=== PATIENT | male | born 1940 | race Caucasian/White ===

== ENCOUNTER 2016-10-18 14:04 | Outpatient (RCR) | payer MEDICARE, MEDICAID ==
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
[~2016-10-18 14:04] MED LIST: ACET325T38 PO; AGM875T PO; ALBU8.5H2 IH; ALLO100T PO; ALLO300T2 PO; ALLOPURINOL; ALPR0.25 PO; AMLO10TA PO; AMLO10TA2 PO; CEPH500C PO; CNC1KV IJ; COLC0.6C3 PO; CYAN10006 PO; DIGO125T PO; DIGO250T PO; DIGO250T15 PO; DILT180C PO; DILT180T PO; FERR-57 PO; FERR220S14 PO; FOLI1TAB24 PO; FOLIC ACID PO; FURO20TA4 PO; Ferrous Sulfate; Folic Acid; GABA-488 PO; GABA-490 PO; GARL1500 PO; GBPN300C PO; HUM100VI SQ; HYDR-3714 PO; HYDR-3816 PO; HYDR-757 PO; HYDR1TAB8 OP; INDO25CA PO; INDOMETHACIN; INSULIN; ISOS30TA3 PO; LISI-552 PO; LISI10TA2 PO; LISI1TAB10 PO; LISI20TA PO; LISINOPRIL; LRZ1T PO; MAGN1TAB34 PO; METO-272 PO; MPR22T TP; MULT-963 PO; NAPR-243 PO; OMEG1CAP74 PO; OMEP20CA12 PO; OMG1KC PO; PANT20TA2 PO; POTA-51 PO; POTA10CA43 PO; POTA10TA36 PO; PRD20T PO; Potassium; RIVA20TA PO; SPIR25TA PO; SPRN25T PO; SULF1TAB35 PO; SULF1TAB38 PO; [UNRECOGNIZED DRUG - CODE] SQ; [UNRECOGNIZED DRUG - CODE] SQ; gabapentin; melatonin
== END 2016-10-22 | disposition home or self-care (01) ==
LOC: WOUNDCARE 14:04
PROVIDERS: ATTEND Nurse Practitioner
DX: L97.523 Non-pressure chronic ulcer of other part of left foot with necrosis of muscle (principal); E10.621 Type 1 diabetes mellitus with foot ulcer
CPT/HCPCS: 11042; 11044; 11045; 87070; 87075; 87077; 87186; 87205; 97605

== ENCOUNTER 2016-11-23 11:08 | Emergency (ER) | payer MEDICARE, MEDICAID ==
[~2016-11-23] VITALS: Ht 182.9 cm; Wt 81.6 kg
[2016-11-23 11:08] VITALS: BP 109/49
--- OUTSIDE RECORDS SUMMARY | 2016-11-23 11:13 | XMS REPORT | Continuity of Care Document ---
Author Author [facility] Organization [facility] Address Unknown Phone Unavailable Care Team Providers Care Furniture Crater Name Role Phone NO, LOCAL PHYSICIAN PCP Unavailable Insurance Providers Payer Name Policy Number Subscriber Name Relationship s Medicare [id number] Vilma Olivarez 20 Self / Same As Patient [facility] [id number] Vilma Olivarez Self / Same As Patient Advance Directives Directive Response Recorded Date/Time Advance Directives No 08/15/16 1:34pm Health Care Power of Insurance And Financial Services Agent No 08/15/16 1:34pm Organ Donor No 08/15/16 [...] Tablet, 1 Mg Oral Daily 03/28/15 Discontinued [place]-3/Dha/Epa/Fish Oil 1,000 Mg Capsule, 1000 Mg Oral [...] Follow Up Appt.: Establish with provider at Longterm Certification (SNF) I certify that SNF services are required to be given on an inpatient basis because of the above named patient's need for jail care on a continuing basis for the conditions(s) for which he/she was receiving inpatient hospital services prior to his/her transfer to the SNF. Care Home Facility Order: Nursing Services, Municipal Court Judge-Evaluate & Treat, Physical Therapy-Evaluate & Treat, Speech [...] Referrals ISHANJVCesar Russ APRN (Unspecified) - Address: [address] [place] [address] Reason(s) for Referral: to see in outpatient [...] Updated Haloperidol Allergy Unknown Active 01/04/14 albuterol ([id number]) Allergy Unknown SHORTNESS OF BREATH Active 03/28/15 Atenolol Allergy Unknown HAS RECEIVED METOPROLOL IN THE PAST Active Immunizations Name Given Type FLU TRIvalent 5 years - Adult 08/17/16 Administered Vital Signs Acute Vital Signs Vital Response Date/Time Temperature (Fahrenheit) 98.9 degrees F (97.6 - 99.5) 08/22/2016 8:00am Temperature (Calculated Celsius) 37.41870 degrees C (36.4 - 37.5) 08/22/2016 8:00am [...] 8.00 inches 08/15/2016 1:39pm Height (Calculated Centimeters) 172.775955 cm 08/15/2016 1:39pm Weight (Pounds) 165 pounds 08/15/2016 1:39pm Weight (Ounces) 0.0 oz 08/15/2016 1:39pm Weight (Calculated Grams) 10810.74 gm 08/15/2016 1:39pm Weight (Calculated Kilograms) 74.876097 kilograms 08/15/2016 1:39pm Calculated BMI 25.1 08/15/2016 [...] 06/12/2016 1:11pm 06/16/2016 12:54pm STAPH, COAG NEG (TWO WAY RADIO INSTALLER) 06/12/2016 1:11pm 06/16/2016 12:54pm STREPTOCOCCUS VIRIDANS 06/12/2016 1:11pm 06/16/2016 12:54pm Pending Microbiology Results Procedure Source Collection Date/Time Procedures Procedure Status Date Provider(s) Tracing only of electrocardiogram Completed 08/15/16 NATALIE ROJAS MD Color Doppler echocardiography Active 08/15/16 NATALIE ROJAS MD Encounters Encounter Location Arrival/Admit Date Discharge/Depart Date Attending Provider Discharged Inpatient [facility] 08/15/16 12:29pm 2:30pm SOL FREEMAN DO Registered Clinic [facility] 08/13/16 10:23am JEREMI LAWSON MD Registered Recurring [facility] 08/09/16 1:18pm MEENA OLMSTEAD APRN Discharged Recurring [facility] 06/12/16 12:08pm 9:01am MEENA OLMSTEAD APRN Recent Diagnosis Traumatic hematoma of right lower leg with infection
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
[2016-11-23 11:23] LABS: BASOPHILS # (AUTO) 0.2 10^3/uL (0.0-0.1); BASOPHILS % (AUTO) 2 % (0-10); EOSINOPHILS # (AUTO) 0.1 10^3/uL (0.0-0.3); EOSINOPHILS % (AUTO) 1 % (0-10); LYMPHOCYTES # (AUTO) 2.1 X 10^3 (1.0-4.0); LYMPHOCYTES % (AUTO) 23 % (12-44); MEAN CORPUSCULAR HEMOGLOBIN 21 PG (25-34); MEAN CORPUSCULAR HGB CONC 28 G/DL (32-36); MEAN CORPUSCULAR VOLUME 75 FL (80-99); MEAN PLATELET VOLUME 12.4 FL (7.4-10.4); MONOCYTES # (AUTO) 2.3 X 10^3 (0.0-1.0); MONOCYTES % (AUTO) 25 % (0-12); NEUTROPHILS # (AUTO) 4.5 X 10^3 (1.8-7.8); NEUTROPHILS % (AUTO) 49 % (42-75); PLATELET COUNT 311 10^3/uL (130-400); RED BLOOD COUNT 3.19 10^6/uL (4.35-5.85); RED CELL DISTRIBUTION WIDTH 16.3 % (10.0-14.5); WHITE BLOOD COUNT 9.1 10^3/uL (4.3-11.0)
[2016-11-23 11:30] LABS: INR 3.8 (0.8-1.4); PROTHROMBIN TIME PATIENT 37.6 SEC (12.2-14.7)
[2016-11-23] MEDS ORDERED: PANTOPRAZOLE 40 MG/10 ML (PROTONIX) VIAL IV ONE (11:45)
[2016-11-23 12:13] LABS: ANISOCYTOSIS MARKED; BAND NEUTROPHILS 0 %; BASOPHILS % (MANUAL) 1 %; EOSINOPHILS % (MANUAL) 4 %; HYPOCHROMASIA MARKED; LYMPHOCYTES % (MANUAL) 22 %; NEUTROPHILS % (MANUAL) 59 %; POIKILOCYTOSIS SLIGHT; POLYCHROMASIA SLIGHT
[2016-11-23 12:14] LABS: MICROCYTOSIS MODERATE; SCHISTOCYTES SLIGHT
== END 2016-11-23 11:50 | disposition left against medical advice (07) ==
LOC: EDUNIT# 11:08 → ER 11:09
DX: K74.60 Unspecified cirrhosis of liver (principal); F10.20 Alcohol dependence, uncomplicated; D64.9 Anemia, unspecified; J44.9 Chronic obstructive pulmonary disease, unspecified; I25.10 Atherosclerotic heart disease of native coronary artery without angina pectoris; E11.9 Type 2 diabetes mellitus without complications; I48.2 Chronic atrial fibrillation; Z79.01 Long term (current) use of anticoagulants; Z79.4 Long term (current) use of insulin; Z79.899 Other long term (current) drug therapy; Z86.73 Personal history of transient ischemic attack (TIA), and cerebral infarction without residual deficits
CPT/HCPCS: 36415; 80320; 85007; 85027; 85610

== ENCOUNTER 2016-11-30 14:47 | Inpatient (IN) | payer MEDICARE, MEDICAID ==
[2016-11-30] VITALS (14 sets, daily range): BP systolic 122–178; BP diastolic 59–98
[~2016-11-30] VITALS: Ht 175.3 cm; Wt 70.4 kg
[2016-11-30] MEDS ORDERED: NS IV 500 ML 500 ML IV SCH (14:50)
[2016-11-30] MEDS ORDERED: LACTATED RINGERS 1,000 ML IV NR (15:45)
--- OUTSIDE RECORDS SUMMARY | 2016-11-30 15:49 | XMS REPORT | Continuity of Care Document ---
Author Author [facility] Organization [facility] Address Unknown Phone Unavailable Care Team Providers Care Fire Chief Deputy Name Role Phone NO, LOCAL PHYSICIAN PCP Unavailable Insurance Providers Payer Name Policy Number Subscriber Name Relationship s Medicare [id number] Vilma Olivarez 20 Self / Same As Patient [facility] [id number] Vilma Olivarez Self / Same As Patient Advance Directives Directive Response Recorded Date/Time Advance Directives No 08/15/16 1:34pm Health Care Power of Air Conditioner Installer Helper No 08/15/16 1:34pm Organ Donor No 08/15/16 [...] Tablet, 1 Mg Oral Daily 03/28/15 Discontinued [place]-3/Dha/Epa/Fish Oil 1,000 Mg Capsule, 1000 Mg Oral [...] Follow Up Appt.: Establish with provider at [facility] Certification (SNF) I certify that SNF services are required to be given on an inpatient basis because of the above named patient's need for care home care on a continuing basis for the conditions(s) for which he/she was receiving inpatient hospital services prior to his/her transfer to the SNF. Jail Facility Order: Nursing Services, Industrial Relations Specialist-Evaluate & Treat, Physical Therapy-Evaluate & Treat, Speech [...] Referrals ISHANJVCesar Russ APRN (Unspecified) - Address: [address] [place] [id number] Reason(s) for Referral: to see in outpatient [...] Updated Haloperidol Allergy Unknown Active 01/04/14 albuterol ([id number]) Allergy Unknown SHORTNESS OF BREATH Active 03/28/15 Atenolol Allergy Unknown HAS RECEIVED METOPROLOL IN THE PAST Active Immunizations Name Given Type FLU TRIvalent 5 years - Adult 08/17/16 Administered Vital Signs Acute Vital Signs Vital Response Date/Time Temperature (Fahrenheit) 98.9 degrees F (97.6 - 99.5) 08/22/2016 8:00am Temperature (Calculated Celsius) 37.62437 degrees C (36.4 - 37.5) 08/22/2016 8:00am [...] 8.00 inches 08/15/2016 1:39pm Height (Calculated Centimeters) 172.996869 cm 08/15/2016 1:39pm Weight (Pounds) 165 pounds 08/15/2016 1:39pm Weight (Ounces) 0.0 oz 08/15/2016 1:39pm Weight (Calculated Grams) 07724.74 gm 08/15/2016 1:39pm Weight (Calculated Kilograms) 74.405943 kilograms 08/15/2016 1:39pm Calculated BMI 25.1 08/15/2016 [...] 06/12/2016 1:11pm 06/16/2016 12:54pm STAPH, COAG NEG (SHOE PLANNER) 06/12/2016 1:11pm 06/16/2016 12:54pm STREPTOCOCCUS VIRIDANS 06/12/2016 1:11pm 06/16/2016 12:54pm Pending Microbiology Results Procedure Source Collection Date/Time Procedures Procedure Status Date Provider(s) Tracing only of electrocardiogram Completed 08/15/16 NATALIE ROJAS MD Color Doppler echocardiography Active 08/15/16 NATALIE ROJAS MD Encounters Encounter Location Arrival/Admit Date Discharge/Depart Date Attending Provider Discharged Inpatient [facility] 08/15/16 12:29pm 2:30pm SOL FREEMAN DO Registered Clinic [facility] 08/13/16 10:23am JEREMI LAWSON MD Registered Rec[facility]ring [facility] 08/09/16 1:18pm MEENA OLMSTEAD APRN Discharged [facility] 06/12/16 12:08pm 9:01am MEENA OLMSTEAD APRN Recent Diagnosis Traumatic hematoma of right lower leg with infection
[2016-11-30] MEDS: LACTATED RINGERS 1,000 ML IV SCH ×2 (16:00→20:26)
[2016-11-30] MEDS ORDERED: RANI150T15 PO (16:10)
[2016-11-30] MEDS ORDERED: HYDR-3816 PO (16:10)
[2016-11-30] MEDS ORDERED: LISI-552 PO (16:10)
[2016-11-30] MEDS ORDERED: AMLO10TA2 PO (16:10)
[2016-11-30] MEDS ORDERED: RIVA20TA PO (16:10)
[2016-11-30] MEDS ORDERED: ISOS30TA3 PO (16:10)
[2016-11-30] MEDS ORDERED: INSU100V5 SQ (16:10)
[2016-11-30] MEDS ORDERED: METO50TA2 PO (16:10)
[2016-11-30] MEDS ORDERED: INSA70301U SQ (16:12)
[2016-11-30 16:15] LABS: BASOPHILS # (AUTO) 0.1 10^3/uL (0.0-0.1); BASOPHILS % (AUTO) 1 % (0-10); EOSINOPHILS % (AUTO) 1 % (0-10); LYMPHOCYTES # (AUTO) 1.1 X 10^3 (1.0-4.0); LYMPHOCYTES % (AUTO) 16 % (12-44); MEAN CORPUSCULAR HEMOGLOBIN 20 PG (25-34); MEAN CORPUSCULAR HGB CONC 27 G/DL (32-36); MEAN CORPUSCULAR VOLUME 73 FL (80-99); MEAN PLATELET VOLUME 12.6 FL (7.4-10.4); MONOCYTES # (AUTO) 0.9 X 10^3 (0.0-1.0); MONOCYTES % (AUTO) 13 % (0-12); NEUTROPHILS # (AUTO) 4.8 X 10^3 (1.8-7.8); NEUTROPHILS % (AUTO) 69 % (42-75); PLATELET COUNT 205 10^3/uL (130-400); RED BLOOD COUNT 3.08 10^6/uL (4.35-5.85); WHITE BLOOD COUNT 6.9 10^3/uL (4.3-11.0)
[2016-11-30 16:31] LABS: INR 2.5 (0.8-1.4); PROTHROMBIN TIME PATIENT 26.5 SEC (12.2-14.7)
[2016-11-30 16:41] LABS: ALANINE AMINOTRANSFERASE 12 U/L (0-55); ALBUMIN 3.3 G/DL (3.2-4.5); ANION GAP 8 MMOL/L (5-14); ASPARTATE AMINO TRANSFERASE 21 U/L (5-34); BILIRUBIN,TOTAL 0.5 MG/DL (0.1-1.0); BLOOD UREA NITROGEN 12 MG/DL (7-18); BUN/CREATININE RATIO 14; CALCIUM 8.6 MG/DL (8.5-10.1); CARBON DIOXIDE 28 MMOL/L (21-32); CHLORIDE 98 MMOL/L (98-107); CREATININE SERUM 0.87 MG/DL (0.60-1.30); GFR ESTIMATED > 60; GLUCOSE 166 MG/DL (70-105); SODIUM 134 MMOL/L (135-145); TOTAL PROTEIN 7.3 G/DL (6.4-8.2)
[2016-11-30] MEDS ORDERED: CATHETER FLUSH 10 ML SYR IV PRN (18:15)
[2016-11-30] MEDS ORDERED: ACETAMINOPHEN 325 MG TABLET/CAPLET (TYLENOL) PO PRN (18:15)
[2016-11-30] MEDS: HYDROcodone/APAP 7.5 MG/325 MG (LORTAB, LORCET PLUS) TABLET PO PRN (20:26)
[2016-11-30] MEDS: FAMOTIDINE 20 MG (PEPCID) TABLET PO SCH (20:26)
[2016-11-30] MEDS ORDERED: ONDANSETRON 4 MG/2 ML (SDV) Z0FRAN IVP PRN ×2 (21:15→21:52)
[2016-11-30] MEDS ORDERED: CALCIUM CARBONATE 500 MG (TUMS) TAB.CHEW PO PRN (21:15)
[2016-11-30 21:55] LABS: BILIRUBIN,URINE NEGATIVE (NEGATIVE); KETONES,URINE NEGATIVE (NEGATIVE); LEUKOCYTE ESTERASE ,URINE NEGATIVE (NEGATIVE); NITRITE,URINE NEGATIVE (NEGATIVE); PH,URINE 8 (5-9); PROTEIN,URINE NEGATIVE (NEGATIVE); UROBILINOGEN,URINE NORMAL (NORMAL)
[2016-11-30 22:04] LABS: WBC,URINE RARE /HPF
[2016-12-01] VITALS (14 sets, daily range): BP systolic 124–168; BP diastolic 51–95
[2016-12-01] MEDS: LACTATED RINGERS 1,000 ML IV SCH ×3 (01:39→20:26)
[2016-12-01] MEDS ORDERED: NS IV 500 ML 500 ML IV ONE (01:45)
[2016-12-01 02:34] LABS: BASOPHILS % (AUTO) 1 % (0-10); EOSINOPHILS # (AUTO) 0.1 10^3/uL (0.0-0.3); EOSINOPHILS % (AUTO) 1 % (0-10); LYMPHOCYTES # (AUTO) 1.2 X 10^3 (1.0-4.0); LYMPHOCYTES % (AUTO) 21 % (12-44); MEAN CORPUSCULAR HEMOGLOBIN 22 PG (25-34); MEAN CORPUSCULAR HGB CONC 29 G/DL (32-36); MEAN CORPUSCULAR VOLUME 75 FL (80-99); MEAN PLATELET VOLUME 12.3 FL (7.4-10.4); MONOCYTES % (AUTO) 17 % (0-12); NEUTROPHILS # (AUTO) 3.4 X 10^3 (1.8-7.8); NEUTROPHILS % (AUTO) 60 % (42-75); PLATELET COUNT 163 10^3/uL (130-400); RED BLOOD COUNT 3.56 10^6/uL (4.35-5.85); RED CELL DISTRIBUTION WIDTH 16.5 % (10.0-14.5); WHITE BLOOD COUNT 5.6 10^3/uL (4.3-11.0)
[2016-12-01] MEDS: HYDROcodone/APAP 7.5 MG/325 MG (LORTAB, LORCET PLUS) TABLET PO PRN ×3 (02:45→20:25)
[2016-12-01 02:46] LABS: ALANINE AMINOTRANSFERASE 14 U/L (0-55); ANION GAP 7 MMOL/L (5-14); ASPARTATE AMINO TRANSFERASE 21 U/L (5-34); BILIRUBIN,TOTAL 0.7 MG/DL (0.1-1.0); BLOOD UREA NITROGEN 16 MG/DL (7-18); BUN/CREATININE RATIO 20; CALCIUM 8.2 MG/DL (8.5-10.1); CARBON DIOXIDE 25 MMOL/L (21-32); CHLORIDE 100 MMOL/L (98-107); CREATININE SERUM 0.82 MG/DL (0.60-1.30); GFR ESTIMATED > 60; GLUCOSE 269 MG/DL (70-105); MAGNESIUM 1.9 MG/DL (1.8-2.4); PHOSPHORUS 3.6 MG/DL (2.3-4.7); SODIUM 132 MMOL/L (135-145); TOTAL PROTEIN 6.7 G/DL (6.4-8.2)
--- NOTE | 2016-12-01 05:38 | History & Physicial (CHS) ---
HPI History of Present Illness: 76-year-old male admitted to the intensive care unit during the afternoon of November 21 after noting severe anemia. He does relate to me that he apparently had passed out within 24 hours of presentation to [facility] during the afternoon of December 07. He does go to the in [place] normally. He reports that's where he gets his medications. He has not had a colonoscopy and he does not desire to have one. He reports he's had the card performed and it's always been negative. He does report recently he was started on Eliquis but he does not know why. Source: patient Exam Limitations: clinical condition Attending Physician Belinda Loya MD PCP Gracie,[facility] Date of Admission Nov 30, 2016 at 15:30 Home Medications Home Medications Reviewed patient Home Medication Reconciliation Form Allergies Coded Allergies: albuterol (Verified Allergy, Unknown, SHORTNESS OF BREATH, 03/28/15) atenolol (Verified Allergy, Unknown, HAS RECEIVED METOPROLOL IN THE PAST, 08/20/16) haloperidol (Verified Allergy, Unknown, 01/04/14) INW-Qleluf-Azbqmi Hx Patient Social History Alcohol Use: Regular Use Recreational Drug Use: No Former smoker/When Quit: Nov 01, 1981 Recent Foreign Travel: No Contact w/other who traveled: No Recent Hopitalizations: No Recent Infectious Disease Expo: No Physical Abuse Screen: No Sexual Abuse: No Immunizations Up To Date Tetanus Booster (TDap): Unknown Date of Pneumonia Vaccine: February 18, 2015 Date of Influenza Vaccine: Sep 06, 2016 Family Medical History Significant Family History: No Pertinent Family Hx, Diabetes Family History: Diabetes mellitus GRANDMOTHER Thyroid disease 19 MOTHER No Family History of: AIDS Abdominal aortic aneurysm Ochiltree's disease Alcoholism Alzheimer's disease Aphasia Arthritis Asthma Cancer of mouth Cardiovascular disease Cataracts Colon cancer Completed stroke Congenital disease Congenital heart disease Coronary thrombosis Cystic fibrosis Deafness or hearing loss Dementia Drug abuse Dysphasia Fibrocystic disease of breast Gastroenteritis Glaucoma Headache disorder Hypercholesterolemia Hypertension Infertility Kidney disease Myocardial infarction Neoplasm Osteoporosis Parkinson's disease Prostate cancer Psychosocial problem Respiratory disorder Seizure disorder Severe allergy Tuberculosis Visual disorder Review of Systems (CHC) Constitutional: see HPI Reviewed Test Results Reviewed Test Results Lab Laboratory Tests Test 11/30/16 16:01 11/30/16 16:09 11/30/16 18:13 2/10/17 20:24 Range/Units Serum Alcohol 12 H <10 MG/DL Activated Partial Thromboplast Time 42 H 24-35 SEC Alanine Aminotransferase (ALT/SGPT) 12 0-55 U/L Albumin 3.3 3.2-4.5 G/DL Alkaline Phosphatase 113 40-136 U/L Anion Gap 8 5-14 MMOL/L Aspartate Amino Transf (AST/SGOT) 21 5-34 U/L BUN/Creatinine Ratio 14 Basophils # (Auto) 0.1 0.0-0.1 10^3/uL Basophils (%) (Auto) 1 0-10 % Blood Urea Nitrogen 12 7-18 MG/DL Calcium Level 8.6 8.5-10.1 MG/DL Carbon Dioxide Level 28 21-32 MMOL/L Chloride Level 98 98-107 MMOL/L Creatinine 0.87 0.60-1.30 MG/DL Eosinophils # (Auto) 0.0 0.0-0.3 10^3/uL Eosinophils (%) (Auto) 1 0-10 % Estimat Glomerular Filtration Rate > 60 Glucose Level 166 H 70-105 MG/DL Hematocrit 23 L 40-54 % Hemoglobin 6.2 *L 13.3-17.7 G/DL INR Comment 2.5 H 0.8-1.4 Lymphocytes # (Auto) 1.1 1.0-4.0 X 10^3 Lymphocytes (%) (Auto) 16 12-44 % Mean Corpuscular Hemoglobin 20 L 25-34 PG Mean Corpuscular Hemoglobin Concent 27 L 32-36 G/DL Mean Corpuscular Volume 73 L 80-99 FL Mean Platelet Volume 12.6 H 7.4-10.4 FL Monocytes # (Auto) 0.9 0.0-1.0 X 10^3 Monocytes (%) (Auto) 13 H 0-12 % Neutrophils # (Auto) 4.8 1.8-7.8 X 10^3 Neutrophils (%) (Auto) 69 42-75 % Platelet Count 205 130-400 10^3/uL Potassium Level 4.0 3.6-5.0 MMOL/L Prothrombin Time 26.5 H 12.2-14.7 SEC Red Blood Count 3.08 L 4.35-5.85 10^6/uL Red Cell Distribution Width 16.0 H 10.0-14.5 % Sodium Level 134 L 135-145 MMOL/L Total Bilirubin 0.5 0.1-1.0 MG/DL Total Protein 7.3 6.4-8.2 G/DL White Blood Count 6.9 4.3-11.0 10^3/uL Glucometer 157 H 261 H 70-110 MG/DL Physical Exam-(CHC) Physical Exam Vital Signs VS - Last 72 Hours, by Label 11/30/16 11/30/16 11/30/16 11/30/16 15:45 16:00 16:00 16:45 Temp 99.1 Pulse 78 82 Resp 16 14 B/P 132/59 122/63 147/83 Pulse Ox 97 O2 Delivery Room Air 11/30/16 11/30/16 11/30/16 11/30/16 17:45 18:00 18:17 18:32 Temp 99.1 99.5 Pulse 92 90 98 91 Resp 24 18 18 B/P 166/77 178/93 178/93 154/69 Pulse Ox 97 11/30/16 11/30/16 11/30/16 11/30/16 18:38 19:00 19:00 19:53 Pulse 91 92 B/P 151/73 Pulse Ox 97 97 97 O2 Delivery Room Air 11/30/16 11/30/16 11/30/16 11/30/16 20:00 20:00 20:20 21:00 Temp 99.9 99.9 Pulse 99 99 98 Resp 20 20 B/P 151/73 165/74 Pulse Ox 97 97 99 95 O2 Delivery Room Air Room Air 11/30/16 11/30/16 11/30/16 11/30/16 22:00 22:38 22:53 23:00 Temp 99.0 99.7 Pulse 93 91 87 88 Resp 20 20 B/P 131/67 159/98 131/67 169/80 Pulse Ox 100 98 99 96 O2 Delivery Room Air Room Air 12/01/16 12/01/16 12/01/16 12/01/16 00:00 00:00 00:38 01:00 Temp 98.0 98.2 Pulse 83 87 89 Resp 20 20 B/P 127/75 155/73 Pulse Ox 99 97 96 O2 Delivery Room Air 12/01/16 12/01/16 12/01/16 12/01/16 01:00 02:00 03:00 04:00 Pulse 85 80 79 Resp 17 13 14 B/P 151/71 152/84 168/95 Pulse Ox 98 96 95 98 O2 Delivery Room Air Room Air Room Air 12/01/16 12/01/16 12/01/16 04:00 05:00 06:00 Pulse 76 87 64 Resp 13 15 16 B/P 161/82 160/92 144/90 Pulse Ox 95 94 94 O2 Delivery Room Air Room Air Room Air Capillary Refill : General Appearance: no apparent distress Eyes: Bilateral Eye Normal Inspection Neck: non-tender full range of motion Respiratory: lungs clear Cardiovascular: normal peripheral pulses regular rate, rhythm no gallop Gastrointestinal: soft Rectal: deferred Skin: normal color Assessment/Plan Assessment/Plan Admission Dx 1. Severe anemiasuspicious for chronic disease 2. Hypertension history of 3 Diabetes mellitus history of Plan 1. Severe anemiasuspicious for chronic disease -patient will receive 2 units of pack -continue to monitor his CBC -He is currently in the ICU 2. Hypertension history of -His blood pressure medications will be held for now due to the anemia 3 Diabetes mellitus history of -patient will maintain insulin at 20u twice daily with meals Diagnosis/Problems: Clinical Quality Measures DVT/VTE Risk/Contraindication: Risk Factor Score Per Nursin RFS Level Per Nursing on Admit: 2=Moderate BELINDA LOYA MD Dec 01, 2016 05:38
[2016-12-01] MEDS: inSUlin Protamine/ASPart 70/30 1 UNIT/0.01 ML DOSE SQ SCH ×2 (07:03→16:32)
[2016-12-01] MEDS: FAMOTIDINE 20 MG (PEPCID) TABLET PO SCH ×2 (08:38→20:24)
[2016-12-01] MEDS: KCL 20 MEQ TAB (K-DUR) PO SCH (08:38)
[2016-12-01] MEDS: meTOprolol TARTRATE 50 MG (LOPRESSOR) TAB PO SCH (08:38)
[2016-12-01] MEDS: amLODIPine 10 MG (NORVASC) TAB PO SCH (08:38)
[2016-12-01] MEDS: ALLOPURINOL 300 MG (ZYLOPRIM) TAB PO SCH (08:38)
[2016-12-01] MEDS: GABAPENTIN 400 MG (NEURONTIN) CAP PO SCH ×5 (08:38→20:25)
[2016-12-01] MEDS: lisINopril 20 MG (ZESTRIL) TAB PO SCH (08:38)
[2016-12-01] MEDS: FOLIC ACID 1 MG TAB PO SCH (08:38)
[2016-12-01] MEDS: CALCIUM CARBONATE 500 MG (TUMS) TAB.CHEW PO PRN ×2 (08:46→14:43)
--- NOTE | 2016-12-01 10:14 | Diagnostic Imaging Report ---
Portable erect AP chest at 05:30 a.m. INDICATION: Chest pain, respiratory distress. FINDINGS: The heart size is at the upper limits of normal but stable when compared to 09/14/2016. The lungs remain clear. There is no sign of failure, pneumonia, or pleural effusion. The mediastinum is not widened. The osseous structures are intact. The right-sided PICC line seen on the prior exam has been removed. External cardiac monitoring electrodes are now evident. IMPRESSION: There is no evidence for an acute cardiopulmonary abnormality. Dictated by: Dictated on workstation # [id number]
[2016-12-02] VITALS: BP 171/76
[2016-12-02 04:00] VITALS: BP 187/84
[2016-12-02 04:39] LABS: BASOPHILS % (AUTO) 1 % (0-10); EOSINOPHILS # (AUTO) 0.2 10^3/uL (0.0-0.3); EOSINOPHILS % (AUTO) 4 % (0-10); LYMPHOCYTES # (AUTO) 1.1 X 10^3 (1.0-4.0); LYMPHOCYTES % (AUTO) 21 % (12-44); MEAN CORPUSCULAR HEMOGLOBIN 21 PG (25-34); MEAN CORPUSCULAR HGB CONC 29 G/DL (32-36); MEAN CORPUSCULAR VOLUME 74 FL (80-99); MONOCYTES # (AUTO) 0.7 X 10^3 (0.0-1.0); MONOCYTES % (AUTO) 12 % (0-12); NEUTROPHILS # (AUTO) 3.2 X 10^3 (1.8-7.8); NEUTROPHILS % (AUTO) 62 % (42-75); PLATELET COUNT 177 10^3/uL (130-400); RED CELL DISTRIBUTION WIDTH 16.6 % (10.0-14.5); WHITE BLOOD COUNT 5.2 10^3/uL (4.3-11.0)
[2016-12-02 04:55] LABS: ANION GAP 10 MMOL/L (5-14); BLOOD UREA NITROGEN 17 MG/DL (7-18); BUN/CREATININE RATIO 24; CALCIUM 8.4 MG/DL (8.5-10.1); CARBON DIOXIDE 23 MMOL/L (21-32); CHLORIDE 105 MMOL/L (98-107); CREATININE SERUM 0.71 MG/DL (0.60-1.30); GFR ESTIMATED > 60; GLUCOSE 88 MG/DL (70-105); MAGNESIUM 1.7 MG/DL (1.8-2.4); PHOSPHORUS 3.9 MG/DL (2.3-4.7); POTASSIUM 3.6 MMOL/L (3.6-5.0); SODIUM 138 MMOL/L (135-145)
[2016-12-02] MEDS: KCL 20 MEQ TAB (K-DUR) PO SCH (05:53)
[2016-12-02] MEDS: inSUlin Protamine/ASPart 70/30 1 UNIT/0.01 ML DOSE SQ SCH (06:36)
[2016-12-02] MEDS: LACTATED RINGERS 1,000 ML IV SCH (07:45)
[2016-12-02 08:00] VITALS: BP 147/67
[2016-12-02] MEDS: FOLIC ACID 1 MG TAB PO SCH (08:17)
[2016-12-02] MEDS: lisINopril 20 MG (ZESTRIL) TAB PO SCH (08:17)
[2016-12-02] MEDS: GABAPENTIN 400 MG (NEURONTIN) CAP PO SCH (08:17)
[2016-12-02] MEDS: ALLOPURINOL 300 MG (ZYLOPRIM) TAB PO SCH (08:17)
[2016-12-02] MEDS: FAMOTIDINE 20 MG (PEPCID) TABLET PO SCH (08:17)
[2016-12-02] MEDS: amLODIPine 10 MG (NORVASC) TAB PO SCH (08:17)
[2016-12-02] MEDS: meTOprolol TARTRATE 50 MG (LOPRESSOR) TAB PO SCH (08:17)
--- NOTE | 2016-12-02 08:25 | Discharge Inst-Simple/Standard ---
Discharge Inst-Standard Discharge Medications New, Converted or Re-Newed RX: Other (continue home meds) Patient Instructions/Follow Up Plan of Care/Instructions/FU: Follow up with your doctor within the week for CBC Activity as Tolerated: Yes Discharge Diet: ADA Diet Return to The Hospital For: extreme dizziness BELINDA LOYA MD Dec 02, 2016 08:25
--- NOTE | 2016-12-02 08:26 | Discharge Summary ---
Diagnosis/Chief Complaint Date of Admission Nov 30, 2016 at 15:30 Date of Discharge Admission Diagnosis Admission Diagnosis 1. Severe anemiasuspicious for chronic disease 2. Hypertension history of 3 Diabetes mellitus history of Discharge Diagnosis 1. Severe anemiasuspicious for chronic disease -patient will receive 2 units of pack -continue to monitor his CBC -He was initially in ICU and moved to the [facility] on December 01 -12/02 stable hemoglobin at 7.7 2. Hypertension history of -His blood pressure medications will be held for now due to the anemia 3 Diabetes mellitus history of -patient will maintain insulin at 20u twice daily with meals Chief Complaint/HPI Chief Complaint/HPI 76-year-old male admitted to the intensive care unit during the afternoon of November 21 after noting severe anemia. He does relate to me that he apparently had passed out within 24 hours of presentation to [facility] during the afternoon of December 07. He does go to the [facility] in [place] normally. He reports that's where he gets his medications. He has not had a colonoscopy and he does not desire to have one. He reports he's had the card performed and it's always been negative. He does report recently he was started on Eliquis but he does not know why. Discharge Summary-Simple/Stand Consultations Discharge Physical Examination Allergies: Coded Allergies: albuterol (Verified Allergy, Unknown, SHORTNESS OF BREATH, 03/28/15) atenolol (Verified Allergy, Unknown, HAS RECEIVED METOPROLOL IN THE PAST, 08/20/16) haloperidol (Verified Allergy, Unknown, 01/04/14) Vitals & I&Os Vital Sign - Last 12Hours Date Time Temp Pulse Resp B/P Pulse Ox O2 Delivery O2 Flow Rate FiO2 12/02/16 04:00 96.4 77 16 187/84 95 Room Air Intake and Output 12/02/16 00:00 Intake Total 1580 ml Balance 1580 ml General Appearance: No Acute Distress HEENT: Mucous Memb Moist/[place] Respiratory: Clear to Auscultation Cardiovascular: Regular Rate Abdominal: Soft Extremities: No Edema Skin: No Rashes Hospital Course See final discharge diagnosis. Discharge Instructions to patient/family Please see electonic discharge instructions given to patient. Discharge Medications Reviewed and agree with Discharge Medication list on patient's Discharge Instruction sheet Clinical Quality Measures DVT/VTE Risk/Contraindication: Risk Factor Score Per Nursin RFS Level Per Nursing on Admit: 2=Moderate BELINDA LOYA MD Dec 02, 2016 08:26
== END 2016-12-02 10:05 | disposition home or self-care (01) | DRG 812 ==
LOC: ICU 15:30 → 4TH 12-01 10:12
PROVIDERS: ADMIT Internal Medicine; ATTEND Family Medicine
DX: D64.9 Anemia, unspecified (principal); I10 Essential (primary) hypertension; E11.9 Type 2 diabetes mellitus without complications; Z79.4 Long term (current) use of insulin
CPT/HCPCS: 36415; 71010; 80048; 80053; 80320; 81000; 82274; 82962; 83735; 84100; 85014; 85018; 85025; 85610; 85730; 86850; 86900; 86901; 86920

== ENCOUNTER → 2016-12-13 | Outpatient (CLI) | payer MEDICARE, MEDICAID ==
[~2016-12-13] VITALS: Ht 175.3 cm; Wt 70.4 kg
[~2016-12-13] MED LIST changes: +INSA70301U SQ; +INSU100V5 SQ; +LIDOCAINE 1% INJ 20 ML (XYLOCAINE) VIAL INJ ONE; +METO50TA2 PO; +RANI150T15 PO; +cefTRIAXone 1 GM (ROCEPHIN) VIAL IM ONE
--- OUTSIDE RECORDS SUMMARY | 2016-12-13 14:31 | XMS REPORT | Continuity of Care Document ---
Author Author [facility] Organization [facility] Address Unknown Phone Unavailable Care Team Providers Care Ground Defence Officer Name Role Phone NO, LOCAL PHYSICIAN PCP Unavailable Insurance Providers Payer Name Policy Number Subscriber Name Relationship s Medicare [id number] Vilma Olivarez 20 Self / Same As Patient [facility] [id number] Vilma Olivarez Self / Same As Patient Advance Directives Directive Response Recorded Date/Time Advance Directives No 08/15/16 1:34pm Health Care Power of Glass Block Installer No 08/15/16 1:34pm Organ Donor No 08/15/16 [...] Tablet, 1 Mg Oral Daily 03/28/15 Discontinued Chaseley-3/Dha/Epa/Fish Oil 1,000 Mg Capsule, 1000 Mg Oral [...] Follow Up Appt.: Establish with provider at [facility] (SNF) I certify that SNF services are required to be given on an inpatient basis because of the above named patient's need for fdc care on a continuing basis for the conditions(s) for which he/she was receiving inpatient hospital services prior to his/her transfer to the SNF. [facility] Facility Order: Nursing Services, Supervisory Clerk-Evaluate & Treat, Physical Therapy-Evaluate & Treat, Speech [...] Referrals ISHANJVCesar Russ APRN (Unspecified) - Address: [address] [place] [address] Reason(s) for Referral: to see in outpatient [...] Updated Haloperidol Allergy Unknown Active 01/04/14 albuterol ([id number]) Allergy Unknown SHORTNESS OF BREATH Active 03/28/15 Atenolol Allergy Unknown HAS RECEIVED METOPROLOL IN THE PAST Active Immunizations Name Given Type FLU TRIvalent 5 years - Adult 08/17/16 Administered Vital Signs Acute Vital Signs Vital Response Date/Time Temperature (Fahrenheit) 98.9 degrees F (97.6 - 99.5) 08/22/2016 8:00am Temperature (Calculated Celsius) 37.02744 degrees C (36.4 - 37.5) 08/22/2016 8:00am [...] 8.00 inches 08/15/2016 1:39pm Height (Calculated Centimeters) 172.321922 cm 08/15/2016 1:39pm Weight (Pounds) 165 pounds 08/15/2016 1:39pm Weight (Ounces) 0.0 oz 08/15/2016 1:39pm Weight (Calculated Grams) 34595.74 gm 08/15/2016 1:39pm Weight (Calculated Kilograms) 74.936857 kilograms 08/15/2016 1:39pm Calculated BMI 25.1 08/15/2016 [...] 06/12/2016 1:11pm 06/16/2016 12:54pm STAPH, COAG NEG (ROLL ON WORKER) 06/12/2016 1:11pm 06/16/2016 12:54pm STREPTOCOCCUS VIRIDANS 06/12/2016 1:11pm 06/16/2016 12:54pm Pending Microbiology Results Procedure Source Collection Date/Time Procedures Procedure Status Date Provider(s) Tracing only of electrocardiogram Completed 08/15/16 NATALIE ROJAS MD Color Doppler echocardiography Active 08/15/16 NATALIE ROJAS MD Encounters Encounter Location Arrival/Admit Date Discharge/Depart Date Attending Provider Discharged Inpatient [facility] 08/15/16 12:29pm 2:30pm SOL FREEMAN DO Registered Clinic [facility] 08/13/16 10:23am JEREMI LAWSON MD Registered Recurring [facility] 08/09/16 1:18pm MEENA OLMSTEAD APRN Discharged Recurring [facility] 06/12/16 12:08pm 9:01am MEENA OLMSTEAD APRN Recent Diagnosis Traumatic hematoma of right lower leg with infection
[2016-12-13 15:02] LABS: ANION GAP 6 MMOL/L (5-14); BLOOD UREA NITROGEN 10 MG/DL (7-18); BUN/CREATININE RATIO 11; CALCIUM 9.2 MG/DL (8.5-10.1); CARBON DIOXIDE 25 MMOL/L (21-32); CHLORIDE 103 MMOL/L (98-107); CREATININE SERUM 0.89 MG/DL (0.60-1.30); GFR ESTIMATED > 60; GLUCOSE 341 MG/DL (70-105); POTASSIUM 4.6 MMOL/L (3.6-5.0); SODIUM 134 MMOL/L (135-145)
[2016-12-13 15:09] VITALS: BP 157/74
== END ==
LOC: LAB 14:23
PROVIDERS: ATTEND Nurse Practitioner
DX: E11.621 Type 2 diabetes mellitus with foot ulcer (principal); L97.512 Non-pressure chronic ulcer of other part of right foot with fat layer exposed; E11.42 Type 2 diabetes mellitus with diabetic polyneuropathy
CPT/HCPCS: 36415; 80048; 96365; 96372

== ENCOUNTER 2017-01-10 13:13 | Outpatient (RCR) | payer MEDICARE, MEDICAID ==
--- OUTSIDE RECORDS SUMMARY | 2016-11-01 13:14 | XMS REPORT | Continuity of Care Document ---
Author Author [facility] Organization [facility] Address Unknown Phone Unavailable Care Team Providers Care Export Freight Manager Name Role Phone NO, LOCAL PHYSICIAN PCP Unavailable Insurance Providers Payer Name Policy Number Subscriber Name Relationship s Medicare [id number] Vilma Olivarez 20 Self / Same As Patient [facility] [id number] Vilma Olivarez Self / Same As Patient Advance Directives Directive Response Recorded Date/Time Advance Directives No 08/15/16 1:34pm Health Care Power of Back Tender Paper Machine No 08/15/16 1:34pm Organ Donor No 08/15/16 1:34pm Resuscitation Status Full Code 08/15/16 1:34pm Chief Complaint and Reason for Visit Chief Complaint NECROTIC ULCER L FOOT W/OSTEOMYELITIS NONCOMPLIANC Reason for Visit Traumatic hematoma of right lower leg with infection Problems Active Problems Medical Problem Onset Date [...] Acute Myalgia Unknown Acute Non-compliance Unknown Acute Noncompliance Unknown Acute Pneumonia Unknown Acute RECENT SPLEEN [...] Date Insuln Asp Prt/Insulin Aspart 10 Ml 10-25 Units Sub-Q Twice A Day With Meals 11/17/14 Folic Acid 1 Mg 1 Mg Oral Daily 11/02/15 Allopurinol 300 Mg 300 Mg Oral Daily 08/15/16 Cyanocobalamin 1,000 Mcg/Ml 1,000 Mcg Injection Monthly 08/15/16 Gabapentin 400 Mg 400 Mg Oral Four Times Daily 08/15/16 Potassium Chloride 20 Meq 20 Meq Oral Daily 08/15/16 Furosemide 20 Mg 20 Mg Oral Daily 08/15/16 Magnesium Carbonate/Al Hydrox 1 Each 500 Mg Oral As Needed as needed for Heartburn 08/15/16 Acetaminophen 325 Mg 325 Mg Oral Every 4HRS as needed for Pain 08/15 Hydrocodone/Acetaminophen 1 Each 1 Tab Oral Four Times Daily as needed for Pain 90 08/22/16 Isosorbide Mononitrate (Imdur) 30 Mg 30 Mg Oral Daily 30 Days 08/22/16 Metoprolol Succinate 50 Mg 50 Mg Oral Daily 30 Days 08/22/16 Amlodipine Besylate 10 Mg 10 Mg Oral Daily 30 Days 08/22/16 Lisinopril 20 Mg 20 Mg Oral Daily 30 Days 08/22/16 Rivaroxaban 20 Mg 20 Mg Oral Daily@1700 90 Days 08/22/16 Past Home Medications Medication Directions Ordered Status [...] A Day as needed for Pain Discontinued Gabapentin 300 Mg Capsule, 300 Mg Oral Four Times Daily as needed for Pain Discontinued Hydrocodone Bit/Acetaminophen [...] Tablet, Unknown Dose Oral Daily 03/27/15 Discontinued Lisinopril 10 Mg Tablet, 5 Mg Oral Daily 03/28/15 Discontinued Digoxin (Lanoxin) 125 Mcg Tablet, 125 Mcg Oral Daily 03/28/15 Discontinued Cyanocobalamin 1,000 Mcg Tablet, 1000 Mcg Oral Daily 03/28/15 Discontinued Potassium Chloride 10 Meq Tab.prt.sr, 10 Meq Oral Daily 03/28/15 Discontinued Folic Acid 1 Mg Tablet, 1 Mg Oral Daily 03/28/15 Discontinued [place]-3/Dha/Epa/Fish Oil 1,000 Mg Capsule, 1000 Mg Oral Daily 03/28/15 Discontinued Spironolactone 25 Mg Tablet, 25 Mg Oral Twice A Day as needed for Swelling Discontinued Ferrous Sulfate 220 Mg/5 Ml Solution, 220 Mg Oral Three Times A Day 06/29/15 Discontinued Prednisone 20 Mg Tab, 20 Mg Oral Twice A Day 08/03/15 Discontinued Colchicine 0.6 Mg Capsule, 0.6 Mg Oral Every 4HRS as needed for Pain Discontinued [Allopurinol] , 11/02/15 Discontinued [Indomethacin] , 11/02/15 Discontinued Allopurinol 100 Mg Tablet, 200 Mg Oral Daily 11/02/15 Discontinued Indomethacin 25 Mg Capsule, 25 Mg Oral Three Times A Day as needed for Pain Or Inflammation 11/02/15 Discontinued Digoxin 125 Mcg Tablet, 125 Mcg Oral Daily 11/02/15 Discontinued Hydrocodone/Acetaminophen 1 Each Tablet, 1 Each Oral Four Times Daily Discontinued Alprazolam 0.25 Mg Tablet, 0.25 Mg Oral Twice A Day 11/16/15 Discontinued Hydrocodone/Acetaminophen 1 Each Tablet, 1 Tab Oral Twice A Day as needed for Pain 08/15/16 Discontinued Social History Social History Problem Response Recorded Date/Time Alcohol Use Regular Use 12/13/2015 8:26pm Recreational Drug Use Y MARIJUANA, USED "SPEED" IN THE [employer] 11/22/2015 12: 55am Recent Foreign Travel No 05/19/2014 8:20am Recent Infectious Disease Exposure No 01/01/2014 10:50am Hospitalization with Isolation Denies 08/22/2016 3:02pm Sexually Transmitted Disease No 08/15/2016 1:35pm HIV/AIDS No 08/15/2016 1:35pm Smoking Status Former Smoker 08/15/2016 1:39pm Do you dip or chew tobacco? 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 Custodial Facility Order: Nursing Services, Tyre Builder-Evaluate & Treat, Physical Therapy-Evaluate & Treat, Speech Language-Evaluate & Treat, Wound Care-Eval/Treat Discharge Diet: Low Sodium Diet, ADA Diet Daily Activity as Tolerated: Yes Sol Freeman Aug 22, 2016 09:51 Care Plan Goal:: Strengthen to return home Patient Problems: Left toe amputation with wound vacETOH-ism s/p withdrawal and now resolvedChronic pain on HydrocodoneCADDM Plan of Care Discharge Date 08/22/16 2:30pm Disposition 03 XFER SNF Instructions/Education Provided Amputation of the Foot or Toe (DC) Forms Provided PDI Surgical Prescriptions See Medication Section Referrals ISHANJVCesar Russ APRN (Unspecified) - Address: [address] [place] [address] Reason(s) for Referral: to see in outpatient wound care clinic Care Plan and Goals See Discharge Instructions Section Functional Status Query Response Date Recorded Patient Orientation Person Place Time Situation August 20, 2016 12:23pm Patient Orientation Person Place Time Situation August 22, 2016 3:02pm Comprehension Ability Understands Concepts August 21, 2016 7:50pm Allergies, Adverse Reactions, Alerts Allergen Type Severity Reaction Status Last Updated Haloperidol Allergy Unknown Active 01/04/14 albuterol ([id number]) Allergy Unknown SHORTNESS OF BREATH Active 03/28/15 Atenolol Allergy Unknown HAS RECEIVED METOPROLOL IN THE PAST Active Immunizations Name Given Type FLU TRIvalent 5 years - Adult 08/17/16 Administered Vital Signs Acute Vital Signs Vital Response Date/Time Temperature (Fahrenheit) 98.9 degrees F (97.6 - 99.5) 08/22/2016 8:00am Temperature (Calculated Celsius) 37.08548 degrees C (36.4 - 37.5) 08/22/2016 8:00am Temperature Source Tympanic 08/22/2016 8:00am Pulse Rate (adult) 75 bpm (60 - 90) 08/22/2016 8:00am Respiratory Rate 20 bpm (12 - 24) 08/22/2016 8:00am O2 Sat by Pulse Oximetry 98 % (88 - 100) 08/22/2016 8:00am Blood Pressure 165/73 mm Hg 08/22/2016 8:00am Blood Pressure Mean 103 mm Hg 08/22/2016 8:00am Pain Numeric Pain Scale 0-No Pain 08/22/2016 2:30pm Height (Feet) 5 feet 08/15/2016 1:39pm Height (Inches) 8.00 inches 08/15/2016 1:39pm Height (Calculated Centimeters) 172.594776 cm 08/15/2016 1:39pm Weight (Pounds) 165 pounds 08/15/2016 1:39pm Weight (Ounces) 0.0 oz 08/15/2016 1:39pm Weight (Calculated Grams) 83533.74 gm 08/15/2016 1:39pm Weight (Calculated Kilograms) 74.908978 kilograms 08/15/2016 1:39pm Calculated BMI 25.1 08/15/2016 1:39pm Capillary Refill Capillary Refill Greater Than 3 Seconds 08/21/2016 7:50pm Results Pending Laboratory Results Test Name Collection Date/Time Microbiology Results Procedure Source Result Collection Date/Time Result Date/Time Anaerobic Culture Tissue, Foot, Left No anaerobes isolated 06/12/2016 1: 11pm 06/14/2016 12:39pm Wound Culture Tissue, Foot, Left CORYNEBACTERIUM SPECIES 06/12/2016 1:11pm 06/16/2016 12:54pm PROTEUS VULGARIS 06/12/2016 1:11pm 06/16/2016 12:54pm STAPH, COAG NEG (DIRECTOR INVESTMENT BANKING) 06/12/2016 1:11pm 06/16/2016 12:54pm STREPTOCOCCUS VIRIDANS 06/12/2016 1:11pm 06/16/2016 12:54pm Pending Microbiology Results Procedure Source Collection Date/Time Procedures Procedure Status Date Provider(s) Tracing only of electrocardiogram Completed 08/15/16 NATALIE ROJAS MD Color Doppler echocardiography Active 08/15/16 NATALIE ROJAS MD Encounters Encounter Location Arrival/Admit Date Discharge/Depart Date Attending Provider Discharged Inpatient [facility] 08/15/16 12:29pm 2:30pm SOL FREEMAN DO Registered Clinic [facility] 08/13/16 10:23am JEREMI LAWSON MD Registered Recurring [facility] 08/09/16 1:18pm MEENA OLMSTEAD APRN Discharged Recurring [facility] 06/12/16 12:08pm 9:01am MEENA OLMSTEAD APRN Recent Diagnosis Traumatic hematoma of right lower leg with infection
[~2017-01-10 13:13] MED LIST changes: +LIDOCAINE 1% INJ 20 ML (XYLOCAINE) VIAL ONE; +LIDOCAINE TOPICAL 4% 50 ML BTL TP ONE; +cefTRIAXone 1 GM (ROCEPHIN) VIAL ONE
== END 2017-01-10 16:00 | disposition home or self-care (01) ==
LOC: WOUNDCARE 13:13
PROVIDERS: ATTEND Nurse Practitioner
DX: L97.523 Non-pressure chronic ulcer of other part of left foot with necrosis of muscle (principal); E11.621 Type 2 diabetes mellitus with foot ulcer
CPT/HCPCS: 11042; 36415; 80048; 87070; 87075; 87077; 87186; 87205; 96372; 97597; 99212

== ENCOUNTER → 2017-04-25 | Outpatient (CLI) | payer MEDICAID, MEDICARE ==
[~2017-04-25] MED LIST changes: -LIDOCAINE 1% INJ 20 ML (XYLOCAINE) VIAL INJ ONE; -LIDOCAINE 1% INJ 20 ML (XYLOCAINE) VIAL ONE; -LIDOCAINE TOPICAL 4% 50 ML BTL TP ONE; -cefTRIAXone 1 GM (ROCEPHIN) VIAL IM ONE; -cefTRIAXone 1 GM (ROCEPHIN) VIAL ONE
--- NOTE | 2017-04-25 14:49 | Diagnostic Imaging Report ---
EXAMINATION: Three views of the right foot. INDICATION: Chronic right great toe ulcer. FINDINGS: There is bone erosion destructing the distal tuft of the distal phalanx of the great toe, presumably secondary to osteomyelitis. When compared to August 17, 2016, this is a new finding. There is no acute fracture or dislocation. No radiopaque foreign body. IMPRESSION: Bone destruction along the distal aspect of the distal phalanx of the great toe suggestive of osteomyelitis. Report was faxed to office of Celestino Soliz by divya at 2:50 p.m. Dictated by: Dictated on workstation # [id number]
== END ==
LOC: LAB 13:42
PROVIDERS: ATTEND Nurse Practitioner
DX: E11.621 Type 2 diabetes mellitus with foot ulcer (principal); L97.512 Non-pressure chronic ulcer of other part of right foot with fat layer exposed; I87.2 Venous insufficiency (chronic) (peripheral)
CPT/HCPCS: 36415; 73630; 83036

== ENCOUNTER 2017-05-01 12:58 | Outpatient (RCR) | payer MEDICAID, MEDICARE ==
[~2017-05-01 12:58] MED LIST changes: -METO-272 PO; +METO-370 PO
== END 2017-05-01 16:00 | disposition home or self-care (01) ==
LOC: WOUNDCARE 12:58
PROVIDERS: ATTEND Nurse Practitioner
DX: E11.621 Type 2 diabetes mellitus with foot ulcer (principal); L97.512 Non-pressure chronic ulcer of other part of right foot with fat layer exposed; I87.2 Venous insufficiency (chronic) (peripheral)
CPT/HCPCS: 11042; 87070; 87075; 87186; 87205; 99212; 99214

== ENCOUNTER → 2017-06-13 | Outpatient (CLI) | payer MEDICARE ==
[~2017-06-13] MED LIST changes: +METO-272 PO; -METO-370 PO
== END ==
LOC: WOUNDCARE 13:21
PROVIDERS: ATTEND Nurse Practitioner
DX: E11.621 Type 2 diabetes mellitus with foot ulcer (principal); L97.514 Non-pressure chronic ulcer of other part of right foot with necrosis of bone; M86.071 Acute hematogenous osteomyelitis, right ankle and foot
CPT/HCPCS: 11042; 87070; 87075; 87077; 87205

== ENCOUNTER → 2017-06-20 | Outpatient (CLI) | payer MEDICARE | LOC: WOUNDCARE 12:46 | PROVIDERS: ATTEND Nurse Practitioner | DX: E11.621 Type 2 diabetes mellitus with foot ulcer (principal); L97.514 Non-pressure chronic ulcer of other part of right foot with necrosis of bone; M86.071 Acute hematogenous osteomyelitis, right ankle and foot | CPT/HCPCS: 11042 ==

== ENCOUNTER → 2017-06-27 | Outpatient (CLI) | payer MEDICARE | LOC: WOUNDCARE 12:24 | PROVIDERS: ATTEND Nurse Practitioner | DX: E11.621 Type 2 diabetes mellitus with foot ulcer (principal); L97.514 Non-pressure chronic ulcer of other part of right foot with necrosis of bone; M86.071 Acute hematogenous osteomyelitis, right ankle and foot | CPT/HCPCS: 11042 ==

== ENCOUNTER → 2017-07-04 | Outpatient (CLI) | payer MEDICARE | LOC: WOUNDCARE 12:22 | PROVIDERS: ATTEND Nurse Practitioner | DX: E11.621 Type 2 diabetes mellitus with foot ulcer (principal); L97.514 Non-pressure chronic ulcer of other part of right foot with necrosis of bone; M86.071 Acute hematogenous osteomyelitis, right ankle and foot | CPT/HCPCS: 11042 ==

== ENCOUNTER → 2017-07-11 | Outpatient (CLI) | payer MEDICARE ==
[~2017-07-11] MED LIST changes: +BACL10TA PO; +HYDR-3812 PO; -METO-272 PO; +METO-370 PO
== END ==
LOC: WOUNDCARE 12:42
PROVIDERS: ATTEND Nurse Practitioner
DX: E11.621 Type 2 diabetes mellitus with foot ulcer (principal); L97.514 Non-pressure chronic ulcer of other part of right foot with necrosis of bone; M86.071 Acute hematogenous osteomyelitis, right ankle and foot
CPT/HCPCS: 11042

== ENCOUNTER → 2017-07-18 | Outpatient (CLI) | payer MEDICARE ==
[~2017-07-18] MED LIST changes: +METO-272 PO; -METO-370 PO
== END ==
LOC: WOUNDCARE 12:34
PROVIDERS: ATTEND Nurse Practitioner
DX: M86.071 Acute hematogenous osteomyelitis, right ankle and foot (principal); L97.514 Non-pressure chronic ulcer of other part of right foot with necrosis of bone
CPT/HCPCS: 11044

== ENCOUNTER 2017-07-19 12:57 | Emergency (ER) | payer MEDICARE ==
[~2017-07-19] VITALS: Ht 175.3 cm; Wt 73.5 kg
[~2017-07-19 12:57] MED LIST changes: -BACL10TA PO; -HYDR-3812 PO
--- OUTSIDE RECORDS SUMMARY | 2017-07-19 13:05 | XMS REPORT ---
Author Author FRIDA PARKS Organization [facility] Address [address] [place] [address] Care Team Providers Care Education Administrator Name Role Phone FRIDA PARKS Unavailable PROBLEMS Type Condition ICD9-CM Code [id number] Code Onset Dates Condition Status SNOMED Code Problem Chronic obstructive pulmonary disease, unspecified COPD type J44.9 Active 46050288 Problem Other chronic pain G89.29 Active 00225649 Problem Atrial fibrillation, unspecified type I48.91 Active 32155099 Problem GERD without esophagitis K21.9 Active 897072777 Problem Other urinary incontinence N39.498 Active 821612621 Problem Cervical pain (neck) M54.2 Active 89396992 Problem Polyneuropathy associated with underlying disease G63 Active 934108208 Problem Requires assistance with activities of daily living (ADL) Z74.1 Active 232178134 Problem Type 2 diabetes mellitus with diabetic neuropathy, unspecified medical terminologist insulin 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 Active 23035071 Problem Type 2 diabetes mellitus with hyperglycemia E11.65 Active 524355121 Problem Anemia, unspecified D64.9 Active 589785149 Problem History of alcoholism F10.21 Active 845009997 Problem Syncope and collapse R55 Active 543533686 Problem Alcoholic cirrhosis of liver without ascites K70.30 Active 021091395 Problem Lumbar degenerative disc disease M51.36 Active 07141146 Problem Secondary esophageal varices without bleeding I85.10 Active 20704266 Problem Essential hypertension I10 Active 85865627 Problem Other chronic pain G89.29 Active 52690290 ALLERGIES No Information SOCIAL HISTORY Never Assessed PLAN OF CARE VITAL SIGNS MEDICATIONS Unknown Medications RESULTS No Results PROCEDURES No Known procedures IMMUNIZATIONS No Known Immunizations MEDICAL (GENERAL) HISTORY Type Description Date Medical History HBP Medical History COPD Medical History Liver cirrhosis Medical History Type 2 diabetes Medical History back trouble Medical History gout Medical History arthritis Surgical History broken left leg Surgical History hernia x 2 Surgical History L. toe amputation 08/2016 Hospitalization History surgeries Hospitalization History transfusion 2016
--- OUTSIDE RECORDS SUMMARY | 2017-07-19 13:09 | XMS REPORT ---
Author Author KASEYMAUDEFRIDA Organization [facility] [place] Address [address] [place] [address] Care Team Providers Care Production Expert Name Role Phone PARKSFRIDA Del Toro Unavailable PROBLEMS Type Condition ICD9-CM Code [id number] Code Onset Dates Condition Status SNOMED Code Problem Chronic obstructive pulmonary disease, unspecified COPD type J44.9 Active 33146385 Problem Other chronic pain G89.29 Active 56921619 Problem Atrial fibrillation, unspecified type I48.91 Active 65080002 Problem GERD without esophagitis K21.9 Active 491780973 Problem Other urinary incontinence N39.498 Active 657776022 Problem Cervical pain (neck) M54.2 Active 47383600 Problem Polyneuropathy associated with underlying disease G63 Active 076358016 Problem Requires assistance with activities of daily living (ADL) Z74.1 Active 516753452 Problem Type 2 diabetes mellitus with diabetic neuropathy, unspecified 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 Active 54421807 Problem Type 2 diabetes mellitus with hyperglycemia E11.65 Active 970805276 Problem Anemia, unspecified D64.9 Active 872842138 Problem History of alcoholism F10.21 Active 880600379 Problem Syncope and collapse R55 Active 530921818 Problem Alcoholic cirrhosis of liver without ascites K70.30 Active 500005971 Problem Lumbar degenerative disc disease M51.36 Active 25724886 Problem Secondary esophageal varices without bleeding I85.10 Active 90829623 Problem Essential hypertension I10 Active 34594577 Problem Other chronic pain G89.29 Active 26578012 ALLERGIES Substance Reaction Event Type Date Status Haldol Unknown Drug Allergy Nov, Active SOCIAL HISTORY Never Assessed PLAN OF CARE Activity Details Follow Up 4 Weeks Reason: VITAL SIGNS Height 69 in 2016-11-30 Weight 167.8 lbs 2016-11-30 Temperature 99.7 degrees Fahrenheit 2016-11-30 Heart Rate 97 bpm 2016-11-30 Respiratory Rate 20 2016-11-30 Oximetry w/ oxygen:97 % 2016-11-30 BMI 24.78 kg/m2 2016-11-30 Blood pressure systolic 90 mmHg 2016-11-30 Blood pressure diastolic 48 mmHg 2016-11-30 MEDICATIONS Medication Instructions Dosage Frequency Start Date End Date Duration Status Folic Acid 1 mg 1 tablet by Oral route 1 time per day Dec, Active Hydrocodone-Acetaminophen 5-325 mg take 1 tablet by Oral route every 4 hours as needed for pain Dec, Active Fish Oil 500 mg Dec, Active Lisinopril 5 MG Orally Once a day 1 tablet 24h Active Potassium Chloride 10 mEq take 1 tablet (10 meq) by oral route once daily Dec, Active Gabapentin 300 mg 300 mg am, 900 mg bedtime Dec, Active Novolin 70/30 (70-30) 100 UNIT/ML Subcutaneous Once a day 30 units 24h Active Protonix 20 mg take 2 tablets (40 mg) by oral route 2 times per day Dec, Active Digoxin 125 mcg take 1 tablet (125 mcg) by oral route once daily Dec Active RESULTS Name Result Date Reference Range GLUCOSE FINGERSTICK (IN HOUSE) 2016-11-30 GLU FINGERSTICK 131 PC Lot # [id number] Exp date HEMOGLOBIN (IN HOUSE) 2016-11-30 HEMOGLOBIN 5.7 11.5 - 16 gm/dL Lot # [id number] Exp date PROCEDURES Procedure Date Ordered Result Body Site MEASURE BLOOD OXYGEN LEVEL Nov 30, 2016 GLUCOSE BLOOD TEST Nov 30, 2016 [facility] VISIT ESTABLISHED PATIENT Nov 30, 2016 HEMOGLOBIN Nov 30, 2016 IMMUNIZATIONS No Known Immunizations MEDICAL (GENERAL) HISTORY [...]
--- OUTSIDE RECORDS SUMMARY | 2017-07-19 13:11 | XMS REPORT ---
Author Author PARKSFRIDA Del Toro Organization [facility] Address [address] [place] [address] Care Team Providers Care Medical Practice Administrator Name Role Phone FRIDA PARKS Unavailable PROBLEMS Type Condition ICD9-CM Code [id number] Code Onset Dates Condition Status SNOMED Code Problem Other chronic pain G89.29 Active 56754872 Problem Atrial fibrillation, unspecified type I48.91 Active 55173994 Problem Chronic obstructive pulmonary disease, unspecified COPD type J44.9 Active 04316069 Problem Other urinary incontinence N39.498 Active 434346639 Problem Requires assistance with activities of daily living (ADL) Z74.1 Active 558370291 Problem Polyneuropathy associated with underlying disease G63 Active 254487979 Problem Other chronic pain G89.29 Active 28285169 Problem Type 2 diabetes mellitus with diabetic neuropathy, unspecified 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 Active 73450593 Problem Cervical pain (neck) M54.2 Active 35630226 Problem Secondary esophageal varices without bleeding I85.10 Active 35980380 Problem History of alcoholism F10.21 Active 583720831 Problem Anemia, unspecified D64.9 Active 695142594 Problem Alcoholic cirrhosis of liver without ascites K70.30 Active 215144951 Problem Type 2 diabetes mellitus with hyperglycemia E11.65 Active 078782422 Problem Syncope and collapse R55 Active 015345532 Problem Essential hypertension I10 Active 70098514 Problem Lumbar degenerative disc disease M51.36 Active 06540704 ALLERGIES Unknown Allergies SOCIAL HISTORY No smoking Hx information available PLAN OF CARE VITAL SIGNS MEDICATIONS Unknown Medications RESULTS No Results PROCEDURES No Known procedures IMMUNIZATIONS No Known Immunizations
--- OUTSIDE RECORDS SUMMARY | 2017-07-19 13:13 | XMS REPORT ---
Author Author KASEYMAUDEFRIDA Organization [facility] Address [address] [place] [address] Care Team Providers Care Photo Checker And Assembler Name Role Phone PARKSFRIDA Del Toro Unavailable PROBLEMS Type Condition ICD9-CM Code [id number] Code Onset Dates Condition Status SNOMED Code Problem Chronic obstructive pulmonary disease, unspecified COPD type J44.9 Active 94854245 Problem Other chronic pain G89.29 Active 29861290 Problem Atrial fibrillation, unspecified type I48.91 Active 58204471 Problem GERD without esophagitis K21.9 Active 985913527 Problem Other urinary incontinence N39.498 Active 814795866 Problem Cervical pain (neck) M54.2 Active 70449942 Problem Polyneuropathy associated with underlying disease G63 Active 697275291 Problem Requires assistance with activities of daily living (ADL) Z74.1 Active 962671855 Problem Type 2 diabetes mellitus with diabetic neuropathy, 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 Active 65549498 Problem Type 2 diabetes mellitus with hyperglycemia E11.65 Active 045428978 Problem Anemia, unspecified D64.9 Active 805788295 Problem History of alcoholism F10.21 Active 226780628 Problem Syncope and collapse R55 Active 305488346 Problem Alcoholic cirrhosis of liver without ascites K70.30 Active 389616582 Problem Lumbar degenerative disc disease M51.36 Active 80053247 Problem Secondary esophageal varices without bleeding I85.10 Active 11129734 Problem Essential hypertension I10 Active 91077361 Problem Other chronic pain G89.29 Active 78275201 ALLERGIES No Information SOCIAL HISTORY Never Assessed PLAN OF CARE VITAL SIGNS MEDICATIONS Unknown Medications RESULTS Name Result Date Reference Range AMERITOX 2016-12-07 PROCEDURES No Known procedures IMMUNIZATIONS No Known Immunizations MEDICAL (GENERAL) HISTORY Type Description Date Medical History HBP Medical History COPD Medical History Liver cirrhosis Medical History Type 2 diabetes Medical History back trouble Medical History gout Medical History arthritis Surgical History broken left leg Surgical History hernia x 2 Surgical History L. toe amputation 08/2016 Hospitalization History surgeries Hospitalization History transfusion 2017
--- OUTSIDE RECORDS SUMMARY | 2017-07-19 13:13 | XMS REPORT ---
Author Author KASEYMAUDEFRIDA Organization [facility] Address [address] [place] [address] Care Team Providers Care Gauge Maker Name Role Phone PARKSFRIDA Del Toro Unavailable PROBLEMS Type Condition ICD9-CM Code QWS79-TH Code Onset Dates Condition Status SNOMED Code Problem Chronic obstructive pulmonary disease, unspecified COPD type J44.9 Active 71074883 Problem Other chronic pain G89.29 Active 58027677 Problem Atrial fibrillation, unspecified type I48.91 Active 52130259 Problem GERD without esophagitis K21.9 Active 591515308 Problem Other urinary incontinence N39.498 Active 388962521 Problem Cervical pain (neck) M54.2 Active 70749910 Problem Polyneuropathy associated with underlying disease G63 Active 924489417 Problem Requires assistance with activities of daily living (ADL) Z74.1 Active 015765882 Problem Type 2 diabetes mellitus with diabetic neuropathy, unspecified 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 Active 79515710 Problem Type 2 diabetes mellitus with hyperglycemia E11.65 Active 353493216 Problem Anemia, unspecified D64.9 Active 743795935 Problem History of alcoholism F10.21 Active 786190454 Problem Syncope and collapse R55 Active 560682673 Problem Alcoholic cirrhosis of liver without ascites K70.30 Active 197463227 Problem Lumbar degenerative disc disease M51.36 Active 05278603 Problem Secondary esophageal varices without bleeding I85.10 Active 59897891 Problem Essential hypertension I10 Active 52462191 Problem Other chronic pain G89.29 Active 91430812 ALLERGIES No Information SOCIAL HISTORY Never Assessed PLAN OF CARE VITAL SIGNS MEDICATIONS Medication Instructions Dosage Frequency Start Date End Date Duration Status Hydrocodone-Acetaminophen 5-325 mg Orally 2 times a day as needed take 1 tablet by Oral route every 4 hours as needed for pain Dec, Dec, 28 days Active RESULTS No Results PROCEDURES No Known procedures [...]
[2017-07-19] MEDS ORDERED: morphine INJ 10 MG/ML 1ML (SYR OR VIAL) IM STA (13:34)
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
--- NOTE | 2017-07-19 14:30 | Diagnostic Imaging Report ---
INDICATION: Fall. COMPARISON: 12/01/2016. FINDINGS: Portable chest show the lungs to be well-aerated. There are no infiltrates. No pneumothorax or pleural effusion. Heart is not enlarged. No pulmonary edema. Aorta is atherosclerotic without aneurysm. There is question of a nondisplaced rib fracture along the left lateral seventh rib. IMPRESSION: 1. Question of nondisplaced rib fracture laterally left seventh rib. Clinical correlation for pain. Would consider rib films. Dictated by: Dictated on workstation # [id number]
--- NOTE | 2017-07-19 14:40 | Diagnostic Imaging Report ---
PROCEDURE: CT head, face, and cervical spine without contrast. TECHNIQUE: Multiple contiguous axial images were obtained through the head, neck, and facial bones without the use of intravenous contrast. Sagittal and coronal reformations through the cervical spine and facial bones were also performed. INDICATION: Hit nose on door. Comparison with 06/29/2015 FINDINGS: CT head without: There is large area of encephalomalacia involving the right parietal occipital cortex and the medial left cerebellar hemisphere. Ventricles are not dilated. There is diffuse cortical atrophy. There is no mass effect. There is no intracranial hemorrhage. Mastoid air cells and paranasal sinuses are clear. Bone windows show no evidence of calvarial fractures. 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 No acute changes noted. CT cervical spine: Sagittal and coronal reformatted images show some straightening of the normal lordotic curve. Alignment is otherwise good. Atlantoaxial joint is in good position. There is advanced degenerative arthritic change noted from C4 through C7 with loss of disc space height with hypertrophic bony bridging of the endplates predominately anterior with mild posterior hypertrophic changes. Facets are in good alignment. No fractures are demonstrated. There is no evidence of spinal stenosis. IMPRESSION: Advanced degenerative changes with large osteophytes C4-C7. No acute abnormalities. Facial bones: Facial bones show paranasal sinuses to be well-aerated. No evidence of nasal bone fracture. The nasal septum shows minimal deviation. Nasal turbinates appear normal. The infraorbital rims appear intact. The zygomatic arches are intact. No mandibular fractures demonstrated. IMPRESSION: No acute findings of the facial bones. Dictated by: Dictated on workstation # [id number]
--- NOTE | 2017-07-19 15:34 | Diagnostic Imaging Report ---
INDICATION: Lower left rib pain. Rib films show a transverse nondisplaced fracture along the posterior lateral aspect of the left seventh rib. There is a probable nondisplaced fracture of the left sixth rib as well. Remaining ribs otherwise appear normal. No evidence of pneumothorax or pleural effusion. IMPRESSION: Nondisplaced fracture of the left seventh and sixth ribs posterior laterally. Dictated by: Dictated on workstation # [id number]
[2017-07-19] MEDS ORDERED: BACL10TA PO (16:12)
[2017-07-19] MEDS ORDERED: HYDR-3812 PO (16:12)
[2017-07-19 16:26] VITALS: BP 174/81
== END 2017-07-19 16:26 | disposition home or self-care (01) ==
LOC: EDUNIT# 12:57 → ER 13:00
DX: S06.0X0A Concussion without loss of consciousness, initial encounter (principal); S22.42XA Multiple fractures of ribs, left side, initial encounter for closed fracture; S16.1XXA Strain of muscle, fascia and tendon at neck level, initial encounter; I48.91 Unspecified atrial fibrillation; I25.10 Atherosclerotic heart disease of native coronary artery without angina pectoris; I11.0 Hypertensive heart disease with heart failure; I50.32 Chronic diastolic (congestive) heart failure; I27.2 Other secondary pulmonary hypertension; K21.9 Gastro-esophageal reflux disease without esophagitis; M19.90 Unspecified osteoarthritis, unspecified site; E11.40 Type 2 diabetes mellitus with diabetic neuropathy, unspecified; F41.9 Anxiety disorder, unspecified; F32.9 Major depressive disorder, single episode, unspecified; D64.9 Anemia, unspecified; M10.9 Gout, unspecified; Z79.4 Long term (current) use of insulin; Z86.73 Personal history of transient ischemic attack (TIA), and cerebral infarction without residual deficits; Z87.891 Personal history of nicotine dependence; Z87.19 Personal history of other diseases of the digestive system; Z87.01 Personal history of pneumonia (recurrent); Z87.09 Personal history of other diseases of the respiratory system; W19.XXXA Unspecified fall, initial encounter; Y92.009 Unspecified place in unspecified non-institutional (private) residence as the place of occurrence of the external cause
CPT/HCPCS: 70450; 70486; 71010; 71100; 72125; 96372; 99284

== ENCOUNTER → 2017-07-25 | Outpatient (CLI) | payer MEDICARE ==
[~2017-07-25] MED LIST changes: +BACL10TA PO; +HYDR-3812 PO
== END ==
LOC: WOUNDCARE 12:39
PROVIDERS: ATTEND Surgery
DX: E11.621 Type 2 diabetes mellitus with foot ulcer (principal); M86.471 Chronic osteomyelitis with draining sinus, right ankle and foot; E11.65 Type 2 diabetes mellitus with hyperglycemia; L97.514 Non-pressure chronic ulcer of other part of right foot with necrosis of bone
CPT/HCPCS: 11044

== ENCOUNTER → 2017-08-01 | Outpatient (CLI) | payer MEDICARE | LOC: WOUNDCARE 12:37 | PROVIDERS: ATTEND Nurse Practitioner | DX: E11.621 Type 2 diabetes mellitus with foot ulcer (principal); E11.65 Type 2 diabetes mellitus with hyperglycemia; M86.471 Chronic osteomyelitis with draining sinus, right ankle and foot; L97.514 Non-pressure chronic ulcer of other part of right foot with necrosis of bone | CPT/HCPCS: 11042 ==

== ENCOUNTER → 2017-08-08 | Outpatient (CLI) | payer MEDICARE | LOC: WOUNDCARE 12:56 | PROVIDERS: ATTEND Nurse Practitioner | DX: L97.514 Non-pressure chronic ulcer of other part of right foot with necrosis of bone (principal); M86.471 Chronic osteomyelitis with draining sinus, right ankle and foot; E11.621 Type 2 diabetes mellitus with foot ulcer; E11.65 Type 2 diabetes mellitus with hyperglycemia | CPT/HCPCS: 11042 ==

== ENCOUNTER → 2017-08-15 | Outpatient (CLI) | payer MEDICARE | LOC: WOUNDCARE 13:16 | PROVIDERS: ATTEND Nurse Practitioner | DX: E11.621 Type 2 diabetes mellitus with foot ulcer (principal); L97.514 Non-pressure chronic ulcer of other part of right foot with necrosis of bone; M86.471 Chronic osteomyelitis with draining sinus, right ankle and foot; E11.65 Type 2 diabetes mellitus with hyperglycemia | CPT/HCPCS: 11042 ==

== ENCOUNTER → 2017-08-22 | Outpatient (CLI) | payer MEDICARE | LOC: WOUNDCARE 12:43 | PROVIDERS: ATTEND Nurse Practitioner | DX: E11.621 Type 2 diabetes mellitus with foot ulcer (principal); L97.514 Non-pressure chronic ulcer of other part of right foot with necrosis of bone; M86.471 Chronic osteomyelitis with draining sinus, right ankle and foot; E11.65 Type 2 diabetes mellitus with hyperglycemia | CPT/HCPCS: 11042 ==

== ENCOUNTER → 2017-08-29 | Outpatient (CLI) | payer MEDICARE ==
[~2017-08-29] MED LIST changes: -METO-272 PO; +METO-370 PO
== END ==
LOC: WOUNDCARE 13:17
PROVIDERS: ATTEND Nurse Practitioner
DX: E11.621 Type 2 diabetes mellitus with foot ulcer (principal); L97.514 Non-pressure chronic ulcer of other part of right foot with necrosis of bone; M86.471 Chronic osteomyelitis with draining sinus, right ankle and foot
CPT/HCPCS: 11042

== ENCOUNTER → 2017-09-05 | Outpatient (CLI) | payer MEDICARE ==
[2017-09-05 14:15] LABS: ANION GAP 9 MMOL/L (5-14); BLOOD UREA NITROGEN 8 MG/DL (7-18); BUN/CREATININE RATIO 9; CALCIUM 8.7 MG/DL (8.5-10.1); CARBON DIOXIDE 27 MMOL/L (21-32); CHLORIDE 102 MMOL/L (98-107); CREATININE SERUM 0.85 MG/DL (0.60-1.30); GFR ESTIMATED > 60; GLUCOSE 358 MG/DL (70-105); SODIUM 138 MMOL/L (135-145)
== END ==
LOC: LAB 13:40
PROVIDERS: ATTEND Nurse Practitioner
DX: M86.471 Chronic osteomyelitis with draining sinus, right ankle and foot (principal); L97.514 Non-pressure chronic ulcer of other part of right foot with necrosis of bone; E11.621 Type 2 diabetes mellitus with foot ulcer; E11.65 Type 2 diabetes mellitus with hyperglycemia
CPT/HCPCS: 36415; 80048

== ENCOUNTER → 2017-09-05 | Outpatient (CLI) | payer MEDICARE | LOC: WOUNDCARE 12:30 | PROVIDERS: ATTEND Nurse Practitioner | DX: L97.514 Non-pressure chronic ulcer of other part of right foot with necrosis of bone (principal); E11.621 Type 2 diabetes mellitus with foot ulcer; E11.65 Type 2 diabetes mellitus with hyperglycemia; M86.471 Chronic osteomyelitis with draining sinus, right ankle and foot | CPT/HCPCS: 11042 ==

== ENCOUNTER → 2017-09-19 | Outpatient (CLI) | payer MEDICARE | LOC: WOUNDCARE 13:07 | PROVIDERS: ATTEND Nurse Practitioner | DX: L97.514 Non-pressure chronic ulcer of other part of right foot with necrosis of bone (principal); M86.471 Chronic osteomyelitis with draining sinus, right ankle and foot; E11.621 Type 2 diabetes mellitus with foot ulcer; E11.65 Type 2 diabetes mellitus with hyperglycemia | CPT/HCPCS: 97597 ==

== ENCOUNTER → 2017-09-25 | Outpatient (CLI) | payer MEDICARE ==
[~2017-09-25] MED LIST changes: +METO50TA15 PO; -METO50TA2 PO
== END ==
LOC: RT 10:45
PROVIDERS: ATTEND Nurse Practitioner Family
DX: R09.02 Hypoxemia (principal); R06.00 Dyspnea, unspecified
CPT/HCPCS: 94060; 94726; 94729

== ENCOUNTER → 2017-09-26 | Outpatient (CLI) | payer MEDICARE ==
--- NOTE | 2017-09-26 15:28 | Diagnostic Imaging Report ---
Indication: Great toe osteomyelitis. AP, oblique and lateral views of the great toe are obtained with comparison made to study of 08/29/2017. Similar to the previous study, there is extensive destruction of the distal phalanx of the great toe with fragmentation and partial destruction of the distal portion of the proximal phalanx. There is surrounding swelling of soft tissues. There is no evidence of involvement of the metatarsophalangeal joint. Impression: Stable inflammation of the great toe with destruction of distal phalanx as well as the distal aspect of the proximal phalanx, remains most compatible with osteomyelitis. No significant change is identified. Dictated by: Dictated on workstation # [id number]
== END ==
LOC: LAB 12:48
PROVIDERS: ATTEND Nurse Practitioner
DX: E11.65 Type 2 diabetes mellitus with hyperglycemia (principal); E11.621 Type 2 diabetes mellitus with foot ulcer; M86.471 Chronic osteomyelitis with draining sinus, right ankle and foot; L97.514 Non-pressure chronic ulcer of other part of right foot with necrosis of bone
CPT/HCPCS: 36415; 73660; 83036

== ENCOUNTER → 2017-09-26 | Outpatient (CLI) | payer MEDICARE | LOC: WOUNDCARE 12:37 | PROVIDERS: ATTEND Nurse Practitioner | DX: M86.471 Chronic osteomyelitis with draining sinus, right ankle and foot (principal); E11.621 Type 2 diabetes mellitus with foot ulcer; L97.514 Non-pressure chronic ulcer of other part of right foot with necrosis of bone; E11.65 Type 2 diabetes mellitus with hyperglycemia | CPT/HCPCS: 99212 ==

== ENCOUNTER → 2017-10-03 | Outpatient (CLI) | payer MEDICARE | LOC: WOUNDCARE 12:52 | PROVIDERS: ATTEND Nurse Practitioner | DX: E11.621 Type 2 diabetes mellitus with foot ulcer (principal); L97.514 Non-pressure chronic ulcer of other part of right foot with necrosis of bone; M86.471 Chronic osteomyelitis with draining sinus, right ankle and foot; E11.65 Type 2 diabetes mellitus with hyperglycemia | CPT/HCPCS: 99212 ==

== ENCOUNTER 2017-11-11 09:59 | Outpatient (RCR) | payer MEDICARE ==
[~2017-11-11 09:59] MED LIST changes: +ACHD5005 PO; +HYDR-34 PO; -HYDR-3812 PO; -HYDR-3816 PO; -RANI150T15 PO; +RANI150T46 PO
== END 2018-02-09 | disposition home or self-care (01) ==
LOC: PULM 09:59
PROVIDERS: ATTEND Nurse Practitioner Family
DX: R09.02 Hypoxemia (principal); R06.02 Shortness of breath
CPT/HCPCS: 99211

== ENCOUNTER 2018-02-28 11:12 | Outpatient (RCR) | payer MEDICARE | END 2018-02-28 12:18 | disposition home or self-care (01) | PROVIDERS: ATTEND Nurse Practitioner Family | DX: M51.16 Intervertebral disc disorders with radiculopathy, lumbar region (principal); R53.1 Weakness ==

== ENCOUNTER 2018-07-29 05:09 | Inpatient (IN) | payer MEDICARE ==
[2018-07-29] VITALS (22 sets, daily range): BP systolic 101–180; BP diastolic 34–65
[~2018-07-29] VITALS: Ht 175.3 cm; Wt 88.6 kg
[~2018-07-29 05:09] MED LIST changes: +ALBU18HF2 INH; -AMLO10TA2 PO; +AMLO10TA6 PO; +AMLO5TAB7 PO; +CALC200T40 PO; +FLUT1DIS28 INH; +HUM100VI15 SC; +HYDR-3812 PO; +HYDR-4226 PO; -HYDR-757 PO; -INDO25CA PO; +INDO25CA15 PO; +LISI-556 PO; +PANT40TA3 PO; +SPIR25TA5 PO; +SUCR1TAB PO; +TAMS0.4C98 PO
--- OUTSIDE RECORDS SUMMARY | 2018-07-29 05:15 | XMS REPORT ---
Author Author ALTHEA ANDERSON [facility] Address [address] [place] [address] Care Team Providers Care Branch Mechanic Name Role Phone ALTHEA ANDERSON Unavailable PROBLEMS ALLERGIES No Information ENCOUNTERS IMMUNIZATIONS No Known Immunizations SOCIAL HISTORY No smoking Hx information available REASON FOR VISIT PLAN OF CARE VITAL SIGNS MEDICATIONS RESULTS No Results PROCEDURES INSTRUCTIONS MEDICATIONS ADMINISTERED No Known Medications MEDICAL (GENERAL) HISTORY
--- OUTSIDE RECORDS SUMMARY | 2018-07-29 05:16 | XMS REPORT ---
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 Active 343376015 Problem 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 Active 425697022 Problem Alcoholic cirrhosis of liver without ascites K70.30 Active 308501238 Problem Type 2 diabetes mellitus with hyperglycemia E11.65 Active 116225558197006 Problem Essential hypertension I10 Active 12583022 Problem Lumbar degenerative disc disease M51.36 Active 69183949 Problem Other hammer toe(s) (acquired), left foot M20.42 Active 27590323 Problem Amputated toe of left foot Z89.422 Active 753971451 Problem 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 Active 297265548 Problem Other hammer toe(s) (acquired), right foot M20.41 Active 159775679 Problem Atrial fibrillation, unspecified type I48.91 Active 52493300 Problem Other chronic pain G89.29 Active 97949259 Problem Other chronic pain G89.29 Active 11356250 Problem Chronic obstructive pulmonary disease, unspecified COPD type J44.9 Active 17159811 Problem Requires assistance with activities of daily living (ADL) Z74.1 Active 788222735 Problem Other urinary incontinence N39.498 Active 634705263 Problem Anemia, unspecified D64.9 Active 729415497 Problem Polyneuropathy associated with underlying disease G63 Active 399769053 Problem GERD without esophagitis K21.9 Active 456023592 Problem Hypercalcemia E83.52 Active 03742885 Problem Cervical pain (neck) M54.2 Active 07189577 Problem Alcoholism /alcohol abuse F10.20 Active 0612194 ALLERGIES No Information ENCOUNTERS Encounter Location Date Diagnosis [facility] [id number] [place] [address] 83564- 0754 Jun, [facility] [address] [place] [place] [id number] Jun, 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 and Type 2 diabetes mellitus with hyperglycemia E11.65 [facility] [address] 56[address]- 0431 18 Jun, 2018 [facility] [id number] [place] [address] 10085- 8375 15 Jun, 2018 Type 2 diabetes mellitus with hyperglycemia E11.65 [facility] [address] 87193- 2616 31 May, 2018 Lumbar degenerative disc disease M51.36 [facility] [address] 54285- 1371 28 May, 2018 Type 2 diabetes mellitus with hyperglycemia E11.65 [facility] [id number] [place] [address] 67804- 6429 24 May, 2018 Lumbar degenerative disc disease M51.36 [facility] [id number] [place] [address] 54849- 5080 23 May, 2018 [facility] [id number] [place] [address] [phone] 17 May, 2018 Dental examination Z01.20 and Dental caries K02.9 [facility] [id number] [place] [address] 47125- 0097 13 May, 2018 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 ; 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 ; Polyneuropathy associated with underlying disease G63 ; Essential hypertension I10 ; Other hammer toe(s) (acquired), left foot M20.42 ; Other hammer toe(s) (acquired), right foot M20.41 and Amputated toe of left foot Z89.422 [facility] [address] 6[address]33- 1032 May, [facility] [address] [address] May, Type 2 diabetes mellitus with hyperglycemia E11.65 [facility] [address] [address] Apr, [facility] [address] [facility] [id number] Apr, Type 2 diabetes mellitus with hyperglycemia E11.65 ; Chronic obstructive pulmonary disease, unspecified COPD type J44.9 and Essential hypertension I10 [facility] [address] [address] Apr, Type 2 diabetes mellitus with hyperglycemia E11.65 [facility] [id number] [address] 06[address] Apr, Type 2 diabetes mellitus with hyperglycemia E11.65 [facility] [id number] [place] [address] 06243- 6104 Apr, Lumbar degenerative disc disease M51.36 [facility] [address] [address] 16[address] Apr, Type 2 diabetes mellitus with hyperglycemia E11.65 [facility] [address] [place] [id number] Apr, Type 2 diabetes mellitus with hyperglycemia E11.65 ; Atrial fibrillation, unspecified type I48.91 ; Anemia due to other cause D64.89 ; Alcoholism / alcohol abuse F10.20 ; Acute pylorus ulcer K25.3 and Alcoholic cirrhosis of liver without ascites K70.30 [facility] [address] [address] Apr, Lumbar degenerative disc disease M51.36 [facility] [id number] [place] [address] 15830- 9650 Mar, [facility] [address] [address] 0[address] Mar, [facility] [id number] [place] [address] 61744- 0946 Mar, [facility] [id number] [place] [address] 62404- 2792 Mar, [facility] [id number] [place] [address] 33652- 4461 Mar, Lumbar degenerative disc disease M51.36 [facility] [address] 30490- 7284 Mar, Dizziness R42 ; Falls frequently R29.6 ; Weight loss, non- intentional R63.4 ; Essential hypertension I10 ; Cardiac murmur R01.1 ; Hypercalcemia E83.52 and Requires assistance with activities of daily living ( ADL) Z74.1 [facility] [id number] [place] [address] 39547- 0861 Mar, [facility] [address] 08248- 8142 Mar, Hypercalcemia E83.52 [facility] [id number] [place] [address] 34714- 0180 February, Lumbar degenerative disc disease M51.36 [facility] [id number] [place] [address] 31667- 2063 February, Type 2 diabetes mellitus with diabetic neuropathy, unspecified assisted insulin 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 ; Type 2 diabetes mellitus with other specified complication E11.69 ; 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 ; Essential hypertension I10 ; Chronic obstructive pulmonary disease, unspecified COPD type J44.9 ; Polyneuropathy associated with underlying disease G63 ; Atrial fibrillation, unspecified type I48.91 ; GERD without esophagitis K21.9 and Lumbar degenerative disc disease M51.36 [facility] [id number] [place] [address] 53252- 9721 Jan, Other chronic pain G89.29 [facility] [id number] [place] [address] 80740- 4567 Jan, [facility] [address] [place] [address] 2687 Jan, [facility] [id number] [place] [address] 61075- 7881 Jan, Type 2 diabetes mellitus with diabetic neuropathy, unspecified shared services representative insulin 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 [facility] [id number] [place] [address] 54251- 9239 Jan, [facility] [id number] [place] [address] 59012- 2399 Jan, [facility] [id number] [place] [address] 30348- 3792 Jan, Other chronic pain G89.29 [facility] [id number] [place] [address] 29188- 3251 Dec, Atrial fibrillation, unspecified type I48.91 ; Essential hypertension I10 and Other chronic pain G89.29 [facility] [id number] [place] [address] 40107- 2509 Dec, Atrial fibrillation, unspecified type I48.91 [facility] [id number] [place] [address] 59135- 5156 Dec, [facility] [id number] [place] [address] 68258- 4359 Nov, Other chronic pain G89.29 [facility] [id number] [place] [address] 71229- 3146 Nov, [facility] [id number] [place] [address] 48900- 0147 Nov, [facility] [id number] [place] [address] 11111- 2129 Nov, Type 2 diabetes mellitus with diabetic neuropathy, unspecified shared services representative insulin 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 ; Type 2 diabetes mellitus with hyperglycemia E11.65 ; Essential hypertension I10 ; Chronic obstructive pulmonary disease, unspecified COPD type J44.9 ; Atrial fibrillation, unspecified type I48.91 ; GERD without esophagitis K21.9 ; Lumbar degenerative disc disease M51.36 ; Alcoholism /alcohol abuse F10.20 and Encounter for immunization Z23 [facility] [address] 12015- 0079 Oct, Type 2 diabetes mellitus with hyperglycemia E11.65 ; Other chronic pain G89.29 and Other shared services representative (current) drug therapy Z79.899 [facility] [address] 12995- 3835 Oct, [facility] [address] 03061- 7652 Oct, Essential hypertension I10 ; Anemia, unspecified D64.9 ; Chronic obstructive pulmonary disease, unspecified COPD type J44.9 ; Type 2 diabetes mellitus with hyperglycemia E11.65 ; Alcoholic cirrhosis of liver without ascites K70.30 ; Polyneuropathy associated with underlying disease G63 and Atrial fibrillation, unspecified type I48.91 [facility] [address] 40732- 6887 Sep, Other chronic pain G89.29 [facility] [address] 98474- 5201 Sep, Type 2 diabetes mellitus with hyperglycemia E11.65 ; Atrial fibrillation, unspecified type I48.91 and Essential hypertension I10 [place] [id number] [place] [address] 79930- 9517 Sep, Essential hypertension I10 [facility] [address] 04448- 1559 Sep, Essential hypertension I10 [facility] [address] 46115- 4036 Sep, [facility] [address] 26107- 6994 Sep, Other chronic pain G89.29 [facility] [address] 71377- 8068 Aug, [facility] [address] [facility] [id number] [address] Aug, Polyneuropathy associated with underlying disease G63 and Chronic obstructive pulmonary disease, unspecified COPD type J44.9 [facility] [id number] [id number] Aug, [facility] [id number] [address]- 5[address] Aug, [facility] [address] [facility] [id number] [address]88 Aug, Chronic obstructive pulmonary disease, unspecified COPD type J44.9 [facility] [address] [address]- 3078 Aug, Medicare annual wellness visit, subsequent Z00.00 [facility] [address] [address]- 2676 Aug, Other chronic pain G89.29 [facility] [id number] [address]- 2892 16 Jul, 2017 [facility] [address] [address]- 2949 Jul, [facility] [id number] [address]- 5721 Jul, Other chronic pain G89.29 and Essential hypertension I10 [facility] [address] [address]- 8956 Jun, [facility] [address] [facility] [id number] [address]- 8529 Jun, Essential hypertension I10 [facility] [address] [address]- 2037 Jun, [facility] [id number] [address]- 5526 Jun, Other chronic pain G89.29 [facility] [address] [address]- 3599 Jun, Other chronic pain G89.29 [facility] [id number] [place] [address] 03178- 7694 Jun, [facility] [id number] [place] [address] 86705- 8074 Jun, Type 2 diabetes mellitus with hyperglycemia E11.65 ; Essential hypertension I10 ; Atrial fibrillation, unspecified type I48.91 ; Polyneuropathy associated with underlying disease G63 ; Anemia, unspecified D64.9 ; Chronic obstructive pulmonary disease, unspecified COPD type J44.9 ; Other urinary incontinence N39.498 ; Lumbar degenerative disc disease M51.36 and GERD without esophagitis K21.9 [facility] [id number] [place] [address] 49792- 4528 May, [facility] [id number] [place] [address] 93667- 2483 May, [facility] [id number] [place] [address] 88788- 6355 May, [facility] [id number] [place] [address] 86372- 6682 May, Other chronic pain G89.29 [facility] [id number] [place] [address] 72146- 5251 Apr, Onychomycosis B35.1 and Type 2 diabetes mellitus with diabetic neuropathy, unspecified assisted insulin 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 [facility] [id number] [place] [address] 39093- 5284 Apr, Essential hypertension I10 [facility] [id number] [place] [address] 97853- 7112 Apr, [facility] [id number] [place] [address] 59842- 4246 Apr, Other chronic pain G89.29 [facility] [id number] [place] [address] 91000- 7836 Mar, Cervical pain (neck) M54.2 ; Other chronic pain G89.29 ; Other urinary incontinence N39.498 and Essential hypertension I10 [facility] [id number] [place] [address] 78167- 1623 Mar, [facility] [id number] [place] [address] 12201- 5140 Mar, Other chronic pain G89.29 [facility] [id number] [place] [address] 74323- 2982 February, [facility] [id number] [place] [address] 00588- 1395 February, [facility] [id number] [place] [address] 33873- 1098 February, Other chronic pain G89.29 [facility] [id number] [place] [address] 44755- 0335 February, Essential hypertension I10 ; Type 2 diabetes mellitus with hyperglycemia E11.65 ; Alcoholic cirrhosis of liver without ascites K70.30 ; Chronic obstructive pulmonary disease, unspecified COPD type J44.9 ; Atrial fibrillation, unspecified type I48.91 ; Polyneuropathy associated with underlying disease G63 ; Anemia, unspecified D64.9 ; Requires assistance with activities of daily living (ADL) Z74.1 and Non-compliant behavior R46.89 [facility] [id number] [place] [address] [id number] February, Dental examination Z01.20 [facility] [id number] [place] [address] 61250- 7478 Jan, [facility] [id number] [place] [address] [id number] Jan, Dental caries K02.9 [facility] [id number] [place] [address] 21715- 9891 Jan, Anemia, unspecified D64.9 ; Chronic obstructive pulmonary disease, unspecified COPD type J44.9 ; Other chronic pain G89.29 ; Syncope and collapse R55 and Polyneuropathy associated with underlying disease G63 [facility] [id number] [id number] 04 Jan, 2017 Dental examination Z01.20 [facility] [id number] [place] [address] 84659- 6279 Dec, Type 2 diabetes mellitus with hyperglycemia E11.65 ; Anemia , unspecified D64.9 ; Essential hypertension I10 ; Chronic obstructive pulmonary disease, unspecified COPD type J44.9 ; Atrial fibrillation, unspecified type I48.91 ; Cervical pain (neck) M54.2 ; Polyneuropathy associated with underlying disease G63 ; Low back pain M54.5 ; Other chronic pain G89.29 and Alcoholic cirrhosis of liver without ascites K70.30 [facility] [id number] [place] [address] 81757- 7372 Dec, [facility] [id number] [place] [address] 75318- 4534 Dec, [facility] [id number] [place] [address] 18544- 7923 Dec, [facility] [id number] [place] [address] 72780- 1778 Dec, Type 2 diabetes mellitus with hyperglycemia E11.65 ; History of alcoholism F10.21 ; Anemia due to other cause D64.89 and Atrial fibrillation, unspecified type I48.91 [facility] [address] [place] [address] 69760- 2829 Dec, [facility] [id number] [place] [address] 84538- 3437 Dec, [facility] [id number] [place] [address] 01795- 1088 10 Dec, 2016 Type 2 diabetes mellitus with hyperglycemia E11.65 ; History of alcoholism F10.21 ; Anemia due to other cause D64.89 and Atrial fibrillation, unspecified type I48.91 [place] [id number] [address]- 1152 21 Nov, 2016 [facility] [id number] [place] [address] 64644- 0598 17 Nov, 2016 Other chronic pain G89.29 [facility] [id number] [place] [address] 45798- 6516 13 Nov, 2016 Other chronic pain G89.29 [facility] [id number] [place] [address] 85225- 1376 10 Nov, 2016 Type 2 diabetes mellitus with hyperglycemia E11.65 ; Anemia due to other cause D64.89 ; Hypotension due to blood loss I95.89 ; Alcoholic cirrhosis of liver without ascites K70.30 ; History of alcoholism F10.21 and Chronic obstructive pulmonary disease, unspecified COPD type J44.9 [facility] [id number] [place] [address] 91201- 5689 Sep, [facility] [id number] [place] [address] [id number] Jan, Dental examination Z01.20 [facility] [id number] [place] [address] 85479- 9933 23 Nov, 2015 Chronic obstructive pulmonary disease, unspecified COPD type J44.9 ; Panic attacks F41.0 and Other chronic pain G89.29 [facility] [address] [address]- 8758 Jan, [facility] [id number] [place] [address] 77215- 6603 Jan, [facility] [id number] [place] [address] 54691- 3934 Dec, [facility] [id number] [place] [address] 03154- 4695 Dec, [facility] [id number] [place] [address] 12908- 5431 05 Dec, 2014 [facility] [id number] [place] [address] 91366- 2143 Dec, IMMUNIZATIONS No Known Immunizations SOCIAL HISTORY Never Assessed REASON FOR VISIT med list update PLAN OF CARE VITAL SIGNS MEDICATIONS Medication Instructions Dosage Frequency Start Date End Date Duration Status Advair Diskus 100-50 MCG/DOSE Inhalation Twice a day 1 puff 12h Jun, 12 months Active Albuterol Sulfate 90 mcg/actuation Inhalation every 4 hrs inhale 2 puffs by inhalation route every 4 hours as needed 4h Dec, 12 months Active Cough Syrup 100 MG/5ML Orally every 4 hrs 10 ml as needed 4h Active Lisinopril 5 mg Orally Once a day 1 tablet 24h Active Spironolactone 25 MG Orally twice a day 1 tablet with food 12h Active Amlodipine Besylate 5 MG Orally Once a day 1 tablet 24h Active Sucralfate 1 GM Orally 4 times a day 1 tablet before meals and at bedtime 6h Active Insulin Detemir 100 UNIT/ML Subcutaneous at hs and 20u in AM 60u Apr, Active Glucagon Emergency 1 MG as directed Active Gabapentin 300 MG Orally 3 times a day TAKE ONE (1) CAPSULE BY MOUTH IN THE MORNING, one capsule at noon, THREE (3) CAPSULES AT BEDTIME 8h Active MetFORMIN HCl ER 500 mg Orally 2 times a day 2 tablet 12h Apr, Active NovoLog Flexpen 100 UNIT/ML Subcutaneous before meals Inject 20 units May, Active Pantoprazole Sodium 40 MG Orally Once a day 1 tablet 24h Active Tums 500 mg Orally every 4 hrs 2 tablets as needed 4h Active Acetaminophen 325 MG Orally every 4 hrs 1-2 tablet as needed 4h Active Tamsulosin HCl 0.4 MG Orally Once a day 1 capsule 24h Active Hydrocodone-Acetaminophen 7.5-325 MG Orally every 6 hrs 1 tablet as needed 6h May, 28 days Active Digoxin 125 mcg Orally Once a day 1 tablet 24h Dec, Active Gluco Burst 40 % as directed Active RESULTS No Results PROCEDURES No Known procedures INSTRUCTIONS MEDICATIONS ADMINISTERED No Known Medications MEDICAL (GENERAL) HISTORY Type Description Date Medical History HTN Medical History COPD Medical History Liver cirrhosis Medical History Type 2 diabetes Medical History back trouble Medical History gout Medical History arthritis Medical History Secondary esophageal varices without bleeding Medical History Syncope and collapse Medical History A-Fib Medical History Neuropathy secondary to DM Medical History Degenerative disc disease-lumbar Medical History GERD Medical History frequent falls Medical History alcohol abuse Surgical History broken left leg Surgical History hernia x 2 Surgical History L. toe amputation 08/2016 Hospitalization History surgeries Hospitalization History transfusion 2016 Hospitalization History cather placed 03/2018
--- OUTSIDE RECORDS SUMMARY | 2018-07-29 05:16 | XMS REPORT ---
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 Active 023229207 Problem Alcoholic cirrhosis of liver without ascites K70.30 Active 637169653 Problem Type 2 diabetes mellitus with hyperglycemia E11.65 Active 285617178019244 Problem Essential hypertension I10 Active 60242816 Problem Lumbar degenerative disc disease M51.36 Active 94054362 Problem Other hammer toe(s) (acquired), left foot M20.42 Active 80126120 Problem Amputated toe of left foot Z89.422 Active 895050303 Problem 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 Active 175529253 Problem Other hammer toe(s) (acquired), right foot M20.41 Active 330824841 Problem Atrial fibrillation, unspecified type I48.91 Active 01675666 Problem Other chronic pain G89.29 Active 44822980 Problem Other chronic pain G89.29 Active 92133650 Problem Chronic obstructive pulmonary disease, unspecified COPD type J44.9 Active 71638120 Problem Requires assistance with activities of daily living (ADL) Z74.1 Active 245519848 Problem Other urinary incontinence N39.498 Active 315584671 Problem Anemia, unspecified D64.9 Active 006799060 Problem Polyneuropathy associated with underlying disease G63 Active 782999245 Problem GERD without esophagitis K21.9 Active 918209460 Problem Hypercalcemia E83.52 Active 52587139 Problem Cervical pain (neck) M54.2 Active 55034753 Problem Alcoholism /alcohol abuse F10.20 Active 1903387 ALLERGIES No Information ENCOUNTERS Encounter Location Date Diagnosis [place] [id number] [place] [address] 47793- 4119 26 Jun, 2018 [facility] [address] [facility] [place] [id number] Jun, 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 and Type 2 diabetes mellitus with hyperglycemia E11.65 [facility] [id number] [place] [address] 52727- 8888 18 Jun, 2018 [facility] [place] [id number] [place] [address] 09141- 2143 15 Jun, 2018 Type 2 diabetes mellitus with hyperglycemia E11.65 [facility] [address] 18488- 6826 31 May, 2018 Lumbar degenerative disc disease M51.36 [facility] [id number] [place] [address] 71346- 0486 May, Type 2 diabetes mellitus with hyperglycemia E11.65 [facility] [id number] [place] [address] 49669- 3983 24 May, 2018 Lumbar degenerative disc disease M51.36 [place] [id number] [place] [address] 35399- 4494 May, [facility] [id number] [place] [address] [id number] May, Dental examination Z01.20 and Dental caries K02.9 [place] [id number] [place] [address] 84728- 3448 13 May, 2018 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 ; nursing home current use of 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 ; Polyneuropathy associated with underlying disease G63 ; Essential hypertension I10 ; Other hammer toe(s) (acquired), left foot M20.42 ; Other hammer toe(s) (acquired), right foot M20.41 and Amputated toe of left foot Z89.422 [facility] [place] [id number] [place] [address] 33433- 2745 May, [facility] [place] [address] [address] 6[address] May, Type 2 diabetes mellitus with hyperglycemia E11.65 [facility] [id number] [place] [address] 12813- 1131 Apr, [facility] [address] [facility] [id number] Apr, Type 2 diabetes mellitus with hyperglycemia E11.65 ; Chronic obstructive pulmonary disease, unspecified COPD type J44.9 and Essential hypertension I10 [facility] [id number] [place] [address] 43251- 5513 Apr, Type 2 diabetes mellitus with hyperglycemia E11.65 [facility] [id number] [place] [address] 94208- 4924 Apr, Type 2 diabetes mellitus with hyperglycemia E11.65 [facility] [id number] [place] [address] 87853- 5928 Apr, Lumbar degenerative disc disease M51.36 [facility] [place] [id number] [place] [address] 60170- 8797 Apr, Type 2 diabetes mellitus with hyperglycemia E11.65 [facility] [address] [place] [id number] Apr, Type 2 diabetes mellitus with hyperglycemia E11.65 ; Atrial fibrillation, unspecified type I48.91 ; Anemia due to other cause D64.89 ; Alcoholism / alcohol abuse F10.20 ; Acute pylorus ulcer K25.3 and Alcoholic cirrhosis of liver without ascites K70.30 [facility] [address] [address] 6070 Apr, Lumbar degenerative disc disease M51.36 [facility] [id number] [place] [address] 04408- 5545 Mar, [facility] [place] [id number] [place] [address] 27120- 7359 Mar, [facility] [place] [id number] [place] [address] 86293- 6079 Mar, [facility] [place] [id number] [place] [address] 07473- 4580 Mar, [facility] [place] [id number] [place] [address] 70397- 3853 Mar, Lumbar degenerative disc disease M51.36 [facility] [id number] [place] [address] 66457- 1076 Mar, Dizziness R42 ; Falls frequently R29.6 ; Weight loss, non- intentional R63.4 ; Essential hypertension I10 ; Cardiac murmur R01.1 ; Hypercalcemia E83.52 and Requires assistance with activities of daily living ( ADL) Z74.1 [facility] [place] [id number] [place] [address] 95454- 2667 Mar, [facility] [place] [id number] [place] [address] 90253- 3083 Mar, Hypercalcemia E83.52 [facility] [place] [id number] [place] [address] 04313- 9758 February, Lumbar degenerative disc disease M51.36 [facility] [id number] [place] [address] 35795- 2249 February, Type 2 diabetes mellitus with diabetic neuropathy, unspecified fpc insulin 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 ; Type 2 diabetes mellitus with other specified complication E11.69 ; watermaster 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 of 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 ; Essential hypertension I10 ; Chronic obstructive pulmonary disease, unspecified COPD type J44.9 ; Polyneuropathy associated with underlying disease G63 ; Atrial fibrillation, unspecified type I48.91 ; GERD without esophagitis K21.9 and Lumbar degenerative disc disease M51.36 [facility] [id number] [place] [address] 77988- 8293 Jan, Other chronic pain G89.29 [facility] [place] [id number] [place] [address] 05790- 8079 Jan, [place] [id number] [place] [address] 58253- 1315 Jan, [facility] [address] [address] 4924 Jan, Type 2 diabetes mellitus with diabetic neuropathy, unspecified intermediate card tender insulin 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 [facility] [address] [address] 8650 16 Jan, 2018 [facility] [id number] [place] [address] 12870- 9332 Jan, [facility] [id number] [place] [address] 99520- 9107 Jan, Other chronic pain G89.29 [facility] [id number] [place] [address] 01389- 9621 Dec, Atrial fibrillation, unspecified type I48.91 ; Essential hypertension I10 and Other chronic pain G89.29 [facility] [place] [id number] [place] [address] 63232- 2711 Dec, Atrial fibrillation, unspecified type I48.91 [facility] [place] [address] [address] 9174 Dec, [facility] [id number] [place] [address] 31056- 1523 Nov, Other chronic pain G89.29 [facility] [place] [address] [address] 7168 Nov, [facility] [address] [address]- 4733 Nov, [facility] [address] [address]- 8893 Nov, Type 2 diabetes mellitus with diabetic neuropathy, unspecified fpc insulin 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 ; Type 2 diabetes mellitus with hyperglycemia E11.65 ; Essential hypertension I10 ; Chronic obstructive pulmonary disease, unspecified COPD type J44.9 ; Atrial fibrillation, unspecified type I48.91 ; GERD without esophagitis K21.9 ; Lumbar degenerative disc disease M51.36 ; Alcoholism /alcohol abuse F10.20 and Encounter for immunization Z23 [facility] [address] 12041- 0838 Oct, Type 2 diabetes mellitus with hyperglycemia E11.65 ; Other chronic pain G89.29 and Other intermediate card tender (current) drug therapy Z79.899 [facility] [address] 07619- 7199 Oct, [facility] [address] 75377- 6733 Oct, Essential hypertension I10 ; Anemia, unspecified D64.9 ; Chronic obstructive pulmonary disease, unspecified COPD type J44.9 ; Type 2 diabetes mellitus with hyperglycemia E11.65 ; Alcoholic cirrhosis of liver without ascites K70.30 ; Polyneuropathy associated with underlying disease G63 and Atrial fibrillation, unspecified type I48.91 [facility] [address] 60019- 6592 Sep, Other chronic pain G89.29 [facility] [place] [id number] [place] [address] 90018- 5932 Sep, Type 2 diabetes mellitus with hyperglycemia E11.65 ; Atrial fibrillation, unspecified type I48.91 and Essential hypertension I10 [facility] [place] [id number] [place] [address] 63662- 5897 Sep, Essential hypertension I10 [facility] [address] 46973- 6622 Sep, Essential hypertension I10 [facility] [place] [id number] [place] [address] 88936- 6725 Sep, [facility] [address] 10096- 8029 Sep, Other chronic pain G89.29 [facility] [place] [id number] [place] [address] 49291- 8978 Aug, [facility] [place] [address] [address] 3093 Aug, Polyneuropathy associated with underlying disease G63 and Chronic obstructive pulmonary disease, unspecified COPD type J44.9 [facility] [id number] [id number] Aug, [facility] [address] [address]- 0765 Aug, [facility] [address] [address]- 5850 Aug, Chronic obstructive pulmonary disease, unspecified COPD type J44.9 [facility] [id number] [place] [address] 50952- 6140 10 Aug, 2017 Medicare annual wellness visit, subsequent Z00.00 [facility] [address] [address]- 8533 Aug, Other chronic pain G89.29 [facility] [address] [address]- 3189 16 Jul, 2017 [facility] [id number] [place] [address] 03096- 9975 Jul, [facility] [address] [address]- 5064 Jul, Other chronic pain G89.29 and Essential hypertension I10 [facility] [address] [address]- 7233 Jun, [facility] [address] [address]- 7277 19 Jun, 2017 Essential hypertension I10 [facility] [address] [address]- 4716 07 Jun, 2017 [facility] [address] [address]- 9508 07 Jun, 2017 Other chronic pain G89.29 [facility] [id number] [place] [address] 88806- 9337 Jun, Other chronic pain G89.29 [facility] [place] [id number] [place] [address] 67744- 3901 Jun, [facility] [place] [id number] [place] [address] 57649- 0911 Jun, Type 2 diabetes mellitus with hyperglycemia E11.65 ; Essential hypertension I10 ; Atrial fibrillation, unspecified type I48.91 ; Polyneuropathy associated with underlying disease G63 ; Anemia, unspecified D64.9 ; Chronic obstructive pulmonary disease, unspecified COPD type J44.9 ; Other urinary incontinence N39.498 ; Lumbar degenerative disc disease M51.36 and GERD without esophagitis K21.9 [facility] [place] [id number] [place] [address] 55533- 5448 May, [facility] [place] [id number] [place] [address] 56977- 8583 May, [facility] [place] [id number] [place] [address] 72107- 8918 May, [facility] [id number] [place] [address] 47987- 2455 May, Other chronic pain G89.29 [facility] [place] [id number] [place] [address] 26798- 7695 Apr, Onychomycosis B35.1 and Type 2 diabetes mellitus with diabetic neuropathy, unspecified intermediate card tender insulin 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 [facility] [address] [address]- 2486 Apr, Essential hypertension I10 [facility] [id number] [place] [address] 43006- 8872 Apr, [facility] [place] [id number] [place] [address] 64625- 0676 Apr, Other chronic pain G89.29 [facility] [place] [id number] [place] [address] 85851- 3702 Mar, Cervical pain (neck) M54.2 ; Other chronic pain G89.29 ; Other urinary incontinence N39.498 and Essential hypertension I10 [facility] [place] [id number] [place] [address] 92316- 2426 Mar, [facility] [id number] [place] [address] 82165- 4637 Mar, Other chronic pain G89.29 [facility] [place] [id number] [place] [address] 88056- 1805 February, [facility] [place] [id number] [place] [address] 36858- 6582 February, [facility] [place] [id number] [place] [address] 35978- 9048 February, Other chronic pain G89.29 [facility] [place] [address] 64202- 5092 February, Essential hypertension I10 ; Type 2 diabetes mellitus with hyperglycemia E11.65 ; Alcoholic cirrhosis of liver without ascites K70.30 ; Chronic obstructive pulmonary disease, unspecified COPD type J44.9 ; Atrial fibrillation, unspecified type I48.91 ; Polyneuropathy associated with underlying disease G63 ; Anemia, unspecified D64.9 ; Requires assistance with activities of daily living (ADL) Z74.1 and Non-compliant behavior R46.89 [facility] [id number] [place] [address] [id number] February, Dental examination Z01.20 [facility] [id number] [place] [address] 98988- 7804 Jan, [facility] [id number] [place] [address] [id number] Jan, Dental caries K02.9 [facility] [place] [id number] [place] [address] 47169- 7013 Jan, Anemia, unspecified D64.9 ; Chronic obstructive pulmonary disease, unspecified COPD type J44.9 ; Other chronic pain G89.29 ; Syncope and collapse R55 and Polyneuropathy associated with underlying disease G63 [facility] [id number] [id number] 04 Jan, 2017 Dental examination Z01.20 [facility] [id number] [place] [address] 46078- 8777 28 Dec, 2016 Type 2 diabetes mellitus with hyperglycemia E11.65 ; Anemia , unspecified D64.9 ; Essential hypertension I10 ; Chronic obstructive pulmonary disease, unspecified COPD type J44.9 ; Atrial fibrillation, unspecified type I48.91 ; Cervical pain (neck) M54.2 ; Polyneuropathy associated with underlying disease G63 ; Low back pain M54.5 ; Other chronic pain G89.29 and Alcoholic cirrhosis of liver without ascites K70.30 [facility] [place] [id number] [place] [address] 30195- 7268 Dec, [facility] [place] [id number] [place] [address] 81472- 0212 Dec, [facility] [place] [id number] [place] [address] 68293- 8580 Dec, [facility] [place] [id number] [place] [address] 98604- 6997 Dec, Type 2 diabetes mellitus with hyperglycemia E11.65 ; History of alcoholism F10.21 ; Anemia due to other cause D64.89 and Atrial fibrillation, unspecified type I48.91 [facility] [place] [id number] [place] [address] 08028- 5429 Dec, [facility] [place] [id number] [place] [address] 13439- 4907 Dec, [facility] [place] [id number] [place] [address] 28355- 3587 10 Dec, 2016 Type 2 diabetes mellitus with hyperglycemia E11.65 ; History of alcoholism F10.21 ; Anemia due to other cause D64.89 and Atrial fibrillation, unspecified type I48.91 [facility] [place] [id number] [place] [address] 66086- 3888 21 Nov, 2016 [facility] [id number] [place] [address] 14092- 7477 17 Nov, 2016 Other chronic pain G89.29 [facility] [id number] [place] [address] 98588- 7736 13 Nov, 2016 Other chronic pain G89.29 [facility] [id number] [place] [address] 16905- 3092 10 Nov, 2016 Type 2 diabetes mellitus with hyperglycemia E11.65 ; Anemia due to other cause D64.89 ; Hypotension due to blood loss I95.89 ; Alcoholic cirrhosis of liver without ascites K70.30 ; History of alcoholism F10.21 and Chronic obstructive pulmonary disease, unspecified COPD type J44.9 [facility] [id number] [place] [address] 10841- 0180 Sep, [facility] [id number] [place] [address] [id number] Jan, Dental examination Z01.20 [facility] [id number] [place] [address] 08501- 6894 23 Nov, 2015 Chronic obstructive pulmonary disease, unspecified COPD type J44.9 ; Panic attacks F41.0 and Other chronic pain G89.29 [facility] [address] [address]- 4845 Jan, [facility] [id number] [place] [address] 28459- 6363 Jan, [facility] [id number] [place] [address] 14195- 0526 Dec, [facility] [id number] [place] [address] 37487- 9903 18 Dec, 2014 [facility] [id number] [place] [address] 43108- 1244 05 Dec, 2014 [facility] [id number] [place] [address] 30743- 8326 Dec, IMMUNIZATIONS No Known Immunizations SOCIAL HISTORY Never Assessed REASON FOR VISIT custodial PLAN OF CARE VITAL SIGNS MEDICATIONS Medication Instructions Dosage Frequency Start Date End Date Duration Status Insulin Detemir 100 UNIT/ML Subcutaneous at hs and 20u in AM 60u Apr, Active RESULTS No Results PROCEDURES No Known [...]
--- OUTSIDE RECORDS SUMMARY | 2018-07-29 05:16 | XMS REPORT ---
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 Active 375774902 Problem Alcoholic cirrhosis of liver without ascites K70.30 Active 119384390 Problem Type 2 diabetes mellitus with hyperglycemia E11.65 Active 700989774454764 Problem Essential hypertension I10 Active 36892348 Problem Lumbar degenerative disc disease M51.36 Active 02994550 Problem Other hammer toe(s) (acquired), left foot M20.42 Active 68530555 Problem Amputated toe of left foot Z89.422 Active 255527495 Problem 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 Active 599803115 Problem Other hammer toe(s) (acquired), right foot M20.41 Active 233909278 Problem Atrial fibrillation, unspecified type I48.91 Active 55062470 Problem Other chronic pain G89.29 Active 96100979 Problem Other chronic pain G89.29 Active 56960357 Problem Chronic obstructive pulmonary disease, unspecified COPD type J44.9 Active 99324624 Problem Requires assistance with activities of daily living (ADL) Z74.1 Active 310901008 Problem Other urinary incontinence N39.498 Active 260127014 Problem Anemia, unspecified D64.9 Active 698635861 Problem Polyneuropathy associated with underlying disease G63 Active 839603395 Problem GERD without esophagitis K21.9 Active 129984368 Problem Hypercalcemia E83.52 Active 01002931 Problem Cervical pain (neck) M54.2 Active 60945591 Problem Alcoholism /alcohol abuse F10.20 Active 4190643 ALLERGIES Substance Reaction Event Type Date Status Haloperidol Unknown Drug Allergy May, Active Haldol Unknown Drug Allergy May, Active Atenolol Unknown Drug Allergy May, Active Albuterol Unknown Drug Allergy May, Active ENCOUNTERS Encounter Location Date Diagnosis [place] [address], [place] [address] 26 Jun, 2018 [facility] [address] [place] [id number] Jun, 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 and Type 2 diabetes mellitus with hyperglycemia E11.65 [place] [address] [place] [id number] [place] [address] 11646- 2792 18 Jun, 2018 [place] [address] [place] [id number] [place] [address] 83125- 9305 15 Jun, 2018 Type 2 diabetes mellitus with hyperglycemia E11.65 [place] [address] [place] [id number] [place] [address] 74990- 7762 31 May, 2018 Lumbar degenerative disc disease M51.36 [place] [address] [place] [id number] [place] [address] 55428- 2863 28 May, 2018 Type 2 diabetes mellitus with hyperglycemia E11.65 [place] [address] [place] [id number] [place] [address] 98193- 5638 24 May, 2018 Lumbar degenerative disc disease M51.36 [place] [address] [place] [address] [address] 23 May, 2018 [facility] [address] [id number] May, Dental examination Z01.20 and Dental caries K02.9 [place] [address] [place] [id number] [place] [address] 60991- 4846 13 May, 2018 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 ; ferry terminal 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 of 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 ; Polyneuropathy associated with underlying disease G63 ; Essential hypertension I10 ; Other hammer toe(s) (acquired), left foot M20.42 ; Other hammer toe(s) (acquired), right foot M20.41 and Amputated toe of left foot Z89.422 [place] [address] [place] [id number] [place] [address] 16894- 9314 May, [place] [address] [place] [id number] [place] [address] 21084- 5778 May, Type 2 diabetes mellitus with hyperglycemia E11.65 [place] [address] [place] [id number] [place] [address] 07063- 8167 Apr, [facility] [address] [place] [id number] Apr, Type 2 diabetes mellitus with hyperglycemia E11.65 ; Chronic obstructive pulmonary disease, unspecified COPD type J44.9 and Essential hypertension I10 [place] [address] [place] [id number] [place] [address] 81298- 9339 Apr, Type 2 diabetes mellitus with hyperglycemia E11.65 [place] [address] [place] [id number] [place] [address] 46944- 0674 Apr, Type 2 diabetes mellitus with hyperglycemia E11.65 [place] [address] [place] [id number] [place] [address] 81208- 4279 Apr, Lumbar degenerative disc disease M51.36 [place] [address] [place] [id number] [place] [address] 09036- 8101 Apr, Type 2 diabetes mellitus with hyperglycemia E11.65 [facility] [address] [place] [id number] Apr, Type 2 diabetes mellitus with hyperglycemia E11.65 ; Atrial fibrillation, unspecified type I48.91 ; Anemia due to other cause D64.89 ; Alcoholism / alcohol abuse F10.20 ; Acute pylorus ulcer K25.3 and Alcoholic cirrhosis of liver without ascites K70.30 [place] [address] [place] [id number] [place] [address] 61285- 2020 Apr, Lumbar degenerative disc disease M51.36 [place] [address] [place] [id number] [place] [address] 39270- 2673 Mar, [place] [address] [place] [id number] [place] [address] 70894- 1819 Mar, [place] [id number] [place] [address] 60276- 5441 Mar, [place] [address] [place] [id number] [place] [address] 51060- 4388 Mar, [place] [address] [place] [id number] [place] [address] 39299- 7062 Mar, Lumbar degenerative disc disease M51.36 [place] [address] [place] [id number] [place] [address] 07136- 3390 Mar, Dizziness R42 ; Falls frequently R29.6 ; Weight loss, non- intentional R63.4 ; Essential hypertension I10 ; Cardiac murmur R01.1 ; Hypercalcemia E83.52 and Requires assistance with activities of daily living ( ADL) Z74.1 [place] [id number] [place] [address] 72445- 3773 Mar, [place] [address] [place] [id number] [place] [address] 79532- 1949 Mar, Hypercalcemia E83.52 [place] [address] [place] [id number] [place] [address] 91721- 1563 February, Lumbar degenerative disc disease M51.36 [place] [address] [place] [address] 97970- 6851 February, Type 2 diabetes mellitus with diabetic neuropathy, unspecified terminal manager insulin 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 ; Type 2 diabetes mellitus with other specified complication E11.69 ; ferry terminal 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 of 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 ; Essential hypertension I10 ; Chronic obstructive pulmonary disease, unspecified COPD type J44.9 ; Polyneuropathy associated with underlying disease G63 ; Atrial fibrillation, unspecified type I48.91 ; GERD without esophagitis K21.9 and Lumbar degenerative disc disease M51.36 [place] [address] [place] [id number] [place] [address] 76020- 0258 Jan, Other chronic pain G89.29 [place] [address] [place] [address] [address] Jan, [facility] [place] [address], [place] [address] 17[address] Jan, [facility] [place] [address], [place] [address] 37[address] Jan, Type 2 diabetes mellitus with diabetic neuropathy, unspecified residential insulin 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 [facility] [place] [address], [place] [address] 6[address] 16 Jan, 2018 [facility] [place] [address], [place] [address] 3[address] Jan, [facility] [place] [address] [place] [address] 99156- 6541 Jan, Other chronic pain G89.29 [facility] [place] [address], [place] [address] Dec, Atrial fibrillation, unspecified type I48.91 ; Essential hypertension I10 and Other chronic pain G89.29 [facility] [place] [address], [place] [address] 3988 Dec, Atrial fibrillation, unspecified type I48.91 [facility] [place] [address], [place] [address] 9461 Dec, [facility] [place] [address], [place] [address] 6832 Nov, Other chronic pain G89.29 [facility] [place] [address], [place] [address] 0491 Nov, [facility] [place] [address], [place] [address] 7676 Nov, [facility] [place] [address], [place] [address] 9[address] Nov, Type 2 diabetes mellitus with diabetic neuropathy, unspecified residential insulin 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 ; Type 2 diabetes mellitus with hyperglycemia E11.65 ; Essential hypertension I10 ; Chronic obstructive pulmonary disease, unspecified COPD type J44.9 ; Atrial fibrillation, unspecified type I48.91 ; GERD without esophagitis K21.9 ; Lumbar degenerative disc disease M51.36 ; Alcoholism /alcohol abuse F10.20 and Encounter for immunization Z23 [place] [address] [place] [id number] [place] [address] 17508- 4608 Oct, Type 2 diabetes mellitus with hyperglycemia E11.65 ; Other chronic pain G89.29 and Other residential (current) drug therapy Z79.899 [place] [address] [place] [id number] [place] [address] 23114- 1674 Oct, [place] [address] [address]7 Oct, Essential hypertension I10 ; Anemia, unspecified D64.9 ; Chronic obstructive pulmonary disease, unspecified COPD type J44.9 ; Type 2 diabetes mellitus with hyperglycemia E11.65 ; Alcoholic cirrhosis of liver without ascites K70.30 ; Polyneuropathy associated with underlying disease G63 and Atrial fibrillation, unspecified type I48.91 [place] [address] [place] [id number] [place] [address] 51824- 9679 Sep, Other chronic pain G89.29 [place] [address] [place] [id number] [place] [address] 01307- 9788 Sep, Type 2 diabetes mellitus with hyperglycemia E11.65 ; Atrial fibrillation, unspecified type I48.91 and Essential hypertension I10 [place] [address] [place] [id number] [place] [address] 67900- 0796 Sep, Essential hypertension I10 [place] [address] [place] [id number] [place] [address] 75786- 1690 Sep, Essential hypertension I10 [place] [address] [place] [id number] [place] [address] 56960- 9266 Sep, [place] [address] [place] [id number] [place] [address] 81487- 7601 Sep, Other chronic pain G89.29 [place] [address], [place] [address] 7305 Aug, [facility] [place] [address] [place] [address] 70288- 2156 Aug, Polyneuropathy associated with underlying disease G63 and Chronic obstructive pulmonary disease, unspecified COPD type J44.9 [facility] [address] [place] [id number] [id number] Aug, [facility] [place] [address], [place] [address] 2177 Aug, [facility] [place] [address] [place] [id number] [place] [address] 62957- 9015 Aug, Chronic obstructive pulmonary disease, unspecified COPD type J44.9 [facility] [place] [address], [place] [address] 1328 10 Aug, 2017 Medicare annual wellness visit, subsequent Z00.00 [facility] [place] [address] [place] [address] 26778- 5801 07 Aug, 2017 Other chronic pain G89.29 [facility] [place] [address] [place] [address] 87608- 9661 16 Jul, 2017 [facility] [place] [address], [place] [address] 1222 12 Jul, 2017 [facility] [place] [address], [place] [address]- 7843 11 Jul, 2017 Other chronic pain G89.29 and Essential hypertension I10 [facility] [place] [address], [place] [address]- 2994 29 Jun, 2017 [facility] [place] [address] [place] [address] 22345- 2274 19 Jun, 2017 Essential hypertension I10 [facility] [place] [address], [place] [address]- 8411 07 Jun, 2017 [facility] [place] [address], [place] [address]- 6307 Jun, Other chronic pain G89.29 [facility] [place] [address], [place] [address]- 8913 Jun, Other chronic pain G89.29 [facility] [place] [address], [place] [address]- 3736 Jun, [facility] [place] [address] [place] [id number] [place] [address] 24990- 9996 Jun, Type 2 diabetes mellitus with hyperglycemia E11.65 ; Essential hypertension I10 ; Atrial fibrillation, unspecified type I48.91 ; Polyneuropathy associated with underlying disease G63 ; Anemia, unspecified D64.9 ; Chronic obstructive pulmonary disease, unspecified COPD type J44.9 ; Other urinary incontinence N39.498 ; Lumbar degenerative disc disease M51.36 and GERD without esophagitis K21.9 [place] [address] [place] [id number] [place] [address] 60951- 7868 May, [place] [address] [place] [id number] [place] [address] 54515- 9045 May, [place] [address] [place] [id number] [place] [address] 63254- 1332 May, [facility] [place] [address] [place] [id number] [place] [address] 38762- 2443 May, Other chronic pain G89.29 [facility] [place] [address] [place] [address] 71326- 0490 Apr, Onychomycosis B35.1 and Type 2 diabetes mellitus with diabetic neuropathy, unspecified residential insulin 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 [facility] [place] [address] [place] [address] 57452- 4082 Apr, Essential hypertension I10 [facility] [place] [address] [place] [id number] [place] [address] 90793- 9420 Apr, [place] [address] [place] [id number] [place] [address] 50278- 5339 Apr, Other chronic pain G89.29 [facility] [place] [address] [place] [id number] [place] [address] 78257- 5694 Mar, Cervical pain (neck) M54.2 ; Other chronic pain G89.29 ; Other urinary incontinence N39.498 and Essential hypertension I10 [facility] [place] [address] [place] [id number] [place] [address] 91498- 2285 Mar, [facility] [place] [address] 48136- 6466 Mar, Other chronic pain G89.29 [facility] [place] [address] [place] [id number] [place] [address] 63507- 0736 February, [facility] [place] [address] [place] [id number] [place] [address] 49431- 5935 February, [place] [address] [place] [id number] [place] [address] 57802- 0780 February, Other chronic pain G89.29 [facility] [place] [address] [place] [address] [place] [address] 49009- 0336 February, Essential hypertension I10 ; Type 2 diabetes mellitus with hyperglycemia E11.65 ; Alcoholic cirrhosis of liver without ascites K70.30 ; Chronic obstructive pulmonary disease, unspecified COPD type J44.9 ; Atrial fibrillation, unspecified type I48.91 ; Polyneuropathy associated with underlying disease G63 ; Anemia, unspecified D64.9 ; Requires assistance with activities of daily living (ADL) Z74.1 and Non-compliant behavior R46.89 [facility] [address] [place] [address] [id number] [place] [address] [phone] February, Dental examination Z01.20 [facility] [place] [address] [place] [id number] [place] [address] 53447- 8115 Jan, [facility] [address] [place] [address] [id number] [place] [address] [id number] Jan, Dental caries K02.9 [facility] [place] [address] [place] [id number] [place] [address] 28318- 4531 Jan, Anemia, unspecified D64.9 ; Chronic obstructive pulmonary disease, unspecified COPD type J44.9 ; Other chronic pain G89.29 ; Syncope and collapse R55 and Polyneuropathy associated with underlying disease G63 [facility] [address] [id number] 04 Jan, 2017 Dental examination Z01.20 [facility] [place] [address] [place] [address] 75330- 0833 Dec, Type 2 diabetes mellitus with hyperglycemia E11.65 ; Anemia , unspecified D64.9 ; Essential hypertension I10 ; Chronic obstructive pulmonary disease, unspecified COPD type J44.9 ; Atrial fibrillation, unspecified type I48.91 ; Cervical pain (neck) M54.2 ; Polyneuropathy associated with underlying disease G63 ; Low back pain M54.5 ; Other chronic pain G89.29 and Alcoholic cirrhosis of liver without ascites K70.30 [place] [address] [place] [id number] [place] [address] 68738- 8772 Dec, [facility] [place] [address] [place] [id number] [place] [address] 20865- 8363 Dec, [place] [address] [place] [id number] [place] [address] 61887- 8335 Dec, [place] [address] [place] [id number] [place] [address] 08943- 6390 Dec, Type 2 diabetes mellitus with hyperglycemia E11.65 ; History of alcoholism F10.21 ; Anemia due to other cause D64.89 and Atrial fibrillation, unspecified type I48.91 [facility] [place] [address] [place] [address] 80327- 3326 Dec, [facility] [place] [address] [place] [id number] [place] [address] 85748- 9184 13 Dec, 2016 [place] [address] [place] [address] 23507- 4879 10 Dec, 2016 Type 2 diabetes mellitus with hyperglycemia E11.65 ; History of alcoholism F10.21 ; Anemia due to other cause D64.89 and Atrial fibrillation, unspecified type I48.91 [facility] [place] [address] [place] [address] 94284- 6198 Nov, [facility] [place] [address] [place] [id number] [place] [address] 23091- 4790 17 Nov, 2016 Other chronic pain G89.29 [place] [address] [place] [id number] [place] [address] 48646- 1598 13 Nov, 2016 Other chronic pain G89.29 [place] [address] [place] [id number] [place] [address] 11081- 1552 10 Nov, 2016 Type 2 diabetes mellitus with hyperglycemia E11.65 ; Anemia due to other cause D64.89 ; Hypotension due to blood loss I95.89 ; Alcoholic cirrhosis of liver without ascites K70.30 ; History of alcoholism F10.21 and Chronic obstructive pulmonary disease, unspecified COPD type J44.9 [place] [address] [place] [id number] [place] [address] 88535- 1785 Sep, [facility] [id number] [place] [address] [phone] Jan, Dental examination Z01.20 [place] [address] [place] [id number] [place] [address] 83863- 8974 23 Nov, 2015 Chronic obstructive pulmonary disease, unspecified COPD type J44.9 ; Panic attacks F41.0 and Other chronic pain G89.29 [place] [address] [place] [address] 73770- 7606 Jan, [facility] [place] [address] [place] [id number] [place] [address] 38055- 0149 Jan, [facility] [place] [address] [id number] [place] [address] 71830- 6767 Dec, [facility] [place] [address] [place] [id number] [place] [address] 84634- 8486 Dec, [facility] [place] [address] [place] [id number] [place] [address] 34573- 6306 Dec, [facility] [place] [address] [facility] [id number] [address]- 4406 Dec, IMMUNIZATIONS No Known Immunizations SOCIAL HISTORY Never Assessed REASON FOR VISIT gisselle/ has pain on lower anteriors PLAN OF CARE Activity Details Follow Up JENA Reason:Multi TE VITAL SIGNS Height 69 in 2018-06-06 Blood pressure systolic 122 mmHg 2018-06-06 Blood pressure diastolic 60 mmHg 2018-06-06 MEDICATIONS Medication Instructions Dosage Frequency Start Date End Date Duration Status Tamsulosin HCl 0.4 MG Orally Once a day 1 capsule 24h Active Albuterol Sulfate 90 mcg/actuation Inhalation every 4 hrs inhale 2 puffs by inhalation route every 4 hours as needed 4h Dec, 12 months Active Amlodipine Besylate 5 MG Orally Once a day 1 tablet 24h Active Acetaminophen 325 MG Orally every 4 hrs 1-2 tablet as needed 4h Active Spironolactone 25 MG Orally twice a day 1 tablet with food 12h Active Tums 500 mg Orally PRN 1 tablet May, Jun, 30 day(s) Active Advair Diskus 100-50 MCG/DOSE Inhalation Twice a day 1 puff 12h Jun, 12 months Active Levemir FlexTouch Active Insulin Detemir 100 UNIT/ML Subcutaneous at hs 50u Apr, Active Lisinopril 5 mg Orally Once a day 1 tablet 24h Active MetFORMIN HCl ER 500 mg Orally 2 times a day 2 tablet 12h Apr, Active Gabapentin 300 MG Orally 3 times a day TAKE ONE (1) CAPSULE BY MOUTH IN THE MORNING, one capsule at noon, THREE (3) CAPSULES AT BEDTIME 8h Active Digoxin 125 mcg Orally Once a day take 1 tablet (125 mcg) by oral route once daily 24h Dec, 90 days Active NovoLog Flexpen 100 UNIT/ML Subcutaneous before meals Inject 10 units May, Active Hydrocodone-Acetaminophen 5-325 mg Orally every 4 hrs 1 tablet as needed 4h Apr, Active Sucralfate 1 GM Orally 4 times a day 1 tablet before meals and at bedtime 6h Active Humalog Active Pantoprazole Sodium 40 MG Orally Once a day 1 tablet 24h Active Cough Syrup Active RESULTS No Results PROCEDURES Procedure Date Ordered Result Body Site LTD ORAL EVALUATION - PROBLEM FOCUS Jun 06, 2018 INTRAORL-PERIAPICAL 1 FILM [id number] Jun 06, 2018 EXTRAC ERUPTED TOOTH/EXPOSED ROOT Jun 06, 2018 EXTRAC ERUPTED TOOTH/EXPOSED ROOT Jun 06, 2018 INTRAORL-PERIAPICAL EA ADD FILM Jun 06, 2018 EXTRAC ERUPTED TOOTH/EXPOSED ROOT Jun 06, 2018 EXTRAC ERUPTED TOOTH/EXPOSED ROOT Jun 06, 2018 INSTRUCTIONS MEDICATIONS ADMINISTERED No Known Medications MEDICAL [...]
--- OUTSIDE RECORDS SUMMARY | 2018-07-29 05:17 | XMS REPORT ---
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 Active 197967603 Problem Alcoholic cirrhosis of liver without ascites K70.30 Active 337387753 Problem Type 2 diabetes mellitus with hyperglycemia E11.65 Active 803514925276181 Problem Essential hypertension I10 Active 75119842 Problem Lumbar degenerative disc disease M51.36 Active 97809277 Problem Other hammer toe(s) (acquired), left foot M20.42 Active 87719914 Problem Amputated toe of left foot Z89.422 Active 445995092 Problem 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 Active 320956159 Problem Other hammer toe(s) (acquired), right foot M20.41 Active 234349975 Problem Atrial fibrillation, unspecified type I48.91 Active 94636111 Problem Other chronic pain G89.29 Active 31927397 Problem Other chronic pain G89.29 Active 20281416 Problem Chronic obstructive pulmonary disease, unspecified COPD type J44.9 Active 26334964 Problem Requires assistance with activities of daily living (ADL) Z74.1 Active 283273265 Problem Other urinary incontinence N39.498 Active 158700073 Problem Anemia, unspecified D64.9 Active 078249480 Problem Polyneuropathy associated with underlying disease G63 Active 846334922 Problem GERD without esophagitis K21.9 Active 795914388 Problem Hypercalcemia E83.52 Active 43638341 Problem Cervical pain (neck) M54.2 Active 60337735 Problem Alcoholism /alcohol abuse F10.20 Active 7467438 ALLERGIES No Information ENCOUNTERS Encounter Location Date Diagnosis [facility] [id number] [place] [address] 00017- 9819 Jun, [facility] [address] [place] [id number] Jun, 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 and Type 2 diabetes mellitus with hyperglycemia E11.65 [facility] [id number] [place] [address] 42161- 5217 18 Jun, 2018 [facility] [id number] [place] [address] 67227- 4330 15 Jun, 2018 Type 2 diabetes mellitus with hyperglycemia E11.65 [facility] [address] 8[address]27- 7042 31 May, 2018 Lumbar degenerative disc disease M51.36 [facility] [id number] [place] [address] 55249- 1130 28 May, 2018 Type 2 diabetes mellitus with hyperglycemia E11.65 [facility] [id number] [place] [address] 19452- 4320 24 May, 2018 Lumbar degenerative disc disease M51.36 [facility] [id number] [place] [address] 73743- 6005 May, [facility] [id number] [place] [id number] 17 May, 2018 Dental examination Z01.20 and Dental caries K02.9 [facility] [id number] [place] [address] 91909- 5615 13 May, 2018 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 ; intermediate current use of 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 ; Polyneuropathy associated with underlying disease G63 ; Essential hypertension I10 ; Other hammer toe(s) (acquired), left foot M20.42 ; Other hammer toe(s) (acquired), right foot M20.41 and Amputated toe of left foot Z89.422 [facility] [id number] [place] [address] 48256- 8011 May, [facility] [address] [address] 43[address] May, Type 2 diabetes mellitus with hyperglycemia E11.65 [facility] [address] [address] Apr, [facility] [address] [id number] Apr, Type 2 diabetes mellitus with hyperglycemia E11.65 ; Chronic obstructive pulmonary disease, unspecified COPD type J44.9 and Essential hypertension I10 [facility] [address] [address] 30[address] Apr, Type 2 diabetes mellitus with hyperglycemia E11.65 [facility] [id number] [place] [address] 92101- 3221 Apr, Type 2 diabetes mellitus with hyperglycemia E11.65 [facility] [id number] [place] [address] 52965- 6516 Apr, Lumbar degenerative disc disease M51.36 [facility] [address] [place] [address] 69538- 8030 Apr, Type 2 diabetes mellitus with hyperglycemia E11.65 [facility] [address] [id number] Apr, Type 2 diabetes mellitus with hyperglycemia E11.65 ; Atrial fibrillation, unspecified type I48.91 ; Anemia due to other cause D64.89 ; Alcoholism / alcohol abuse F10.20 ; Acute pylorus ulcer K25.3 and Alcoholic cirrhosis of liver without ascites K70.30 [facility] [address] [address] 6702 Apr, Lumbar degenerative disc disease M51.36 [facility] [id number] [address]46 Mar, [facility] [id number] [address] 8137 Mar, [facility] [id number] [place] [address] 66355- 4853 Mar, [facility] [id number] [place] [address] 70845- 9032 Mar, [facility] [id number] [place] [address] 05539- 2580 Mar, Lumbar degenerative disc disease M51.36 [facility] [address] 71473- 2132 Mar, Dizziness R42 ; Falls frequently R29.6 ; Weight loss, non- intentional R63.4 ; Essential hypertension I10 ; Cardiac murmur R01.1 ; Hypercalcemia E83.52 and Requires assistance with activities of daily living ( ADL) Z74.1 [facility] [id number] [place] [address] 62006- 7549 Mar, [facility] [id number] [place] [address] 70556- 3979 Mar, Hypercalcemia E83.52 [facility] [id number] [place] [address] 33997- 3630 February, Lumbar degenerative disc disease M51.36 [facility] [id number] [place] [address] 27275- 8317 February, Type 2 diabetes mellitus with diabetic neuropathy, unspecified senior living insulin 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 ; Type 2 diabetes mellitus with other specified complication E11.69 ; 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 ; Essential hypertension I10 ; Chronic obstructive pulmonary disease, unspecified COPD type J44.9 ; Polyneuropathy associated with underlying disease G63 ; Atrial fibrillation, unspecified type I48.91 ; GERD without esophagitis K21.9 and Lumbar degenerative disc disease M51.36 [facility] [id number] [place] [address] 14146- 1046 Jan, Other chronic pain G89.29 [facility] [id number] [place] [address] 62201- 7772 Jan, [facility] [id number] [place] [address] [place] [address] 6567 Jan, [facility] [address] [place] [address] 51869- 6236 Jan, Type 2 diabetes mellitus with diabetic neuropathy, unspecified senior living insulin 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 [facility] [address] [place] [address] 02147- 4281 Jan, [facility] [id number] [place] [address] 87965- 7904 Jan, [facility] [address] [place] [address] 24328- 5405 Jan, Other chronic pain G89.29 [facility] [id number] [place] [address] 64095- 8016 Dec, Atrial fibrillation, unspecified type I48.91 ; Essential hypertension I10 and Other chronic pain G89.29 [facility] [id number] [place] [address] 90891- 7167 Dec, Atrial fibrillation, unspecified type I48.91 [facility] [address] [place] [address] 52543- 6502 Dec, [facility] [id number] [place] [address] 00866- 3810 Nov, Other chronic pain G89.29 [facility] [id number] [place] [address] 38453- 7713 Nov, [facility] [address] [place] [address] 55574- 3095 Nov, [facility] [id number] [place] [address] 01640- 4154 Nov, Type 2 diabetes mellitus with diabetic neuropathy, 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 ; Type 2 diabetes mellitus with hyperglycemia E11.65 ; Essential hypertension I10 ; Chronic obstructive pulmonary disease, unspecified COPD type J44.9 ; Atrial fibrillation, unspecified type I48.91 ; GERD without esophagitis K21.9 ; Lumbar degenerative disc disease M51.36 ; Alcoholism /alcohol abuse F10.20 and Encounter for immunization Z23 [facility] [id number] [place] [address] 64606- 8021 Oct, Type 2 diabetes mellitus with hyperglycemia E11.65 ; Other chronic pain G89.29 and 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 Z79.899 [facility] [address] 88790- 5427 Oct, [facility] [address] 12324- 0959 Oct, Essential hypertension I10 ; Anemia, unspecified D64.9 ; Chronic obstructive pulmonary disease, unspecified COPD type J44.9 ; Type 2 diabetes mellitus with hyperglycemia E11.65 ; Alcoholic cirrhosis of liver without ascites K70.30 ; Polyneuropathy associated with underlying disease G63 and Atrial fibrillation, unspecified type I48.[address] 22060- 9302 Sep, Other chronic pain G89.29 [facility] [id number] [place] [address] 97011- 3345 Sep, Type 2 diabetes mellitus with hyperglycemia E11.65 ; Atrial fibrillation, unspecified type I48.91 and Essential hypertension I10 [place] [id number] [place] [address] 05068- 3798 Sep, Essential hypertension I10 [facility] [id number] [place] [address] 85158- 6512 Sep, Essential hypertension I10 [facility] [id number] [place] [address] 73327- 6530 Sep, [facility] [address] 02727- 7514 Sep, Other chronic pain G89.29 [facility] [id number] [place] [address] 51173- 2693 Aug, [facility] [address] [address]- 7437 Aug, Polyneuropathy associated with underlying disease G63 and Chronic obstructive pulmonary disease, unspecified COPD type J44.9 [facility] [id number] [id number] Aug, [facility] [address] [address]- 8104 Aug, [facility] [address], [place] [address]- 2445 Aug, Chronic obstructive pulmonary disease, unspecified COPD type J44.9 [facility] [id number] [place] [address] 40693- 4228 10 Aug, 2017 Medicare annual wellness visit, subsequent Z00.00 [facility] [address], [place] [address]- 0963 Aug, Other chronic pain G89.29 [facility] [address] [address]- 8814 16 Jul, 2017 [facility] [address] [place] [address] 96156- 6624 Jul, [facility] [address] [address]- 3225 Jul, Other chronic pain G89.29 and Essential hypertension I10 [facility] [address], [place] [address]- 4038 Jun, [facility] [address] [address]- 6760 19 Jun, 2017 Essential hypertension I10 [facility] [address] [address]- 2540 07 Jun, 2017 [facility] [address], [place] [address]- 1125 07 Jun, 2017 Other chronic pain G89.29 [facility] [id number] [place] [address] 41568- 0048 Jun, Other chronic pain G89.29 [facility] [id number] [place] [address] 75399- 9422 Jun, [facility] [id number] [place] [address] 91659- 5816 Jun, Type 2 diabetes mellitus with hyperglycemia E11.65 ; Essential hypertension I10 ; Atrial fibrillation, unspecified type I48.91 ; Polyneuropathy associated with underlying disease G63 ; Anemia, unspecified D64.9 ; Chronic obstructive pulmonary disease, unspecified COPD type J44.9 ; Other urinary incontinence N39.498 ; Lumbar degenerative disc disease M51.36 and GERD without esophagitis K21.9 [facility] [id number] [place] [address] 06840- 8099 May, [facility] [id number] [place] [address] 72230- 6789 May, [facility] [id number] [place] [address] 91014- 8687 May, [facility] [id number] [place] [address] 63416- 1156 May, Other chronic pain G89.29 [facility] [id number] [place] [address] 61989- 3424 Apr, Onychomycosis B35.1 and Type 2 diabetes mellitus with diabetic neuropathy, unspecified senior living insulin 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 [facility] [id number] [place] [address] 61345- 5936 Apr, Essential hypertension I10 [facility] [id number] [place] [address] 09950- 3656 Apr, [facility] [id number] [place] [address] 64742- 8756 Apr, Other chronic pain G89.29 [facility] [id number] [place] [address] 63564- 3162 Mar, Cervical pain (neck) M54.2 ; Other chronic pain G89.29 ; Other urinary incontinence N39.498 and Essential hypertension I10 [facility] [id number] [place] [address] 05953- 2773 Mar, [facility] [id number] [place] [address] 67612- 8727 Mar, Other chronic pain G89.29 [facility] [id number] [place] [address] 58176- 2608 February, [facility] [id number] [place] [address] 63864- 4755 February, [facility] [address] 34287- 1439 February, Other chronic pain G89.29 [facility] [address] 38715- 2277 February, Essential hypertension I10 ; Type 2 diabetes mellitus with hyperglycemia E11.65 ; Alcoholic cirrhosis of liver without ascites K70.30 ; Chronic obstructive pulmonary disease, unspecified COPD type J44.9 ; Atrial fibrillation, unspecified type I48.91 ; Polyneuropathy associated with underlying disease G63 ; Anemia, unspecified D64.9 ; Requires assistance with activities of daily living (ADL) Z74.1 and Non-compliant behavior R46.89 [facility] [id number] [place] [address] [phone] February, Dental examination Z01.20 [facility] [id number] [place] [address] 02570- 9493 Jan, [facility] [id number] [place] [address] [id number] Jan, Dental caries K02.9 [facility] [address] [place] [address] 04614- 3634 Jan, Anemia, unspecified D64.9 ; Chronic obstructive pulmonary disease, unspecified COPD type J44.9 ; Other chronic pain G89.29 ; Syncope and collapse R55 and Polyneuropathy associated with underlying disease G63 [facility] [id number] [id number] 04 Jan, 2017 Dental examination Z01.20 [facility] [address] [place] [address] 10078- 4663 28 Dec, 2016 Type 2 diabetes mellitus [...] Alcoholic cirrhosis of liver without ascites K70.30 [facility] [id number] [place] [address] 36722- 1442 Dec, [facility] [id number] [place] [address] 02792- 6048 Dec, [facility] [facility] [address] [place] [address] 37040- 7968 Dec, [facility] [address] [place] [address] 31511- 5508 Dec, Type 2 diabetes mellitus with hyperglycemia E11.65 ; History of alcoholism F10.21 ; Anemia due to other cause D64.89 and Atrial fibrillation, unspecified type I48.91 [facility] [address] [place] [address] 79083- 1864 Dec, [place] [address] [place] [address] 91949- 0041 Dec, [facility] [address] [place] [address] 76974- 4321 10 Dec, 2016 Type 2 diabetes mellitus with hyperglycemia E11.65 ; History of alcoholism F10.21 ; Anemia due to other cause D64.89 and Atrial fibrillation, unspecified type I48.91 [facility] [facility] [address] [place] [address] 34728- 9484 21 Nov, 2016 [facility] [address] [place] [address] 19559- 3769 17 Nov, 2016 Other chronic pain G89.29 [facility] [id number] [place] [address] 35895- 2758 13 Nov, 2016 Other chronic pain G89.29 [facility] [id number] [place] [address] 02664- 7227 10 Nov, 2016 Type 2 diabetes mellitus with hyperglycemia E11.65 ; Anemia due to other cause D64.89 ; Hypotension due to blood loss I95.89 ; Alcoholic cirrhosis of liver without ascites K70.30 ; History of alcoholism F10.21 and Chronic obstructive pulmonary disease, unspecified COPD type J44.9 [facility] [id number] [place] [address] 05201- 9945 Sep, [facility] [id number] [place] [address] [id number] Jan, Dental examination Z01.20 [facility] [address] [place] [address] 98998- 6050 23 Nov, 2015 Chronic obstructive pulmonary disease, unspecified COPD type J44.9 ; Panic attacks F41.0 and Other chronic pain G89.29 [facility] [address] [address]- 0253 Jan, [facility] [address] [place] [address] 94327- 0548 Jan, [facility] [address] [place] [address] 19326- 7277 Dec, [facility] [id number] [place] [address] 39633- 1267 Dec, [facility] [address] [place] [address] 08545- 2136 05 Dec, 2014 [facility] [id number] [place] [address] 44602- 2076 Dec, IMMUNIZATIONS No Known Immunizations SOCIAL HISTORY Never Assessed REASON FOR VISIT Requests return call PLAN OF CARE VITAL SIGNS MEDICATIONS Medication Instructions Dosage Frequency Start Date End Date Duration Status Hydrocodone-Acetaminophen 7.5-325 MG Orally every 6 hrs 1 tablet as needed 6h May, 28 days Active RESULTS No Results PROCEDURES [...]
--- OUTSIDE RECORDS SUMMARY | 2018-07-29 05:17 | XMS REPORT ---
Author Author CATALINA CERVANTES 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 Active 311734150 Problem Alcoholic cirrhosis of liver without ascites K70.30 Active 263837161 Problem Type 2 diabetes mellitus with hyperglycemia E11.65 Active 498660687957453 Problem Essential hypertension I10 Active 98015448 Problem Lumbar degenerative disc disease M51.36 Active 62331363 Problem Other hammer toe(s) (acquired), left foot M20.42 Active 31650149 Problem Amputated toe of left foot Z89.422 Active 674244889 Problem 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 Active 460984229 Problem Other hammer toe(s) (acquired), right foot M20.41 Active 862161253 Problem Atrial fibrillation, unspecified type I48.91 Active 57328348 Problem Other chronic pain G89.29 Active 57801750 Problem Other chronic pain G89.29 Active 62538174 Problem Chronic obstructive pulmonary disease, unspecified COPD type J44.9 Active 64813923 Problem Requires assistance with activities of daily living (ADL) Z74.1 Active 779044722 Problem Other urinary incontinence N39.498 Active 098506322 Problem Anemia, unspecified D64.9 Active 137964402 Problem Polyneuropathy associated with underlying disease G63 Active 428586205 Problem GERD without esophagitis K21.9 Active 578341854 Problem Hypercalcemia E83.52 Active 91079130 Problem Cervical pain (neck) M54.2 Active 89442736 Problem Alcoholism /alcohol abuse F10.20 Active 5496772 ALLERGIES No Information ENCOUNTERS Encounter Location Date Diagnosis [facility] [address] [place] [id number] Jun, 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 and Type 2 diabetes mellitus with hyperglycemia E11.65 [facility] [id number] [place] [address] 04568- 6354 18 Jun, 2018 [facility] [id number] [place] [address] 35290- 3504 15 Jun, 2018 Type 2 diabetes mellitus with hyperglycemia E11.65 [facility] [id number] [place] [address] 86832- 7008 31 May, 2018 Lumbar degenerative disc disease M51.36 [facility] [id number] [place] [address] 31293- 1424 28 May, 2018 Type 2 diabetes mellitus with hyperglycemia E11.65 [facility] [id number] [place] [address] 87296- 9693 24 May, 2018 Lumbar degenerative disc disease M51.36 [facility] [id number] [place] [address] 99177- 7755 May, [facility] [address] [id number] May, Dental examination Z01.20 and Dental caries K02.9 [facility] [id number] [place] [address] 17372- 6803 13 May, 2018 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 ; shelter current use of 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 ; Polyneuropathy associated with underlying disease G63 ; Essential hypertension I10 ; Other hammer toe(s) (acquired), left foot M20.42 ; Other hammer toe(s) (acquired), right foot M20.41 and Amputated toe of left foot Z89.422 [facility] [id number] [place] [address] 58443- 3005 May, [facility] [id number] [place] [address] 24495- 3231 May, Type 2 diabetes mellitus with hyperglycemia E11.65 [facility] [address] [address] Apr, [facility] [address] [id number] Apr, Type 2 diabetes mellitus with hyperglycemia E11.65 ; Chronic obstructive pulmonary disease, unspecified COPD type J44.9 and Essential hypertension I10 [facility] [id number] [place] [address] 05462- 0284 Apr, Type 2 diabetes mellitus with hyperglycemia E11.65 [facility] [id number] [place] [address] 12625- 4786 Apr, Type 2 diabetes mellitus with hyperglycemia E11.65 [facility] [id number] [place] [address] 43068- 0860 Apr, Lumbar degenerative disc disease M51.36 [facility] [id number] [place] [address] 12196- 4260 Apr, Type 2 diabetes mellitus with hyperglycemia E11.65 [facility] [address] [id number] Apr, Type 2 diabetes mellitus with hyperglycemia E11.65 ; Atrial fibrillation, unspecified type I48.91 ; Anemia due to other cause D64.89 ; Alcoholism / alcohol abuse F10.20 ; Acute pylorus ulcer K25.3 and Alcoholic cirrhosis of liver without ascites K70.30 [facility] [address] [address] 16[address] Apr, Lumbar degenerative disc disease M51.36 [facility] [address] [address] 8632 Mar, [facility] [id number] [place] [address] 46880- 2061 Mar, [facility] [id number] [address] 2874 Mar, [facility] [id number] [place] [address] 65707- 9925 Mar, [facility] [address] [place] [address] 91818- 6365 Mar, Lumbar degenerative disc disease M51.36 [facility] [id number] [place] [address] 65305- 7686 Mar, Dizziness R42 ; Falls frequently R29.6 ; Weight loss, non- intentional R63.4 ; Essential hypertension I10 ; Cardiac murmur R01.1 ; Hypercalcemia E83.52 and Requires assistance with activities of daily living ( ADL) Z74.1 [facility] [id number] [place] [address] 56234- 1319 Mar, [facility] [id number] [place] [address] 45342- 2405 Mar, Hypercalcemia E83.52 [facility] [id number] [place] [address] 15652- 4556 February, Lumbar degenerative disc disease M51.36 [facility] [id number] [place] [address] 99738- 4157 February, Type 2 diabetes mellitus with diabetic neuropathy, unspecified alf insulin 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 ; Type 2 diabetes mellitus with other specified complication E11.69 ; 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 ; Essential hypertension I10 ; Chronic obstructive pulmonary disease, unspecified COPD type J44.9 ; Polyneuropathy associated with underlying disease G63 ; Atrial fibrillation, unspecified type I48.91 ; GERD without esophagitis K21.9 and Lumbar degenerative disc disease M51.36 [facility] [address] [place] [address] 15880- 6456 Jan, Other chronic pain G89.29 [facility] [id number] [place] [address] 36791- 8473 Jan, [facility] [id number] [place] [address] 89972- 2271 Jan, [facility] [id number] [place] [address] 90037- 5455 Jan, Type 2 diabetes mellitus with diabetic neuropathy, unspecified alf insulin 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 [facility] [id number] [place] [address] 46901- 1388 16 Jan, 2018 [facility] [place] [id number] [place] [address] 70189- 4394 Jan, [facility] [id number] [place] [address] 93899- 6113 Jan, Other chronic pain G89.29 [facility] [id number] [place] [address] 99975- 6797 Dec, Atrial fibrillation, unspecified type I48.91 ; Essential hypertension I10 and Other chronic pain G89.29 [facility] [id number] [place] [address] 36676- 5821 Dec, Atrial fibrillation, unspecified type I48.91 [facility] [id number] [place] [address] 85382- 8727 Dec, [facility] [id number] [place] [address] 05038- 6163 Nov, Other chronic pain G89.29 [facility] [id number] [place] [address] 71505- 2642 Nov, [facility] [id number] [place] [address] 87769- 3356 Nov, [facility] [address] [place] [address] 87032- 0632 Nov, Type 2 diabetes mellitus with diabetic neuropathy, unspecified alf insulin 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 ; Type 2 diabetes mellitus with hyperglycemia E11.65 ; Essential hypertension I10 ; Chronic obstructive pulmonary disease, unspecified COPD type J44.9 ; Atrial fibrillation, unspecified type I48.91 ; GERD without esophagitis K21.9 ; Lumbar degenerative disc disease M51.36 ; Alcoholism /alcohol abuse F10.20 and Encounter for immunization Z23 [facility] [address] [address] 7858 Oct, Type 2 diabetes mellitus with hyperglycemia E11.65 ; Other chronic pain G89.29 and Other alf (current) drug therapy Z79.899 [facility] [address] [place] [address] Oct, [facility] [place] [id number] [place] [address] 77000- 8937 Oct, Essential hypertension I10 ; Anemia, unspecified D64.9 ; Chronic obstructive pulmonary disease, unspecified COPD type J44.9 ; Type 2 diabetes mellitus with hyperglycemia E11.65 ; Alcoholic cirrhosis of liver without ascites K70.30 ; Polyneuropathy associated with underlying disease G63 and Atrial fibrillation, unspecified type I48.91 [facility] [address] [address] Sep, Other chronic pain G89.29 [facility] [id number] [place] [address] 68934- 0291 Sep, Type 2 diabetes mellitus with hyperglycemia E11.65 ; Atrial fibrillation, unspecified type I48.91 and Essential hypertension I10 [facility] [address] [place] [address] 18592- 6234 Sep, Essential hypertension I10 [facility] [address] [address] 1589 Sep, Essential hypertension I10 [facility] [address] [address] 6347 Sep, [facility] [address] [address] 3746 Sep, Other chronic pain G89.29 [facility] [address], [place] [address]- 6716 Aug, [facility] [address] [address] 2356 Aug, Polyneuropathy associated with underlying disease G63 and Chronic obstructive pulmonary disease, unspecified COPD type J44.9 [facility] [address] [id number] [id number] Aug, [facility] [id number] [address] 3548 Aug, [facility] [address] [place] [address]- 4871 Aug, Chronic obstructive pulmonary disease, unspecified COPD type J44.9 [facility] [address] [facility] [id number] [address] 2811 Aug, Medicare annual wellness visit, subsequent Z00.00 [facility] [id number] [place] [address] 59317- 5699 07 Aug, 2017 Other chronic pain G89.29 [facility] [address], [place] [address]- 7084 16 Jul, 2017 [facility] [address], [place] [address]- 6771 Jul, [facility] [address] [place] [address] 47760- 0100 Jul, Other chronic pain G89.29 and Essential hypertension I10 [facility] [address], [place] [address] 4440 Jun, [facility] [address] [address]- 2816 19 Jun, 2017 Essential hypertension I10 [facility] [address], [place] [address]- 1278 Jun, [facility] [address] [place] [address] 75824- 3813 Jun, Other chronic pain G89.29 [facility] [address], [place] [address]- 0327 Jun, Other chronic pain G89.29 [facility] [address], [place] [address]- 6379 Jun, [facility] [id number] [place] [address] 67317- 4100 Jun, Type 2 diabetes mellitus with hyperglycemia E11.65 ; Essential hypertension I10 ; Atrial fibrillation, unspecified type I48.91 ; Polyneuropathy associated with underlying disease G63 ; Anemia, unspecified D64.9 ; Chronic obstructive pulmonary disease, unspecified COPD type J44.9 ; Other urinary incontinence N39.498 ; Lumbar degenerative disc disease M51.36 and GERD without esophagitis K21.9 [facility] [id number] [place] [address] 34424- 7808 May, [facility] [id number] [place] [address] 21685- 4620 May, [facility] [id number] [place] [address] 97663- 7954 May, [facility] [id number] [place] [address] 83369- 4489 May, Other chronic pain G89.29 [facility] [id number] [place] [address] 20263- 3086 Apr, Onychomycosis B35.1 and Type 2 diabetes mellitus with diabetic neuropathy, 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 [facility] [id number] [place] [address] 59250- 5301 Apr, Essential hypertension I10 [facility] [address] [place] [address] 63670- 3449 Apr, [facility] [id number] [place] [address] 47961- 6645 Apr, Other chronic pain G89.29 [facility] [id number] [place] [address] 38693- 6099 Mar, Cervical pain (neck) M54.2 ; Other chronic pain G89.29 ; Other urinary incontinence N39.498 and Essential hypertension I10 [facility] [address] [place] [address] 89825- 4804 Mar, [facility] [id number] [place] [address] 30902- 7340 Mar, Other chronic pain G89.29 [facility] [id number] [place] [address] 64616- 5915 February, [facility] [id number] [place] [address] 23159- 5925 February, [facility] [id number] [place] [address] 78133- 0878 February, Other chronic pain G89.29 [facility] [id number] [place] [address] 62824- 8697 February, Essential hypertension I10 ; Type 2 diabetes mellitus with hyperglycemia E11.65 ; Alcoholic cirrhosis of liver without ascites K70.30 ; Chronic obstructive pulmonary disease, unspecified COPD type J44.9 ; Atrial fibrillation, unspecified type I48.91 ; Polyneuropathy associated with underlying disease G63 ; Anemia, unspecified D64.9 ; Requires assistance with activities of daily living (ADL) Z74.1 and Non-compliant behavior R46.89 [facility] [id number] [place] [address] [id number] February, Dental examination Z01.20 [facility] [id number] [place] [address] 60780- 8412 Jan, [facility] [id number] [place] [address] [id number] Jan, Dental caries K02.9 [id number] [place] [address] 67247- 9233 Jan, Anemia, unspecified D64.9 ; Chronic obstructive pulmonary disease, unspecified COPD type J44.9 ; Other chronic pain G89.29 ; Syncope and collapse R55 and Polyneuropathy associated with underlying disease G63 [facility] [address] [place] [id number] Jan, Dental examination Z01.20 [facility] [id number] [place] [address] 33919- 1594 Dec, Type 2 diabetes mellitus with hyperglycemia E11.65 ; Anemia , unspecified D64.9 ; Essential hypertension I10 ; Chronic obstructive pulmonary disease, unspecified COPD type J44.9 ; Atrial fibrillation, unspecified type I48.91 ; Cervical pain (neck) M54.2 ; Polyneuropathy associated with underlying disease G63 ; Low back pain M54.5 ; Other chronic pain G89.29 and Alcoholic cirrhosis of liver without ascites K70.30 [facility] [id number] [place] [address] 35277- 0358 Dec, [facility] [id number] [place] [address] 89714- 0308 Dec, [facility] [id number] [place] [address] 43514- 6734 Dec, [facility] [id number] [place] [address] 23148- 6915 Dec, Type 2 diabetes mellitus with hyperglycemia E11.65 ; History of alcoholism F10.21 ; Anemia due to other cause D64.89 and Atrial fibrillation, unspecified type I48.91 [facility] [address] [place] [address] 30617- 1935 Dec, [facility] [id number] [place] [address] 53184- 4124 Dec, [facility] [id number] [place] [address] 35422- 0837 Dec, Type 2 diabetes mellitus with hyperglycemia E11.65 ; History of alcoholism F10.21 ; Anemia due to other cause D64.89 and Atrial fibrillation, unspecified type I48.91 [facility] [id number] [place] [address] 73504- 3666 Nov, [facility] [place] [id number] [place] [address] 79152- 3291 17 Nov, 2016 Other chronic pain G89.29 [facility] [address] [place] [address] 90462- 0935 13 Nov, 2016 Other chronic pain G89.29 [facility] [address] [address]- 5533 10 Nov, 2016 Type 2 diabetes mellitus with hyperglycemia E11.65 ; Anemia due to other cause D64.89 ; Hypotension due to blood loss I95.89 ; Alcoholic cirrhosis of liver without ascites K70.30 ; History of alcoholism F10.21 and Chronic obstructive pulmonary disease, unspecified COPD type J44.9 [facility] [address] [place] [address] 49645- 9538 Sep, [facility] [address] [place] [address] [id number] Jan, Dental examination Z01.20 [facility] [id number] [place] [address] 05569- 7079 23 Nov, 2015 Chronic obstructive pulmonary disease, unspecified COPD type J44.9 ; Panic attacks F41.0 and Other chronic pain G89.29 [facility] [place] [address] [place] [address] 64101- 1284 Jan, [place] [address] [place] [address] 32638- 2875 Jan, [facility] [place] [address] [place] [address] 16361- 9185 Dec, [place] [address] [place] [address] 27763- 7911 Dec, [facility] [place] [id number] [place] [address] 50073- 9102 Dec, [place] [address] [place] [address] 44524- 5114 Dec, IMMUNIZATIONS No Known Immunizations SOCIAL HISTORY Never Assessed REASON FOR VISIT penitentiary PLAN OF CARE VITAL SIGNS MEDICATIONS Unknown [...]
--- OUTSIDE RECORDS SUMMARY | 2018-07-29 05:18 | XMS REPORT ---
Author Author ALTHEA ANDERSON [facility] Address [address] [place] [address] Care Team Providers Care Wrapper Opener Name Role Phone ALTHEA ANDERSON Unavailable PROBLEMS Type Condition ICD9-CM Code ALV74-ZD Code Onset Dates Condition Status SNOMED Code Problem Alcoholism /alcohol abuse F10.20 Active 1104196 Problem half-way current use of 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 Active 693518708 Problem Type 2 diabetes mellitus with other specified complication E11.69 Active 46593442 Problem Type 2 diabetes mellitus with hyperglycemia E11.65 Active 788087037986487 Problem Essential hypertension I10 Active 25823860 Problem 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 Active 204176570 Problem Lumbar degenerative disc disease M51.36 Active 85627048 Problem Hypercalcemia E83.52 Active 19923381 Problem Amputated toe of left foot Z89.422 Active 068541250 Problem Falls frequently R29.6 Active 012140449 Problem Other hammer toe(s) (acquired), right foot M20.41 Active 974605113 Problem Other hammer toe(s) (acquired), left foot M20.42 Active 58225461 Problem Chronic obstructive pulmonary disease, unspecified COPD type J44.9 Active 78177865 Problem Atrial fibrillation, unspecified type I48.91 Active 17287374 Problem Alcoholic cirrhosis of liver without ascites K70.30 Active 349580277 Problem Other chronic pain G89.29 Active 12449944 Problem Cervical pain (neck) M54.2 Active 01045593 Problem Requires assistance with activities of daily living (ADL) Z74.1 Active 240806296 Problem Other chronic pain G89.29 Active 21259144 Problem Other urinary incontinence N39.498 Active 275690716 Problem Anemia, unspecified D64.9 Active 615169807 Problem Polyneuropathy associated with underlying disease G63 Active 876979222 Problem GERD without esophagitis K21.9 Active 946091183 ALLERGIES No Information ENCOUNTERS Encounter Location Date Diagnosis [place] [id number], [place] [address] 18 Jun, 2018 [facility] [place] [address] [place] [id number] [place] [address] 66956- 4643 15 Jun, 2018 Type 2 diabetes mellitus with hyperglycemia E11.65 [place] [address] [place] [id number] [place] [address] 24117- 2535 May, Lumbar degenerative disc disease M51.36 [place] [address] [place] [id number] [place] [address] 22626- 3307 May, Type 2 diabetes mellitus with hyperglycemia E11.65 [place] [address] [place] [id number] [place] [address] 03801- 9221 May, Lumbar degenerative disc disease M51.36 [place] [address] [place] [id number] [place] [address] 41255- 7672 May, [facility] [id number] [place] [address] [id number] May, Dental examination Z01.20 and Dental caries K02.9 [place] [address] [place] [id number] [place] [address] 12304- 2013 May, 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 ; half-way current use of 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 ; Polyneuropathy associated with underlying disease G63 ; Essential hypertension I10 ; Other hammer toe(s) (acquired), left foot M20.42 ; Other hammer toe(s) (acquired), right foot M20.41 and Amputated toe of left foot Z89.422 [place] [address], [place] [address] May, [place] [address] [place] [id number] [place] [address] 87867- 6183 May, Type 2 diabetes mellitus with hyperglycemia E11.65 [facility] [place] [address], [place] [address] Apr, [facility] [address] [place] [id number] Apr, Type 2 diabetes mellitus with hyperglycemia E11.65 ; Chronic obstructive pulmonary disease, unspecified COPD type J44.9 and Essential hypertension I10 [facility] [place] [address], [place] [address] 6[address] Apr, Type 2 diabetes mellitus with hyperglycemia E11.65 [facility] [place] [address] [place] [id number] [place] [address] 73143- 9798 Apr, Type 2 diabetes mellitus with hyperglycemia E11.65 [place] [address] [place] [id number] [place] [address] 57875- 7025 Apr, Lumbar degenerative disc disease M51.36 [place] [address] [place] [id number] [place] [address] 66730- 1539 Apr, Type 2 diabetes mellitus with hyperglycemia E11.65 [facility] [address] [place] [id number] Apr, Type 2 diabetes mellitus with hyperglycemia E11.65 ; Atrial fibrillation, unspecified type I48.91 ; Anemia due to other cause D64.89 ; Alcoholism / alcohol abuse F10.20 ; Acute pylorus ulcer K25.3 and Alcoholic cirrhosis of liver without ascites K70.30 [place] [address] [place] [address] 90070- 7182 Apr, Lumbar degenerative disc disease M51.36 [place] [address], [place] [address] 9941 Mar, [place] [address] [place] [id number] [place] [address] 69698- 2608 Mar, [place] [address] [place] [id number] [place] [address] 43564- 8883 Mar, [place] [address] [place] [id number] [place] [address] 73587- 8301 Mar, [facility] [place] [id number] [place] [address] 18800- 2649 Mar, Lumbar degenerative disc disease M51.36 [place] [id number] [place] [address] 99636- 7444 14 Mar, 2018 Dizziness R42 ; Falls frequently R29.6 ; Weight loss, non- intentional R63.4 ; Essential hypertension I10 ; Cardiac murmur R01.1 ; Hypercalcemia E83.52 and Requires assistance with activities of daily living ( ADL) Z74.1 [place] [address] [place] [id number] [place] [address] 77912- 8808 Mar, [place] [address] [place] [id number] [place] [address] 37350- 7774 Mar, Hypercalcemia E83.52 [place] [address] [place] [id number] [place] [address] 93510- 9563 February, Lumbar degenerative disc disease M51.36 [place] [address] [place] [id number] [place] [address] 53967- 0161 February, Type 2 diabetes mellitus with diabetic neuropathy, unspecified residential insulin 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 ; Type 2 diabetes mellitus with other specified complication E11.69 ; 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 ; Essential hypertension I10 ; Chronic obstructive pulmonary disease, unspecified COPD type J44.9 ; Polyneuropathy associated with underlying disease G63 ; Atrial fibrillation, unspecified type I48.91 ; GERD without esophagitis K21.9 and Lumbar degenerative disc disease M51.36 [place] [address] [place] [address] 57652- 3546 Jan, Other chronic pain G89.29 [place] [address] [place] [id number] [place] [address] 57985- 8512 Jan, [place] [address] [place] [id number] [place] [address] 62562- 2633 Jan, [place] [address] [place] [id number] [place] [address] 61789- 1506 Jan, Type 2 diabetes mellitus with diabetic neuropathy, unspecified residential insulin 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 [place] [address] [place] [id number] [place] [address] 45625- 4574 Jan, [facility] [place] [address] [place] [id number] [place] [address] 48371- 0732 Jan, [facility] [place] [address] [place] [id number] [place] [address] 69827- 6822 Jan, Other chronic pain G89.29 [place] [address] 63095- 5426 Dec, Atrial fibrillation, unspecified type I48.91 ; Essential hypertension I10 and Other chronic pain G89.29 [place] [address] [place] [id number] [place] [address] 86795- 7940 Dec, Atrial fibrillation, unspecified type I48.91 [place] [address] [place] [id number] [place] [address] 04010- 0260 Dec, [place] [address] 74043- 3324 Nov, Other chronic pain G89.29 [place] [address] [place] [id number] [place] [address] 25201- 2654 Nov, [place] [address] [place] [id number] [place] [address] 01531- 3932 Nov, [place] [address] [place] [id number] [place] [address] 71169- 2591 Nov, Type 2 diabetes mellitus with diabetic neuropathy, unspecified 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 ; Type 2 diabetes mellitus with hyperglycemia E11.65 ; Essential hypertension I10 ; Chronic obstructive pulmonary disease, unspecified COPD type J44.9 ; Atrial fibrillation, unspecified type I48.91 ; GERD without esophagitis K21.9 ; Lumbar degenerative disc disease M51.36 ; Alcoholism /alcohol abuse F10.20 and Encounter for immunization Z23 [place] [address] [place] [id number] [place] [address] 43194- 7637 Oct, Type 2 diabetes mellitus with hyperglycemia E11.65 ; Other chronic pain G89.29 and Other watermelon inspector (current) drug therapy Z79.899 [facility] [place] [address], [place] [address] 6[address] Oct, [facility] [place] [address] [place] [id number] [place] [address] 51864- 6703 Oct, Essential hypertension I10 ; Anemia, unspecified D64.9 ; Chronic obstructive pulmonary disease, unspecified COPD type J44.9 ; Type 2 diabetes mellitus with hyperglycemia E11.65 ; Alcoholic cirrhosis of liver without ascites K70.30 ; Polyneuropathy associated with underlying disease G63 and Atrial fibrillation, unspecified type I48.91 [facility] [place] [address] [place] [id number] [place] [address] 72355- 2813 Sep, Other chronic pain G89.29 [facility] [place] [address] [place] [id number] [place] [address] 07412- 7832 Sep, Type 2 diabetes mellitus with hyperglycemia E11.65 ; Atrial fibrillation, unspecified type I48.91 and Essential hypertension I10 [facility] [place] [id number] [place] [address] 65687- 3073 Sep, Essential hypertension I10 [facility] [place] [address] [place] [id number] [place] [address] 39701- 4587 Sep, Essential hypertension I10 [facility] [place] [address] [place] [id number] [place] [address] 14334- 7861 Sep, [facility] [place] [id number] [place] [address] 30229- 8564 Sep, Other chronic pain G89.29 [facility] [place] [address], [place] [address]- 9234 Aug, [facility] [place] [address] [place] [id number] [place] [address] 26756- 5238 Aug, Polyneuropathy associated with underlying disease G63 and Chronic obstructive pulmonary disease, unspecified COPD type J44.9 [facility] [address] [place] [address] [id number] Aug, [facility] [place] [address] [facility] [id number] [address] 0334 Aug, [facility] [place] [address] [place] [id number] [place] [address] 02116- 1056 Aug, Chronic obstructive pulmonary disease, unspecified COPD type J44.9 [facility] [place] [address], [place] [address]- 4419 10 Aug, 2017 Medicare annual wellness visit, subsequent Z00.00 [facility] [place] [address] [place] [id number] [place] [address] 11981- 8828 07 Aug, 2017 Other chronic pain G89.29 [facility] [place] [address] [place] [id number] [place] [address] 19616- 3438 16 Jul, 2017 [facility] [place] [address] [place] [id number] [place] [address] 27116- 8107 Jul, [facility] [place] [address] [place] [id number] [place] [address] 67785- 4991 11 Jul, 2017 Other chronic pain G89.29 and Essential hypertension I10 [facility] [place] [address], [place] [address]- 5621 29 Jun, 2017 [facility] [place] [address], [place] [address]- 0145 19 Jun, 2017 Essential hypertension I10 [facility] [place] [address], [place] [address] 2541 07 Jun, 2017 [facility] [place] [address], [place] [address]- 2542 07 Jun, 2017 Other chronic pain G89.29 [facility] [place] [address], [place] [address] 2549 06 Jun, 2017 Other chronic pain G89.29 [facility] [place] [address], [place] [address]- 2546 05 Jun, 2017 [facility] [place] [address] [place] [address] 74915- 3235 Jun, Type 2 diabetes mellitus with hyperglycemia E11.65 ; Essential hypertension I10 ; Atrial fibrillation, unspecified type I48.91 ; Polyneuropathy associated with underlying disease G63 ; Anemia, unspecified D64.9 ; Chronic obstructive pulmonary disease, unspecified COPD type J44.9 ; Other urinary incontinence N39.498 ; Lumbar degenerative disc disease M51.36 and GERD without esophagitis K21.9 [place] [address] 70162- 4356 May, [place] [address] [place] [id number] [place] [address] 93574- 7579 May, [place] [address] 97146- 0090 May, [place] [address] [place] [id number] [place] [address] 06789- 1646 May, Other chronic pain G89.29 [place] [address] 93789- 6798 Apr, Onychomycosis B35.1 and Type 2 diabetes mellitus with diabetic neuropathy, unspecified residential insulin 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 [place] [address] [place] [id number] [place] [address] 34107- 4569 Apr, Essential hypertension I10 [place] [address] [place] [id number] [place] [address] 14984- 8942 Apr, [place] [address] [place] [id number] [place] [address] 37350- 1873 Apr, Other chronic pain G89.29 [place] [address] [place] [id number] [place] [address] 31198- 5440 Mar, Cervical pain (neck) M54.2 ; Other chronic pain G89.29 ; Other urinary incontinence N39.498 and Essential hypertension I10 [place] [address] [place] [id number] [place] [address] 15069- 4706 Mar, [place] [address] [place] [address]- 2005 Mar, Other chronic pain G89.29 [facility] [place] [address], [place] [address]- 0050 February, [facility] [place] [address], [place] [address]- 8220 February, [facility] [place] [address] [place] [id number] [place] [address] 24933- 4876 February, Other chronic pain G89.29 [facility] [place] [address] [place] [address] 89407- 8906 February, Essential hypertension I10 ; Type 2 diabetes mellitus with hyperglycemia E11.65 ; Alcoholic cirrhosis of liver without ascites K70.30 ; Chronic obstructive pulmonary disease, unspecified COPD type J44.9 ; Atrial fibrillation, unspecified type I48.91 ; Polyneuropathy associated with underlying disease G63 ; Anemia, unspecified D64.9 ; Requires assistance with activities of daily living (ADL) Z74.1 and Non-compliant behavior R46.89 [facility] [address] [id number] [place] [address] [id number] February, Dental examination Z01.20 [place] [address] [place] [address] 04529- 6235 Jan, [facility] [address] [place] [id number] [place] [address] [id number] Jan, Dental caries K02.9 [facility] [place] [address] [place] [address] 71841- 9151 Jan, Anemia, unspecified D64.9 ; Chronic obstructive pulmonary disease, unspecified COPD type J44.9 ; Other chronic pain G89.29 ; Syncope and collapse R55 and Polyneuropathy associated with underlying disease G63 [facility] [address] [place] [id number] [place] [address] [id number] Jan, Dental examination Z01.20 [facility] [place] [address] [place] [id number] [place] [address] 51736- 6761 Dec, Type 2 diabetes mellitus with hyperglycemia E11.65 ; Anemia , unspecified D64.9 ; Essential hypertension I10 ; Chronic obstructive pulmonary disease, unspecified COPD type J44.9 ; Atrial fibrillation, unspecified type I48.91 ; Cervical pain (neck) M54.2 ; Polyneuropathy associated with underlying disease G63 ; Low back pain M54.5 ; Other chronic pain G89.29 and Alcoholic cirrhosis of liver without ascites K70.30 [place] [address] [place] [id number] [place] [address] 42938- 0540 Dec, [place] [address] [place] [id number] [place] [address] 31406- 9889 Dec, [place] [address] [place] [id number] [place] [address] 41682- 6970 Dec, [place] [id number] [place] [address] 98852- 9796 Dec, Type 2 diabetes mellitus with hyperglycemia E11.65 ; History of alcoholism F10.21 ; Anemia due to other cause D64.89 and Atrial fibrillation, unspecified type I48.91 [place] [id number] [place] [address] 10576- 6260 Dec, [place] [address] [place] [id number] [place] [address] 42882- 0819 Dec, [place] [address] [place] [id number] [place] [address] 69153- 7940 Dec, Type 2 diabetes mellitus with hyperglycemia E11.65 ; History of alcoholism F10.21 ; Anemia due to other cause D64.89 and Atrial fibrillation, unspecified type I48.91 [place] [id number] [place] [address] 52057- 9116 Nov, [place] [id number] [place] [address] 39034- 4366 Nov, Other chronic pain G89.29 [place] [id number] [place] [address] 77170- 2949 13 Nov, 2016 Other chronic pain G89.29 [place] [address] [place] [address] 96067- 2936 10 Nov, 2016 Type 2 diabetes mellitus with hyperglycemia E11.65 ; Anemia due to other cause D64.89 ; Hypotension due to blood loss I95.89 ; Alcoholic cirrhosis of liver without ascites K70.30 ; History of alcoholism F10.21 and Chronic obstructive pulmonary disease, unspecified COPD type J44.9 [place] [address] [place] [id number] [place] [address] 54543- 8457 Sep, [facility] [id number] [place] [address] [id number] Jan, Dental examination Z01.20 [place] [address] [place] [id number] [place] [address] 57586- 3039 23 Nov, 2015 Chronic obstructive pulmonary disease, unspecified COPD type J44.9 ; Panic attacks F41.0 and Other chronic pain G89.29 [place] [address] [place] [id number] [place] [address] 02795- 7926 Jan, [place] [address] 59345- 3447 Jan, [place] [address] [place] [id number] [place] [address] 07251- 7850 Dec, [place] [address] [place] [id number] [place] [address] 61530- 6817 Dec, [place] [address] [place] [id number] [place] [address] 66122- 1356 Dec, [place] [address] [place] [id number] [place] [address] 32802- 2709 Dec, IMMUNIZATIONS No Known Immunizations SOCIAL HISTORY Never Assessed REASON FOR VISIT high blood sugars. Cont Care with Redd Jones PLAN OF CARE VITAL SIGNS MEDICATIONS Medication Instructions Dosage Frequency Start Date End Date Duration Status Insulin Detemir 100 UNIT/ML Subcutaneous at hs 60u Apr, Active NovoLog Flexpen 100 UNIT/ML Subcutaneous before meals Inject 20 units May, Active RESULTS No Results PROCEDURES No Known [...]
--- OUTSIDE RECORDS SUMMARY | 2018-07-29 05:18 | XMS REPORT ---
Author Author ALTHEA ANDERSON [facility] Address [address] [place] [address] Care Team Providers Care Call Center Coordinator Name Role Phone ALTHEA ANDERSON Unavailable PROBLEMS Type Condition ICD9-CM Code ZFW80-DE Code Onset Dates Condition Status SNOMED Code Problem Alcoholism /alcohol abuse F10.20 Active 1881052 Problem alf current use of 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 Active 482527659 Problem Type 2 diabetes mellitus with other specified complication E11.69 Active 79271832 Problem Type 2 diabetes mellitus with hyperglycemia E11.65 Active [id number] Problem Essential hypertension I10 Active 16531687 Problem 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 Active 768987630 Problem Lumbar degenerative disc disease M51.36 Active 14032881 Problem Hypercalcemia E83.52 Active 20741739 Problem Amputated toe of left foot Z89.422 Active 583342623 Problem Falls frequently R29.6 Active 677412017 Problem Other hammer toe(s) (acquired), right foot M20.41 Active 451678788 Problem Other hammer toe(s) (acquired), left foot M20.42 Active 66730578 Problem Chronic obstructive pulmonary disease, unspecified COPD type J44.9 Active 48287193 Problem Atrial fibrillation, unspecified type I48.91 Active 76949221 Problem Alcoholic cirrhosis of liver without ascites K70.30 Active 342397572 Problem Other chronic pain G89.29 Active 19066664 Problem Cervical pain (neck) M54.2 Active 93741751 Problem Requires assistance with activities of daily living (ADL) Z74.1 Active 681131151 Problem Other chronic pain G89.29 Active 12120253 Problem Other urinary incontinence N39.498 Active 569534472 Problem Anemia, unspecified D64.9 Active 904633144 Problem Polyneuropathy associated with underlying disease G63 Active 108224968 Problem GERD without esophagitis K21.9 Active 585749991 ALLERGIES No Information ENCOUNTERS Encounter Location Date Diagnosis [place] [id number] [address] 18 Jun, 2018 [facility] [id number] [place] [address] 10982- 8195 15 Jun, 2018 Type 2 diabetes mellitus with hyperglycemia E11.65 [place] [id number] [place] [address] 76921- 4769 May, Lumbar degenerative disc disease M51.36 [place] [id number] [place] [address] 83373- 1059 May, Type 2 diabetes mellitus with hyperglycemia E11.65 [place] [id number] [place] [address] 80867- 1918 May, Lumbar degenerative disc disease M51.36 [place] [id number] [place] [address] 63506- 1277 May, [facility] [id number] [place] [address] [phone] May, Dental examination Z01.20 and Dental caries K02.9 [place] [id number] [place] [address] 61584- 9581 May, 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 ; alf current use of 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 ; Polyneuropathy associated with underlying disease G63 ; Essential hypertension I10 ; Other hammer toe(s) (acquired), left foot M20.42 ; Other hammer toe(s) (acquired), right foot M20.41 and Amputated toe of left foot Z89.422 [place] [address], [place] [address] 06[address] May, [place] [id number] [place] [address] 54781- 0399 May, Type 2 diabetes mellitus with hyperglycemia E11.65 [facility] [address], [place] [address] 4317 Apr, [facility] [address] [place] [id number] Apr, Type 2 diabetes mellitus with hyperglycemia E11.65 ; Chronic obstructive pulmonary disease, unspecified COPD type J44.9 and Essential hypertension I10 [facility] [address], [place] [address] 2933 Apr, Type 2 diabetes mellitus with hyperglycemia E11.65 [facility] [id number] [place] [address] 61865- 9082 Apr, Type 2 diabetes mellitus with hyperglycemia E11.65 [place] [id number] [place] [address] 58595- 1606 Apr, Lumbar degenerative disc disease M51.36 [place] [id number] [place] [address] 94495- 2386 Apr, Type 2 diabetes mellitus with hyperglycemia E11.65 [facility] [address] [place] [id number] Apr, Type 2 diabetes mellitus with hyperglycemia E11.65 ; Atrial fibrillation, unspecified type I48.91 ; Anemia due to other cause D64.89 ; Alcoholism / alcohol abuse F10.20 ; Acute pylorus ulcer K25.3 and Alcoholic cirrhosis of liver without ascites K70.30 [place] [address] [place] [address] 90521- 5498 Apr, Lumbar degenerative disc disease M51.36 [place] [address], [place] [address] 7077 Mar, [place] [id number] [place] [address] 47598- 1061 Mar, [place] [id number] [place] [address] 60507- 1462 Mar, [place] [id number] [place] [address] 27681- 8087 Mar, [facility] [id number] [place] [address] 18966- 7730 Mar, Lumbar degenerative disc disease M51.36 [place] [address] [place] [address] 25437- 6558 14 Mar, 2018 Dizziness R42 ; Falls frequently R29.6 ; Weight loss, non- intentional R63.4 ; Essential hypertension I10 ; Cardiac murmur R01.1 ; Hypercalcemia E83.52 and Requires assistance with activities of daily living ( ADL) Z74.1 [place] [id number] [place] [address] 18908- 5439 Mar, [place] [id number] [place] [address] 87458- 2382 Mar, Hypercalcemia E83.52 [place] [id number] [place] [address] 79223- 1303 February, Lumbar degenerative disc disease M51.36 [place] [id number] [place] [address] 39037- 8745 February, Type 2 diabetes mellitus with diabetic neuropathy, unspecified fpc insulin 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 ; Type 2 diabetes mellitus with other specified complication E11.69 ; 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 ; Essential hypertension I10 ; Chronic obstructive pulmonary disease, unspecified COPD type J44.9 ; Polyneuropathy associated with underlying disease G63 ; Atrial fibrillation, unspecified type I48.91 ; GERD without esophagitis K21.9 and Lumbar degenerative disc disease M51.36 [place] [address] [place] [address] 63210- 1470 Jan, Other chronic pain G89.29 [place] [id number] [place] [address] 25606- 7693 Jan, [place] [id number] [place] [address] 93936- 9207 Jan, [place] [id number] [place] [address] 22190- 5713 Jan, Type 2 diabetes mellitus with diabetic neuropathy, unspecified fpc insulin 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 [place] [id number] [place] [address] 34147- 7237 Jan, [facility] [id number] [place] [address] 40135- 1609 Jan, [facility] [id number] [place] [address] 70787- 0801 Jan, Other chronic pain G89.29 [place] [address] 63312- 8706 Dec, Atrial fibrillation, unspecified type I48.91 ; Essential hypertension I10 and Other chronic pain G89.29 [place] [id number] [place] [address] 84735- 9591 Dec, Atrial fibrillation, unspecified type I48.91 [place] [id number] [place] [address] 89964- 1696 Dec, [place] [address] 28299- 3080 Nov, Other chronic pain G89.29 [place] [id number] [place] [address] 03773- 2414 Nov, [place] [id number] [place] [address] 00371- 4360 Nov, [place] [id number] [place] [address] 51412- 3121 Nov, Type 2 diabetes mellitus with diabetic neuropathy, 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 ; Type 2 diabetes mellitus with hyperglycemia E11.65 ; Essential hypertension I10 ; Chronic obstructive pulmonary disease, unspecified COPD type J44.9 ; Atrial fibrillation, unspecified type I48.91 ; GERD without esophagitis K21.9 ; Lumbar degenerative disc disease M51.36 ; Alcoholism /alcohol abuse F10.20 and Encounter for immunization Z23 [place] [id number] [place] [address] 62474- 7325 Oct, Type 2 diabetes mellitus with hyperglycemia E11.65 ; Other chronic pain G89.29 and Other termite renewal inspector (current) drug therapy Z79.899 [facility] [address], [place] [address] 2338 Oct, [facility] [id number] [place] [address] 92625- 0975 Oct, Essential hypertension I10 ; Anemia, unspecified D64.9 ; Chronic obstructive pulmonary disease, unspecified COPD type J44.9 ; Type 2 diabetes mellitus with hyperglycemia E11.65 ; Alcoholic cirrhosis of liver without ascites K70.30 ; Polyneuropathy associated with underlying disease G63 and Atrial fibrillation, unspecified type I48.91 [facility] [id number] [place] [address] 49039- 0668 Sep, Other chronic pain G89.29 [facility] [id number] [place] [address] 88133- 1417 Sep, Type 2 diabetes mellitus with hyperglycemia E11.65 ; Atrial fibrillation, unspecified type I48.91 and Essential hypertension I10 [facility] [address] [place] [address] 19866- 1659 Sep, Essential hypertension I10 [facility] [id number] [place] [address] 84856- 2836 Sep, Essential hypertension I10 [facility] [id number] [place] [address] 92041- 1706 Sep, [facility] [address] [place] [address] 72457- 0613 Sep, Other chronic pain G89.29 [facility] [address], [place] [address]- 5842 Aug, [facility] [id number] [place] [address] 09885- 9931 Aug, Polyneuropathy associated with underlying disease G63 and Chronic obstructive pulmonary disease, unspecified COPD type J44.9 [facility] [address] [place] [address] [phone] Aug, [facility] [address] [facility] [id number] [address] 7101 Aug, [facility] [id number] [place] [address] 91675- 3229 Aug, Chronic obstructive pulmonary disease, unspecified COPD type J44.9 [facility] [address], [place] [address]- 9893 10 Aug, 2017 Medicare annual wellness visit, subsequent Z00.00 [facility] [id number] [place] [address] 58610- 3284 07 Aug, 2017 Other chronic pain G89.29 [facility] [id number] [place] [address] 48714- 8197 16 Jul, 2017 [facility] [id number] [place] [address] 15639- 6083 Jul, [facility] [id number] [place] [address] 79230- 8351 11 Jul, 2017 Other chronic pain G89.29 and Essential hypertension I10 [facility] [address], [place] [address]- 5648 29 Jun, 2017 [facility] [address], [place] [address]- 0207 19 Jun, 2017 Essential hypertension I10 [facility] [address], [place] [address] 2544 07 Jun, 2017 [facility] [address], [place] [address]- 2544 07 Jun, 2017 Other chronic pain G89.29 [facility] [address], [place] [address] 2543 06 Jun, 2017 Other chronic pain G89.29 [facility] [address], [place] [address]- 2546 05 Jun, 2017 [facility] [address] [place] [address] 57437- 0834 Jun, Type 2 diabetes mellitus with hyperglycemia E11.65 ; Essential hypertension I10 ; Atrial fibrillation, unspecified type I48.91 ; Polyneuropathy associated with underlying disease G63 ; Anemia, unspecified D64.9 ; Chronic obstructive pulmonary disease, unspecified COPD type J44.9 ; Other urinary incontinence N39.498 ; Lumbar degenerative disc disease M51.36 and GERD without esophagitis K21.9 [place] [address] 63227- 5255 May, [place] [id number] [place] [address] 75145- 3584 May, [place] [address] 40432- 2509 May, [place] [id number] [place] [address] 27683- 8836 May, Other chronic pain G89.29 [place] [address] 40918- 2538 Apr, Onychomycosis B35.1 and Type 2 diabetes mellitus with diabetic neuropathy, unspecified fpc insulin 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 [place] [id number] [place] [address] 95804- 9806 Apr, Essential hypertension I10 [place] [id number] [place] [address] 01411- 6472 Apr, [place] [id number] [place] [address] 26211- 4250 Apr, Other chronic pain G89.29 [place] [id number] [place] [address] 65592- 0816 Mar, Cervical pain (neck) M54.2 ; Other chronic pain G89.29 ; Other urinary incontinence N39.498 and Essential hypertension I10 [place] [id number] [place] [address] 18234- 8570 Mar, [place] [address] [place] [address]- 9178 Mar, Other chronic pain G89.29 [facility] [address], [place] [address]- 3675 February, [facility] [address], [place] [address]- 5732 February, [facility] [id number] [place] [address] 87831- 1421 February, Other chronic pain G89.29 [facility] [address] [place] [address] 63743- 1638 February, Essential hypertension I10 ; Type 2 diabetes mellitus with hyperglycemia E11.65 ; Alcoholic cirrhosis of liver without ascites K70.30 ; Chronic obstructive pulmonary disease, unspecified COPD type J44.9 ; Atrial fibrillation, unspecified type I48.91 ; Polyneuropathy associated with underlying disease G63 ; Anemia, unspecified D64.9 ; Requires assistance with activities of daily living (ADL) Z74.1 and Non-compliant behavior R46.89 [facility] [id number] [place] [address] [phone] February, Dental examination Z01.20 [place] [address] [place] [address] 91821- 8930 Jan, [facility] [id number] [place] [address] [id number] Jan, Dental caries K02.9 [facility] [address] [place] [address] 63304- 3331 Jan, Anemia, unspecified D64.9 ; Chronic obstructive pulmonary disease, unspecified COPD type J44.9 ; Other chronic pain G89.29 ; Syncope and collapse R55 and Polyneuropathy associated with underlying disease G63 [facility] [id number] [place] [address] [phone] Jan, Dental examination Z01.20 [facility] [id number] [place] [address] 26608- 0976 Dec, Type 2 diabetes mellitus with hyperglycemia E11.65 ; Anemia , unspecified D64.9 ; Essential hypertension I10 ; Chronic obstructive pulmonary disease, unspecified COPD type J44.9 ; Atrial fibrillation, unspecified type I48.91 ; Cervical pain (neck) M54.2 ; Polyneuropathy associated with underlying disease G63 ; Low back pain M54.5 ; Other chronic pain G89.29 and Alcoholic cirrhosis of liver without ascites K70.30 [place] [id number] [place] [address] 03764- 3248 Dec, [place] [id number] [place] [address] 09252- 8202 Dec, [place] [id number] [place] [address] 70558- 5087 Dec, [place] [id number] [place] [address] 58080- 8433 Dec, Type 2 diabetes mellitus with hyperglycemia E11.65 ; History of alcoholism F10.21 ; Anemia due to other cause D64.89 and Atrial fibrillation, unspecified type I48.91 [place] [id number] [place] [address] 73739- 6911 Dec, [place] [id number] [place] [address] 89003- 7305 Dec, [place] [id number] [place] [address] 22989- 7363 Dec, Type 2 diabetes mellitus with hyperglycemia E11.65 ; History of alcoholism F10.21 ; Anemia due to other cause D64.89 and Atrial fibrillation, unspecified type I48.91 [place] [id number] [place] [address] 76899- 8752 Nov, [place] [id number] [place] [address] 36403- 4829 Nov, Other chronic pain G89.29 [place] [id number] [place] [address] 27949- 5039 13 Nov, 2016 Other chronic pain G89.29 [place] [address] [place] [address] 89226- 1476 10 Nov, 2016 Type 2 diabetes mellitus with hyperglycemia E11.65 ; Anemia due to other cause D64.89 ; Hypotension due to blood loss I95.89 ; Alcoholic cirrhosis of liver without ascites K70.30 ; History of alcoholism F10.21 and Chronic obstructive pulmonary disease, unspecified COPD type J44.9 [place] [id number] [place] [address] 93566- 0173 Sep, [facility] [id number] [place] [address] [id number] Jan, Dental examination Z01.20 [place] [id number] [place] [address] 41439- 6037 23 Nov, 2015 Chronic obstructive pulmonary disease, unspecified COPD type J44.9 ; Panic attacks F41.0 and Other chronic pain G89.29 [place] [id number] [place] [address] 60186- 9628 14 Jan, 2015 [place] [address] 64869- 2337 Jan, [place] [id number] [place] [address] 11533- 4210 Dec, [place] [id number] [place] [address] 61500- 3124 Dec, [place] [id number] [place] [address] 80161- 2071 Dec, [place] [id number] [place] [address] 48323- 7634 Dec, IMMUNIZATIONS No Known Immunizations SOCIAL HISTORY Never Assessed REASON FOR VISIT Controlled Med Refill PLAN OF CARE VITAL SIGNS MEDICATIONS Medication Instructions Dosage Frequency Start Date End Date Duration Status Hydrocodone-Acetaminophen 5-325 mg Orally every 4 hrs 1 tablet as needed May, Active RESULTS No Results PROCEDURES No [...]
--- OUTSIDE RECORDS SUMMARY | 2018-07-29 05:19 | XMS REPORT ---
Author Author FRIDA PARKS Organization [facility] Address [address] [place] [address] Care Team Providers Care Bench Repair Technician Name Role Phone FRIDA PARKS Unavailable PROBLEMS Type Condition ICD9-CM Code KNV43-HQ Code Onset Dates Condition Status SNOMED Code Problem Alcoholism /alcohol abuse F10.20 Active 1033125 Problem halfway current use of 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 Active 500223858 Problem Type 2 diabetes mellitus with other specified complication E11.69 Active 68907074 Problem Type 2 diabetes mellitus with hyperglycemia E11.65 Active 839990289413697 Problem Essential hypertension I10 Active 44614009 Problem 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 Active 991751597 Problem Lumbar degenerative disc disease M51.36 Active 44798389 Problem Hypercalcemia E83.52 Active 60098370 Problem Amputated toe of left foot Z89.422 Active 826769973 Problem Falls frequently R29.6 Active 318866093 Problem Other hammer toe(s) (acquired), right foot M20.41 Active 470039051 Problem Other hammer toe(s) (acquired), left foot M20.42 Active 51904244 Problem Chronic obstructive pulmonary disease, unspecified COPD type J44.9 Active 30697724 Problem Atrial fibrillation, unspecified type I48.91 Active 01297885 Problem Alcoholic cirrhosis of liver without ascites K70.30 Active 312229447 Problem Other chronic pain G89.29 Active 94334639 Problem Cervical pain (neck) M54.2 Active 24117438 Problem Requires assistance with activities of daily living (ADL) Z74.1 Active 417403689 Problem Other chronic pain G89.29 Active 11541471 Problem Other urinary incontinence N39.498 Active 863159814 Problem Anemia, unspecified D64.9 Active 213340157 Problem Polyneuropathy associated with underlying disease G63 Active 763720475 Problem GERD without esophagitis K21.9 Active 088782808 ALLERGIES No Information ENCOUNTERS Encounter Location Date Diagnosis [facility] [address], [place] [address] May, Lumbar degenerative disc disease M51.36 [facility] [id number] [place] [address] 31694- 4085 May, Type 2 diabetes mellitus with hyperglycemia E11.65 [facility] [address], [place] [address] May, Lumbar degenerative disc disease M51.36 [facility] [id number] [place] [address] 60392- 6947 May, [facility] [id number] [place] [address] [phone] May, Dental examination Z01.20 and Dental caries K02.9 [place] [facility] [id number] [place] [address] 17868- 3981 May, 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 ; 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 ; Polyneuropathy associated with underlying disease G63 ; Essential hypertension I10 ; Other hammer toe(s) (acquired), left foot M20.42 ; Other hammer toe(s) (acquired), right foot M20.41 and Amputated toe of left foot Z89.422 [facility] [address], [place] [address] May, [facility] [id number] [place] [address] 54900- 2025 May, Type 2 diabetes mellitus with hyperglycemia E11.65 [facility] [address] [place] [address] 09601- 6556 Apr, [facility] [address] [place] [id number] Apr, Type 2 diabetes mellitus with hyperglycemia E11.65 ; Chronic obstructive pulmonary disease, unspecified COPD type J44.9 and Essential hypertension I10 [facility] [id number] [place] [address] 55683- 1541 Apr, Type 2 diabetes mellitus with hyperglycemia E11.65 [facility] [address], [place] [address] 94[address] Apr, Type 2 diabetes mellitus with hyperglycemia E11.65 [facility] [id number] [place] [address] 57207- 9071 Apr, Lumbar degenerative disc disease M51.36 [facility] [id number] [place] [address] 79944- 0343 Apr, Type 2 diabetes mellitus with hyperglycemia E11.65 [facility] [address] [place] [id number] Apr, Type 2 diabetes mellitus with hyperglycemia E11.65 ; Atrial fibrillation, unspecified type I48.91 ; Anemia due to other cause D64.89 ; Alcoholism / alcohol abuse F10.20 ; Acute pylorus ulcer K25.3 and Alcoholic cirrhosis of liver without ascites K70.30 [facility] [id number] [place] [address] 95544- 9531 Apr, Lumbar degenerative disc disease M51.36 [facility] [id number] [place] [address] 84990- 4726 Mar, [facility] [id number] [place] [address] 95287- 7363 Mar, [facility] [id number] [place] [address] 47205- 7915 Mar, [facility] [id number] [place] [address] 48972- 4936 Mar, [facility] [id number] [place] [address] 30187- 9406 Mar, Lumbar degenerative disc disease M51.36 [facility] [id number] [place] [address] 29589- 4789 Mar, Dizziness R42 ; Falls frequently R29.6 ; Weight loss, non- intentional R63.4 ; Essential hypertension I10 ; Cardiac murmur R01.1 ; Hypercalcemia E83.52 and Requires assistance with activities of daily living ( ADL) Z74.1 [facility] [id number], [place] [address] Mar, [facility] [id number] [place] [address] 12389- 0231 Mar, Hypercalcemia E83.52 [facility] [id number] [place] [address] 50928- 1476 February, Lumbar degenerative disc disease M51.36 [facility] [id number] [place] [address] 10027- 8125 February, Type 2 diabetes mellitus with diabetic neuropathy, unspecified terminal makeup 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 ; Type 2 diabetes mellitus with other specified complication E11.69 ; halfway current use of 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 ; Essential hypertension I10 ; Chronic obstructive pulmonary disease, unspecified COPD type J44.9 ; Polyneuropathy associated with underlying disease G63 ; Atrial fibrillation, unspecified type I48.91 ; GERD without esophagitis K21.9 and Lumbar degenerative disc disease M51.36 [facility] [id number] [place] [address] 91582- 1294 Jan, Other chronic pain G89.29 [facility] [id number] [place] [address] 52214- 6720 Jan, [facility] [id number] [place] [address] 92585- 8652 Jan, [facility] [id number] [place] [address] 64359- 8165 Jan, Type 2 diabetes mellitus with diabetic neuropathy, unspecified snf insulin 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 [facility] [id number] [place] [address] 81220- 3046 Jan, [facility] [id number] [place] [address] 53385- 9905 Jan, [facility] [id number] [place] [address] 03544- 2888 Jan, Other chronic pain G89.29 [facility] [address], [place] [address] Dec, Atrial fibrillation, unspecified type I48.91 ; Essential hypertension I10 and Other chronic pain G89.29 [facility] [address], [place] [address] Dec, Atrial fibrillation, unspecified type I48.91 [facility] [id number] [place] [address] 17573- 6515 Dec, [facility] [id number] [place] [address] 80423- 4580 Nov, Other chronic pain G89.29 [facility] [id number] [place] [address] 26063- 6473 Nov, [facility] [id number] [place] [address] 83815- 9739 Nov, [facility] [address] [place] [address] 40487- 8305 Nov, Type 2 diabetes mellitus with diabetic neuropathy, unspecified terminal makeup 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 ; Type 2 diabetes mellitus with hyperglycemia E11.65 ; Essential hypertension I10 ; Chronic obstructive pulmonary disease, unspecified COPD type J44.9 ; Atrial fibrillation, unspecified type I48.91 ; GERD without esophagitis K21.9 ; Lumbar degenerative disc disease M51.36 ; Alcoholism /alcohol abuse F10.20 and Encounter for immunization Z23 [facility] [address], [place] [address] Oct, Type 2 diabetes mellitus with hyperglycemia E11.65 ; Other chronic pain G89.29 and Other terminal makeup operator (current) drug therapy Z79.899 [facility] [address], [place] [address] 5331 Oct, [facility] [address] [place] [address] 65215- 6147 Oct, Essential hypertension I10 ; Anemia, unspecified D64.9 ; Chronic obstructive pulmonary disease, unspecified COPD type J44.9 ; Type 2 diabetes mellitus with hyperglycemia E11.65 ; Alcoholic cirrhosis of liver without ascites K70.30 ; Polyneuropathy associated with underlying disease G63 and Atrial fibrillation, unspecified type I48.91 [facility] [address], [place] [address] Sep, Other chronic pain G89.29 [facility] [id number] [place] [address] 67237- 5439 Sep, Type 2 diabetes mellitus with hyperglycemia E11.65 ; Atrial fibrillation, unspecified type I48.91 and Essential hypertension I10 [facility] [id number] [place] [address] 32587- 2013 Sep, Essential hypertension I10 [facility] [id number] [place] [address] 28682- 1355 Sep, Essential hypertension I10 [facility] [id number] [place] [address] 67943- 6478 Sep, [facility] [id number] [place] [address] 85917- 5935 Sep, Other chronic pain G89.29 [facility] [address], [place] [address] 4662 Aug, [facility] [id number] [place] [address] 88902- 3490 Aug, Polyneuropathy associated with underlying disease G63 and Chronic obstructive pulmonary disease, unspecified COPD type J44.9 [facility] [id number] [id number] Aug, [facility] [id number] [place] [address] 59500- 4052 Aug, [facility] [address], [place] [address]- 9948 Aug, Chronic obstructive pulmonary disease, unspecified COPD type J44.9 [facility] [address], [place] [address]- 5782 10 Aug, 2017 Medicare annual wellness visit, subsequent Z00.00 [facility] [id number] [place] [address] 81802- 6366 07 Aug, 2017 Other chronic pain G89.29 [facility] [address], [place] [address]- 1438 16 Jul, 2017 [facility] [id number] [place] [address] 63326- 4691 Jul, [facility] [id number] [place] [address] 38889- 2886 Jul, Other chronic pain G89.29 and Essential hypertension I10 [facility] [id number] [place] [address] 60443- 5663 Jun, [facility] [id number] [place] [address] 75654- 6308 Jun, Essential hypertension I10 [facility] [address], [place] [address]- 6327 Jun, [facility] [id number] [place] [address] 86694- 2944 Jun, Other chronic pain G89.29 [facility] [address], [place] [address]- 7513 Jun, Other chronic pain G89.29 [facility] [address], [place] [address]- 6968 05 Jun, 2017 [facility] [id number] [place] [address] 55628- 7831 Jun, Type 2 diabetes mellitus with hyperglycemia E11.65 ; Essential hypertension I10 ; Atrial fibrillation, unspecified type I48.91 ; Polyneuropathy associated with underlying disease G63 ; Anemia, unspecified D64.9 ; Chronic obstructive pulmonary disease, unspecified COPD type J44.9 ; Other urinary incontinence N39.498 ; Lumbar degenerative disc disease M51.36 and GERD without esophagitis K21.9 [facility] [id number] [place] [address] 93472- 1954 May, [facility] [id number] [place] [address] 31473- 8617 May, [facility] [id number] [place] [address] 32077- 7579 May, [facility] [id number] [place] [address] 00320- 1797 May, Other chronic pain G89.29 [facility] [address] 95633- 5824 Apr, Onychomycosis B35.1 and Type 2 diabetes mellitus with diabetic neuropathy, unspecified snf insulin 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 [facility] [id number] [place] [address] 15733- 6490 Apr, Essential hypertension I10 [facility] [id number] [place] [address] 32630- 7650 Apr, [facility] [id number] [place] [address] 24038- 4111 Apr, Other chronic pain G89.29 [facility] [id number] [place] [address] 00570- 3079 Mar, Cervical pain (neck) M54.2 ; Other chronic pain G89.29 ; Other urinary incontinence N39.498 and Essential hypertension I10 [facility] [id number] [place] [address] 09285- 2440 Mar, [facility] [id number] [place] [address] 58861- 3558 Mar, Other chronic pain G89.29 [facility] [id number] [place] [address] 57447- 1199 February, [facility] [id number] [place] [address] [id number]- 7877 February, [facility] [id number] [place] [address] 781527- 9647 February, Other chronic pain G89.29 [facility] [id number] [place] [address] 582179- 5233 February, Essential hypertension I10 ; Type 2 diabetes mellitus with hyperglycemia E11.65 ; Alcoholic cirrhosis of liver without ascites K70.30 ; Chronic obstructive pulmonary disease, unspecified COPD type J44.9 ; Atrial fibrillation, unspecified type I48.91 ; Polyneuropathy associated with underlying disease G63 ; Anemia, unspecified D64.9 ; Requires assistance with activities of daily living (ADL) Z74.1 and Non-compliant behavior R46.89 [facility] [id number] [place] [address] [phone] February, Dental examination Z01.20 [facility] [id number] [place] [address] 94460- 2304 Jan, [facility] [id number] [place] [address] [phone] Jan, Dental caries K02.9 [id number] [place] [address] 36744- 6902 Jan, Anemia, unspecified D64.9 ; Chronic obstructive pulmonary disease, unspecified COPD type J44.9 ; Other chronic pain G89.29 ; Syncope and collapse R55 and Polyneuropathy associated with underlying disease G63 [facility] [id number] [place] [address] [phone] Jan, Dental examination Z01.20 [facility] [id number] [place] [address] 51207502- 1171 Dec, Type 2 diabetes mellitus with hyperglycemia E11.65 ; Anemia , unspecified D64.9 ; Essential hypertension I10 ; Chronic obstructive pulmonary disease, unspecified COPD type J44.9 ; Atrial fibrillation, unspecified type I48.91 ; Cervical pain (neck) M54.2 ; Polyneuropathy associated with underlying disease G63 ; Low back pain M54.5 ; Other chronic pain G89.29 and Alcoholic cirrhosis of liver without ascites K70.30 [facility] [address], [place] [address]- 2646 Dec, [facility] [address], [place] [address]- 3638 Dec, [place] [id number] [place] [address] 42635- 4926 Dec, [facility] [id number] [place] [address] 91215- 4302 Dec, Type 2 diabetes mellitus with hyperglycemia E11.65 ; History of alcoholism F10.21 ; Anemia due to other cause D64.89 and Atrial fibrillation, unspecified type I48.91 [facility] [address], [place] [address]- 5329 Dec, [facility] [id number] [place] [address] 44593- 6871 Dec, [place] [address], [place] [address]- 3289 Dec, Type 2 diabetes mellitus with hyperglycemia E11.65 ; History of alcoholism F10.21 ; Anemia due to other cause D64.89 and Atrial fibrillation, unspecified type I48.91 [facility] [facility] [address], [place] [address]- 7979 Nov, [facility] [facility] [address], [place] [address]- 9668 Nov, Other chronic pain G89.29 [facility] [address], [place] [address]- 1871 Nov, Other chronic pain G89.29 [facility] [address], [place] [address]- 9985 Nov, Type 2 diabetes mellitus with hyperglycemia E11.65 ; Anemia due to other cause D64.89 ; Hypotension due to blood loss I95.89 ; Alcoholic cirrhosis of liver without ascites K70.30 ; History of alcoholism F10.21 and Chronic obstructive pulmonary disease, unspecified COPD type J44.9 [facility] [id number] [place] [address] 06798- 1225 Sep, [facility] [address] [place] [address] [phone] Jan, Dental examination Z01.20 [facility] [id number] [place] [address] 91348- 2419 Nov, Chronic obstructive pulmonary disease, unspecified COPD type J44.9 ; Panic attacks F41.0 and Other chronic pain G89.29 [place] [address] 25745- 4255 Jan, [facility] [id number] [place] [address] 44660- 9899 Jan, [facility] [id number] [place] [address] 07221- 6282 Dec, [place] [id number] [place] [address] 96617- 9393 Dec, [facility] [id number] [place] [address] 88927- 0720 Dec, [facility] [id number] [place] [address] 87380- 8642 Dec, IMMUNIZATIONS No Known Immunizations SOCIAL HISTORY Never Assessed REASON FOR VISIT Medication question PLAN OF CARE VITAL SIGNS MEDICATIONS Medication Instructions Dosage Frequency Start Date End Date Duration Status Tums 500 mg Orally PRN 1 tablet May, Jun, 30 day(s) Active RESULTS No Results PROCEDURES No Known [...]
--- OUTSIDE RECORDS SUMMARY | 2018-07-29 05:19 | XMS REPORT ---
Author Author DENIS TRACY Organization [facility] Address [address] [place] [address] Care Team Providers Care Procurement Professional Logistics Name Role Phone DENIS TRACY Unavailable PROBLEMS Type Condition ICD9-CM Code NQI44-LJ Code Onset Dates Condition Status SNOMED Code Problem Alcoholism /alcohol abuse F10.20 Active 4684041 Problem shelter current use of 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 Active 643296144 Problem Type 2 diabetes mellitus with other specified complication E11.69 Active 74273511 Problem Type 2 diabetes mellitus with hyperglycemia E11.65 Active [id number] Problem Essential hypertension I10 Active 80672050 Problem 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 Active 634349853 Problem Lumbar degenerative disc disease M51.36 Active 01999236 Problem Hypercalcemia E83.52 Active 05482232 Problem Amputated toe of left foot Z89.422 Active 925280006 Problem Falls frequently R29.6 Active 170948962 Problem Other hammer toe(s) (acquired), right foot M20.41 Active 701987638 Problem Other hammer toe(s) (acquired), left foot M20.42 Active 46453433 Problem Chronic obstructive pulmonary disease, unspecified COPD type J44.9 Active 69507331 Problem Atrial fibrillation, unspecified type I48.91 Active 59025881 Problem Alcoholic cirrhosis of liver without ascites K70.30 Active 879035108 Problem Other chronic pain G89.29 Active 04680466 Problem Cervical pain (neck) M54.2 Active 60508823 Problem Requires assistance with activities of daily living (ADL) Z74.1 Active 990404166 Problem Other chronic pain G89.29 Active 24718343 Problem Other urinary incontinence N39.498 Active 494640047 Problem Anemia, unspecified D64.9 Active 151000457 Problem Polyneuropathy associated with underlying disease G63 Active 250144626 Problem GERD without esophagitis K21.9 Active 867533893 ALLERGIES No Information ENCOUNTERS Encounter Location Date Diagnosis [place] [address], [place] [address] 15 Jun, 2018 Type 2 diabetes mellitus with hyperglycemia E11.65 [place] [address], [place] [address] May, Lumbar degenerative disc disease M51.36 [place] [address] [place] [id number] [place] [address] 82664- 7048 May, Type 2 diabetes mellitus with hyperglycemia E11.65 [place] [id number] [place] [address] 69960- 2722 May, Lumbar degenerative disc disease M51.36 [place] [address] [place] [id number] [place] [address] 73519- 9337 May, [facility] [address] [place] [id number] [place] [address] [id number] May, Dental examination Z01.20 and Dental caries K02.9 [place] [address], [place] [address] May, 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 ; shelter current use of 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 ; Polyneuropathy associated with underlying disease G63 ; Essential hypertension I10 ; Other hammer toe(s) (acquired), left foot M20.42 ; Other hammer toe(s) (acquired), right foot M20.41 and Amputated toe of left foot Z89.422 [place] [address], [place] [address] May, [place] [address] [place] [id number] [place] [address] 64716- 5423 May, Type 2 diabetes mellitus with hyperglycemia E11.65 [place] [address], [place] [address] Apr, [facility] [address] [place] [id number] Apr, Type 2 diabetes mellitus with hyperglycemia E11.65 ; Chronic obstructive pulmonary disease, unspecified COPD type J44.9 and Essential hypertension I10 [place] [address], [place] [address] 8[address] Apr, Type 2 diabetes mellitus with hyperglycemia E11.65 [facility] [address] [address] [id number] [place] [address] 32676- 7919 Apr, Type 2 diabetes mellitus with hyperglycemia E11.65 [place] [address] [place] [id number] [place] [address] 56451- 2866 Apr, Lumbar degenerative disc disease M51.36 [place] [address] [place] [id number] [place] [address] 26100- 3869 Apr, Type 2 diabetes mellitus with hyperglycemia E11.65 [facility] [address] [place] [id number] Apr, Type 2 diabetes mellitus with hyperglycemia E11.65 ; Atrial fibrillation, unspecified type I48.91 ; Anemia due to other cause D64.89 ; Alcoholism / alcohol abuse F10.20 ; Acute pylorus ulcer K25.3 and Alcoholic cirrhosis of liver without ascites K70.30 [place] [address] [place] [id number] [place] [address] 35906- 7139 Apr, Lumbar degenerative disc disease M51.36 [place] [address] [place] [id number] [place] [address] 68439- 5401 Mar, [place] [address], [place] [address] 7988 Mar, [place] [address] [place] [id number] [place] [address] 72207- 8340 Mar, [place] [id number] [place] [address] 65145- 2304 Mar, [place] [address] [id number] [place] [address] 51444- 0479 Mar, Lumbar degenerative disc disease M51.36 [place] [id number] [place] [address] 59745- 6949 Mar, Dizziness R42 ; Falls frequently R29.6 ; Weight loss, non- intentional R63.4 ; Essential hypertension I10 ; Cardiac murmur R01.1 ; Hypercalcemia E83.52 and Requires assistance with activities of daily living ( ADL) Z74.1 [place] [address] [place] [id number] [place] [address] 13460- 1317 Mar, [place] [address] [address]- 9981 Mar, Hypercalcemia E83.52 [place] [address] 7[address]- 9232 February, Lumbar degenerative disc disease M51.36 [place] [address] [address]- 2[address] February, Type 2 diabetes mellitus with diabetic neuropathy, unspecified manager intermediate insulin 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 ; Type 2 diabetes mellitus with other specified complication E11.69 ; shelter current use of 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 ; Essential hypertension I10 ; Chronic obstructive pulmonary disease, unspecified COPD type J44.9 ; Polyneuropathy associated with underlying disease G63 ; Atrial fibrillation, unspecified type I48.91 ; GERD without esophagitis K21.9 and Lumbar degenerative disc disease M51.36 [place] [address] [place] [id number] [place] [address] 29854- 0269 Jan, Other chronic pain G89.29 [place] [address] [place] [id number] [place] [address] 27687- 3844 Jan, [place] [address] [place] [id number] [place] [address] 17511- 8971 Jan, [place] [address] [place] [id number] [place] [address] 90009- 0321 Jan, Type 2 diabetes mellitus with diabetic neuropathy, unspecified manager intermediate insulin 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 [place] [address] [place] [id number] [place] [address] 95701- 4908 Jan, [place] [address] 53399- 7533 Jan, [place] [id number] [place] [address] 96310- 4575 Jan, Other chronic pain G89.29 [place] [address] [place] [id number] [place] [address] 92250- 9304 Dec, Atrial fibrillation, unspecified type I48.91 ; Essential hypertension I10 and Other chronic pain G89.29 [place] [address] [place] [id number] [place] [address] 95348- 3137 Dec, Atrial fibrillation, unspecified type I48.91 [place] [address] [place] [id number] [place] [address] 01306- 7154 Dec, [place] [address] [place] [address] [id number] [place] [address] 33740- 7736 Nov, Other chronic pain G89.29 [place] [address] [place] [id number] [place] [address] 04879- 0965 Nov, [place] [address] [place] [id number] [place] [address] 91021- 0581 Nov, [place] [address] [place] [id number] [place] [address] 24033- 1593 Nov, Type 2 diabetes mellitus with diabetic neuropathy, unspecified prison insulin 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 ; Type 2 diabetes mellitus with hyperglycemia E11.65 ; Essential hypertension I10 ; Chronic obstructive pulmonary disease, unspecified COPD type J44.9 ; Atrial fibrillation, unspecified type I48.91 ; GERD without esophagitis K21.9 ; Lumbar degenerative disc disease M51.36 ; Alcoholism /alcohol abuse F10.20 and Encounter for immunization Z23 [place] [id number] [place] [address] 10356- 7264 Oct, Type 2 diabetes mellitus with hyperglycemia E11.65 ; Other chronic pain G89.29 and Other prison (current) drug therapy Z79.899 [place] [id number] [place] [address] 82877- 5567 Oct, [facility] [address], [place] [address] Oct, Essential hypertension I10 ; Anemia, unspecified D64.9 ; Chronic obstructive pulmonary disease, unspecified COPD type J44.9 ; Type 2 diabetes mellitus with hyperglycemia E11.65 ; Alcoholic cirrhosis of liver without ascites K70.30 ; Polyneuropathy associated with underlying disease G63 and Atrial fibrillation, unspecified type I48.91 [facility] [id number] [place] [address] 75476- 0477 Sep, Other chronic pain G89.29 [facility] [address] [place] [address] [id number] [place] [address] 05471- 1599 Sep, Type 2 diabetes mellitus with hyperglycemia E11.65 ; Atrial fibrillation, unspecified type I48.91 and Essential hypertension I10 [facility] [id number] [place] [address] 75959- 7851 Sep, Essential hypertension I10 [facility] [address], [place] [address] 1691 Sep, Essential hypertension I10 [facility] [address] [place] [address] [id number] [place] [address] 36798- 6364 Sep, [facility] [id number] [place] [address] 94587- 7350 Sep, Other chronic pain G89.29 [facility] [address], [place] [address] 0101 Aug, [facility] [address], [place] [address] 1819 Aug, Polyneuropathy associated with underlying disease G63 and Chronic obstructive pulmonary disease, unspecified COPD type J44.9 [facility] [address] [id number] Aug, [facility] [address], [place] [address] 3418 Aug, [facility] [address], [place] [address] 5230 13 Aug, 2017 Chronic obstructive pulmonary disease, unspecified COPD type J44.9 [facility] [address], [place] [address]- 3303 10 Aug, 2017 Medicare annual wellness visit, subsequent Z00.00 [facility] [address], [place] [address]- 4271 07 Aug, 2017 Other chronic pain G89.29 [facility] [address], [place] [address]- 8935 16 Jul, 2017 [facility] [address], [place] [address]- 8481 Jul, [facility] [address], [place] [address]- 0427 Jul, Other chronic pain G89.29 and Essential hypertension I10 [facility] [address], [place] [address]- 7000 Jun, [facility] [address], [place] [address]- 6927 Jun, Essential hypertension I10 [facility] [address], [place] [address]- 5249 Jun, [facility] [address], [place] [address]- 1306 Jun, Other chronic pain G89.29 [facility] [address] [id number] [address]- 9869 Jun, Other chronic pain G89.29 [facility] [id number] [address]- 6004 05 Jun, 2017 [facility] [id number], [place] [address]- 7649 Jun, Type 2 diabetes mellitus with hyperglycemia E11.65 ; Essential hypertension I10 ; Atrial fibrillation, unspecified type I48.91 ; Polyneuropathy associated with underlying disease G63 ; Anemia, unspecified D64.9 ; Chronic obstructive pulmonary disease, unspecified COPD type J44.9 ; Other urinary incontinence N39.498 ; Lumbar degenerative disc disease M51.36 and GERD without esophagitis K21.9 [facility] [address] [place] [id number] [place] [address] 66609- 4162 May, [place] [address] [place] [address] [id number] [place] [address] 37228- 7067 May, [place] [address] [place] [id number] [place] [address] 16526- 9776 May, [place] [address] [place] [id number] [place] [address] 02175- 6865 May, Other chronic pain G89.29 [place] [address] [place] [id number] [place] [address] 75921- 9321 Apr, Onychomycosis B35.1 and Type 2 diabetes mellitus with diabetic neuropathy, unspecified manager intermediate insulin 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 [place] [address] [place] [id number] [place] [address] 72097- 5676 Apr, Essential hypertension I10 [place] [address] [place] [id number] [place] [address] 34109- 9756 Apr, [place] [address] [id number] [place] [address] 05136- 0600 Apr, Other chronic pain G89.29 [place] [address] [place] [id number] [place] [address] 09869- 7168 Mar, Cervical pain (neck) M54.2 ; Other chronic pain G89.29 ; Other urinary incontinence N39.498 and Essential hypertension I10 [place] [address] [place] [id number] [place] [address] 76356- 1528 Mar, [place] [address] [place] [id number] [place] [address] 82714- 6464 Mar, Other chronic pain G89.29 [place] [address] [place] [id number] [place] [address] 99509- 6885 February, [place] [address] [id number] [place] [address] 21997- 6182 February, [place] [address] [place] [id number] [place] [address] 77202- 7758 February, Other chronic pain G89.29 [place] [address] 79347- 6166 February, Essential hypertension I10 ; Type 2 diabetes mellitus with hyperglycemia E11.65 ; Alcoholic cirrhosis of liver without ascites K70.30 ; Chronic obstructive pulmonary disease, unspecified COPD type J44.9 ; Atrial fibrillation, unspecified type I48.91 ; Polyneuropathy associated with underlying disease G63 ; Anemia, unspecified D64.9 ; Requires assistance with activities of daily living (ADL) Z74.1 and Non-compliant behavior R46.89 [facility] [address] [id number] February, Dental examination Z01.20 [place] [address] [place] [id number] [place] [address] 29726- 2413 Jan, [facility] [address] [place] [address] [id number] [place] [address] [id number] Jan, Dental caries K02.9 [place] [id number] [place] [address] 48655- 7895 Jan, Anemia, unspecified D64.9 ; Chronic obstructive pulmonary disease, unspecified COPD type J44.9 ; Other chronic pain G89.29 ; Syncope and collapse R55 and Polyneuropathy associated with underlying disease G63 [facility] [address] [place] [id number] [place] [address] [id number] Jan, Dental examination Z01.20 [place] [address] 66505- 1610 Dec, Type 2 diabetes mellitus with hyperglycemia E11.65 ; Anemia , unspecified D64.9 ; Essential hypertension I10 ; Chronic obstructive pulmonary disease, unspecified COPD type J44.9 ; Atrial fibrillation, unspecified type I48.91 ; Cervical pain (neck) M54.2 ; Polyneuropathy associated with underlying disease G63 ; Low back pain M54.5 ; Other chronic pain G89.29 and Alcoholic cirrhosis of liver without ascites K70.30 [place] [address], [place] [address]- 3512 Dec, [place] [address] [place] [id number] [place] [address] 22909- 2203 Dec, [place] [address] [id number] [place] [address] 21714- 8649 Dec, [place] [address] [place] [id number] [place] [address] 86841- 1771 Dec, Type 2 diabetes mellitus with hyperglycemia E11.65 ; History of alcoholism F10.21 ; Anemia due to other cause D64.89 and Atrial fibrillation, unspecified type I48.91 [place] [address] [id number] [place] [address] 62175- 2301 Dec, [place] [address] [place] [id number] [place] [address] 50105- 2267 Dec, [place] [address] [id number] [place] [address] 45927- 8727 Dec, Type 2 diabetes mellitus with hyperglycemia E11.65 ; History of alcoholism F10.21 ; Anemia due to other cause D64.89 and Atrial fibrillation, unspecified type I48.91 [place] [address], [place] [address]- 8267 Nov, [place] [address] [place] [id number] [place] [address] 04485- 7627 Nov, Other chronic pain G89.29 [place] [address] [id number] [place] [address] 72543- 1130 13 Nov, 2016 Other chronic pain G89.29 [place] [address] [place] [id number] [place] [address] 69844- 0972 Nov, Type 2 diabetes mellitus with hyperglycemia E11.65 ; Anemia due to other cause D64.89 ; Hypotension due to blood loss I95.89 ; Alcoholic cirrhosis of liver without ascites K70.30 ; History of alcoholism F10.21 and Chronic obstructive pulmonary disease, unspecified COPD type J44.9 [facility] [address] [address] Sep, [facility] [address] [place] [address] [id number] Jan, Dental examination Z01.20 [place] [address] [id number] [place] [address] 37069- 6040 Nov, Chronic obstructive pulmonary disease, unspecified COPD type J44.9 ; Panic attacks F41.0 and Other chronic pain G89.29 [place] [address] [id number] [place] [address] 40001- 4747 Jan, [place] [address] [place] [id number] [place] [address] 26243- 0532 Jan, [place] [address] [id number] [place] [address] 92996- 2017 Dec, [place] [address] [id number] [place] [address] 12695- 9834 Dec, [place] [address] [id number] [place] [address] 26253- 5564 Dec, [place] [id number] [place] [address] 35719444- 4116 Dec, IMMUNIZATIONS No Known Immunizations SOCIAL HISTORY Never Assessed REASON FOR VISIT Admission follow up PLAN OF CARE Activity Details Follow Up 2 Months Reason: VITAL SIGNS MEDICATIONS Medication Instructions Dosage Frequency Start Date End Date Duration Status Advair Diskus 100-50 MCG/DOSE Inhalation Twice a day 1 puff 12h Jun, 12 months Active Acetaminophen 325 MG Orally every 4 hrs 1-2 tablet as needed 4h Active Digoxin 125 mcg Orally Once a day take 1 tablet (125 mcg) by oral route once daily 24h Dec, 90 days Active Gabapentin 300 MG Orally 3 times a day TAKE ONE (1) CAPSULE BY MOUTH IN THE MORNING, one capsule at noon, THREE (3) CAPSULES AT BEDTIME 8h Active Pantoprazole Sodium 40 MG Orally Once a day 1 tablet 24h Active Sucralfate 1 GM Orally 4 times a day 1 tablet before meals and at bedtime 6h Active MetFORMIN HCl ER 500 mg Orally twice a day X 1 week and then 2 tab bid 1 tablet Apr, 30 day(s) Active Amlodipine Besylate 5 MG Orally Once a day 1 tablet 24h Active Hydrocodone-Acetaminophen 5-325 mg Orally every 4 hrs 1 tablet as needed 4h Apr, Active Tamsulosin HCl 0.4 MG Orally Once a day 1 capsule 24h Active Insulin Detemir 100 UNIT/ML Subcutaneous at hs 50u Apr, Active Calcium Antacid 500 mg Orally 3 times a day 1 tablet as needed 8h Active Lisinopril 5 mg Orally Once a day 1 tablet 24h 90 days Active Spironolactone 25 MG Orally twice a day 1 tablet with food 12h Active Albuterol Sulfate 90 mcg/actuation Inhalation every 4 hrs inhale 2 puffs by inhalation route every 4 hours as needed 4h 05 Dec, 2014 12 months Active Humalog KwikPen 100 UNIT/ML Subcutaneous before meals 10u Apr, Active RESULTS No Results PROCEDURES Procedure Date Ordered Result Body Site [facility] VISIT ESTABLISHED PATIENT May 15, 2018 INSTRUCTIONS MEDICATIONS ADMINISTERED No Known Medications [...] Hospitalization History surgeries Hospitalization History transfusion 2017 Hospitalization History cather placed 03/2018
--- OUTSIDE RECORDS SUMMARY | 2018-07-29 05:19 | XMS REPORT ---
Author Author FRIDA PARKS Organization [facility] Address [address] [place] [address] Care Team Providers Care Furnace Builder Name Role Phone FRIDA PARKS Unavailable PROBLEMS Type Condition ICD9-CM Code EFJ83-CE Code Onset Dates Condition Status SNOMED Code Problem Alcoholism /alcohol abuse F10.20 Active 3677907 Problem halfway current use of 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 Active 843431556 Problem Type 2 diabetes mellitus with other specified complication E11.69 Active 75368829 Problem Type 2 diabetes mellitus with hyperglycemia E11.65 Active [id number] Problem Essential hypertension I10 Active 50291527 Problem 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 Active 633425362 Problem Lumbar degenerative disc disease M51.36 Active 08052045 Problem Hypercalcemia E83.52 Active 62211973 Problem Amputated toe of left foot Z89.422 Active 624469553 Problem Falls frequently R29.6 Active 996852955 Problem Other hammer toe(s) (acquired), right foot M20.41 Active 003022386 Problem Other hammer toe(s) (acquired), left foot M20.42 Active 74746744 Problem Chronic obstructive pulmonary disease, unspecified COPD type J44.9 Active 44317523 Problem Atrial fibrillation, unspecified type I48.91 Active 02755251 Problem Alcoholic cirrhosis of liver without ascites K70.30 Active 099693288 Problem Other chronic pain G89.29 Active 24988604 Problem Cervical pain (neck) M54.2 Active 97224280 Problem Requires assistance with activities of daily living (ADL) Z74.1 Active 381539360 Problem Other chronic pain G89.29 Active 90809339 Problem Other urinary incontinence N39.498 Active 312862990 Problem Anemia, unspecified D64.9 Active 257719260 Problem Polyneuropathy associated with underlying disease G63 Active 326073187 Problem GERD without esophagitis K21.9 Active 542736225 ALLERGIES Substance Reaction Event Type Date Status Haldol Unknown Drug Allergy May, Active ENCOUNTERS Encounter Location Date Diagnosis [facility] [id number] [place] [address] 09891- 7286 18 Jun, 2018 [facility] [id number] [place] [address] 67872- 3535 15 Jun, 2018 Type 2 diabetes mellitus with hyperglycemia E11.65 [facility] [id number] [place] [address] 18938- 9424 May, Lumbar degenerative disc disease M51.36 [facility] [id number] [place] [address] 84908- 6432 May, Type 2 diabetes mellitus with hyperglycemia E11.65 [facility] [id number] [place] [address] 36197- 2250 May, Lumbar degenerative disc disease M51.36 [facility] [id number] [place] [address] 83290- 2997 May, [facility] [id number] [place] [address] [id number] May, Dental examination Z01.20 and Dental caries K02.9 [facility] [id number] [place] [address] 59285- 9668 May, 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 ; respiratory care assistant current use of 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 ; Polyneuropathy associated with underlying disease G63 ; Essential hypertension I10 ; Other hammer toe(s) (acquired), left foot M20.42 ; Other hammer toe(s) (acquired), right foot M20.41 and Amputated toe of left foot Z89.422 [facility] [id number] [place] [address] 40497- 1184 May, [facility] [id number] [place] [address] 61464- 1896 May, Type 2 diabetes mellitus with hyperglycemia E11.65 [facility] [id number] [place] [address] 16908- 8214 Apr, [facility] [address] [id number] Apr, Type 2 diabetes mellitus with hyperglycemia E11.65 ; Chronic obstructive pulmonary disease, unspecified COPD type J44.9 and Essential hypertension I10 [facility] [address] [place] [address] 67[address] Apr, Type 2 diabetes mellitus with hyperglycemia E11.65 [facility] [id number] [place] [address] 38506- 0551 Apr, Type 2 diabetes mellitus with hyperglycemia E11.65 [facility] [id number] [place] [address] 41760- 6569 Apr, Lumbar degenerative disc disease M51.36 [facility] [id number] [address] 6528 Apr, Type 2 diabetes mellitus with hyperglycemia E11.65 [facility] [address] [id number] Apr, Type 2 diabetes mellitus with hyperglycemia E11.65 ; Atrial fibrillation, unspecified type I48.91 ; Anemia due to other cause D64.89 ; Alcoholism / alcohol abuse F10.20 ; Acute pylorus ulcer K25.3 and Alcoholic cirrhosis of liver without ascites K70.30 [facility] [address] [place] [address] 2284 Apr, Lumbar degenerative disc disease M51.36 [facility] [address] [place] [address] 7565 Mar, [facility] [address] [place] [address] Mar, [facility] [id number] [place] [address] 4453 Mar, [facility] [address] [place] [address] 9108 Mar, [facility] [address] [place] [address] 2437 Mar, Lumbar degenerative disc disease M51.36 [facility] [id number] [place] [address] 26910- 7532 14 Mar, 2018 Dizziness R42 ; Falls frequently R29.6 ; Weight loss, non- intentional R63.4 ; Essential hypertension I10 ; Cardiac murmur R01.1 ; Hypercalcemia E83.52 and Requires assistance with activities of daily living ( ADL) Z74.1 [facility] [id number] [place] [address] 32261- 2872 Mar, [facility] [id number] [place] [address] 34258- 4313 Mar, Hypercalcemia E83.52 [facility] [id number] [place] [address] 41591- 4932 February, Lumbar degenerative disc disease M51.36 [facility] [id number] [place] [address] 60248- 1904 February, Type 2 diabetes mellitus with diabetic neuropathy, unspecified snf insulin 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 ; Type 2 diabetes mellitus with other specified complication E11.69 ; halfway current use of 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 ; Essential hypertension I10 ; Chronic obstructive pulmonary disease, unspecified COPD type J44.9 ; Polyneuropathy associated with underlying disease G63 ; Atrial fibrillation, unspecified type I48.91 ; GERD without esophagitis K21.9 and Lumbar degenerative disc disease M51.36 [facility] [id number] [place] [address] 04045- 2590 Jan, Other chronic pain G89.29 [facility] [id number] [place] [address] 31421- 0994 Jan, [facility] [id number] [place] [address] 17569- 1755 Jan, [facility] [id number] [place] [address] 34954- 4671 Jan, Type 2 diabetes mellitus with diabetic neuropathy, unspecified talent acquisition consultant insulin 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 [facility] [address] [place] [address]- 6538 16 Jan, 2018 [facility] [id number] [place] [address] 73202- 6472 Jan, [facility] [id number] [place] [address] 61923- 2910 Jan, Other chronic pain G89.29 [facility] [id number] [place] [address] 18113- 9158 Dec, Atrial fibrillation, unspecified type I48.91 ; Essential hypertension I10 and Other chronic pain G89.29 [facility] [id number] [place] [address] 79096- 2184 Dec, Atrial fibrillation, unspecified type I48.91 [facility] [id number] [place] [address] 75927- 8841 Dec, [facility] [id number] [place] [address] 69037- 8471 Nov, Other chronic pain G89.29 [facility] [id number] [place] [address] 41253- 9399 Nov, [facility] [id number] [place] [address] 03919- 1544 Nov, [facility] [id number] [place] [address] 25921- 7173 Nov, Type 2 diabetes mellitus with diabetic neuropathy, unspecified talent acquisition consultant insulin 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 ; Type 2 diabetes mellitus with hyperglycemia E11.65 ; Essential hypertension I10 ; Chronic obstructive pulmonary disease, unspecified COPD type J44.9 ; Atrial fibrillation, unspecified type I48.91 ; GERD without esophagitis K21.9 ; Lumbar degenerative disc disease M51.36 ; Alcoholism /alcohol abuse F10.20 and Encounter for immunization Z23 [facility] [id number] [place] [address] 20164- 4114 Oct, Type 2 diabetes mellitus with hyperglycemia E11.65 ; Other chronic pain G89.29 and Other snf (current) drug therapy Z79.899 [facility] [address] [place] [address] 6127 Oct, [facility] [id number] [place] [address] 79667- 9351 Oct, Essential hypertension I10 ; Anemia, unspecified D64.9 ; Chronic obstructive pulmonary disease, unspecified COPD type J44.9 ; Type 2 diabetes mellitus with hyperglycemia E11.65 ; Alcoholic cirrhosis of liver without ascites K70.30 ; Polyneuropathy associated with underlying disease G63 and Atrial fibrillation, unspecified type I48.91 [facility] [id number] [place] [address] 60744- 5383 Sep, Other chronic pain G89.29 [facility] [id number] [place] [address] 69369- 7894 Sep, Type 2 diabetes mellitus with hyperglycemia E11.65 ; Atrial fibrillation, unspecified type I48.91 and Essential hypertension I10 [facility] [id number] [place] [address] 88593- 7533 Sep, Essential hypertension I10 [facility] [id number] [place] [address] 12804- 6167 Sep, Essential hypertension I10 [facility] [id number] [place] [address] 53742- 1846 Sep, [facility] [id number] [place] [address] 35855- 3706 Sep, Other chronic pain G89.29 [facility] [address], [place] [address] 3447 Aug, [facility] [id number] [place] [address] 95433- 7513 Aug, Polyneuropathy associated with underlying disease G63 and Chronic obstructive pulmonary disease, unspecified COPD type J44.9 [facility] [id number] [place] [address] [id number] Aug, [facility] [address] [place] [address]- 7181 Aug, [facility] [id number] [place] [address]- 3151 Aug, Chronic obstructive pulmonary disease, unspecified COPD type J44.9 [facility] [id number] [place] [address] 20509- 8902 10 Aug, 2017 Medicare annual wellness visit, subsequent Z00.00 [facility] [id number] [place] [address] 99752- 3879 07 Aug, 2017 Other chronic pain G89.29 [facility] [id number] [place] [address] 23062- 5404 16 Jul, 2017 [facility] [id number] [place] [address] 59493- 5625 12 Jul, 2017 [facility] [id number] [place] [address] 99813- 2787 11 Jul, 2017 Other chronic pain G89.29 and Essential hypertension I10 [facility] [id number] [place] [address] 94211- 4056 29 Jun, 2017 [facility] [id number] [place] [address] 04526- 7712 19 Jun, [address] [facility] [address], [place] [address]- 5237 07 Jun, 2016 [facility] [address], [place] [address]- 2542 07 Jun, 2016 Other chronic pain G89.29 [facility] [id number] [place] [address]- 5868 06 Jun, 2016 Other chronic pain G89.29 [facility] [address] [place] [address]- 3031 05 Jun, 2016 [facility] [id number] [place] [address] 79903- 4788 Jun, Type 2 diabetes mellitus with hyperglycemia E11.65 ; Essential hypertension I10 ; Atrial fibrillation, unspecified type I48.91 ; Polyneuropathy associated with underlying disease G63 ; Anemia, unspecified D64.9 ; Chronic obstructive pulmonary disease, unspecified COPD type J44.9 ; Other urinary incontinence N39.498 ; Lumbar degenerative disc disease M51.36 and GERD without esophagitis K21.9 [facility] [id number] [place] [address] 24069- 2257 May, [facility] [id number] [place] [address] 99338- 1379 May, [facility] [id number] [place] [address] 04225- 7516 May, [facility] [id number] [place] [address] 99469- 7725 May, Other chronic pain G89.29 [facility] [id number] [place] [address] 04178- 2794 Apr, Onychomycosis B35.1 and Type 2 diabetes mellitus with diabetic neuropathy, unspecified talent acquisition consultant insulin 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 [facility] [id number] [place] [address] 59451- 1014 Apr, Essential hypertension I10 [facility] [id number] [place] [address] 09042- 1145 Apr, [facility] [id number] [place] [address] 49757- 4417 Apr, Other chronic pain G89.29 [facility] [id number] [place] [address] 63555- 3620 Mar, Cervical pain (neck) M54.2 ; Other chronic pain G89.29 ; Other urinary incontinence N39.498 and Essential hypertension I10 [facility] [id number] [place] [address] 05871- 5045 Mar, [facility] [id number] [place] [address] 56812- 9227 Mar, Other chronic pain G89.29 [facility] [id number] [place] [address] 48564- 1678 February, [facility] [id number] [place] [address] 26544- 0348 February, [facility] [id number] [place] [address] 70629- 5134 February, Other chronic pain G89.29 [facility] [id number] [place] [address] 88981- 5172 February, Essential hypertension I10 ; Type 2 diabetes mellitus with hyperglycemia E11.65 ; Alcoholic cirrhosis of liver without ascites K70.30 ; Chronic obstructive pulmonary disease, unspecified COPD type J44.9 ; Atrial fibrillation, unspecified type I48.91 ; Polyneuropathy associated with underlying disease G63 ; Anemia, unspecified D64.9 ; Requires assistance with activities of daily living (ADL) Z74.1 and Non-compliant behavior R46.89 [facility] [id number] [place] [address] [id number] February, Dental examination Z01.20 [facility] [id number] [place] [address] 69882- 9369 Jan, [facility] [id number] [place] [address] [id number] Jan, Dental caries K02.9 [facility] [id number] [place] [address] 84729- 3794 Jan, Anemia, unspecified D64.9 ; Chronic obstructive pulmonary disease, unspecified COPD type J44.9 ; Other chronic pain G89.29 ; Syncope and collapse R55 and Polyneuropathy associated with underlying disease G63 [facility] [id number] [place] [address] [id number] Jan, Dental examination Z01.20 [facility] [address] [place] [address]- 7989 Dec, Type 2 diabetes mellitus with hyperglycemia E11.65 ; Anemia , unspecified D64.9 ; Essential hypertension I10 ; Chronic obstructive pulmonary disease, unspecified COPD type J44.9 ; Atrial fibrillation, unspecified type I48.91 ; Cervical pain (neck) M54.2 ; Polyneuropathy associated with underlying disease G63 ; Low back pain M54.5 ; Other chronic pain G89.29 and Alcoholic cirrhosis of liver without ascites K70.30 [facility] [id number] [place] [address] 09114- 6521 Dec, [facility] [address] 40851- 2628 Dec, [facility] [address] 29628- 3290 Dec, [facility] [id number] [place] [address] 75346- 5117 Dec, Type 2 diabetes mellitus with hyperglycemia E11.65 ; History of alcoholism F10.21 ; Anemia due to other cause D64.89 and Atrial fibrillation, unspecified type I48.91 [facility] [id number] [place] [address] 75335- 6357 Dec, [facility] [id number] [place] [address] 40046- 7125 Dec, [facility] [id number] [place] [address] 23675- 4777 Dec, Type 2 diabetes mellitus with hyperglycemia E11.65 ; History of alcoholism F10.21 ; Anemia due to other cause D64.89 and Atrial fibrillation, unspecified type I48.91 [facility] [id number] [place] [address] 29658- 7353 Nov, [facility] [id number] [place] [address] 00052- 8881 Nov, Other chronic pain G89.29 [facility] [address] [place] [address]- 1410 13 Nov, 2016 Other chronic pain G89.29 [facility] [id number] [place] [address] 87977- 6721 10 Nov, 2016 Type 2 diabetes mellitus with hyperglycemia E11.65 ; Anemia due to other cause D64.89 ; Hypotension due to blood loss I95.89 ; Alcoholic cirrhosis of liver without ascites K70.30 ; History of alcoholism F10.21 and Chronic obstructive pulmonary disease, unspecified COPD type J44.9 [facility] [id number] [place] [address] 35870- 8902 Sep, [facility] [address] [id number] 06 Jan, 2016 Dental examination Z01.20 [facility] [address] 39062- 0973 23 Nov, 2015 Chronic obstructive pulmonary disease, unspecified COPD type J44.9 ; Panic attacks F41.0 and Other chronic pain G89.29 [facility] [id number] [place] [address] 44768- 6412 Jan, [facility] [address] 83586- 6692 Jan, [facility] [id number] [place] [address] 10659- 1341 Dec, [facility] [id number] [place] [address] 12126- 8710 Dec, [facility] [id number] [place] [address] 42271- 1046 Dec, [place] [address] 67322- 4523 Dec, IMMUNIZATIONS No Known Immunizations SOCIAL HISTORY Never Assessed REASON FOR VISIT Diabetes----DBennettRN, states he bought an antibiotic at [facility], has been taking 2 tabs q 4 hours for stomach upset----verified with nurse Caridad at [place], pt had purchased generic Tums antacid., cannot find dentures PLAN OF CARE Activity Details Follow Up 3 Months, prn Reason:CHM/DM VITAL SIGNS Height 69 in 2018-06-02 Weight 156 lbs 2018-06-02 Temperature 98.6 degrees Fahrenheit 2018-06-02 Heart Rate 80 bpm 2018-06-02 Respiratory Rate 20 2018-06-02 BMI 23.03 kg/m2 2018-06-02 Blood pressure systolic 114 mmHg 2018-06-02 Blood pressure diastolic 60 mmHg 2018-06-02 MEDICATIONS Medication Instructions Dosage Frequency Start Date End Date Duration Status Pantoprazole Sodium 40 MG Orally Once a day 1 tablet 24h Active Gabapentin 300 MG Orally 3 times a day TAKE ONE (1) CAPSULE BY MOUTH IN THE MORNING, one capsule at noon, THREE (3) CAPSULES AT BEDTIME 8h Active Lisinopril 5 mg Orally Once a day 1 tablet 24h Active Sucralfate 1 GM Orally 4 times a day 1 tablet before meals and at bedtime 6h Active Spironolactone 25 MG Orally twice a day 1 tablet with food 12h Active Tums 500 mg Orally PRN 1 tablet May, Jun, 30 day(s) Active Insulin Detemir 100 UNIT/ML Subcutaneous at hs 50u Apr, Active Digoxin 125 mcg Orally Once a day take 1 tablet (125 mcg) by oral route once daily 24h Dec, 90 days Active Amlodipine Besylate 5 MG Orally Once a day 1 tablet 24h Active Tamsulosin HCl 0.4 MG Orally Once a day 1 capsule 24h Active MetFORMIN HCl ER 500 mg Orally 2 times a day 2 tablet 12h Apr, Active Advair Diskus 100-50 MCG/DOSE Inhalation Twice a day 1 puff 12h Jun, 12 months Active Albuterol Sulfate 90 mcg/actuation Inhalation every 4 hrs inhale 2 puffs by inhalation route every 4 hours as needed 4h Dec, 12 months Active Acetaminophen 325 MG Orally every 4 hrs 1-2 tablet as needed 4h Active NovoLog Flexpen 100 UNIT/ML Subcutaneous before meals Inject 10 units May, Active Hydrocodone-Acetaminophen 5-325 mg Orally every 4 hrs 1 tablet as needed 4h Apr, Active RESULTS No Results PROCEDURES Procedure Date Ordered Result Body Site [facility] VISIT ESTABLISHED PATIENT Jun 02, 2018 INSTRUCTIONS MEDICATIONS ADMINISTERED No Known Medications [...]
--- OUTSIDE RECORDS SUMMARY | 2018-07-29 05:20 | XMS REPORT ---
Author Author ALTHEA ANDERSON 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 Name Role Phone ALTHEA ANDERSON Unavailable PROBLEMS Type Condition ICD9-CM Code PPY90-TM Code Onset Dates Condition Status SNOMED Code Problem Alcoholism /alcohol abuse F10.20 Active 0846921 Problem custodial current use of 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 Active 451385642 Problem Type 2 diabetes mellitus with other specified complication E11.69 Active 10543575 Problem Type 2 diabetes mellitus with hyperglycemia E11.65 Active [id number] Problem Essential hypertension I10 Active 80576685 Problem 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 Active 647017937 Problem Lumbar degenerative disc disease M51.36 Active 49056938 Problem Hypercalcemia E83.52 Active 16694136 Problem Amputated toe of left foot Z89.422 Active 177504159 Problem Falls frequently R29.6 Active 158482358 Problem Other hammer toe(s) (acquired), right foot M20.41 Active 830133450 Problem Other hammer toe(s) (acquired), left foot M20.42 Active 71404243 Problem Chronic obstructive pulmonary disease, unspecified COPD type J44.9 Active 34071574 Problem Atrial fibrillation, unspecified type I48.91 Active 07781267 Problem Alcoholic cirrhosis of liver without ascites K70.30 Active 398465577 Problem Other chronic pain G89.29 Active 90678491 Problem Cervical pain (neck) M54.2 Active 16376546 Problem Requires assistance with activities of daily living (ADL) Z74.1 Active 816926765 Problem Other chronic pain G89.29 Active 18345433 Problem Other urinary incontinence N39.498 Active 392052781 Problem Anemia, unspecified D64.9 Active 646780526 Problem Polyneuropathy associated with underlying disease G63 Active 984666782 Problem GERD without esophagitis K21.9 Active 524645879 ALLERGIES No Information ENCOUNTERS Encounter Location Date Diagnosis [facility] [address] [place] [address] 74366- 7059 May, Lumbar degenerative disc disease M51.36 [facility] [id number] [place] [address] 64975- 4903 May, Type 2 diabetes mellitus with hyperglycemia E11.65 [facility] [id number] [place] [address] 17012- 5917 May, Lumbar degenerative disc disease M51.36 [facility] [id number] [place] [address] 99760- 2066 May, [facility] [id number] [place] [address] [id number] May, Dental examination Z01.20 and Dental caries K02.9 [facility] [id number] [place] [address] 03139- 2134 May, 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 ; 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 ; Polyneuropathy associated with underlying disease G63 ; Essential hypertension I10 ; Other hammer toe(s) (acquired), left foot M20.42 ; Other hammer toe(s) (acquired), right foot M20.41 and Amputated toe of left foot Z89.422 [facility] [id number] [place] [address] 69633- 5030 May, [facility] [id number] [place] [address] 92877- 2331 May, Type 2 diabetes mellitus with hyperglycemia E11.65 [facility] [id number] [place] [address] 61626- 3199 Apr, [facility] [address] [place] [id number] Apr, Type 2 diabetes mellitus with hyperglycemia E11.65 ; Chronic obstructive pulmonary disease, unspecified COPD type J44.9 and Essential hypertension I10 [facility] [id number] [place] [address] 88415- 0998 Apr, Type 2 diabetes mellitus with hyperglycemia E11.65 [facility] [address] [place] [address] 77238- 5813 Apr, Type 2 diabetes mellitus with hyperglycemia E11.65 [facility] [id number] [place] [address] 64293- 9533 Apr, Lumbar degenerative disc disease M51.36 [facility] [id number] [place] [address] 39084- 8805 Apr, Type 2 diabetes mellitus with hyperglycemia E11.65 [facility] [address] [place] [id number] Apr, Type 2 diabetes mellitus with hyperglycemia E11.65 ; Atrial fibrillation, unspecified type I48.91 ; Anemia due to other cause D64.89 ; Alcoholism / alcohol abuse F10.20 ; Acute pylorus ulcer K25.3 and Alcoholic cirrhosis of liver without ascites K70.30 [facility] [id number] [place] [address] 75575- 2412 Apr, Lumbar degenerative disc disease M51.36 [facility] [id number] [place] [address] 68043- 2500 Mar, [facility] [id number] [place] [address] 23624- 8653 Mar, [facility] [id number] [place] [address] 73469- 2998 Mar, [facility] [id number] [place] [address] 31912- 2196 Mar, [facility] [id number] [place] [address] 65340- 1534 Mar, Lumbar degenerative disc disease M51.36 [facility] [id number] [place] [address] 51263- 2817 14 Mar, 2018 Dizziness R42 ; Falls frequently R29.6 ; Weight loss, non- intentional R63.4 ; Essential hypertension I10 ; Cardiac murmur R01.1 ; Hypercalcemia E83.52 and Requires assistance with activities of daily living ( ADL) Z74.1 [facility] [id number] [address] 3758 Mar, [facility] [id number] [place] [address] 13901- 8190 Mar, Hypercalcemia E83.52 [facility] [id number] [place] [address] 97265- 2942 February, Lumbar degenerative disc disease M51.36 [facility] [id number] [place] [address] 90292- 5604 February, Type 2 diabetes mellitus with diabetic neuropathy, 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 ; Type 2 diabetes mellitus with other specified complication E11.69 ; 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 ; Essential hypertension I10 ; Chronic obstructive pulmonary disease, unspecified COPD type J44.9 ; Polyneuropathy associated with underlying disease G63 ; Atrial fibrillation, unspecified type I48.91 ; GERD without esophagitis K21.9 and Lumbar degenerative disc disease M51.36 [facility] [id number] [place] [address] 62398- 9630 Jan, Other chronic pain G89.29 [facility] [id number] [place] [address] 70882- 4657 Jan, [facility] [id number] [place] [address] 01882- 2667 Jan, [facility] [id number] [place] [address] 57624- 7600 Jan, Type 2 diabetes mellitus with diabetic neuropathy, unspecified longterm insulin 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 [facility] [id number] [place] [address] 29206- 5210 Jan, [facility] [id number] [place] [address] 55790- 5750 Jan, [facility] [id number] [place] [address] 02105- 3014 Jan, Other chronic pain G89.29 [facility] [address] [place] [address] 98486- 7958 Dec, Atrial fibrillation, unspecified type I48.91 ; Essential hypertension I10 and Other chronic pain G89.29 [facility] [address] [place] [address] 12556- 9749 Dec, Atrial fibrillation, unspecified type I48.91 [facility] [id number] [place] [address] 94004- 1866 Dec, [facility] [id number] [place] [address] 36838- 5966 Nov, Other chronic pain G89.29 [facility] [id number] [place] [address] 16732- 7385 Nov, [facility] [id number] [place] [address] 23036- 5278 Nov, [facility] [id number] [place] [address] 77276- 7596 Nov, Type 2 diabetes mellitus with diabetic neuropathy, 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 ; Type 2 diabetes mellitus with hyperglycemia E11.65 ; Essential hypertension I10 ; Chronic obstructive pulmonary disease, unspecified COPD type J44.9 ; Atrial fibrillation, unspecified type I48.91 ; GERD without esophagitis K21.9 ; Lumbar degenerative disc disease M51.36 ; Alcoholism /alcohol abuse F10.20 and Encounter for immunization Z23 [facility] [address] [place] [address] 06113- 4307 Oct, Type 2 diabetes mellitus with hyperglycemia E11.65 ; Other chronic pain G89.29 and Other exterminator helper termite (current) drug therapy Z79.899 [facility] [address] [place] [address] 27472- 0825 Oct, [facility] [id number] [place] [address] 45707- 0550 Oct, Essential hypertension I10 ; Anemia, unspecified D64.9 ; Chronic obstructive pulmonary disease, unspecified COPD type J44.9 ; Type 2 diabetes mellitus with hyperglycemia E11.65 ; Alcoholic cirrhosis of liver without ascites K70.30 ; Polyneuropathy associated with underlying disease G63 and Atrial fibrillation, unspecified type I48.91 [facility] [address] [place] [address] 28775- 1244 Sep, Other chronic pain G89.29 [facility] [id number] [place] [address] 89130- 5702 Sep, Type 2 diabetes mellitus with hyperglycemia E11.65 ; Atrial fibrillation, unspecified type I48.91 and Essential hypertension I10 [facility] [id number] [place] [address] 81888- 7510 Sep, Essential hypertension I10 [facility] [id number] [place] [address] 08699- 3940 Sep, Essential hypertension I10 [facility] [id number] [place] [address] 34103- 1857 Sep, [facility] [id number] [place] [address] 65309- 7457 Sep, Other chronic pain G89.29 [facility] [address] [place] [address] 34211- 4780 Aug, [facility] [address] [place] [address] 63502- 7155 Aug, Polyneuropathy associated with underlying disease G63 and Chronic obstructive pulmonary disease, unspecified COPD type J44.9 [facility] [address] [id number] Aug, [facility] [address] [place] [address] 55377- 0783 Aug, [facility] [address] [address]- 7046 Aug, Chronic obstructive pulmonary disease, unspecified COPD type J44.9 [facility] [address] [address]- 6935 10 Aug, 2017 Medicare annual wellness visit, subsequent Z00.00 [facility] [address] [place] [address] 18500- 4401 07 Aug, 2017 Other chronic pain G89.29 [facility] [address] [place] [address]- 8882 16 Jul, 2017 [facility] [address] [place] [address] 73221- 7385 Jul, [facility] [id number] [place] [address] 12082- 5548 Jul, Other chronic pain G89.29 and Essential hypertension I10 [facility] [id number] [address]- 9955 Jun, [facility] [address] [place] [address] 03105- 3196 Jun, Essential hypertension I10 [facility] [address] [place] [address] 31270- 5273 Jun, [facility] [address] [place] [address] 09671- 5735 Jun, Other chronic pain G89.29 [facility] [address] [place] [address]- 7839 Jun, Other chronic pain G89.29 [facility] [address] [place] [address]- 3331 05 Jun, 2017 [facility] [address] [place] [address]- 0049 Jun, Type 2 diabetes mellitus with hyperglycemia E11.65 ; Essential hypertension I10 ; Atrial fibrillation, unspecified type I48.91 ; Polyneuropathy associated with underlying disease G63 ; Anemia, unspecified D64.9 ; Chronic obstructive pulmonary disease, unspecified COPD type J44.9 ; Other urinary incontinence N39.498 ; Lumbar degenerative disc disease M51.36 and GERD without esophagitis K21.9 [facility] [id number] [place] [address] 78369- 4771 May, [facility] [id number] [place] [address] 57980- 0843 May, [facility] [id number] [place] [address] 78641- 5310 May, [facility] [id number] [place] [address] 20523- 6248 May, Other chronic pain G89.29 [facility] [id number] [place] [address] 94035- 6072 Apr, Onychomycosis B35.1 and Type 2 diabetes mellitus with diabetic neuropathy, 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 [facility] [id number] [place] [address] 75537- 2038 Apr, Essential hypertension I10 [facility] [id number] [place] [address] 00141- 9364 Apr, [facility] [id number] [place] [address] 22452- 0092 Apr, Other chronic pain G89.29 [facility] [id number] [place] [address] 24431- 7620 Mar, Cervical pain (neck) M54.2 ; Other chronic pain G89.29 ; Other urinary incontinence N39.498 and Essential hypertension I10 [facility] [id number] [place] [address] 25540- 6360 Mar, [facility] [id number] [place] [address] 44635- 6909 Mar, Other chronic pain G89.29 [facility] [id number] [place] [address] 43515- 4005 February, [facility] [address] [place] [address]- 0120 February, [facility] [address] 43970- 5421 February, Other chronic pain G89.29 [facility] [address] 91047558- 4311 February, Essential hypertension I10 ; Type 2 diabetes mellitus with hyperglycemia E11.65 ; Alcoholic cirrhosis of liver without ascites K70.30 ; Chronic obstructive pulmonary disease, unspecified COPD type J44.9 ; Atrial fibrillation, unspecified type I48.91 ; Polyneuropathy associated with underlying disease G63 ; Anemia, unspecified D64.9 ; Requires assistance with activities of daily living (ADL) Z74.1 and Non-compliant behavior R46.89 [facility] [address] [id number] February, Dental examination Z01.20 [facility] [address] 37178- 4174 Jan, [facility] [address] [id number] Jan, Dental caries K02.9 [facility] [address] 20348- 0197 Jan, Anemia, unspecified D64.9 ; Chronic obstructive pulmonary disease, unspecified COPD type J44.9 ; Other chronic pain G89.29 ; Syncope and collapse R55 and Polyneuropathy associated with underlying disease G63 [facility] [address] [id number] Jan, Dental examination Z01.20 [facility] [address] 07391- 2220 Dec, Type 2 diabetes mellitus with hyperglycemia E11.65 ; Anemia , unspecified D64.9 ; Essential hypertension I10 ; Chronic obstructive pulmonary disease, unspecified COPD type J44.9 ; Atrial fibrillation, unspecified type I48.91 ; Cervical pain (neck) M54.2 ; Polyneuropathy associated with underlying disease G63 ; Low back pain M54.5 ; Other chronic pain G89.29 and Alcoholic cirrhosis of liver without ascites K70.30 [facility] [address] [place] [address]- 3239 Dec, [facility] [address] [place] [address]- 2607 Dec, [facility] [address] [place] [address]- 5481 Dec, [facility] [address] [place] [address]- 5569 Dec, Type 2 diabetes mellitus with hyperglycemia E11.65 ; History of alcoholism F10.21 ; Anemia due to other cause D64.89 and Atrial fibrillation, unspecified type I48.91 [facility] [address] [address]- 2759 Dec, [facility] [address] [place] [address]- 4295 Dec, [facility] [address] [place] [address]- 1795 Dec, Type 2 diabetes mellitus with hyperglycemia E11.65 ; History of alcoholism F10.21 ; Anemia due to other cause D64.89 and Atrial fibrillation, unspecified type I48.91 [facility] [address] [place] [address]- 9675 Nov, [facility] [address] [place] [address]- 3610 Nov, Other chronic pain G89.29 [facility] [address] [place] [address]- 3083 Nov, Other chronic pain G89.29 [facility] [address] [place] [address]- 9595 Nov, Type 2 diabetes mellitus with hyperglycemia E11.65 ; Anemia due to other cause D64.89 ; Hypotension due to blood loss I95.89 ; Alcoholic cirrhosis of liver without ascites K70.30 ; History of alcoholism F10.21 and Chronic obstructive pulmonary disease, unspecified COPD type J44.9 [facility] [id number] [place] [address] 96196- 8478 Sep, [facility] [address] [place] [address] [id number] Jan, Dental examination Z01.20 [facility] [address] 39995- 7652 Nov, Chronic obstructive pulmonary disease, unspecified COPD type J44.9 ; Panic attacks F41.0 and Other chronic pain G89.29 [facility] [address] 72290- 4308 Jan, [facility] [address] 54165- 1288 Jan, [facility] [address] 85165- 9273 Dec, [facility] [id number] [place] [address] 84071- 0120 Dec, [facility] [id number] [place] [address] 91538- 7146 Dec, [facility] [id number] [place] [address] 13218- 4630 Dec, IMMUNIZATIONS No Known Immunizations SOCIAL HISTORY Never Assessed REASON FOR VISIT routine lab orders PLAN OF CARE VITAL SIGNS MEDICATIONS Unknown [...]
--- OUTSIDE RECORDS SUMMARY | 2018-07-29 05:20 | XMS REPORT ---
Author Author ALTHEA ANDERSON [facility] Address [address] [place] [address] Care Team Providers Care Medication Coordinator Name Role Phone ALTHEA ANDERSON Unavailable PROBLEMS Type Condition ICD9-CM Code GLB57-XX Code Onset Dates Condition Status SNOMED Code Problem Alcoholism /alcohol abuse F10.20 Active 6741751 Problem halfway current use of 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 Active 794112313 Problem Type 2 diabetes mellitus with other specified complication E11.69 Active 47190699 Problem Type 2 diabetes mellitus with hyperglycemia E11.65 Active 047815215911619 Problem Essential hypertension I10 Active 61939813 Problem 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 Active 535609643 Problem Lumbar degenerative disc disease M51.36 Active 27622367 Problem Hypercalcemia E83.52 Active 67541231 Problem Amputated toe of left foot Z89.422 Active 020530838 Problem Falls frequently R29.6 Active 643950581 Problem Other hammer toe(s) (acquired), right foot M20.41 Active 111196253 Problem Other hammer toe(s) (acquired), left foot M20.42 Active 08453084 Problem Chronic obstructive pulmonary disease, unspecified COPD type J44.9 Active 39178917 Problem Atrial fibrillation, unspecified type I48.91 Active 07550192 Problem Alcoholic cirrhosis of liver without ascites K70.30 Active 231949958 Problem Other chronic pain G89.29 Active 43301461 Problem Cervical pain (neck) M54.2 Active 42165360 Problem Requires assistance with activities of daily living (ADL) Z74.1 Active 949484431 Problem Other chronic pain G89.29 Active 28424267 Problem Other urinary incontinence N39.498 Active 394127510 Problem Anemia, unspecified D64.9 Active 940481854 Problem Polyneuropathy associated with underlying disease G63 Active 715693769 Problem GERD without esophagitis K21.9 Active 253007837 ALLERGIES No Information ENCOUNTERS Encounter Location Date Diagnosis [facility] [id number] [place] [address] 94807- 7682 May, Lumbar degenerative disc disease M51.36 [facility] [id number] [place] [address] 69968- 4885 May, Type 2 diabetes mellitus with hyperglycemia E11.65 [facility] [id number] [place] [address] 19625- 6304 May, Lumbar degenerative disc disease M51.36 [facility] [id number] [place] [address] 37802- 8353 May, [facility] [id number] [place] [address] [id number] May, Dental examination Z01.20 and Dental caries K02.9 [facility] [id number] [place] [address] 14165- 0688 May, 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 ; 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 of 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 ; Polyneuropathy associated with underlying disease G63 ; Essential hypertension I10 ; Other hammer toe(s) (acquired), left foot M20.42 ; Other hammer toe(s) (acquired), right foot M20.41 and Amputated toe of left foot Z89.422 [facility] [id number] [place] [address] 06497- 7613 May, [facility] [id number] [place] [address] 82870- 1752 May, Type 2 diabetes mellitus with hyperglycemia E11.65 [facility] [id number] [place] [address] 56123- 0158 Apr, [facility] [address] [place] [id number] Apr, Type 2 diabetes mellitus with hyperglycemia E11.65 ; Chronic obstructive pulmonary disease, unspecified COPD type J44.9 and Essential hypertension I10 [facility] [id number] [place] [address] 96336- 2814 Apr, Type 2 diabetes mellitus with hyperglycemia E11.65 [facility] [address] [place] [address] 96170- 4055 Apr, Type 2 diabetes mellitus with hyperglycemia E11.65 [facility] [id number] [place] [address] 11656- 9185 Apr, Lumbar degenerative disc disease M51.36 [facility] [id number] [place] [address] 86420- 9128 Apr, Type 2 diabetes mellitus with hyperglycemia E11.65 [facility] [address] [place] [id number] Apr, Type 2 diabetes mellitus with hyperglycemia E11.65 ; Atrial fibrillation, unspecified type I48.91 ; Anemia due to other cause D64.89 ; Alcoholism / alcohol abuse F10.20 ; Acute pylorus ulcer K25.3 and Alcoholic cirrhosis of liver without ascites K70.30 [facility] [id number] [place] [address] 82486- 7863 Apr, Lumbar degenerative disc disease M51.36 [facility] [id number] [place] [address] 90300- 5222 Mar, [facility] [id number] [place] [address] 55122- 8759 Mar, [facility] [id number] [place] [address] 74155- 0130 Mar, [facility] [id number] [place] [address] 73219- 4446 Mar, [facility] [id number] [place] [address] 87242- 3273 Mar, Lumbar degenerative disc disease M51.36 [facility] [id number] [place] [address] 03199- 8685 14 Mar, 2018 Dizziness R42 ; Falls frequently R29.6 ; Weight loss, non- intentional R63.4 ; Essential hypertension I10 ; Cardiac murmur R01.1 ; Hypercalcemia E83.52 and Requires assistance with activities of daily living ( ADL) Z74.1 [facility] [id number] [address] 6867 Mar, [facility] [id number] [place] [address] 84643- 0987 Mar, Hypercalcemia E83.52 [facility] [id number] [place] [address] 76450- 6177 February, Lumbar degenerative disc disease M51.36 [facility] [id number] [place] [address] 48586- 1050 February, Type 2 diabetes mellitus with diabetic neuropathy, unspecified medical terminologist insulin 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 ; Type 2 diabetes mellitus with other specified complication E11.69 ; 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 of 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 ; Essential hypertension I10 ; Chronic obstructive pulmonary disease, unspecified COPD type J44.9 ; Polyneuropathy associated with underlying disease G63 ; Atrial fibrillation, unspecified type I48.91 ; GERD without esophagitis K21.9 and Lumbar degenerative disc disease M51.36 [facility] [id number] [place] [address] 92984- 2751 Jan, Other chronic pain G89.29 [facility] [id number] [place] [address] 97115- 0609 Jan, [facility] [id number] [place] [address] 26955- 8309 Jan, [facility] [id number] [place] [address] 79372- 8758 Jan, Type 2 diabetes mellitus with diabetic neuropathy, unspecified intermediate insulin 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 [facility] [id number] [place] [address] 92471- 1852 Jan, [facility] [id number] [place] [address] 67648- 9267 Jan, [facility] [id number] [place] [address] 73505- 1316 Jan, Other chronic pain G89.29 [facility] [address] [place] [address] 66971- 9110 Dec, Atrial fibrillation, unspecified type I48.91 ; Essential hypertension I10 and Other chronic pain G89.29 [facility] [address] [place] [address] 34234- 6921 Dec, Atrial fibrillation, unspecified type I48.91 [facility] [id number] [place] [address] 26620- 3696 Dec, [facility] [id number] [place] [address] 88822- 9604 Nov, Other chronic pain G89.29 [facility] [id number] [place] [address] 85480- 8143 Nov, [facility] [id number] [place] [address] 95482- 0469 Nov, [facility] [id number] [place] [address] 41719- 2548 Nov, Type 2 diabetes mellitus with diabetic neuropathy, unspecified medical terminologist insulin 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 ; Type 2 diabetes mellitus with hyperglycemia E11.65 ; Essential hypertension I10 ; Chronic obstructive pulmonary disease, unspecified COPD type J44.9 ; Atrial fibrillation, unspecified type I48.91 ; GERD without esophagitis K21.9 ; Lumbar degenerative disc disease M51.36 ; Alcoholism /alcohol abuse F10.20 and Encounter for immunization Z23 [facility] [address] [place] [address] 18255- 7339 Oct, Type 2 diabetes mellitus with hyperglycemia E11.65 ; Other chronic pain G89.29 and Other medical terminologist (current) drug therapy Z79.899 [facility] [address] [place] [address] 42047- 3359 Oct, [facility] [id number] [place] [address] 76335- 2673 Oct, Essential hypertension I10 ; Anemia, unspecified D64.9 ; Chronic obstructive pulmonary disease, unspecified COPD type J44.9 ; Type 2 diabetes mellitus with hyperglycemia E11.65 ; Alcoholic cirrhosis of liver without ascites K70.30 ; Polyneuropathy associated with underlying disease G63 and Atrial fibrillation, unspecified type I48.91 [facility] [id number] [place] [address] 62638- 1516 Sep, Other chronic pain G89.29 [facility] [id number] [place] [address] 91936- 8720 Sep, Type 2 diabetes mellitus with hyperglycemia E11.65 ; Atrial fibrillation, unspecified type I48.91 and Essential hypertension I10 [facility] [id number] [place] [address] 43544- 9232 Sep, Essential hypertension I10 [facility] [id number] [place] [address] 75808- 6502 Sep, Essential hypertension I10 [facility] [id number] [place] [address] 61215- 0265 Sep, [facility] [id number] [place] [address] 52322- 9183 Sep, Other chronic pain G89.29 [facility] [address] [place] [address] 69333- 8521 Aug, [facility] [id number] [place] [address] 51514- 9058 Aug, Polyneuropathy associated with underlying disease G63 and Chronic obstructive pulmonary disease, unspecified COPD type J44.9 [facility] [address] [id number] Aug, [facility] [address] [place] [address] 29702- 1549 Aug, [facility] [address] [address]- 0595 Aug, Chronic obstructive pulmonary disease, unspecified COPD type J44.9 [facility] [address] [address]- 0046 10 Aug, 2017 Medicare annual wellness visit, subsequent Z00.00 [facility] [id number] [place] [address] 02573- 4901 07 Aug, 2017 Other chronic pain G89.29 [facility] [address] [address]- 0379 16 Jul, 2017 [facility] [id number] [place] [address] 35879- 3930 Jul, [facility] [id number] [place] [address] 49030- 8464 Jul, Other chronic pain G89.29 and Essential hypertension I10 [facility] [address] [address]- 0655 Jun, [facility] [address] [place] [address] 12948- 1857 Jun, Essential hypertension I10 [facility] [id number] [place] [address] 35799- 1629 Jun, [facility] [address] [place] [address] 45838- 5675 Jun, Other chronic pain G89.29 [facility] [address] [place] [address]- 4178 Jun, Other chronic pain G89.29 [facility] [address] [place] [address]- 2825 05 Jun, 2017 [facility] [address] [place] [address]- 8265 Jun, Type 2 diabetes mellitus with hyperglycemia E11.65 ; Essential hypertension I10 ; Atrial fibrillation, unspecified type I48.91 ; Polyneuropathy associated with underlying disease G63 ; Anemia, unspecified D64.9 ; Chronic obstructive pulmonary disease, unspecified COPD type J44.9 ; Other urinary incontinence N39.498 ; Lumbar degenerative disc disease M51.36 and GERD without esophagitis K21.9 [facility] [id number] [place] [address] 86715- 9414 May, [facility] [id number] [place] [address] 65447- 4589 May, [facility] [id number] [place] [address] 41460- 6549 May, [facility] [id number] [place] [address] 32407- 2810 May, Other chronic pain G89.29 [facility] [id number] [place] [address] 33316- 3532 Apr, Onychomycosis B35.1 and Type 2 diabetes mellitus with diabetic neuropathy, unspecified medical terminologist insulin 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 [facility] [id number] [place] [address] 14953- 7304 Apr, Essential hypertension I10 [facility] [id number] [place] [address] 29594- 4012 Apr, [facility] [id number] [place] [address] 96003- 0596 Apr, Other chronic pain G89.29 [facility] [id number] [place] [address] 75603- 3749 Mar, Cervical pain (neck) M54.2 ; Other chronic pain G89.29 ; Other urinary incontinence N39.498 and Essential hypertension I10 [facility] [id number] [place] [address] 79350- 7949 Mar, [facility] [id number] [place] [address] 17837- 8587 Mar, Other chronic pain G89.29 [facility] [id number] [place] [address] 90560- 2494 February, [facility] [address] [place] [address]- 3761 February, [facility] [address] 41721- 0339 February, Other chronic pain G89.29 [facility] [address] 69214680- 4742 February, Essential hypertension I10 ; Type 2 diabetes mellitus with hyperglycemia E11.65 ; Alcoholic cirrhosis of liver without ascites K70.30 ; Chronic obstructive pulmonary disease, unspecified COPD type J44.9 ; Atrial fibrillation, unspecified type I48.91 ; Polyneuropathy associated with underlying disease G63 ; Anemia, unspecified D64.9 ; Requires assistance with activities of daily living (ADL) Z74.1 and Non-compliant behavior R46.89 [facility] [address] [id number] February, Dental examination Z01.20 [facility] [address] 33526- 8451 Jan, [facility] [address] [id number] Jan, Dental caries K02.9 [facility] [address] 95796- 0089 Jan, Anemia, unspecified D64.9 ; Chronic obstructive pulmonary disease, unspecified COPD type J44.9 ; Other chronic pain G89.29 ; Syncope and collapse R55 and Polyneuropathy associated with underlying disease G63 [facility] [address] [id number] Jan, Dental examination Z01.20 [facility] [address] 68483- 8119 Dec, Type 2 diabetes mellitus with hyperglycemia E11.65 ; Anemia , unspecified D64.9 ; Essential hypertension I10 ; Chronic obstructive pulmonary disease, unspecified COPD type J44.9 ; Atrial fibrillation, unspecified type I48.91 ; Cervical pain (neck) M54.2 ; Polyneuropathy associated with underlying disease G63 ; Low back pain M54.5 ; Other chronic pain G89.29 and Alcoholic cirrhosis of liver without ascites K70.30 [facility] [address] [place] [address]- 9733 Dec, [facility] [address] [place] [address]- 7393 Dec, [facility] [address], [place] [address]- 2641 Dec, [facility] [address] [place] [address]- 0414 Dec, Type 2 diabetes mellitus with hyperglycemia E11.65 ; History of alcoholism F10.21 ; Anemia due to other cause D64.89 and Atrial fibrillation, unspecified type I48.91 [facility] [address] [address]- 1711 Dec, [facility] [address] [place] [address]- 2320 Dec, [facility] [address] [place] [address]- 1471 Dec, Type 2 diabetes mellitus with hyperglycemia E11.65 ; History of alcoholism F10.21 ; Anemia due to other cause D64.89 and Atrial fibrillation, unspecified type I48.91 [facility] [address] [place] [address]- 7721 Nov, [facility] [address] [place] [address]- 9144 Nov, Other chronic pain G89.29 [facility] [address] [place] [address]- 1992 Nov, Other chronic pain G89.29 [facility] [address] [place] [address]- 8355 Nov, Type 2 diabetes mellitus with hyperglycemia E11.65 ; Anemia due to other cause D64.89 ; Hypotension due to blood loss I95.89 ; Alcoholic cirrhosis of liver without ascites K70.30 ; History of alcoholism F10.21 and Chronic obstructive pulmonary disease, unspecified COPD type J44.9 [facility] [id number] [place] [address] 20660- 6892 Sep, [facility] [address] [place] [address] [id number] Jan, Dental examination Z01.20 [facility] [address] 75341- 7575 Nov, Chronic obstructive pulmonary disease, unspecified COPD type J44.9 ; Panic attacks F41.0 and Other chronic pain G89.29 [facility] [address] 83360- 9737 Jan, [facility] [address] 18574- 0901 Jan, [facility] [address] 64160- 2165 Dec, [facility] [address] 60997- 3310 Dec, [facility] [id number] [place] [address] 35493- 3217 Dec, [facility] [id number] [place] [address] 84556- 3425 Dec, IMMUNIZATIONS No Known Immunizations SOCIAL HISTORY Never Assessed REASON FOR VISIT change [facility] to Novolog PLAN OF CARE VITAL SIGNS MEDICATIONS Medication Instructions Dosage Frequency Start Date End Date Duration Status NovoLog Flexpen 100 UNIT/ML Subcutaneous before meals Inject 10 units May, 30 days Active RESULTS No Results PROCEDURES No [...]
--- OUTSIDE RECORDS SUMMARY | 2018-07-29 05:21 | XMS REPORT ---
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 Name Role Phone ALTHEA ANDERSON Unavailable PROBLEMS Type Condition ICD9-CM Code NRY85-DH Code Onset Dates Condition Status SNOMED Code Problem Alcoholism /alcohol abuse F10.20 Active 0751178 Problem [facility] current use of 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 Active 163878068 Problem Type 2 diabetes mellitus with other specified complication E11.69 Active 70428349 Problem Type 2 diabetes mellitus with hyperglycemia E11.65 Active [id number] Problem Essential hypertension I10 Active 00046782 Problem 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 Active 026897057 Problem Lumbar degenerative disc disease M51.36 Active 51894625 Problem Hypercalcemia E83.52 Active 60326338 Problem Amputated toe of left foot Z89.422 Active 634861144 Problem Falls frequently R29.6 Active 932110242 Problem Other hammer toe(s) (acquired), right foot M20.41 Active 038053443 Problem Other hammer toe(s) (acquired), left foot M20.42 Active 11704527 Problem Chronic obstructive pulmonary disease, unspecified COPD type J44.9 Active 45183910 Problem Atrial fibrillation, unspecified type I48.91 Active 56567577 Problem Alcoholic cirrhosis of liver without ascites K70.30 Active 702835501 Problem Other chronic pain G89.29 Active 28482848 Problem Cervical pain (neck) M54.2 Active 95830044 Problem Requires assistance with activities of daily living (ADL) Z74.1 Active 618825323 Problem Other chronic pain G89.29 Active 20481571 Problem Other urinary incontinence N39.498 Active 974537984 Problem Anemia, unspecified D64.9 Active 537355673 Problem Polyneuropathy associated with underlying disease G63 Active 447345861 Problem GERD without esophagitis K21.9 Active 374931589 ALLERGIES No Information ENCOUNTERS Encounter Location Date Diagnosis [facility] [place] [id number] [place] [address] 26232- 1236 May, Lumbar degenerative disc disease M51.36 [facility] [id number] [place] [address] 44861- 6626 May, Type 2 diabetes mellitus with hyperglycemia E11.65 [facility] [id number] [place] [address] 57054- 2663 May, Lumbar degenerative disc disease M51.36 [facility] [id number] [place] [address] 61909- 2829 May, [facility] [id number] [place] [address] [id number] May, Dental examination Z01.20 and Dental caries K02.9 [facility] [id number] [place] [address] 41906- 8741 May, 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 ; 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 ; Polyneuropathy associated with underlying disease G63 ; Essential hypertension I10 ; Other hammer toe(s) (acquired), left foot M20.42 ; Other hammer toe(s) (acquired), right foot M20.41 and Amputated toe of left foot Z89.422 [facility] [id number] [place] [address] 79791- 7042 May, [facility] [id number] [place] [address] 72767- 3768 May, Type 2 diabetes mellitus with hyperglycemia E11.65 [facility] [id number] [place] [address] 37629- 5997 Apr, [facility] [address] [place] [id number] Apr, Type 2 diabetes mellitus with hyperglycemia E11.65 ; Chronic obstructive pulmonary disease, unspecified COPD type J44.9 and Essential hypertension I10 [facility] [id number] [place] [address] 73340- 3065 Apr, Type 2 diabetes mellitus with hyperglycemia E11.65 [facility] [address] [place] [address] 19857- 1467 Apr, Type 2 diabetes mellitus with hyperglycemia E11.65 [facility] [id number] [place] [address] 17026- 6295 Apr, Lumbar degenerative disc disease M51.36 [facility] [id number] [place] [address] 74190- 7736 Apr, Type 2 diabetes mellitus with hyperglycemia E11.65 [facility] [address] [place] [id number] Apr, Type 2 diabetes mellitus with hyperglycemia E11.65 ; Atrial fibrillation, unspecified type I48.91 ; Anemia due to other cause D64.89 ; Alcoholism / alcohol abuse F10.20 ; Acute pylorus ulcer K25.3 and Alcoholic cirrhosis of liver without ascites K70.30 [facility] [id number] [place] [address] 11144- 3185 Apr, Lumbar degenerative disc disease M51.36 [facility] [id number] [place] [address] 28061- 0073 Mar, [facility] [id number] [place] [address] 36013- 1892 Mar, [facility] [id number] [place] [address] 31712- 7946 Mar, [facility] [id number] [place] [address] 50390- 4457 Mar, [facility] [id number] [place] [address] 74208- 7696 Mar, Lumbar degenerative disc disease M51.36 [facility] [id number] [place] [address] 54316- 0598 14 Mar, 2018 Dizziness R42 ; Falls frequently R29.6 ; Weight loss, non- intentional R63.4 ; Essential hypertension I10 ; Cardiac murmur R01.1 ; Hypercalcemia E83.52 and Requires assistance with activities of daily living ( ADL) Z74.1 [facility] [place] [id number] [address] 2881 Mar, [facility] [place] [id number] [place] [address] 02222- 9169 Mar, Hypercalcemia E83.52 [facility] [id number] [place] [address] 38392- 0358 February, Lumbar degenerative disc disease M51.36 [facility] [id number] [place] [address] 56459- 0224 February, Type 2 diabetes mellitus with diabetic neuropathy, unspecified computer 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 ; Type 2 diabetes mellitus with other specified complication E11.69 ; 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 ; Essential hypertension I10 ; Chronic obstructive pulmonary disease, unspecified COPD type J44.9 ; Polyneuropathy associated with underlying disease G63 ; Atrial fibrillation, unspecified type I48.91 ; GERD without esophagitis K21.9 and Lumbar degenerative disc disease M51.36 [facility] [id number] [place] [address] 75928- 8874 Jan, Other chronic pain G89.29 [facility] [id number] [place] [address] 30881- 7917 Jan, [facility] [id number] [place] [address] 31008- 5619 Jan, [facility] [id number] [place] [address] 69363- 9853 Jan, Type 2 diabetes mellitus with diabetic neuropathy, unspecified retirement insulin 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 [facility] [id number] [place] [address] 47799- 4860 Jan, [facility] [id number] [place] [address] 79104- 4473 Jan, [facility] [id number] [place] [address] 29587- 5753 Jan, Other chronic pain G89.29 [facility] [place] [address] [place] [address] 22631- 8859 Dec, Atrial fibrillation, unspecified type I48.91 ; Essential hypertension I10 and Other chronic pain G89.29 [facility] [address] [place] [address] 08226- 7632 Dec, Atrial fibrillation, unspecified type I48.91 [facility] [id number] [place] [address] 83327- 5323 Dec, [facility] [id number] [place] [address] 31016- 8462 Nov, Other chronic pain G89.29 [facility] [id number] [place] [address] 95964- 9971 Nov, [facility] [id number] [place] [address] 95694- 6283 Nov, [facility] [id number] [place] [address] 65161- 4985 Nov, Type 2 diabetes mellitus with diabetic neuropathy, unspecified computer 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 ; Type 2 diabetes mellitus with hyperglycemia E11.65 ; Essential hypertension I10 ; Chronic obstructive pulmonary disease, unspecified COPD type J44.9 ; Atrial fibrillation, unspecified type I48.91 ; GERD without esophagitis K21.9 ; Lumbar degenerative disc disease M51.36 ; Alcoholism /alcohol abuse F10.20 and Encounter for immunization Z23 [facility] [address] [place] [address] 77072- 9489 Oct, Type 2 diabetes mellitus with hyperglycemia E11.65 ; Other chronic pain G89.29 and Other computer terminal operator (current) drug therapy Z79.899 [facility] [address] [place] [address] 51919- 1064 Oct, [facility] [id number] [place] [address] 70294- 2656 Oct, Essential hypertension I10 ; Anemia, unspecified D64.9 ; Chronic obstructive pulmonary disease, unspecified COPD type J44.9 ; Type 2 diabetes mellitus with hyperglycemia E11.65 ; Alcoholic cirrhosis of liver without ascites K70.30 ; Polyneuropathy associated with underlying disease G63 and Atrial fibrillation, unspecified type I48.91 [facility] [place] [address] [place] [address] 08173- 2100 Sep, Other chronic pain G89.29 [facility] [place] [id number] [place] [address] 02721- 3732 Sep, Type 2 diabetes mellitus with hyperglycemia E11.65 ; Atrial fibrillation, unspecified type I48.91 and Essential hypertension I10 [facility] [place] [id number] [place] [address] 22775- 7525 Sep, Essential hypertension I10 [facility] [place] [id number] [place] [address] 41189- 0357 Sep, Essential hypertension I10 [facility] [place] [id number] [place] [address] 59367- 0037 Sep, [facility] [place] [id number] [place] [address] 13435- 1173 Sep, Other chronic pain G89.29 [facility] [place] [id number] [place] [address] 34974- 0609 Aug, [facility] [place] [id number] [place] [address] 50770- 1000 Aug, Polyneuropathy associated with underlying disease G63 and Chronic obstructive pulmonary disease, unspecified COPD type J44.9 [facility] [address] [id number] Aug, [facility] [place] [id number] [place] [address] 49415- 7338 Aug, [facility] [place] [address] [address]- 7602 Aug, Chronic obstructive pulmonary disease, unspecified COPD type J44.9 [facility] [place] [address] [address]- 7768 10 Aug, 2017 Medicare annual wellness visit, subsequent Z00.00 [facility] [place] [id number] [place] [address] 87542- 5592 07 Aug, 2017 Other chronic pain G89.29 [facility] [place] [address] [address]- 7219 16 Jul, 2017 [facility] [place] [id number] [place] [address] 69914- 0365 Jul, [facility] [place] [id number] [place] [address] 45656- 4366 Jul, Other chronic pain G89.29 and Essential hypertension I10 [facility] [place] [id number] [address]- 3670 Jun, [facility] [place] [address] [place] [address] 16019- 3185 Jun, Essential hypertension I10 [facility] [place] [id number] [place] [address] 07211- 5169 Jun, [facility] [place] [address] [place] [address] 69843- 2444 Jun, Other chronic pain G89.29 [facility] [place] [address] [address]- 0805 Jun, Other chronic pain G89.29 [facility] [place] [address] [address]- 7274 05 Jun, 2017 [facility] [place] [address] [address]- 6742 Jun, Type 2 diabetes mellitus with hyperglycemia E11.65 ; Essential hypertension I10 ; Atrial fibrillation, unspecified type I48.91 ; Polyneuropathy associated with underlying disease G63 ; Anemia, unspecified D64.9 ; Chronic obstructive pulmonary disease, unspecified COPD type J44.9 ; Other urinary incontinence N39.498 ; Lumbar degenerative disc disease M51.36 and GERD without esophagitis K21.9 [facility] [place] [id number] [place] [address] 90777- 4937 May, [facility] [place] [id number] [place] [address] 66679- 4908 May, [facility] [place] [id number] [place] [address] 63107- 3380 May, [facility] [place] [id number] [place] [address] 50987- 8217 May, Other chronic pain G89.29 [facility] [place] [id number] [place] [address] 43343- 4343 Apr, Onychomycosis B35.1 and Type 2 diabetes mellitus with diabetic neuropathy, unspecified computer 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 [facility] [place] [id number] [place] [address] 58526- 3421 Apr, Essential hypertension I10 [facility] [place] [id number] [place] [address] 95542- 0235 Apr, [facility] [place] [id number] [place] [address] 25128- 7643 Apr, Other chronic pain G89.29 [facility] [place] [id number] [place] [address] 98836- 3265 Mar, Cervical pain (neck) M54.2 ; Other chronic pain G89.29 ; Other urinary incontinence N39.498 and Essential hypertension I10 [facility] [place] [id number] [place] [address] 13483- 8657 Mar, [facility] [place] [id number] [place] [address] 39460- 8734 Mar, Other chronic pain G89.29 [facility] [place] [id number] [place] [address] 05306- 9238 February, [facility] [place] [address] [place] [address]- 4390 February, [place] [address] 50767- 0960 February, Other chronic pain G89.29 [facility] [facility] [address] 15107679- 2239 February, Essential hypertension I10 ; Type 2 diabetes mellitus with hyperglycemia E11.65 ; Alcoholic cirrhosis of liver without ascites K70.30 ; Chronic obstructive pulmonary disease, unspecified COPD type J44.9 ; Atrial fibrillation, unspecified type I48.91 ; Polyneuropathy associated with underlying disease G63 ; Anemia, unspecified D64.9 ; Requires assistance with activities of daily living (ADL) Z74.1 and Non-compliant behavior R46.89 [facility] [address] [id number] February, Dental examination Z01.20 [place] [address] 74583- 1067 Jan, [facility] [address] [id number] Jan, Dental caries K02.9 [place] [address] 24824- 2255 Jan, Anemia, unspecified D64.9 ; Chronic obstructive pulmonary disease, unspecified COPD type J44.9 ; Other chronic pain G89.29 ; Syncope and collapse R55 and Polyneuropathy associated with underlying disease G63 [facility] [address] [id number] Jan, Dental examination Z01.20 [place] [address] 51517- 1589 Dec, Type 2 diabetes mellitus with hyperglycemia E11.65 ; Anemia , unspecified D64.9 ; Essential hypertension I10 ; Chronic obstructive pulmonary disease, unspecified COPD type J44.9 ; Atrial fibrillation, unspecified type I48.91 ; Cervical pain (neck) M54.2 ; Polyneuropathy associated with underlying disease G63 ; Low back pain M54.5 ; Other chronic pain G89.29 and Alcoholic cirrhosis of liver without ascites K70.30 [facility] [facility] [address] [address]- 2442 Dec, [facility] [place] [address], [place] [address]- 6912 Dec, [place] [address] [address]- 9632 Dec, [facility] [address] [address]- 8192 Dec, Type 2 diabetes mellitus with hyperglycemia E11.65 ; History of alcoholism F10.21 ; Anemia due to other cause D64.89 and Atrial fibrillation, unspecified type I48.91 [facility] [address], [place] [address]- 7738 Dec, [facility] [facility] [address] [address]- 2321 Dec, [facility] [address] [address]- 5134 Dec, Type 2 diabetes mellitus with hyperglycemia E11.65 ; History of alcoholism F10.21 ; Anemia due to other cause D64.89 and Atrial fibrillation, unspecified type I48.91 [facility] [facility] [address], [place] [address]- 5775 Nov, [place] [address] [address]- 4946 Nov, Other chronic pain G89.29 [facility] [address] [address]- 6945 Nov, Other chronic pain G89.29 [facility] [address], [place] [address]- 1757 Nov, Type 2 diabetes mellitus with hyperglycemia E11.65 ; Anemia due to other cause D64.89 ; Hypotension due to blood loss I95.89 ; Alcoholic cirrhosis of liver without ascites K70.30 ; History of alcoholism F10.21 and Chronic obstructive pulmonary disease, unspecified COPD type J44.9 [facility] [place] [id number] [place] [address] 44614- 4921 Sep, [facility] [id number] [place] [address] [id number] Jan, Dental examination Z01.20 [facility] [id number] [place] [address] 13179- 0550 Nov, Chronic obstructive pulmonary disease, unspecified COPD type J44.9 ; Panic attacks F41.0 and Other chronic pain G89.29 [facility] [place] [id number] [place] [address] 43458- 1930 Jan, [facility] [id number] [place] [address] 60508- 8626 Jan, [facility] [id number] [place] [address] 58752- 7005 Dec, [facility] [id number] [place] [address] 26328- 0597 Dec, [place] [id number] [place] [address] 64847- 9482 Dec, [facility] [id number] [place] [address] 34760- 1750 Dec, IMMUNIZATIONS No Known Immunizations SOCIAL HISTORY Never Assessed REASON FOR VISIT PLAN OF CARE VITAL SIGNS MEDICATIONS Medication Instructions Dosage Frequency Start Date End Date Duration Status Humalog KwikPen 100 UNIT/ML Subcutaneous before meals 10u Apr, Active Insulin Detemir 100 UNIT/ML Subcutaneous at hs 50u Apr, Active MetFORMIN HCl ER 500 mg Orally twice a day X 1 week and then 2 tab bid 1 tablet Apr, 30 day(s) Active RESULTS No Results PROCEDURES [...]
--- OUTSIDE RECORDS SUMMARY | 2018-07-29 05:21 | XMS REPORT ---
Author Author DENIS TRACY [facility] Address [address] [place] [address] Care Team Providers Care Finishing Operator Name Role Phone DENIS TRACY Unavailable PROBLEMS Type Condition ICD9-CM Code DPR51-VB Code Onset Dates Condition Status SNOMED Code Problem Alcoholism /alcohol abuse F10.20 Active 3486447 Problem USP current use of 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 Active 871916433 Problem Type 2 diabetes mellitus with other specified complication E11.69 Active 96593116 Problem Type 2 diabetes mellitus with hyperglycemia E11.65 Active [id number] Problem Essential hypertension I10 Active 95734456 Problem 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 Active 219042144 Problem Lumbar degenerative disc disease M51.36 Active 11184452 Problem Hypercalcemia E83.52 Active 89955957 Problem Amputated toe of left foot Z89.422 Active 993059750 Problem Falls frequently R29.6 Active 520906706 Problem Other hammer toe(s) (acquired), right foot M20.41 Active 656393881 Problem Other hammer toe(s) (acquired), left foot M20.42 Active 91921441 Problem Chronic obstructive pulmonary disease, unspecified COPD type J44.9 Active 87690054 Problem Atrial fibrillation, unspecified type I48.91 Active 14781435 Problem Alcoholic cirrhosis of liver without ascites K70.30 Active 199075529 Problem Other chronic pain G89.29 Active 73940634 Problem Cervical pain (neck) M54.2 Active 05016217 Problem Requires assistance with activities of daily living (ADL) Z74.1 Active 405486921 Problem Other chronic pain G89.29 Active 40196761 Problem Other urinary incontinence N39.498 Active 319961346 Problem Anemia, unspecified D64.9 Active 399496785 Problem Polyneuropathy associated with underlying disease G63 Active 360297731 Problem GERD without esophagitis K21.9 Active 695346566 ALLERGIES No Information ENCOUNTERS Encounter Location Date Diagnosis [facility] [address] [address] May, Lumbar degenerative disc disease M51.36 [facility] [id number] [place] [address] 00869- 9096 May, Type 2 diabetes mellitus with hyperglycemia E11.65 [facility] [address] [address] 3[address] May, Lumbar degenerative disc disease M51.36 [facility] [id number] [place] [address] 21043- 3978 May, [facility] [id number] [place] [address] [phone] May, Dental examination Z01.20 and Dental caries K02.9 [facility] [address] [place] [address] 44516- 7090 May, 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 ; USP current use of 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 ; Polyneuropathy associated with underlying disease G63 ; Essential hypertension I10 ; Other hammer toe(s) (acquired), left foot M20.42 ; Other hammer toe(s) (acquired), right foot M20.41 and Amputated toe of left foot Z89.422 [facility] [address] [address] May, [facility] [id number] [place] [address] 79386- 8213 May, Type 2 diabetes mellitus with hyperglycemia E11.65 [facility] [address] [place] [address] 13475- 2407 Apr, [facility] [address] [place] [id number] Apr, Type 2 diabetes mellitus with hyperglycemia E11.65 ; Chronic obstructive pulmonary disease, unspecified COPD type J44.9 and Essential hypertension I10 [facility] [address] [place] [address] 95729- 6624 Apr, Type 2 diabetes mellitus with hyperglycemia E11.65 [facility] [address] [address] 1683 Apr, Type 2 diabetes mellitus with hyperglycemia E11.65 [facility] [id number] [place] [address] 11421- 1126 Apr, Lumbar degenerative disc disease M51.36 [facility] [id number] [place] [address] 71781- 2939 Apr, Type 2 diabetes mellitus with hyperglycemia E11.65 [facility] [address] [place] [id number] Apr, Type 2 diabetes mellitus with hyperglycemia E11.65 ; Atrial fibrillation, unspecified type I48.91 ; Anemia due to other cause D64.89 ; Alcoholism / alcohol abuse F10.20 ; Acute pylorus ulcer K25.3 and Alcoholic cirrhosis of liver without ascites K70.30 [facility] [id number] [place] [address] 01271- 8434 Apr, Lumbar degenerative disc disease M51.36 [facility] [id number] [place] [address] 94526- 6251 Mar, [facility] [id number] [place] [address] 75293- 4259 Mar, [facility] [id number] [place] [address] 45323- 0979 Mar, [facility] [id number] [place] [address] 85270- 2487 Mar, [facility] [id number] [place] [address] 61523- 0957 Mar, Lumbar degenerative disc disease M51.36 [facility] [id number] [place] [address] 96240- 9674 Mar, Dizziness R42 ; Falls frequently R29.6 ; Weight loss, non- intentional R63.4 ; Essential hypertension I10 ; Cardiac murmur R01.1 ; Hypercalcemia E83.52 and Requires assistance with activities of daily living ( ADL) Z74.1 [facility] [id number] [address] Mar, [facility] [id number] [place] [address] 70588- 1682 Mar, Hypercalcemia E83.52 [facility] [id number] [place] [address] 85527- 4584 February, Lumbar degenerative disc disease M51.36 [facility] [id number] [place] [address] 60675- 4703 February, Type 2 diabetes mellitus with diabetic neuropathy, 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 ; Type 2 diabetes mellitus with other specified complication E11.69 ; intermediate card tender current use of 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 ; Essential hypertension I10 ; Chronic obstructive pulmonary disease, unspecified COPD type J44.9 ; Polyneuropathy associated with underlying disease G63 ; Atrial fibrillation, unspecified type I48.91 ; GERD without esophagitis K21.9 and Lumbar degenerative disc disease M51.36 [facility] [id number] [place] [address] 01065- 6019 Jan, Other chronic pain G89.29 [facility] [id number] [place] [address] 41932- 3484 Jan, [facility] [id number] [place] [address] 99081- 1500 Jan, [facility] [id number] [place] [address] 42616- 1420 Jan, Type 2 diabetes mellitus with diabetic neuropathy, unspecified detention insulin 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 [facility] [id number] [place] [address] 70939- 0255 Jan, [facility] [id number] [place] [address] 86708- 6108 Jan, [facility] [id number] [place] [address] 74068- 4689 Jan, Other chronic pain G89.29 [facility] [address], [place] [address] Dec, Atrial fibrillation, unspecified type I48.91 ; Essential hypertension I10 and Other chronic pain G89.29 [facility] [address] [address] 7908 Dec, Atrial fibrillation, unspecified type I48.91 [facility] [id number] [place] [address] 69513- 2002 Dec, [facility] [id number] [place] [address] 36057- 2743 Nov, Other chronic pain G89.29 [facility] [id number] [place] [address] 19729- 2297 Nov, [facility] [id number] [place] [address] 10942- 3963 Nov, [facility] [address] [place] [address] 74623- 3032 Nov, Type 2 diabetes mellitus with diabetic neuropathy, 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 ; Type 2 diabetes mellitus with hyperglycemia E11.65 ; Essential hypertension I10 ; Chronic obstructive pulmonary disease, unspecified COPD type J44.9 ; Atrial fibrillation, unspecified type I48.91 ; GERD without esophagitis K21.9 ; Lumbar degenerative disc disease M51.36 ; Alcoholism /alcohol abuse F10.20 and Encounter for immunization Z23 [facility] [address] [address] 9[address] Oct, Type 2 diabetes mellitus with hyperglycemia E11.65 ; Other chronic pain G89.29 and Other detention (current) drug therapy Z79.899 [facility] [address] [address] 4[address] Oct, [facility] [address] [place] [address] 93104- 2860 Oct, Essential hypertension I10 ; Anemia, unspecified D64.9 ; Chronic obstructive pulmonary disease, unspecified COPD type J44.9 ; Type 2 diabetes mellitus with hyperglycemia E11.65 ; Alcoholic cirrhosis of liver without ascites K70.30 ; Polyneuropathy associated with underlying disease G63 and Atrial fibrillation, unspecified type I48.91 [facility] [address], [place] [address] 5[address] Sep, Other chronic pain G89.29 [facility] [address] [place] [address] 89801- 7219 Sep, Type 2 diabetes mellitus with hyperglycemia E11.65 ; Atrial fibrillation, unspecified type I48.91 and Essential hypertension I10 [facility] [id number] [place] [address] 65782- 6135 Sep, Essential hypertension I10 [facility] [id number] [place] [address] 16870- 8177 Sep, Essential hypertension I10 [facility] [id number] [place] [address] 46847- 3891 Sep, [facility] [id number] [place] [address] 43987- 1341 Sep, Other chronic pain G89.29 [facility] [address], [place] [address] 6960 Aug, [facility] [id number] [place] [address] 13953- 3939 Aug, Polyneuropathy associated with underlying disease G63 and Chronic obstructive pulmonary disease, unspecified COPD type J44.9 [facility] [id number] [id number] Aug, [facility] [address] [place] [address] 17755- 3143 Aug, [facility] [address], [place] [address] 0747 Aug, Chronic obstructive pulmonary disease, unspecified COPD type J44.9 [facility] [address], [place] [address] 1995 10 Aug, 2017 Medicare annual wellness visit, subsequent Z00.00 [facility] [id number] [place] [address] 94311- 2564 07 Aug, 2017 Other chronic pain G89.29 [facility] [address] [address]- 6606 16 Jul, 2017 [facility] [id number] [place] [address] 63718- 6969 Jul, [facility] [id number] [place] [address] 64113- 0019 Jul, Other chronic pain G89.29 and Essential hypertension I10 [facility] [id number] [place] [address] 28838- 2293 Jun, [facility] [id number] [place] [address] 15311- 8831 Jun, Essential hypertension I10 [facility] [address], [place] [address]- 3569 Jun, [facility] [id number] [place] [address] 04920- 6411 Jun, Other chronic pain G89.29 [facility] [address], [place] [address]- 8119 Jun, Other chronic pain G89.29 [facility] [address], [place] [address]- 8431 05 Jun, 2017 [facility] [address] [place] [address] 43690- 1986 Jun, Type 2 diabetes mellitus with hyperglycemia E11.65 ; Essential hypertension I10 ; Atrial fibrillation, unspecified type I48.91 ; Polyneuropathy associated with underlying disease G63 ; Anemia, unspecified D64.9 ; Chronic obstructive pulmonary disease, unspecified COPD type J44.9 ; Other urinary incontinence N39.498 ; Lumbar degenerative disc disease M51.36 and GERD without esophagitis K21.9 [facility] [id number] [place] [address] 42468- 9593 May, [facility] [id number] [place] [address] 30216- 7553 May, [facility] [id number] [place] [address] 42757- 1936 May, [facility] [id number] [place] [address] 98689- 8248 May, Other chronic pain G89.29 [facility] [address] 42127- 5108 Apr, Onychomycosis B35.1 and Type 2 diabetes mellitus with diabetic neuropathy, unspecified detention insulin 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 [facility] [id number] [place] [address] 02513- 4810 Apr, Essential hypertension I10 [facility] [id number] [place] [address] 77439- 1113 Apr, [facility] [id number] [place] [address] 91667- 5158 Apr, Other chronic pain G89.29 [facility] [id number] [place] [address] 06901- 8186 Mar, Cervical pain (neck) M54.2 ; Other chronic pain G89.29 ; Other urinary incontinence N39.498 and Essential hypertension I10 [facility] [id number] [place] [address] 23485- 8478 Mar, [facility] [id number] [place] [address] 39140- 4917 Mar, Other chronic pain G89.29 [facility] [id number] [place] [address] 84548- 0447 February, [facility] [id number] [place] [address] [id number]- 3961 February, [facility] [address] [place] [address] 096979- 2789 February, Other chronic pain G89.29 [facility] [id number] [place] [address] 087126- 6508 February, Essential hypertension I10 ; Type 2 diabetes mellitus with hyperglycemia E11.65 ; Alcoholic cirrhosis of liver without ascites K70.30 ; Chronic obstructive pulmonary disease, unspecified COPD type J44.9 ; Atrial fibrillation, unspecified type I48.91 ; Polyneuropathy associated with underlying disease G63 ; Anemia, unspecified D64.9 ; Requires assistance with activities of daily living (ADL) Z74.1 and Non-compliant behavior R46.89 [facility] [id number] [place] [address] [id number] February, Dental examination Z01.20 [facility] [id number] [place] [address] 91170- 9089 Jan, [facility] [id number] [place] [address] [id number] Jan, Dental caries K02.9 [place] [id number] [place] [address] 73627- 8064 Jan, Anemia, unspecified D64.9 ; Chronic obstructive pulmonary disease, unspecified COPD type J44.9 ; Other chronic pain G89.29 ; Syncope and collapse R55 and Polyneuropathy associated with underlying disease G63 [facility] [id number] [place] [address] [id number] Jan, Dental examination Z01.20 [facility] [id number] [place] [address] 11167727- 5286 Dec, Type 2 diabetes mellitus with hyperglycemia E11.65 ; Anemia , unspecified D64.9 ; Essential hypertension I10 ; Chronic obstructive pulmonary disease, unspecified COPD type J44.9 ; Atrial fibrillation, unspecified type I48.91 ; Cervical pain (neck) M54.2 ; Polyneuropathy associated with underlying disease G63 ; Low back pain M54.5 ; Other chronic pain G89.29 and Alcoholic cirrhosis of liver without ascites K70.30 [facility] [address], [place] [address]- 1533 Dec, [facility] [address] [address]- 2796 Dec, [facility] [id number] [place] [address] 99382- 5504 Dec, [facility] [id number] [place] [address] 73203- 3284 Dec, Type 2 diabetes mellitus with hyperglycemia E11.65 ; History of alcoholism F10.21 ; Anemia due to other cause D64.89 and Atrial fibrillation, unspecified type I48.91 [facility] [id number] [address]- 6225 Dec, [facility] [id number] [place] [address] 19392- 2781 Dec, [facility] [address] [address]- 4453 Dec, Type 2 diabetes mellitus with hyperglycemia E11.65 ; History of alcoholism F10.21 ; Anemia due to other cause D64.89 and Atrial fibrillation, unspecified type I48.91 [facility] [address], [place] [address]- 4207 Nov, [facility] [address], [place] [address]- 1913 Nov, Other chronic pain G89.29 [facility] [address], [place] [address]- 2636 Nov, Other chronic pain G89.29 [facility] [address], [place] [address]- 7531 Nov, Type 2 diabetes mellitus with hyperglycemia E11.65 ; Anemia due to other cause D64.89 ; Hypotension due to blood loss I95.89 ; Alcoholic cirrhosis of liver without ascites K70.30 ; History of alcoholism F10.21 and Chronic obstructive pulmonary disease, unspecified COPD type J44.9 [facility] [id number] [place] [address] 04032- 5292 Sep, [facility] [address] [place] [address] [id number] Jan, Dental examination Z01.20 [facility] [id number] [place] [address] 74318- 1543 Nov, Chronic obstructive pulmonary disease, unspecified COPD type J44.9 ; Panic attacks F41.0 and Other chronic pain G89.29 [facility] [id number] [place] [address] 69613- 5865 Jan, [facility] [id number] [place] [address] 31674- 6543 Jan, [facility] [id number] [place] [address] 23929- 0154 Dec, [facility] [id number] [place] [address] 36270- 8846 Dec, [facility] [id number] [place] [address] 43648- 3018 Dec, [facility] [id number] [place] [address] 10409- 8786 Dec, IMMUNIZATIONS No Known Immunizations SOCIAL HISTORY Never Assessed REASON FOR VISIT Elevated blood sugar PLAN OF CARE VITAL SIGNS MEDICATIONS Medication Instructions Dosage Frequency Start Date End Date Duration Status Novolin 70/30 (70-30) 100 UNIT/ML Subcutaneous 2 times a day 45 units in AM and 15u with supper 12h Active RESULTS No Results PROCEDURES No Known [...]
--- OUTSIDE RECORDS SUMMARY | 2018-07-29 05:21 | XMS REPORT ---
Author Author DENIS TRACY Organization [facility] Address [address] [place] [address] Care Team Providers Care Business Area Manager Name Role Phone DENIS TRACY Unavailable PROBLEMS Type Condition ICD9-CM Code RKW92-TR Code Onset Dates Condition Status SNOMED Code Problem Alcoholism /alcohol abuse F10.20 Active 8020059 Problem senior living current use of 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 Active 926871871 Problem Type 2 diabetes mellitus with other specified complication E11.69 Active 13347872 Problem Type 2 diabetes mellitus with hyperglycemia E11.65 Active [id number] Problem Essential hypertension I10 Active 29881943 Problem 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 Active 193012615 Problem Lumbar degenerative disc disease M51.36 Active 59212430 Problem Hypercalcemia E83.52 Active 29877032 Problem Amputated toe of left foot Z89.422 Active 676044065 Problem Falls frequently R29.6 Active 258571756 Problem Other hammer toe(s) (acquired), right foot M20.41 Active 560107895 Problem Other hammer toe(s) (acquired), left foot M20.42 Active 73818042 Problem Chronic obstructive pulmonary disease, unspecified COPD type J44.9 Active 53831115 Problem Atrial fibrillation, unspecified type I48.91 Active 45991499 Problem Alcoholic cirrhosis of liver without ascites K70.30 Active 225508962 Problem Other chronic pain G89.29 Active 02037496 Problem Cervical pain (neck) M54.2 Active 89230193 Problem Requires assistance with activities of daily living (ADL) Z74.1 Active 317584517 Problem Other chronic pain G89.29 Active 24423092 Problem Other urinary incontinence N39.498 Active 143560924 Problem Anemia, unspecified D64.9 Active 917770734 Problem Polyneuropathy associated with underlying disease G63 Active 237990367 Problem GERD without esophagitis K21.9 Active 981165378 ALLERGIES No Information ENCOUNTERS Encounter Location Date Diagnosis [facility] [address] [address] May, Lumbar degenerative disc disease M51.36 [facility] [address] [place] [address] 31222- 0081 May, Type 2 diabetes mellitus with hyperglycemia E11.65 [facility] [address] [address] May, Lumbar degenerative disc disease M51.36 [facility] [address] [place] [address] 93717- 2222 May, [facility] [id number] [place] [address] [phone] May, Dental examination Z01.20 and Dental caries K02.9 [facility] [address] [place] [address] 66175- 6777 May, 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 ; senior living current use of 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 ; Polyneuropathy associated with underlying disease G63 ; Essential hypertension I10 ; Other hammer toe(s) (acquired), left foot M20.42 ; Other hammer toe(s) (acquired), right foot M20.41 and Amputated toe of left foot Z89.422 [facility] [address] [address] May, [facility] [address] [place] [address] 11355- 7164 May, Type 2 diabetes mellitus with hyperglycemia E11.65 [facility] [address] [place] [address] 43206- 8374 Apr, [facility] [address] [place] [id number] Apr, Type 2 diabetes mellitus with hyperglycemia E11.65 ; Chronic obstructive pulmonary disease, unspecified COPD type J44.9 and Essential hypertension I10 [facility] [address] [place] [address] 72501- 4712 Apr, Type 2 diabetes mellitus with hyperglycemia E11.65 [facility] [address] [address] 9[address] Apr, Type 2 diabetes mellitus with hyperglycemia E11.65 [facility] [id number] [place] [address] 65099- 6644 Apr, Lumbar degenerative disc disease M51.36 [facility] [id number] [place] [address] 76921- 9045 Apr, Type 2 diabetes mellitus with hyperglycemia E11.65 [facility] [address] [place] [id number] Apr, Type 2 diabetes mellitus with hyperglycemia E11.65 ; Atrial fibrillation, unspecified type I48.91 ; Anemia due to other cause D64.89 ; Alcoholism / alcohol abuse F10.20 ; Acute pylorus ulcer K25.3 and Alcoholic cirrhosis of liver without ascites K70.30 [facility] [id number] [place] [address] 55392- 2362 Apr, Lumbar degenerative disc disease M51.36 [facility] [id number] [place] [address] 82364- 1533 Mar, [facility] [id number] [place] [address] 18120- 6563 Mar, [facility] [id number] [place] [address] 11863- 1364 Mar, [facility] [id number] [place] [address] 66068- 0788 Mar, [facility] [id number] [place] [address] 02600- 1382 Mar, Lumbar degenerative disc disease M51.36 [facility] [id number] [place] [address] 84223- 3905 Mar, Dizziness R42 ; Falls frequently R29.6 ; Weight loss, non- intentional R63.4 ; Essential hypertension I10 ; Cardiac murmur R01.1 ; Hypercalcemia E83.52 and Requires assistance with activities of daily living ( ADL) Z74.1 [facility] [id number] [address] Mar, [facility] [id number] [place] [address] 07550- 1055 Mar, Hypercalcemia E83.52 [facility] [id number] [place] [address] 67958- 7960 February, Lumbar degenerative disc disease M51.36 [facility] [id number] [place] [address] 23572- 1737 February, Type 2 diabetes mellitus with diabetic [...] K21.9 and Lumbar degenerative disc disease M51.36 [facility] [id number] [place] [address] 90937- 1802 Jan, Other chronic pain G89.29 [facility] [id number] [place] [address] 07268- 9617 Jan, [facility] [id number] [place] [address] 17531- 0941 Jan, [facility] [id number] [place] [address] 54471- 4442 Jan, Type 2 diabetes mellitus with diabetic neuropathy, unspecified senior living insulin 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 [facility] [id number] [place] [address] 52921- 3004 Jan, [facility] [id number] [place] [address] 27232- 0790 Jan, [facility] [id number] [place] [address] 65377- 6915 Jan, Other chronic pain G89.29 [facility] [address] [address] Dec, Atrial fibrillation, unspecified type I48.91 ; Essential hypertension I10 and Other chronic pain G89.29 [facility] [address] [address] Dec, Atrial fibrillation, unspecified type I48.91 [facility] [id number] [place] [address] 98622- 3463 Dec, [facility] [id number] [place] [address] 60665- 3758 Nov, Other chronic pain G89.29 [facility] [id number] [place] [address] 71795- 5912 Nov, [facility] [id number] [place] [address] 03168- 8451 Nov, [facility] [address] [place] [address] 54766- 4083 Nov, Type 2 diabetes mellitus with diabetic [...] abuse F10.20 and Encounter for immunization Z23 [facility] [address] [address] Oct, Type 2 diabetes mellitus with hyperglycemia E11.65 ; Other chronic pain G89.29 and Other senior living (current) drug therapy Z79.899 [facility] [address] [address] 3[address] Oct, [facility] [address] [place] [address] 70555- 8590 Oct, Essential hypertension I10 ; Anemia, unspecified D64.9 ; Chronic obstructive pulmonary disease, unspecified COPD type J44.9 ; Type 2 diabetes mellitus with hyperglycemia E11.65 ; Alcoholic cirrhosis of liver without ascites K70.30 ; Polyneuropathy associated with underlying disease G63 and Atrial fibrillation, unspecified type I48.91 [facility] [address] [address] Sep, Other chronic pain G89.29 [facility] [address] [place] [address] 49391- 5836 Sep, Type 2 diabetes mellitus with hyperglycemia E11.65 ; Atrial fibrillation, unspecified type I48.91 and Essential hypertension I10 [facility] [id number] [place] [address] 44614- 7988 Sep, Essential hypertension I10 [facility] [id number] [place] [address] 65927- 9151 Sep, Essential hypertension I10 [facility] [id number] [place] [address] 67251- 5746 Sep, [facility] [address] [place] [address] 56885- 6546 Sep, Other chronic pain G89.29 [facility] [address] [address]- 3100 Aug, [facility] [address] [place] [address] 30491- 3135 Aug, Polyneuropathy associated with underlying disease G63 and Chronic obstructive pulmonary disease, unspecified COPD type J44.9 [facility] [id number] [id number] Aug, [facility] [address] [place] [address] 59231- 9436 Aug, [facility] [address] [address]- 7928 Aug, Chronic obstructive pulmonary disease, unspecified COPD type J44.9 [facility] [address] [address]- 7155 10 Aug, 2017 Medicare annual wellness visit, subsequent Z00.00 [facility] [id number] [place] [address] 30485- 2664 07 Aug, 2017 Other chronic pain G89.29 [facility] [address] [address]- 2796 16 Jul, 2017 [facility] [id number] [place] [address] 17577- 9974 Jul, [facility] [id number] [place] [address] 53316- 8562 Jul, Other chronic pain G89.29 and Essential hypertension I10 [facility] [id number] [place] [address] 76115- 6789 Jun, [facility] [id number] [place] [address] 73609- 3568 Jun, Essential hypertension I10 [facility] [address] [address]- 7368 Jun, [facility] [id number] [place] [address] 09706- 9920 Jun, Other chronic pain G89.29 [facility] [address] [address]- 3461 Jun, Other chronic pain G89.29 [facility] [address] [address]- 1709 05 Jun, 2017 [facility] [address] [place] [address] 39396- 2065 Jun, Type 2 diabetes mellitus with hyperglycemia E11.65 ; Essential hypertension I10 ; Atrial fibrillation, unspecified type I48.91 ; Polyneuropathy associated with underlying disease G63 ; Anemia, unspecified D64.9 ; Chronic obstructive pulmonary disease, unspecified COPD type J44.9 ; Other urinary incontinence N39.498 ; Lumbar degenerative disc disease M51.36 and GERD without esophagitis K21.9 [facility] [id number] [place] [address] 12100- 8726 May, [facility] [id number] [place] [address] 10820- 1620 May, [facility] [id number] [place] [address] 30229- 6604 May, [facility] [id number] [place] [address] 72613- 6501 May, Other chronic pain G89.29 [facility] [address] [address]- 4026 Apr, Onychomycosis B35.1 and Type 2 diabetes mellitus with diabetic neuropathy, unspecified senior living insulin 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 [facility] [id number] [place] [address] 15675- 0105 Apr, Essential hypertension I10 [facility] [id number] [place] [address] 00015- 7905 Apr, [facility] [id number] [place] [address] 45786- 4040 Apr, Other chronic pain G89.29 [facility] [id number] [place] [address] 71233- 1334 Mar, Cervical pain (neck) M54.2 ; Other chronic pain G89.29 ; Other urinary incontinence N39.498 and Essential hypertension I10 [facility] [id number] [place] [address] 63502- 8682 Mar, [facility] [id number] [place] [address] 78874- 0174 Mar, Other chronic pain G89.29 [facility] [id number] [place] [address] 27225- 8191 February, [facility] [id number] [place] [address] [phone]- 3092 February, [facility] [address] [place] [address] 200121- 1575 February, Other chronic pain G89.29 [facility] [id number] [place] [address] 661090- 1537 February, Essential hypertension I10 ; Type 2 diabetes mellitus with hyperglycemia E11.65 ; Alcoholic cirrhosis of liver without ascites K70.30 ; Chronic obstructive pulmonary disease, unspecified COPD type J44.9 ; Atrial fibrillation, unspecified type I48.91 ; Polyneuropathy associated with underlying disease G63 ; Anemia, unspecified D64.9 ; Requires assistance with activities of daily living (ADL) Z74.1 and Non-compliant behavior R46.89 [facility] [id number] [place] [address] [phone] February, Dental examination Z01.20 [facility] [id number] [place] [address] 36129- 7449 Jan, [facility] [id number] [place] [address] [id number] Jan, Dental caries K02.9 [place] [id number] [place] [address] 36774- 9254 Jan, Anemia, unspecified D64.9 ; Chronic obstructive pulmonary disease, unspecified COPD type J44.9 ; Other chronic pain G89.29 ; Syncope and collapse R55 and Polyneuropathy associated with underlying disease G63 [facility] [id number] [place] [address] [phone] Jan, Dental examination Z01.20 [facility] [id number] [place] [address] [phone]- 3678 Dec, Type 2 diabetes mellitus with hyperglycemia E11.65 ; Anemia , unspecified D64.9 ; Essential hypertension I10 ; Chronic obstructive pulmonary disease, unspecified COPD type J44.9 ; Atrial fibrillation, unspecified type I48.91 ; Cervical pain (neck) M54.2 ; Polyneuropathy associated with underlying disease G63 ; Low back pain M54.5 ; Other chronic pain G89.29 and Alcoholic cirrhosis of liver without ascites K70.30 [facility] [address] [address]- 1002 Dec, [facility] [address] [address]- 0093 Dec, [facility] [id number] [place] [address] 24031- 4224 Dec, [facility] [id number] [place] [address] 71261- 3538 Dec, Type 2 diabetes mellitus with hyperglycemia E11.65 ; History of alcoholism F10.21 ; Anemia due to other cause D64.89 and Atrial fibrillation, unspecified type I48.91 [facility] [address] [address]- 2488 Dec, [facility] [id number] [place] [address] 14112- 4656 Dec, [facility] [address] [address]- 2392 Dec, Type 2 diabetes mellitus with hyperglycemia E11.65 ; History of alcoholism F10.21 ; Anemia due to other cause D64.89 and Atrial fibrillation, unspecified type I48.91 [facility] [address] [address]- 4962 Nov, [facility] [address] [address]- 1033 Nov, Other chronic pain G89.29 [facility] [address] [address]- 9239 Nov, Other chronic pain G89.29 [facility] [address], [place] [address]- 2135 Nov, Type 2 diabetes mellitus with hyperglycemia E11.65 ; Anemia due to other cause D64.89 ; Hypotension due to blood loss I95.89 ; Alcoholic cirrhosis of liver without ascites K70.30 ; History of alcoholism F10.21 and Chronic obstructive pulmonary disease, unspecified COPD type J44.9 [facility] [id number] [place] [address] 80705- 6111 Sep, [facility] [address] [place] [address] [phone] Jan, Dental examination Z01.20 [facility] [id number] [place] [address] 43557- 5815 Nov, Chronic obstructive pulmonary disease, unspecified COPD type J44.9 ; Panic attacks F41.0 and Other chronic pain G89.29 [facility] [id number] [place] [address] 75969- 3795 Jan, [facility] [id number] [place] [address] 74429- 1248 Jan, [facility] [id number] [place] [address] 00512- 1583 Dec, [facility] [id number] [place] [address] 89770- 0390 Dec, [facility] [id number] [place] [address] 00732- 2911 Dec, [facility] [id number] [place] [address] 10474- 6018 Dec, IMMUNIZATIONS No Known Immunizations SOCIAL HISTORY Never Assessed REASON FOR VISIT Controlled Med Refill PLAN OF CARE VITAL SIGNS MEDICATIONS Medication Instructions Dosage Frequency Start Date End Date Duration Status Hydrocodone-Acetaminophen 5-325 mg Orally every 4 hrs 1 tablet as needed 4h Apr, Active RESULTS No Results PROCEDURES No [...]
--- OUTSIDE RECORDS SUMMARY | 2018-07-29 05:22 | XMS REPORT ---
Author Author ALTHEA ANDERSON [facility] Address [address] [place] [address] Care Team Providers Care Merchandising Lead Name Role Phone ALTHEA ANDERSON Unavailable PROBLEMS Type Condition ICD9-CM Code WEU01-CY Code Onset Dates Condition Status SNOMED Code Problem Alcoholism /alcohol abuse F10.20 Active 5636357 Problem alf current use of 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 Active 358080235 Problem Type 2 diabetes mellitus with other specified complication E11.69 Active 49595991 Problem Type 2 diabetes mellitus with hyperglycemia E11.65 Active 890597463680629 Problem Essential hypertension I10 Active 67512237 Problem 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30 Active 669892882 Problem Other chronic pain G89.29 Active 67147376 Problem Cervical pain (neck) M54.2 Active 07451050 Problem Requires assistance with activities of daily living (ADL) Z74.1 Active 491009418 Problem Other chronic pain G89.29 Active 00577267 Problem Other urinary incontinence N39.498 Active 311849439 Problem Anemia, unspecified D64.9 Active 823466863 Problem Polyneuropathy associated with underlying disease G63 Active 049355569 Problem GERD without esophagitis K21.9 Active 766793881 ALLERGIES No Information ENCOUNTERS Encounter Location Date Diagnosis [facility] [id number] [place] [address] 59630- 5996 May, Lumbar degenerative disc disease M51.36 [facility] [id number] [place] [address] 17496- 6855 May, Type 2 diabetes mellitus with hyperglycemia E11.65 [facility] [id number] [place] [address] 34986- 0572 May, Lumbar degenerative disc disease M51.36 [facility] [id number] [place] [address] 52010- 2153 May, [facility] [id number] [place] [address] [phone] May, Dental examination Z01.20 and Dental caries K02.9 [facility] [id number] [place] [address] 84540- 7881 May, 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 ; 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 ; Polyneuropathy associated with underlying disease G63 ; Essential hypertension I10 ; Other hammer toe(s) (acquired), left foot M20.42 ; Other hammer toe(s) (acquired), right foot M20.41 and Amputated toe of left foot Z89.422 [facility] [id number] [place] [address] 41212- 1722 May, [facility] [id number] [place] [address] 15892- 6428 May, Type 2 diabetes mellitus with hyperglycemia E11.65 [facility] [id number] [place] [address] 04663- 2619 Apr, [facility] [address] [place] [id number] Apr, Type 2 diabetes mellitus with hyperglycemia E11.65 ; Chronic obstructive pulmonary disease, unspecified COPD type J44.9 and Essential hypertension I10 [facility] [id number] [place] [address] 19769- 6062 Apr, Type 2 diabetes mellitus with hyperglycemia E11.65 [facility] [address] [place] [address] 46692- 1928 Apr, Type 2 diabetes mellitus with hyperglycemia E11.65 [facility] [id number] [place] [address] 76362- 7846 Apr, Lumbar degenerative disc disease M51.36 [facility] [id number] [place] [address] 82150- 1528 Apr, Type 2 diabetes mellitus with hyperglycemia E11.65 [facility] [address] [place] [phone] Apr, Type 2 diabetes mellitus with hyperglycemia E11.65 ; Atrial fibrillation, unspecified type I48.91 ; Anemia due to other cause D64.89 ; Alcoholism / alcohol abuse F10.20 ; Acute pylorus ulcer K25.3 and Alcoholic cirrhosis of liver without ascites K70.30 [facility] [id number] [place] [address] 70442- 4959 Apr, Lumbar degenerative disc disease M51.36 [facility] [id number] [place] [address] 81826- 2567 Mar, [facility] [id number] [place] [address] 45042- 0372 Mar, [facility] [id number] [place] [address] 43178- 3583 Mar, [facility] [id number] [place] [address] 36142- 8874 Mar, [facility] [id number] [place] [address] 34850- 6131 Mar, Lumbar degenerative disc disease M51.36 [facility] [id number] [place] [address] 22033- 2626 14 Mar, 2018 Dizziness R42 ; Falls frequently R29.6 ; Weight loss, non- intentional R63.4 ; Essential hypertension I10 ; Cardiac murmur R01.1 ; Hypercalcemia E83.52 and Requires assistance with activities of daily living ( ADL) Z74.1 [facility] [id number] [address] 1246 Mar, [facility] [id number] [place] [address] 73398- 9359 Mar, Hypercalcemia E83.52 [facility] [id number] [place] [address] 02163- 2213 February, Lumbar degenerative disc disease M51.36 [facility] [id number] [place] [address] 44923- 1435 February, Type 2 diabetes mellitus with diabetic neuropathy, 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 ; Type 2 diabetes mellitus with other specified complication E11.69 ; 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 ; Essential hypertension I10 ; Chronic obstructive pulmonary disease, unspecified COPD type J44.9 ; Polyneuropathy associated with underlying disease G63 ; Atrial fibrillation, unspecified type I48.91 ; GERD without esophagitis K21.9 and Lumbar degenerative disc disease M51.36 [facility] [id number] [place] [address] 94078- 8855 Jan, Other chronic pain G89.29 [facility] [id number] [place] [address] 64463- 3956 Jan, [facility] [id number] [place] [address] 61787- 9105 Jan, [facility] [id number] [place] [address] 28808- 1909 Jan, Type 2 diabetes mellitus with diabetic neuropathy, unspecified snf insulin 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 [facility] [id number] [place] [address] 46457- 4502 Jan, [facility] [id number] [place] [address] 59190- 0924 Jan, [facility] [id number] [place] [address] 13176- 3559 Jan, Other chronic pain G89.29 [facility] [address] [place] [address] 36722- 4052 Dec, Atrial fibrillation, unspecified type I48.91 ; Essential hypertension I10 and Other chronic pain G89.29 [facility] [address] [place] [address] 80536- 3781 Dec, Atrial fibrillation, unspecified type I48.91 [facility] [id number] [place] [address] 16126- 9842 Dec, [facility] [id number] [place] [address] 50957- 0156 Nov, Other chronic pain G89.29 [facility] [id number] [place] [address] 15049- 5311 Nov, [facility] [id number] [place] [address] 48537- 0592 Nov, [facility] [id number] [place] [address] 52464- 9271 Nov, Type 2 diabetes mellitus with diabetic neuropathy, 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 ; Type 2 diabetes mellitus with hyperglycemia E11.65 ; Essential hypertension I10 ; Chronic obstructive pulmonary disease, unspecified COPD type J44.9 ; Atrial fibrillation, unspecified type I48.91 ; GERD without esophagitis K21.9 ; Lumbar degenerative disc disease M51.36 ; Alcoholism /alcohol abuse F10.20 and Encounter for immunization Z23 [facility] [address] [place] [address] 80730- 2855 Oct, Type 2 diabetes mellitus with hyperglycemia E11.65 ; Other chronic pain G89.29 and Other vermin exterminator (current) drug therapy Z79.899 [facility] [address] [place] [address] 41902- 4683 Oct, [facility] [id number] [place] [address] 30793- 7767 Oct, Essential hypertension I10 ; Anemia, unspecified D64.9 ; Chronic obstructive pulmonary disease, unspecified COPD type J44.9 ; Type 2 diabetes mellitus with hyperglycemia E11.65 ; Alcoholic cirrhosis of liver without ascites K70.30 ; Polyneuropathy associated with underlying disease G63 and Atrial fibrillation, unspecified type I48.91 [facility] [address] [place] [address] 92794- 4798 Sep, Other chronic pain G89.29 [facility] [id number] [place] [address] 07891- 2748 Sep, Type 2 diabetes mellitus with hyperglycemia E11.65 ; Atrial fibrillation, unspecified type I48.91 and Essential hypertension I10 [facility] [id number] [place] [address] 47631- 3041 Sep, Essential hypertension I10 [facility] [id number] [place] [address] 89139- 8617 Sep, Essential hypertension I10 [facility] [id number] [place] [address] 52052- 9570 Sep, [facility] [id number] [place] [address] 20353- 4642 Sep, Other chronic pain G89.29 [facility] [address] [place] [address] 58740- 6715 Aug, [facility] [address] [place] [address] 82073- 3978 Aug, Polyneuropathy associated with underlying disease G63 and Chronic obstructive pulmonary disease, unspecified COPD type J44.9 [facility] [address] [id number] Aug, [facility] [address] [place] [address] 58732- 3639 Aug, [facility] [address] [address]- 0803 Aug, Chronic obstructive pulmonary disease, unspecified COPD type J44.9 [facility] [address] [address]- 3935 10 Aug, 2017 Medicare annual wellness visit, subsequent Z00.00 [facility] [address] [place] [address] 17420- 9881 07 Aug, 2017 Other chronic pain G89.29 [facility] [address] [address]- 6820 16 Jul, 2017 [facility] [address] [place] [address] 05975- 1606 Jul, [facility] [id number] [place] [address] 51812- 8385 Jul, Other chronic pain G89.29 and Essential hypertension I10 [facility] [id number] [address]- 7259 Jun, [facility] [address] [place] [address] 57620- 4251 Jun, Essential hypertension I10 [facility] [address] [place] [address] 08367- 4696 Jun, [facility] [address] [place] [address] 04514- 4599 Jun, Other chronic pain G89.29 [facility] [address] [address]- 5876 Jun, Other chronic pain G89.29 [facility] [address] [address]- 1815 05 Jun, 2017 [facility] [address] [address]- 1222 Jun, Type 2 diabetes mellitus with hyperglycemia E11.65 ; Essential hypertension I10 ; Atrial fibrillation, unspecified type I48.91 ; Polyneuropathy associated with underlying disease G63 ; Anemia, unspecified D64.9 ; Chronic obstructive pulmonary disease, unspecified COPD type J44.9 ; Other urinary incontinence N39.498 ; Lumbar degenerative disc disease M51.36 and GERD without esophagitis K21.9 [facility] [id number] [place] [address] 96824- 1338 May, [facility] [id number] [place] [address] 09639- 7659 May, [facility] [id number] [place] [address] 23625- 9010 May, [facility] [id number] [place] [address] 75776- 6685 May, Other chronic pain G89.29 [facility] [id number] [place] [address] 41984- 5099 Apr, Onychomycosis B35.1 and Type 2 diabetes mellitus with diabetic neuropathy, 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 [facility] [id number] [place] [address] 64042- 4325 Apr, Essential hypertension I10 [facility] [id number] [place] [address] 50250- 8484 Apr, [facility] [id number] [place] [address] 06175- 8163 Apr, Other chronic pain G89.29 [facility] [id number] [place] [address] 27526- 2909 Mar, Cervical pain (neck) M54.2 ; Other chronic pain G89.29 ; Other urinary incontinence N39.498 and Essential hypertension I10 [facility] [id number] [place] [address] 75405- 5247 Mar, [facility] [id number] [place] [address] 03081- 0044 Mar, Other chronic pain G89.29 [facility] [id number] [place] [address] 22611- 8836 February, [facility] [address] [place] [address]- 8238 February, [facility] [address] 87369- 8209 February, Other chronic pain G89.29 [facility] [address] [phone]- 0198 February, Essential hypertension I10 ; Type 2 diabetes mellitus with hyperglycemia E11.65 ; Alcoholic cirrhosis of liver without ascites K70.30 ; Chronic obstructive pulmonary disease, unspecified COPD type J44.9 ; Atrial fibrillation, unspecified type I48.91 ; Polyneuropathy associated with underlying disease G63 ; Anemia, unspecified D64.9 ; Requires assistance with activities of daily living (ADL) Z74.1 and Non-compliant behavior R46.89 [facility] [address] [id number] February, Dental examination Z01.20 [facility] [address] 42381- 8877 Jan, [facility] [address] [id number] Jan, Dental caries K02.9 [facility] [address] 86360- 5099 Jan, Anemia, unspecified D64.9 ; Chronic obstructive pulmonary disease, unspecified COPD type J44.9 ; Other chronic pain G89.29 ; Syncope and collapse R55 and Polyneuropathy associated with underlying disease G63 [facility] [address] [id number] Jan, Dental examination Z01.20 [facility] [address] 20769- 1183 Dec, Type 2 diabetes mellitus with hyperglycemia E11.65 ; Anemia , unspecified D64.9 ; Essential hypertension I10 ; Chronic obstructive pulmonary disease, unspecified COPD type J44.9 ; Atrial fibrillation, unspecified type I48.91 ; Cervical pain (neck) M54.2 ; Polyneuropathy associated with underlying disease G63 ; Low back pain M54.5 ; Other chronic pain G89.29 and Alcoholic cirrhosis of liver without ascites K70.30 [facility] [address] [address]- 9701 Dec, [facility] [address] [address]- 4701 Dec, [facility] [address] [address]- 5589 Dec, [facility] [address] [address]- 4670 Dec, Type 2 diabetes mellitus with hyperglycemia E11.65 ; History of alcoholism F10.21 ; Anemia due to other cause D64.89 and Atrial fibrillation, unspecified type I48.91 [facility] [address] [place] [address]- 7858 Dec, [facility] [address] [address]- 7527 Dec, [facility] [address] [place] [address]- 1682 Dec, Type 2 diabetes mellitus with hyperglycemia E11.65 ; History of alcoholism F10.21 ; Anemia due to other cause D64.89 and Atrial fibrillation, unspecified type I48.91 [facility] [address] [place] [address]- 8356 Nov, [facility] [address] [address]- 9108 Nov, Other chronic pain G89.29 [facility] [address] [place] [address]- 6038 Nov, Other chronic pain G89.29 [facility] [address] [place] [address]- 7491 Nov, Type 2 diabetes mellitus with hyperglycemia E11.65 ; Anemia due to other cause D64.89 ; Hypotension due to blood loss I95.89 ; Alcoholic cirrhosis of liver without ascites K70.30 ; History of alcoholism F10.21 and Chronic obstructive pulmonary disease, unspecified COPD type J44.9 [facility] [id number] [place] [address] 96138- 2262 Sep, [facility] [address] [place] [address] [id number] Jan, Dental examination Z01.20 [facility] [id number] [place] [address] 77132- 9444 Nov, Chronic obstructive pulmonary disease, unspecified COPD type J44.9 ; Panic attacks F41.0 and Other chronic pain G89.29 [facility] [id number] [place] [address] 83950- 9749 Jan, [facility] [id number] [place] [address] 25000- 1327 Jan, [facility] [id number] [place] [address] 20954- 2152 Dec, [facility] [id number] [place] [address] 55759- 6514 Dec, [facility] [id number] [place] [address] 74680- 7622 Dec, [facility] [id number] [place] [address] 28859- 5039 Dec, IMMUNIZATIONS No Known Immunizations SOCIAL HISTORY Never Assessed REASON FOR VISIT [facility] Ad[facility] PLAN OF CARE Activity Details Follow Up prn Reason: VITAL SIGNS MEDICATIONS Medication Instructions Dosage Frequency Start Date End Date Duration Status Gabapentin 300 MG Orally 3 times a day TAKE ONE (1) CAPSULE BY MOUTH IN THE MORNING, one capsule at noon, THREE (3) CAPSULES AT BEDTIME 8h Active Pantoprazole Sodium 40 MG Orally Once a day 1 tablet 24h Active Albuterol Sulfate 90 mcg/actuation Inhalation every 4 hrs inhale 2 puffs by inhalation route every 4 hours as needed 4h Dec, 12 months Active Digoxin 125 mcg Orally Once a day take 1 tablet (125 mcg) by oral route once daily 24h Dec, 90 days Active Calcium Antacid 500 mg Orally 3 times a day 1 tablet as needed 8h Active Hydrocodone-Acetaminophen 5-325 mg Orally every 4 hrs 1 tablet as needed 4h 05 Apr, 2018 Active Glucocard Expression Test 1 subcutaneously 2 times a day test 2 times per day three days per week 12h February, 12 months Not-Taking Amlodipine Besylate 5 MG Orally Once a day 1 tablet 24h Active Tamsulosin HCl 0.4 MG Orally Once a day 1 capsule 24h Active Sucralfate 1 GM Orally 4 times a day 1 tablet before meals and at bedtime 6h Active Acetaminophen 325 MG Orally every 4 hrs 1-2 tablet as needed 4h Active Advair Diskus 100-50 MCG/DOSE Inhalation Twice a day 1 puff 12h Jun, 12 months Active Novolin 70/30 (70-30) 100 UNIT/ML Subcutaneous Once a day 35 units 24h 12 months Active Spironolactone 25 MG Orally twice a day 1 tablet with food 12h Active Lisinopril 5 mg Orally Once a day 1 tablet 24h 90 days Active Insulin Syringe/Needle 27G X 1/2 subcutaneously Once a day as directed 24h Aug, Not-Taking RESULTS No Results PROCEDURES Procedure Date Ordered Result Body Site [facility] VISIT ESTABLISHED PATIENT April 29, 2018 INSTRUCTIONS MEDICATIONS ADMINISTERED No Known Medications [...]
--- OUTSIDE RECORDS SUMMARY | 2018-07-29 05:22 | XMS REPORT ---
Author Author ALTHEA ANDERSON [facility] Address [address] [place] [address] Care Team Providers Care Program Director/Traffic Director Name Role Phone ALTHEA ANDERSON Unavailable PROBLEMS Type Condition ICD9-CM Code SPA82-HK Code Onset Dates Condition Status SNOMED Code Problem Alcoholism /alcohol abuse F10.20 Active 4851384 Problem MCC current use of 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 Active 425454773 Problem Type 2 diabetes mellitus with other specified complication E11.69 Active 92258103 Problem Type 2 diabetes mellitus with hyperglycemia E11.65 Active 179924735143294 Problem Essential hypertension I10 Active 34930597 Problem 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 Active 391573104 Problem Lumbar degenerative disc disease M51.36 Active 52596449 Problem Hypercalcemia E83.52 Active 03691089 Problem Amputated toe of left foot Z89.422 Active 764200731 Problem Falls frequently R29.6 Active 400390594 Problem Other hammer toe(s) (acquired), right foot M20.41 Active 063466093 Problem Other hammer toe(s) (acquired), left foot M20.42 Active 66491163 Problem Chronic obstructive pulmonary disease, unspecified COPD type J44.9 Active 42664844 Problem Atrial fibrillation, unspecified type I48.91 Active 54242664 Problem Alcoholic cirrhosis of liver without ascites K70.30 Active 256831430 Problem Other chronic pain G89.29 Active 39131151 Problem Cervical pain (neck) M54.2 Active 15814388 Problem Requires assistance with activities of daily living (ADL) Z74.1 Active 007645411 Problem Other chronic pain G89.29 Active 28880425 Problem Other urinary incontinence N39.498 Active 492603178 Problem Anemia, unspecified D64.9 Active 592036263 Problem Polyneuropathy associated with underlying disease G63 Active 275494067 Problem GERD without esophagitis K21.9 Active 389825736 ALLERGIES No Information ENCOUNTERS Encounter Location Date Diagnosis [facility] [id number] [place] [address] 51500- 8892 May, Lumbar degenerative disc disease M51.36 [facility] [id number] [place] [address] 72303- 7303 May, Type 2 diabetes mellitus with hyperglycemia E11.65 [facility] [id number] [place] [address] 58437- 0437 May, Lumbar degenerative disc disease M51.36 [facility] [id number] [place] [address] 72226- 9623 May, [facility] [id number] [place] [address] [id number] May, Dental examination Z01.20 and Dental caries K02.9 [facility] [id number] [place] [address] 49348- 5299 May, 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 ; 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 ; Polyneuropathy associated with underlying disease G63 ; Essential hypertension I10 ; Other hammer toe(s) (acquired), left foot M20.42 ; Other hammer toe(s) (acquired), right foot M20.41 and Amputated toe of left foot Z89.422 [facility] [id number] [place] [address] 44525- 4738 May, [facility] [id number] [place] [address] 89735- 6791 May, Type 2 diabetes mellitus with hyperglycemia E11.65 [facility] [id number] [place] [address] 07006- 2717 Apr, [facility] [address] [place] [id number] Apr, Type 2 diabetes mellitus with hyperglycemia E11.65 ; Chronic obstructive pulmonary disease, unspecified COPD type J44.9 and Essential hypertension I10 [facility] [id number] [place] [address] 96972- 9401 Apr, Type 2 diabetes mellitus with hyperglycemia E11.65 [facility] [id number] [place] [address] 44642- 1953 Apr, Type 2 diabetes mellitus with hyperglycemia E11.65 [facility] [id number] [place] [address] 28200- 6742 Apr, Lumbar degenerative disc disease M51.36 [facility] [id number] [place] [address] 02767- 5746 Apr, Type 2 diabetes mellitus with hyperglycemia E11.65 [facility] [address] [place] [id number] Apr, Type 2 diabetes mellitus with hyperglycemia E11.65 ; Atrial fibrillation, unspecified type I48.91 ; Anemia due to other cause D64.89 ; Alcoholism / alcohol abuse F10.20 ; Acute pylorus ulcer K25.3 and Alcoholic cirrhosis of liver without ascites K70.30 [facility] [id number] [place] [address] 06737- 3539 Apr, Lumbar degenerative disc disease M51.36 [facility] [id number] [place] [address] 42386- 1390 Mar, [facility] [id number] [place] [address] 37662- 7772 Mar, [facility] [id number] [place] [address] 37504- 2993 Mar, [facility] [id number] [place] [address] 25305- 5586 Mar, [facility] [id number] [place] [address] 41915- 4747 Mar, Lumbar degenerative disc disease M51.36 [facility] [id number] [place] [address] 41097- 6863 14 Mar, 2018 Dizziness R42 ; Falls frequently R29.6 ; Weight loss, non- intentional R63.4 ; Essential hypertension I10 ; Cardiac murmur R01.1 ; Hypercalcemia E83.52 and Requires assistance with activities of daily living ( ADL) Z74.1 [facility] [id number] [address] 5100 Mar, [facility] [id number] [place] [address] 87757- 2104 Mar, Hypercalcemia E83.52 [facility] [id number] [place] [address] 07071- 8114 February, Lumbar degenerative disc disease M51.36 [facility] [id number] [place] [address] 74552- 9259 February, Type 2 diabetes mellitus with diabetic neuropathy, 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 ; Type 2 diabetes mellitus with other specified complication E11.69 ; 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 ; Essential hypertension I10 ; Chronic obstructive pulmonary disease, unspecified COPD type J44.9 ; Polyneuropathy associated with underlying disease G63 ; Atrial fibrillation, unspecified type I48.91 ; GERD without esophagitis K21.9 and Lumbar degenerative disc disease M51.36 [facility] [id number] [place] [address] 12306- 5569 Jan, Other chronic pain G89.29 [facility] [id number] [place] [address] 32151- 7593 Jan, [facility] [id number] [place] [address] 46992- 3485 Jan, [facility] [id number] [place] [address] 61376- 7224 Jan, Type 2 diabetes mellitus with diabetic neuropathy, unspecified intermediate insulin 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 [facility] [id number] [place] [address] 92046- 3863 Jan, [facility] [id number] [place] [address] 49433- 0408 Jan, [facility] [id number] [place] [address] 81288- 1660 Jan, Other chronic pain G89.29 [facility] [id number] [place] [address] 91151- 5676 Dec, Atrial fibrillation, unspecified type I48.91 ; Essential hypertension I10 and Other chronic pain G89.29 [facility] [id number] [place] [address] 80617- 8486 Dec, Atrial fibrillation, unspecified type I48.91 [facility] [id number] [place] [address] 17841- 2317 Dec, [facility] [id number] [place] [address] 51602- 6574 Nov, Other chronic pain G89.29 [facility] [id number] [place] [address] 85405- 7978 Nov, [facility] [id number] [place] [address] 03914- 6288 Nov, [facility] [id number] [place] [address] 85276- 6968 Nov, Type 2 diabetes mellitus with diabetic [...] abuse F10.20 and Encounter for immunization Z23 [facility] [id number] [place] [address] 48529- 2867 Oct, Type 2 diabetes mellitus with hyperglycemia E11.65 ; Other chronic pain G89.29 and Other exterminator helper termite (current) drug therapy Z79.899 [facility] [id number] [place] [address] 20228- 8708 Oct, [facility] [id number] [place] [address] 11716- 0655 Oct, Essential hypertension I10 ; Anemia, unspecified D64.9 ; Chronic obstructive pulmonary disease, unspecified COPD type J44.9 ; Type 2 diabetes mellitus with hyperglycemia E11.65 ; Alcoholic cirrhosis of liver without ascites K70.30 ; Polyneuropathy associated with underlying disease G63 and Atrial fibrillation, unspecified type I48.91 [facility] [id number] [place] [address] 60182- 3436 Sep, Other chronic pain G89.29 [facility] [id number] [place] [address] 84691- 5112 Sep, Type 2 diabetes mellitus with hyperglycemia E11.65 ; Atrial fibrillation, unspecified type I48.91 and Essential hypertension I10 [facility] [id number] [place] [address] 35261- 4805 Sep, Essential hypertension I10 [facility] [id number] [place] [address] 77772- 5813 Sep, Essential hypertension I10 [facility] [id number] [place] [address] 13054- 1282 Sep, [facility] [id number] [place] [address] 66301- 9310 Sep, Other chronic pain G89.29 [facility] [id number] [place] [address] 11975- 3625 Aug, [facility] [id number] [place] [address] 44955- 0537 Aug, Polyneuropathy associated with underlying disease G63 and Chronic obstructive pulmonary disease, unspecified COPD type J44.9 [facility] [address] [id number] Aug, [facility] [id number] [place] [address] 62902- 2725 Aug, [facility] [address] [address]- 0392 Aug, Chronic obstructive pulmonary disease, unspecified COPD type J44.9 [facility] [address] [address]- 5436 10 Aug, 2017 Medicare annual wellness visit, subsequent Z00.00 [facility] [id number] [place] [address] 43622- 5008 07 Aug, 2017 Other chronic pain G89.29 [facility] [address] [place] [address]- 9108 16 Jul, 2017 [facility] [id number] [place] [address] 76118- 8011 Jul, [facility] [id number] [place] [address] 87738- 3058 Jul, Other chronic pain G89.29 and Essential hypertension I10 [facility] [id number] [address]- 6328 Jun, [facility] [id number] [place] [address] 96489- 0320 Jun, Essential hypertension I10 [facility] [id number] [place] [address] 21302- 6636 Jun, [facility] [id number] [place] [address] 06154- 5384 Jun, Other chronic pain G89.29 [facility] [address] [address]- 8877 Jun, Other chronic pain G89.29 [facility] [address] [address]- 6369 05 Jun, 2017 [facility] [address] [address]- 4342 Jun, Type 2 diabetes mellitus with hyperglycemia E11.65 ; Essential hypertension I10 ; Atrial fibrillation, unspecified type I48.91 ; Polyneuropathy associated with underlying disease G63 ; Anemia, unspecified D64.9 ; Chronic obstructive pulmonary disease, unspecified COPD type J44.9 ; Other urinary incontinence N39.498 ; Lumbar degenerative disc disease M51.36 and GERD without esophagitis K21.9 [facility] [id number] [place] [address] 30271- 1745 May, [facility] [id number] [place] [address] 16557- 0878 May, [facility] [id number] [place] [address] 79307- 4353 May, [facility] [id number] [place] [address] 65412- 2430 May, Other chronic pain G89.29 [facility] [id number] [place] [address] 74094- 4772 Apr, Onychomycosis B35.1 and Type 2 diabetes mellitus with diabetic neuropathy, 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 [facility] [id number] [place] [address] 67754- 2195 Apr, Essential hypertension I10 [facility] [id number] [place] [address] 15118- 8590 Apr, [facility] [id number] [place] [address] 46263- 9241 Apr, Other chronic pain G89.29 [facility] [id number] [place] [address] 45703- 0593 Mar, Cervical pain (neck) M54.2 ; Other chronic pain G89.29 ; Other urinary incontinence N39.498 and Essential hypertension I10 [facility] [id number] [place] [address] 58188- 8610 Mar, [facility] [id number] [place] [address] 31621- 5478 Mar, Other chronic pain G89.29 [facility] [id number] [place] [address] 96697- 6686 February, [facility] [address] [place] [address]- 7809 February, [place] [address] 93599- 7222 February, Other chronic pain G89.29 [facility] [address] 18571094- 9035 February, Essential hypertension I10 ; Type 2 diabetes mellitus with hyperglycemia E11.65 ; Alcoholic cirrhosis of liver without ascites K70.30 ; Chronic obstructive pulmonary disease, unspecified COPD type J44.9 ; Atrial fibrillation, unspecified type I48.91 ; Polyneuropathy associated with underlying disease G63 ; Anemia, unspecified D64.9 ; Requires assistance with activities of daily living (ADL) Z74.1 and Non-compliant behavior R46.89 [facility] [address] [id number] February, Dental examination Z01.20 [place] [address] 06003- 7165 Jan, [facility] [address] [id number] Jan, Dental caries K02.9 [place] [address] 41595- 9532 Jan, Anemia, unspecified D64.9 ; Chronic obstructive pulmonary disease, unspecified COPD type J44.9 ; Other chronic pain G89.29 ; Syncope and collapse R55 and Polyneuropathy associated with underlying disease G63 [facility] [address] [id number] Jan, Dental examination Z01.20 [place] [address] 37421- 2020 Dec, Type 2 diabetes mellitus with hyperglycemia E11.65 ; Anemia , unspecified D64.9 ; Essential hypertension I10 ; Chronic obstructive pulmonary disease, unspecified COPD type J44.9 ; Atrial fibrillation, unspecified type I48.91 ; Cervical pain (neck) M54.2 ; Polyneuropathy associated with underlying disease G63 ; Low back pain M54.5 ; Other chronic pain G89.29 and Alcoholic cirrhosis of liver without ascites K70.30 [facility] [address] [address]- 3239 Dec, [facility] [address] [place] [address]- 5091 Dec, [facility] [address], [place] [address]- 1076 Dec, [facility] [address] [place] [address]- 0722 Dec, Type 2 diabetes mellitus with hyperglycemia E11.65 ; History of alcoholism F10.21 ; Anemia due to other cause D64.89 and Atrial fibrillation, unspecified type I48.91 [facility] [address] [place] [address]- 4009 Dec, [facility] [address] [place] [address]- 9743 Dec, [facility] [address] [place] [address]- 4929 Dec, Type 2 diabetes mellitus with hyperglycemia E11.65 ; History of alcoholism F10.21 ; Anemia due to other cause D64.89 and Atrial fibrillation, unspecified type I48.91 [facility] [address] [place] [address]- 4759 Nov, [facility] [address] [place] [address]- 8247 Nov, Other chronic pain G89.29 [facility] [address] [place] [address]- 9297 Nov, Other chronic pain G89.29 [facility] [address] [place] [address]- 0675 Nov, Type 2 diabetes mellitus with hyperglycemia E11.65 ; Anemia due to other cause D64.89 ; Hypotension due to blood loss I95.89 ; Alcoholic cirrhosis of liver without ascites K70.30 ; History of alcoholism F10.21 and Chronic obstructive pulmonary disease, unspecified COPD type J44.9 [facility] [id number] [place] [address] 46071- 4199 Sep, [facility] [address] [place] [address] [id number] Jan, Dental examination Z01.20 [place] [place] [address] 50220- 7298 Nov, Chronic obstructive pulmonary disease, unspecified COPD type J44.9 ; Panic attacks F41.0 and Other chronic pain G89.29 [facility] [address] 10698- 2453 Jan, [facility] [address] 74956- 5837 Jan, [facility] [id number] [place] [address] 86904- 4675 Dec, [facility] [address] 86225- 6016 Dec, [facility] [id number] [place] [address] 48663- 0583 Dec, [facility] [id number] [place] [address] 14357- 2695 Dec, IMMUNIZATIONS No Known Immunizations SOCIAL HISTORY Never Assessed REASON FOR VISIT Increase insulin PLAN OF CARE VITAL SIGNS MEDICATIONS Medication Instructions Dosage Frequency Start Date End Date Duration Status Novolin 70/30 (70-30) 100 UNIT/ML Subcutaneous 2 times a day 35 units in AM and 15u with supper [...]
--- OUTSIDE RECORDS SUMMARY | 2018-07-29 05:23 | XMS REPORT ---
Author Author FRIDA PARKS Organization [facility] Address [address] [place] [address] Care Team Providers [employer] Name Role Phone FRIDA PARKS Unavailable PROBLEMS Type Condition ICD9-CM Code MDS09-JR Code Onset Dates Condition Status SNOMED Code Problem Alcoholism /alcohol abuse F10.20 Active 5281063 Problem prison current use of 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 Active 057933169 Problem Type 2 diabetes mellitus with other specified complication E11.69 Active 41182879 Problem Type 2 diabetes mellitus with hyperglycemia E11.65 Active 584226294055870 Problem Essential hypertension I10 Active 55378993 Problem 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 Active 177507699 Problem Lumbar degenerative disc disease M51.36 Active 21298113 Problem Hypercalcemia E83.52 Active 51983102 Problem Amputated toe of left foot Z89.422 Active 952480025 Problem Falls frequently R29.6 Active 177170277 Problem Other hammer toe(s) (acquired), right foot M20.41 Active 047899886 Problem Other hammer toe(s) (acquired), left foot M20.42 Active 19097491 Problem Chronic obstructive pulmonary disease, unspecified COPD type J44.9 Active 18131262 Problem Atrial fibrillation, unspecified type I48.91 Active 33365631 Problem Alcoholic cirrhosis of liver without ascites K70.30 Active 292474044 Problem Other chronic pain G89.29 Active 57702749 Problem Cervical pain (neck) M54.2 Active 07754782 Problem Requires assistance with activities of daily living (ADL) Z74.1 Active 169320672 Problem Other chronic pain G89.29 Active 91565205 Problem Other urinary incontinence N39.498 Active 799332359 Problem Anemia, unspecified D64.9 Active 886505438 Problem Polyneuropathy associated with underlying disease G63 Active 594585469 Problem GERD without esophagitis K21.9 Active 804787853 ALLERGIES No Information ENCOUNTERS Encounter Location Date Diagnosis [facility] [address] [address] May, Lumbar degenerative disc disease M51.36 [facility] [address] [place] [address] 73038- 3993 May, Type 2 diabetes mellitus with hyperglycemia E11.65 [facility] [address] [address] May, Lumbar degenerative disc disease M51.36 [facility] [address] [place] [address] 26832- 4090 May, [facility] [id number] [place] [address] [id number] May, Dental examination Z01.20 and Dental caries K02.9 [place] [facility] [address] [place] [address] 91648- 2537 May, 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 ; 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 ; Polyneuropathy associated with underlying disease G63 ; Essential hypertension I10 ; Other hammer toe(s) (acquired), left foot M20.42 ; Other hammer toe(s) (acquired), right foot M20.41 and Amputated toe of left foot Z89.422 [facility] [address] [address] May, [facility] [address] [place] [address] 97549- 1620 May, Type 2 diabetes mellitus with hyperglycemia E11.65 [facility] [address] [place] [address] 04381- 3145 Apr, [facility] [address] [place] [id number] Apr, Type 2 diabetes mellitus with hyperglycemia E11.65 ; Chronic obstructive pulmonary disease, unspecified COPD type J44.9 and Essential hypertension I10 [facility] [address] [place] [address] 58470- 2812 Apr, Type 2 diabetes mellitus with hyperglycemia E11.65 [facility] [address] [address] 1634 Apr, Type 2 diabetes mellitus with hyperglycemia E11.65 [facility] [id number] [place] [address] 85564- 1176 Apr, Lumbar degenerative disc disease M51.36 [facility] [id number] [place] [address] 48087- 3567 Apr, Type 2 diabetes mellitus with hyperglycemia E11.65 [facility] [address] [place] [id number] Apr, Type 2 diabetes mellitus with hyperglycemia E11.65 ; Atrial fibrillation, unspecified type I48.91 ; Anemia due to other cause D64.89 ; Alcoholism / alcohol abuse F10.20 ; Acute pylorus ulcer K25.3 and Alcoholic cirrhosis of liver without ascites K70.30 [facility] [id number] [place] [address] 50870- 3023 Apr, Lumbar degenerative disc disease M51.36 [facility] [id number] [place] [address] 82788- 8675 Mar, [facility] [id number] [place] [address] 10181- 9732 Mar, [facility] [id number] [place] [address] 17723- 9022 Mar, [facility] [id number] [place] [address] 28381- 3000 Mar, [facility] [id number] [place] [address] 84779- 9764 Mar, Lumbar degenerative disc disease M51.36 [facility] [id number] [place] [address] 10229- 6737 Mar, Dizziness R42 ; Falls frequently R29.6 ; Weight loss, non- intentional R63.4 ; Essential hypertension I10 ; Cardiac murmur R01.1 ; Hypercalcemia E83.52 and Requires assistance with activities of daily living ( ADL) Z74.1 [facility] [facility] [id number] [address] Mar, [facility] [id number] [place] [address] 78143- 2423 Mar, Hypercalcemia E83.52 [facility] [id number] [place] [address] 41948- 6010 February, Lumbar degenerative disc disease M51.36 [facility] [id number] [place] [address] 40164- 1856 February, Type 2 diabetes mellitus with diabetic neuropathy, unspecified 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 ; Type 2 diabetes mellitus with other specified complication E11.69 ; prison current use of 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 ; Essential hypertension I10 ; Chronic obstructive pulmonary disease, unspecified COPD type J44.9 ; Polyneuropathy associated with underlying disease G63 ; Atrial fibrillation, unspecified type I48.91 ; GERD without esophagitis K21.9 and Lumbar degenerative disc disease M51.36 [facility] [id number] [place] [address] 21135- 4130 Jan, Other chronic pain G89.29 [facility] [id number] [place] [address] 01104- 6241 Jan, [facility] [id number] [place] [address] 37574- 5201 Jan, [facility] [id number] [place] [address] 29349- 8773 Jan, Type 2 diabetes mellitus with diabetic neuropathy, unspecified skilled nursing insulin 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 [facility] [id number] [place] [address] 62226- 9622 Jan, [facility] [id number] [place] [address] 48576- 1229 Jan, [facility] [id number] [place] [address] 55593- 8460 Jan, Other chronic pain G89.29 [facility] [address] [address] Dec, Atrial fibrillation, unspecified type I48.91 ; Essential hypertension I10 and Other chronic pain G89.29 [facility] [address] [address] 4[address] Dec, Atrial fibrillation, unspecified type I48.91 [facility] [id number] [place] [address] 64443- 0920 Dec, [facility] [id number] [place] [address] 89112- 9203 Nov, Other chronic pain G89.29 [facility] [id number] [place] [address] 47124- 2268 Nov, [facility] [id number] [place] [address] 94373- 2079 Nov, [facility] [address] [place] [address] 24123- 2706 Nov, Type 2 diabetes mellitus with diabetic neuropathy, unspecified 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 ; Type 2 diabetes mellitus with hyperglycemia E11.65 ; Essential hypertension I10 ; Chronic obstructive pulmonary disease, unspecified COPD type J44.9 ; Atrial fibrillation, unspecified type I48.91 ; GERD without esophagitis K21.9 ; Lumbar degenerative disc disease M51.36 ; Alcoholism /alcohol abuse F10.20 and Encounter for immunization Z23 [facility] [address] [address] Oct, Type 2 diabetes mellitus with hyperglycemia E11.65 ; Other chronic pain G89.29 and Other termite control servicer (current) drug therapy Z79.899 [facility] [address] [address] 0[address] Oct, [facility] [address] [place] [address] 79637- 2357 Oct, Essential hypertension I10 ; Anemia, unspecified D64.9 ; Chronic obstructive pulmonary disease, unspecified COPD type J44.9 ; Type 2 diabetes mellitus with hyperglycemia E11.65 ; Alcoholic cirrhosis of liver without ascites K70.30 ; Polyneuropathy associated with underlying disease G63 and Atrial fibrillation, unspecified type I48.91 [facility] [address] [address]58 Sep, Other chronic pain G89.29 [facility] [address] [place] [address] 13157- 2075 Sep, Type 2 diabetes mellitus with hyperglycemia E11.65 ; Atrial fibrillation, unspecified type I48.91 and Essential hypertension I10 [facility] [id number] [place] [address] 75642- 6083 Sep, Essential hypertension I10 [facility] [id number] [place] [address] 70877- 2343 Sep, Essential hypertension I10 [facility] [id number] [place] [address] 18752- 2331 Sep, [facility] [address] [place] [address] 90598- 6811 Sep, Other chronic pain G89.29 [facility] [address] [address]- 8470 Aug, [facility] [address] [place] [address] 93457- 4458 Aug, Polyneuropathy associated with underlying disease G63 and Chronic obstructive pulmonary disease, unspecified COPD type J44.9 [facility] [id number] [id number] Aug, [facility] [address] [place] [address] 07466- 6140 Aug, [facility] [address] [address]- 5474 Aug, Chronic obstructive pulmonary disease, unspecified COPD type J44.9 [facility] [address] [address]- 6222 10 Aug, 2017 Medicare annual wellness visit, subsequent Z00.00 [facility] [id number] [place] [address] 58057- 2676 07 Aug, 2017 Other chronic pain G89.29 [facility] [address] [address]- 6711 16 Jul, 2017 [facility] [id number] [place] [address] 55926- 1382 Jul, [facility] [id number] [place] [address] 95570- 4303 Jul, Other chronic pain G89.29 and Essential hypertension I10 [facility] [id number] [place] [address] 07108- 1100 Jun, [facility] [id number] [place] [address] 08548- 8324 Jun, Essential hypertension I10 [facility] [address] [address]- 7136 Jun, [facility] [id number] [place] [address] 95367- 9086 Jun, Other chronic pain G89.29 [facility] [address] [address]- 6858 Jun, Other chronic pain G89.29 [facility] [address] [address]- 4366 05 Jun, 2017 [facility] [address] [place] [address] 04487- 9099 Jun, Type 2 diabetes mellitus with hyperglycemia E11.65 ; Essential hypertension I10 ; Atrial fibrillation, unspecified type I48.91 ; Polyneuropathy associated with underlying disease G63 ; Anemia, unspecified D64.9 ; Chronic obstructive pulmonary disease, unspecified COPD type J44.9 ; Other urinary incontinence N39.498 ; Lumbar degenerative disc disease M51.36 and GERD without esophagitis K21.9 [facility] [id number] [place] [address] 49619- 1898 May, [facility] [id number] [place] [address] 01907- 4997 May, [facility] [id number] [place] [address] 22926- 4128 May, [facility] [id number] [place] [address] 88995- 6495 May, Other chronic pain G89.29 [facility] [facility] [address] 58559- 3819 Apr, Onychomycosis B35.1 and Type 2 diabetes mellitus with diabetic neuropathy, unspecified skilled nursing insulin 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 [facility] [id number] [place] [address] 45304- 9102 Apr, Essential hypertension I10 [facility] [id number] [place] [address] 93486- 5197 Apr, [facility] [id number] [place] [address] 91503- 6338 Apr, Other chronic pain G89.29 [facility] [id number] [place] [address] 68317- 5846 Mar, Cervical pain (neck) M54.2 ; Other chronic pain G89.29 ; Other urinary incontinence N39.498 and Essential hypertension I10 [facility] [id number] [place] [address] 70813- 1164 Mar, [facility] [id number] [place] [address] 69038- 2959 Mar, Other chronic pain G89.29 [facility] [id number] [place] [address] 98463- 5862 February, [facility] [id number] [place] [address] [id number]- 2362 February, [facility] [facility] [address] [place] [address] 273860- 5989 February, Other chronic pain G89.29 [facility] [id number] [place] [address] 939004- 5914 February, Essential hypertension I10 ; Type 2 diabetes mellitus with hyperglycemia E11.65 ; Alcoholic cirrhosis of liver without ascites K70.30 ; Chronic obstructive pulmonary disease, unspecified COPD type J44.9 ; Atrial fibrillation, unspecified type I48.91 ; Polyneuropathy associated with underlying disease G63 ; Anemia, unspecified D64.9 ; Requires assistance with activities of daily living (ADL) Z74.1 and Non-compliant behavior R46.89 [facility] [id number] [place] [address] [id number] February, Dental examination Z01.20 [place] [id number] [place] [address] 90460- 0847 Jan, [facility] [id number] [place] [address] [id number] Jan, Dental caries K02.9 [place] [id number] [place] [address] 90253- 6222 Jan, Anemia, unspecified D64.9 ; Chronic obstructive pulmonary disease, unspecified COPD type J44.9 ; Other chronic pain G89.29 ; Syncope and collapse R55 and Polyneuropathy associated with underlying disease G63 [facility] [id number] [place] [address] [id number] Jan, Dental examination Z01.20 [facility] [id number] [place] [address] [id number]- 5988 Dec, Type 2 diabetes mellitus with hyperglycemia E11.65 ; Anemia , unspecified D64.9 ; Essential hypertension I10 ; Chronic obstructive pulmonary disease, unspecified COPD type J44.9 ; Atrial fibrillation, unspecified type I48.91 ; Cervical pain (neck) M54.2 ; Polyneuropathy associated with underlying disease G63 ; Low back pain M54.5 ; Other chronic pain G89.29 and Alcoholic cirrhosis of liver without ascites K70.30 [facility] [facility] [address] [address]- 5732 Dec, [facility] [address] [address]- 7943 Dec, [facility] [id number] [place] [address] 18434- 9363 Dec, [facility] [id number] [place] [address] 47498- 1234 Dec, Type 2 diabetes mellitus with hyperglycemia E11.65 ; History of alcoholism F10.21 ; Anemia due to other cause D64.89 and Atrial fibrillation, unspecified type I48.91 [facility] [id number] [address]- 5660 Dec, [facility] [id number] [place] [address] 38125- 2356 Dec, [facility] [address] [address]- 6166 Dec, Type 2 diabetes mellitus with hyperglycemia E11.65 ; History of alcoholism F10.21 ; Anemia due to other cause D64.89 and Atrial fibrillation, unspecified type I48.91 [facility] [address] [address]- 3314 Nov, [facility] [address] [address]- 3847 Nov, Other chronic pain G89.29 [facility] [address] [address]- 8571 Nov, Other chronic pain G89.29 [facility] [address] [address]- 4170 Nov, Type 2 diabetes mellitus with hyperglycemia E11.65 ; Anemia due to other cause D64.89 ; Hypotension due to blood loss I95.89 ; Alcoholic cirrhosis of liver without ascites K70.30 ; History of alcoholism F10.21 and Chronic obstructive pulmonary disease, unspecified COPD type J44.9 [facility] [id number] [place] [address] 92406- 4874 Sep, [facility] [address] [place] [address] [id number] Jan, Dental examination Z01.20 [facility] [id number] [place] [address] 34417- 2554 Nov, Chronic obstructive pulmonary disease, unspecified COPD type J44.9 ; Panic attacks F41.0 and Other chronic pain G89.29 [place] [address] 03546- 4607 Jan, [facility] [place] [id number] [place] [address] 68914- 2861 Jan, [facility] [id number] [place] [address] 43262- 2234 Dec, [facility] [id number] [place] [address] 91075- 5951 Dec, [facility] [place] [id number] [place] [address] 49039- 6545 Dec, [facility] [id number] [place] [address] 49768- 8356 Dec, IMMUNIZATIONS No Known Immunizations SOCIAL HISTORY Never Assessed REASON FOR VISIT Medication question PLAN OF CARE VITAL SIGNS MEDICATIONS Unknown [...]
--- OUTSIDE RECORDS SUMMARY | 2018-07-29 05:23 | XMS REPORT ---
Author Author DENIS TRACY [facility] Address [address] [place] [address] Care Team Providers Care Ticket Speculator Name Role Phone DENIS TRACY Unavailable PROBLEMS Type Condition ICD9-CM Code FFW16-AS Code Onset Dates Condition Status SNOMED Code Problem Alcoholism /alcohol abuse F10.20 Active 0183104 Problem half-way current use of 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 Active 577756167 Problem Type 2 diabetes mellitus with other specified complication E11.69 Active 87029246 Problem Type 2 diabetes mellitus with hyperglycemia E11.65 Active 412410728055789 Problem Essential hypertension I10 Active 66146203 Problem 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 Active 262416176 Problem Lumbar degenerative disc disease M51.36 Active 25429959 Problem Hypercalcemia E83.52 Active 58840050 Problem Amputated toe of left foot Z89.422 Active 205746806 Problem Falls frequently R29.6 Active 060086052 Problem Other hammer toe(s) (acquired), right foot M20.41 Active 222494596 Problem Other hammer toe(s) (acquired), left foot M20.42 Active 07258596 Problem Chronic obstructive pulmonary disease, unspecified COPD type J44.9 Active 68924343 Problem Atrial fibrillation, unspecified type I48.91 Active 33693406 Problem Alcoholic cirrhosis of liver without ascites K70.30 Active 605232461 Problem Other chronic pain G89.29 Active 88130915 Problem Cervical pain (neck) M54.2 Active 60256154 Problem Requires assistance with activities of daily living (ADL) Z74.1 Active 128640439 Problem Other chronic pain G89.29 Active 58447549 Problem Other urinary incontinence N39.498 Active 618448374 Problem Anemia, unspecified D64.9 Active 434917715 Problem Polyneuropathy associated with underlying disease G63 Active 373649643 Problem GERD without esophagitis K21.9 Active 120558220 ALLERGIES No Information ENCOUNTERS Encounter Location Date Diagnosis [facility] [address] [address] May, Lumbar degenerative disc disease M51.36 [facility] [address] [place] [address] 65529- 7568 May, Type 2 diabetes mellitus with hyperglycemia E11.65 [facility] [address] [address] May, Lumbar degenerative disc disease M51.36 [facility] [id number] [place] [address] 23634- 9586 May, [facility] [id number] [place] [address] [id number] May, Dental examination Z01.20 and Dental caries K02.9 [facility] [address] [place] [address] 66497- 4702 May, 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 ; half-way current use of 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 ; Polyneuropathy associated with underlying disease G63 ; Essential hypertension I10 ; Other hammer toe(s) (acquired), left foot M20.42 ; Other hammer toe(s) (acquired), right foot M20.41 and Amputated toe of left foot Z89.422 [facility] [address] [address] May, [facility] [address] [place] [address] 61471- 3258 May, Type 2 diabetes mellitus with hyperglycemia E11.65 [facility] [address] [place] [address] 11427- 9234 Apr, [facility] [address] [place] [id number] Apr, Type 2 diabetes mellitus with hyperglycemia E11.65 ; Chronic obstructive pulmonary disease, unspecified COPD type J44.9 and Essential hypertension I10 [facility] [address] [place] [address] 00880- 3951 Apr, Type 2 diabetes mellitus with hyperglycemia E11.65 [facility] [address] [address]201 Apr, Type 2 diabetes mellitus with hyperglycemia E11.65 [facility] [id number] [place] [address] 40856- 5547 Apr, Lumbar degenerative disc disease M51.36 [facility] [id number] [place] [address] 78248- 0409 Apr, Type 2 diabetes mellitus with hyperglycemia E11.65 [facility] [address] [place] [id number] Apr, Type 2 diabetes mellitus with hyperglycemia E11.65 ; Atrial fibrillation, unspecified type I48.91 ; Anemia due to other cause D64.89 ; Alcoholism / alcohol abuse F10.20 ; Acute pylorus ulcer K25.3 and Alcoholic cirrhosis of liver without ascites K70.30 [facility] [id number] [place] [address] 97814- 0324 Apr, Lumbar degenerative disc disease M51.36 [facility] [id number] [place] [address] 34397- 0334 Mar, [facility] [id number] [place] [address] 07587- 5344 Mar, [facility] [id number] [place] [address] 30565- 1709 Mar, [facility] [id number] [place] [address] 96424- 2688 Mar, [facility] [id number] [place] [address] 51531- 7151 Mar, Lumbar degenerative disc disease M51.36 [facility] [id number] [place] [address] 68620- 6547 Mar, Dizziness R42 ; Falls frequently R29.6 ; Weight loss, non- intentional R63.4 ; Essential hypertension I10 ; Cardiac murmur R01.1 ; Hypercalcemia E83.52 and Requires assistance with activities of daily living ( ADL) Z74.1 [facility] [id number] [address] Mar, [facility] [id number] [place] [address] 71101- 9548 Mar, Hypercalcemia E83.52 [facility] [id number] [place] [address] 07199- 3508 February, Lumbar degenerative disc disease M51.36 [facility] [id number] [place] [address] 60679- 5133 February, Type 2 diabetes mellitus with diabetic neuropathy, unspecified 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 ; Type 2 diabetes mellitus with other specified complication E11.69 ; 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 ; Essential hypertension I10 ; Chronic obstructive pulmonary disease, unspecified COPD type J44.9 ; Polyneuropathy associated with underlying disease G63 ; Atrial fibrillation, unspecified type I48.91 ; GERD without esophagitis K21.9 and Lumbar degenerative disc disease M51.36 [facility] [id number] [place] [address] 32071- 1492 Jan, Other chronic pain G89.29 [facility] [id number] [place] [address] 30220- 4002 Jan, [facility] [id number] [place] [address] 77416- 5857 Jan, [facility] [id number] [place] [address] 27397- 6026 Jan, Type 2 diabetes mellitus with diabetic neuropathy, unspecified detention insulin 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 [facility] [id number] [place] [address] 11195- 0013 Jan, [facility] [id number] [place] [address] 59271- 6338 Jan, [facility] [id number] [place] [address] 14456- 2719 Jan, Other chronic pain G89.29 [facility] [address] [address] 3[address] Dec, Atrial fibrillation, unspecified type I48.91 ; Essential hypertension I10 and Other chronic pain G89.29 [facility] [address] [address] 3[address] Dec, Atrial fibrillation, unspecified type I48.91 [facility] [id number] [place] [address] 08529- 0012 Dec, [facility] [id number] [place] [address] 84677- 1036 Nov, Other chronic pain G89.29 [facility] [id number] [place] [address] 30938- 8183 Nov, [facility] [id number] [place] [address] 44011- 4003 Nov, [facility] [address] [place] [address] 82470- 2121 Nov, Type 2 diabetes mellitus with diabetic neuropathy, unspecified 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 ; Type 2 diabetes mellitus with hyperglycemia E11.65 ; Essential hypertension I10 ; Chronic obstructive pulmonary disease, unspecified COPD type J44.9 ; Atrial fibrillation, unspecified type I48.91 ; GERD without esophagitis K21.9 ; Lumbar degenerative disc disease M51.36 ; Alcoholism /alcohol abuse F10.20 and Encounter for immunization Z23 [facility] [address] [address] 8966 Oct, Type 2 diabetes mellitus with hyperglycemia E11.65 ; Other chronic pain G89.29 and Other detention (current) drug therapy Z79.899 [facility] [address] [address] 1425 Oct, [facility] [address] [place] [address] 67514- 0645 Oct, Essential hypertension I10 ; Anemia, unspecified D64.9 ; Chronic obstructive pulmonary disease, unspecified COPD type J44.9 ; Type 2 diabetes mellitus with hyperglycemia E11.65 ; Alcoholic cirrhosis of liver without ascites K70.30 ; Polyneuropathy associated with underlying disease G63 and Atrial fibrillation, unspecified type I48.91 [facility] [address] [address] 9758 Sep, Other chronic pain G89.29 [facility] [address] [place] [address] 31617- 4052 Sep, Type 2 diabetes mellitus with hyperglycemia E11.65 ; Atrial fibrillation, unspecified type I48.91 and Essential hypertension I10 [facility] [id number] [place] [address] 99353- 2145 Sep, Essential hypertension I10 [facility] [id number] [place] [address] 87321- 7086 Sep, Essential hypertension I10 [facility] [id number] [place] [address] 46145- 2441 Sep, [facility] [id number] [place] [address] 97847- 0557 Sep, Other chronic pain G89.29 [facility] [address] [address] 6156 Aug, [facility] [address] [place] [address] 07949- 3814 Aug, Polyneuropathy associated with underlying disease G63 and Chronic obstructive pulmonary disease, unspecified COPD type J44.9 [facility] [id number] [id number] Aug, [facility] [address] [place] [address] 67415- 6548 Aug, [facility] [address] [address]- 6218 Aug, Chronic obstructive pulmonary disease, unspecified COPD type J44.9 [facility] [address] [address]- 3918 10 Aug, 2017 Medicare annual wellness visit, subsequent Z00.00 [facility] [id number] [place] [address] 19379- 3723 07 Aug, 2017 Other chronic pain G89.29 [facility] [address] [address]- 1472 16 Jul, 2017 [facility] [id number] [place] [address] 65873- 2178 Jul, [facility] [id number] [place] [address] 22526- 4674 Jul, Other chronic pain G89.29 and Essential hypertension I10 [facility] [id number] [place] [address] 72450- 9871 Jun, [facility] [id number] [place] [address] 61394- 4237 Jun, Essential hypertension I10 [facility] [address] [address]- 5652 Jun, [facility] [id number] [place] [address] 49313- 1581 Jun, Other chronic pain G89.29 [facility] [address] [address]- 4327 Jun, Other chronic pain G89.29 [facility] [address] [address]- 7801 05 Jun, 2017 [facility] [address] [place] [address] 29088- 8490 Jun, Type 2 diabetes mellitus with hyperglycemia E11.65 ; Essential hypertension I10 ; Atrial fibrillation, unspecified type I48.91 ; Polyneuropathy associated with underlying disease G63 ; Anemia, unspecified D64.9 ; Chronic obstructive pulmonary disease, unspecified COPD type J44.9 ; Other urinary incontinence N39.498 ; Lumbar degenerative disc disease M51.36 and GERD without esophagitis K21.9 [facility] [id number] [place] [address] 72231- 8955 May, [facility] [id number] [place] [address] 95149- 1733 May, [facility] [id number] [place] [address] 84101- 4107 May, [facility] [id number] [place] [address] 22291- 4819 May, Other chronic pain G89.29 [facility] [facility] [address] [address]- 9523 Apr, Onychomycosis B35.1 and Type 2 diabetes mellitus with diabetic neuropathy, unspecified detention insulin 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 [facility] [id number] [place] [address] 93384- 2808 Apr, Essential hypertension I10 [facility] [id number] [place] [address] 95413- 6655 Apr, [facility] [id number] [place] [address] 20945- 3460 Apr, Other chronic pain G89.29 [facility] [id number] [place] [address] 16476- 0476 Mar, Cervical pain (neck) M54.2 ; Other chronic pain G89.29 ; Other urinary incontinence N39.498 and Essential hypertension I10 [facility] [id number] [place] [address] 98022- 6465 Mar, [facility] [id number] [place] [address] 14797- 4945 Mar, Other chronic pain G89.29 [facility] [id number] [place] [address] 10983- 2518 February, [facility] [id number] [place] [address] [id number]- 1363 February, [facility] [address] [place] [address] 576640- 8971 February, Other chronic pain G89.29 [facility] [id number] [place] [address] 942796- 5811 February, Essential hypertension I10 ; Type 2 diabetes mellitus with hyperglycemia E11.65 ; Alcoholic cirrhosis of liver without ascites K70.30 ; Chronic obstructive pulmonary disease, unspecified COPD type J44.9 ; Atrial fibrillation, unspecified type I48.91 ; Polyneuropathy associated with underlying disease G63 ; Anemia, unspecified D64.9 ; Requires assistance with activities of daily living (ADL) Z74.1 and Non-compliant behavior R46.89 [facility] [id number] [place] [address] [id number] February, Dental examination Z01.20 [facility] [id number] [place] [address] 35218- 2839 Jan, [facility] [id number] [place] [address] [id number] Jan, Dental caries K02.9 [place] [id number] [place] [address] 34325- 9884 Jan, Anemia, unspecified D64.9 ; Chronic obstructive pulmonary disease, unspecified COPD type J44.9 ; Other chronic pain G89.29 ; Syncope and collapse R55 and Polyneuropathy associated with underlying disease G63 [facility] [id number] [place] [address] [id number] Jan, Dental examination Z01.20 [facility] [id number] [place] [address] [phone]- 0194 Dec, Type 2 diabetes mellitus with hyperglycemia E11.65 ; Anemia , unspecified D64.9 ; Essential hypertension I10 ; Chronic obstructive pulmonary disease, unspecified COPD type J44.9 ; Atrial fibrillation, unspecified type I48.91 ; Cervical pain (neck) M54.2 ; Polyneuropathy associated with underlying disease G63 ; Low back pain M54.5 ; Other chronic pain G89.29 and Alcoholic cirrhosis of liver without ascites K70.30 [facility] [address] [address]- 0470 Dec, [facility] [address], [place] [address]- 4909 Dec, [facility] [facility] [id number] [place] [address] 92108- 0629 Dec, [facility] [id number] [place] [address] 13363- 8791 Dec, Type 2 diabetes mellitus with hyperglycemia E11.65 ; History of alcoholism F10.21 ; Anemia due to other cause D64.89 and Atrial fibrillation, unspecified type I48.91 [facility] [address] [address]- 8256 Dec, [facility] [id number] [place] [address] 12341- 8109 Dec, [facility] [address] [address]- 7273 Dec, Type 2 diabetes mellitus with hyperglycemia E11.65 ; History of alcoholism F10.21 ; Anemia due to other cause D64.89 and Atrial fibrillation, unspecified type I48.91 [facility] [address] [address]- 2232 Nov, [facility] [address] [address]- 7848 Nov, Other chronic pain G89.29 [facility] [address] [address]- 7406 Nov, Other chronic pain G89.29 [facility] [address] [address]- 5638 Nov, Type 2 diabetes mellitus with hyperglycemia E11.65 ; Anemia due to other cause D64.89 ; Hypotension due to blood loss I95.89 ; Alcoholic cirrhosis of liver without ascites K70.30 ; History of alcoholism F10.21 and Chronic obstructive pulmonary disease, unspecified COPD type J44.9 [facility] [id number] [place] [address] 16407- 9752 Sep, [facility] [address] [place] [address] [phone] Jan, Dental examination Z01.20 [facility] [id number] [place] [address] 64918- 5305 Nov, Chronic obstructive pulmonary disease, unspecified COPD type J44.9 ; Panic attacks F41.0 and Other chronic pain G89.29 [facility] [id number] [place] [address] 67882- 8227 Jan, [facility] [id number] [place] [address] 96565- 9357 Jan, [facility] [id number] [place] [address] 17293- 1245 Dec, [facility] [id number] [place] [address] 03992- 9603 Dec, [facility] [facility] [id number] [place] [address] 44193- 4766 Dec, [facility] [facility] [id number] [place] [address] 07597- 4111 Dec, IMMUNIZATIONS No Known Immunizations SOCIAL HISTORY [...]
--- OUTSIDE RECORDS SUMMARY | 2018-07-29 05:23 | XMS REPORT ---
Author Author ALTHEA ANDERSON [facility] Address [address] [place] [address] Care Team Providers Care Logistics Engineer Name Role Phone ALTHEA ANDERSON Unavailable PROBLEMS Type Condition ICD9-CM Code BCP72-LI Code Onset Dates Condition Status SNOMED Code Problem Alcoholism /alcohol abuse F10.20 Active 6141500 Problem prison current use of 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 Active 032593362 Problem Type 2 diabetes mellitus with other specified complication E11.69 Active 88798934 Problem Type 2 diabetes mellitus with hyperglycemia E11.65 Active 380975523791022 Problem Essential hypertension I10 Active 89450773 Problem 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 Active 727711033 Problem Lumbar degenerative disc disease M51.36 Active 52636310 Problem Hypercalcemia E83.52 Active 34044186 Problem Amputated toe of left foot Z89.422 Active 105363705 Problem Falls frequently R29.6 Active 553917782 Problem Other hammer toe(s) (acquired), right foot M20.41 Active 687152545 Problem Other hammer toe(s) (acquired), left foot M20.42 Active 01710224 Problem Chronic obstructive pulmonary disease, unspecified COPD type J44.9 Active 16475181 Problem Atrial fibrillation, unspecified type I48.91 Active 57769026 Problem Alcoholic cirrhosis of liver without ascites K70.30 Active 846265365 Problem Other chronic pain G89.29 Active 13276828 Problem Cervical pain (neck) M54.2 Active 15896070 Problem Requires assistance with activities of daily living (ADL) Z74.1 Active 013052141 Problem Other chronic pain G89.29 Active 41642899 Problem Other urinary incontinence N39.498 Active 000583518 Problem Anemia, unspecified D64.9 Active 481359296 Problem Polyneuropathy associated with underlying disease G63 Active 052918157 Problem GERD without esophagitis K21.9 Active 724335956 ALLERGIES No Information ENCOUNTERS Encounter Location Date Diagnosis [facility] [id number] [place] [address] 57506- 3279 May, Lumbar degenerative disc disease M51.36 [facility] [id number] [place] [address] 88593- 5093 May, Type 2 diabetes mellitus with hyperglycemia E11.65 [facility] [id number] [place] [address] 76369- 5635 May, Lumbar degenerative disc disease M51.36 [facility] [id number] [place] [address] 92413- 5344 May, [facility] [id number] [place] [address] [id number] May, Dental examination Z01.20 and Dental caries K02.9 [facility] [place] [id number] [place] [address] 99706- 7173 May, 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 ; 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 ; Polyneuropathy associated with underlying disease G63 ; Essential hypertension I10 ; Other hammer toe(s) (acquired), left foot M20.42 ; Other hammer toe(s) (acquired), right foot M20.41 and Amputated toe of left foot Z89.422 [facility] [id number] [place] [address] 76323- 7097 May, [facility] [id number] [place] [address] 75496- 3202 May, Type 2 diabetes mellitus with hyperglycemia E11.65 [facility] [id number] [place] [address] 96933- 4558 Apr, [facility] [address] [place] [id number] Apr, Type 2 diabetes mellitus with hyperglycemia E11.65 ; Chronic obstructive pulmonary disease, unspecified COPD type J44.9 and Essential hypertension I10 [facility] [id number] [place] [address] 91894- 9609 Apr, Type 2 diabetes mellitus with hyperglycemia E11.65 [facility] [id number] [place] [address] 55859- 5555 Apr, Type 2 diabetes mellitus with hyperglycemia E11.65 [facility] [id number] [place] [address] 99056- 8406 Apr, Lumbar degenerative disc disease M51.36 [facility] [id number] [place] [address] 02912- 4231 Apr, Type 2 diabetes mellitus with hyperglycemia E11.65 [facility] [address] [place] [id number] Apr, Type 2 diabetes mellitus with hyperglycemia E11.65 ; Atrial fibrillation, unspecified type I48.91 ; Anemia due to other cause D64.89 ; Alcoholism / alcohol abuse F10.20 ; Acute pylorus ulcer K25.3 and Alcoholic cirrhosis of liver without ascites K70.30 [facility] [id number] [place] [address] 67839- 9937 Apr, Lumbar degenerative disc disease M51.36 [facility] [id number] [place] [address] 42271- 6070 Mar, [facility] [id number] [place] [address] 32029- 2574 Mar, [facility] [id number] [place] [address] 44874- 7487 Mar, [facility] [id number] [place] [address] 70797- 6746 Mar, [facility] [id number] [place] [address] 94266- 2145 Mar, Lumbar degenerative disc disease M51.36 [facility] [id number] [place] [address] 92348- 3967 14 Mar, 2018 Dizziness R42 ; Falls frequently R29.6 ; Weight loss, non- intentional R63.4 ; Essential hypertension I10 ; Cardiac murmur R01.1 ; Hypercalcemia E83.52 and Requires assistance with activities of daily living ( ADL) Z74.1 [facility] [address] [address] 64[address] Mar, [facility] [id number] [place] [address] 60015- 3133 Mar, Hypercalcemia E83.52 [facility] [id number] [place] [address] 37157- 3788 February, Lumbar degenerative disc disease M51.36 [facility] [id number] [place] [address] 75986- 2072 February, Type 2 diabetes mellitus with diabetic neuropathy, 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 ; Type 2 diabetes mellitus with other specified complication E11.69 ; 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 ; Essential hypertension I10 ; Chronic obstructive pulmonary disease, unspecified COPD type J44.9 ; Polyneuropathy associated with underlying disease G63 ; Atrial fibrillation, unspecified type I48.91 ; GERD without esophagitis K21.9 and Lumbar degenerative disc disease M51.36 [facility] [id number] [place] [address] 36366- 1896 Jan, Other chronic pain G89.29 [facility] [id number] [place] [address] 23744- 6354 Jan, [facility] [id number] [place] [address] 29898- 2158 Jan, [facility] [id number] [place] [address] 08192- 1574 Jan, Type 2 diabetes mellitus with diabetic neuropathy, unspecified prison insulin 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 [facility] [id number] [place] [address] 47142- 9164 Jan, [facility] [id number] [place] [address] 80081- 5076 Jan, [facility] [id number] [place] [address] 33316- 4596 Jan, Other chronic pain G89.29 [facility] [id number] [place] [address] 82921- 0604 Dec, Atrial fibrillation, unspecified type I48.91 ; Essential hypertension I10 and Other chronic pain G89.29 [facility] [place] [address] [place] [address] 92855- 6243 Dec, Atrial fibrillation, unspecified type I48.91 [facility] [id number] [place] [address] 02619- 5763 Dec, [facility] [id number] [place] [address] 79922- 9579 Nov, Other chronic pain G89.29 [facility] [place] [id number] [place] [address] 37125- 2229 Nov, [facility] [place] [id number] [place] [address] 05559- 1133 Nov, [facility] [id number] [place] [address] 15907- 2450 Nov, Type 2 diabetes mellitus with diabetic neuropathy, 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 ; Type 2 diabetes mellitus with hyperglycemia E11.65 ; Essential hypertension I10 ; Chronic obstructive pulmonary disease, unspecified COPD type J44.9 ; Atrial fibrillation, unspecified type I48.91 ; GERD without esophagitis K21.9 ; Lumbar degenerative disc disease M51.36 ; Alcoholism /alcohol abuse F10.20 and Encounter for immunization Z23 [facility] [place] [address] [place] [address] 93396- 7367 Oct, Type 2 diabetes mellitus with hyperglycemia E11.65 ; Other chronic pain G89.29 and 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.899 [facility] [place] [id number] [place] [address] 71020- 1523 Oct, [facility] [id number] [place] [address] 75127- 4389 Oct, Essential hypertension I10 ; Anemia, unspecified D64.9 ; Chronic obstructive pulmonary disease, unspecified COPD type J44.9 ; Type 2 diabetes mellitus with hyperglycemia E11.65 ; Alcoholic cirrhosis of liver without ascites K70.30 ; Polyneuropathy associated with underlying disease G63 and Atrial fibrillation, unspecified type I48.91 [facility] [id number] [place] [address] 09981- 0695 Sep, Other chronic pain G89.29 [facility] [id number] [place] [address] 42398- 7065 Sep, Type 2 diabetes mellitus with hyperglycemia E11.65 ; Atrial fibrillation, unspecified type I48.91 and Essential hypertension I10 [facility] [id number] [place] [address] 06741- 7645 Sep, Essential hypertension I10 [facility] [id number] [place] [address] 73759- 0381 Sep, Essential hypertension I10 [facility] [id number] [place] [address] 73448- 3733 Sep, [facility] [id number] [place] [address] 53666- 1848 Sep, Other chronic pain G89.29 [facility] [id number] [place] [address] 52039- 1585 Aug, [facility] [id number] [place] [address] 94541- 9931 Aug, Polyneuropathy associated with underlying disease G63 and Chronic obstructive pulmonary disease, unspecified COPD type J44.9 [facility] [address] [id number] Aug, [facility] [id number] [place] [address] 99989- 3720 Aug, [facility] [address], [place] [address]- 4039 Aug, Chronic obstructive pulmonary disease, unspecified COPD type J44.9 [facility] [address] [address]- 7613 10 Aug, 2017 Medicare annual wellness visit, subsequent Z00.00 [facility] [id number] [place] [address] 52160- 2691 07 Aug, 2017 Other chronic pain G89.29 [facility] [address], [place] [address]- 7004 16 Jul, 2017 [facility] [id number] [place] [address] 05278- 9041 Jul, [facility] [id number] [place] [address] 23820- 1451 Jul, Other chronic pain G89.29 and Essential hypertension I10 [facility] [address] [address]- 4520 Jun, [facility] [id number] [place] [address] 06480- 6952 Jun, Essential hypertension I10 [facility] [id number] [place] [address] 21739- 2461 Jun, [facility] [id number] [place] [address] 00613- 8535 Jun, Other chronic pain G89.29 [facility] [address] [address]- 2865 Jun, Other chronic pain G89.29 [facility] [address] [address]- 1907 05 Jun, 2017 [facility] [address] [address]- 6276 Jun, Type 2 diabetes mellitus with hyperglycemia E11.65 ; Essential hypertension I10 ; Atrial fibrillation, unspecified type I48.91 ; Polyneuropathy associated with underlying disease G63 ; Anemia, unspecified D64.9 ; Chronic obstructive pulmonary disease, unspecified COPD type J44.9 ; Other urinary incontinence N39.498 ; Lumbar degenerative disc disease M51.36 and GERD without esophagitis K21.9 [facility] [id number] [place] [address] 03824- 7664 May, [facility] [id number] [place] [address] 23938- 7686 May, [facility] [id number] [place] [address] 92989- 8378 May, [facility] [id number] [place] [address] 87861- 1820 May, Other chronic pain G89.29 [facility] [id number] [place] [address] 68742- 9699 Apr, Onychomycosis B35.1 and Type 2 diabetes mellitus with diabetic neuropathy, 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 [facility] [id number] [place] [address] 68121- 4798 Apr, Essential hypertension I10 [facility] [id number] [place] [address] 46205- 5725 Apr, [facility] [id number] [place] [address] 14857- 0540 Apr, Other chronic pain G89.29 [facility] [id number] [place] [address] 16698- 2770 Mar, Cervical pain (neck) M54.2 ; Other chronic pain G89.29 ; Other urinary incontinence N39.498 and Essential hypertension I10 [facility] [id number] [place] [address] 94527- 3510 Mar, [facility] [id number] [place] [address] 91428- 6485 Mar, Other chronic pain G89.29 [facility] [id number] [place] [address] 72718- 8026 February, [facility] [address] [place] [address]- 2160 February, [place] [address] 16504- 6960 February, Other chronic pain G89.29 [place] [address] [id number]- 1147 February, Essential hypertension I10 ; Type 2 diabetes mellitus with hyperglycemia E11.65 ; Alcoholic cirrhosis of liver without ascites K70.30 ; Chronic obstructive pulmonary disease, unspecified COPD type J44.9 ; Atrial fibrillation, unspecified type I48.91 ; Polyneuropathy associated with underlying disease G63 ; Anemia, unspecified D64.9 ; Requires assistance with activities of daily living (ADL) Z74.1 and Non-compliant behavior R46.89 [facility] [address] [id number] February, Dental examination Z01.20 [place] [address] 25503- 3413 Jan, [facility] [address] [id number] Jan, Dental caries K02.9 [place] [address] 61122- 7283 Jan, Anemia, unspecified D64.9 ; Chronic obstructive pulmonary disease, unspecified COPD type J44.9 ; Other chronic pain G89.29 ; Syncope and collapse R55 and Polyneuropathy associated with underlying disease G63 [facility] [address] [id number] Jan, Dental examination Z01.20 [place] [address] 74879- 9286 Dec, Type 2 diabetes mellitus with hyperglycemia E11.65 ; Anemia , unspecified D64.9 ; Essential hypertension I10 ; Chronic obstructive pulmonary disease, unspecified COPD type J44.9 ; Atrial fibrillation, unspecified type I48.91 ; Cervical pain (neck) M54.2 ; Polyneuropathy associated with underlying disease G63 ; Low back pain M54.5 ; Other chronic pain G89.29 and Alcoholic cirrhosis of liver without ascites K70.30 [facility] [place] [address] [address]- 3984 Dec, [facility] [address], [place] [address]- 9416 Dec, [place] [address], [place] [address]- 9303 Dec, [place] [address] [address]- 2612 Dec, Type 2 diabetes mellitus with hyperglycemia E11.65 ; History of alcoholism F10.21 ; Anemia due to other cause D64.89 and Atrial fibrillation, unspecified type I48.91 [facility] [place] [address], [place] [address]- 0398 Dec, [place] [address], [place] [address]- 0657 Dec, [facility] [place] [address] [place] [address]- 1428 Dec, Type 2 diabetes mellitus with hyperglycemia E11.65 ; History of alcoholism F10.21 ; Anemia due to other cause D64.89 and Atrial fibrillation, unspecified type I48.91 [facility] [place] [address], [place] [address]- 1932 Nov, [facility] [place] [address], [place] [address]- 9355 Nov, Other chronic pain G89.29 [facility] [place] [address], [place] [address]- 8231 Nov, Other chronic pain G89.29 [facility] [address], [place] [address]- 2800 Nov, Type 2 diabetes mellitus with hyperglycemia E11.65 ; Anemia due to other cause D64.89 ; Hypotension due to blood loss I95.89 ; Alcoholic cirrhosis of liver without ascites K70.30 ; History of alcoholism F10.21 and Chronic obstructive pulmonary disease, unspecified COPD type J44.9 [facility] [id number] [place] [address] 45679- 4348 Sep, [facility] [id number] [place] [address] [id number] Jan, Dental examination Z01.20 [place] [address] 74017- 2729 Nov, Chronic obstructive pulmonary disease, unspecified COPD type J44.9 ; Panic attacks F41.0 and Other chronic pain G89.29 [facility] [place] [id number] [place] [address] 32715- 7038 Jan, [facility] [place] [id number] [place] [address] 24953- 3420 Jan, [facility] [place] [id number] [place] [address] 99643- 2749 Dec, [facility] [place] [id number] [place] [address] 87405- 3293 Dec, [facility] [place] [id number] [place] [address] 49975- 4409 Dec, [facility] [place] [id number] [place] [address] 44402- 4686 Dec, IMMUNIZATIONS No Known Immunizations SOCIAL HISTORY Never Assessed REASON FOR VISIT Hospital admit/DC PLAN OF CARE VITAL SIGNS MEDICATIONS Medication Instructions Dosage Frequency Start Date End Date Duration Status Acetaminophen 325 MG Orally every 4 hrs 1-2 tablet as needed 4h Active Novolin 70/30 (70-30) 100 UNIT/ML Subcutaneous Once a day 35 units 24h 12 months Active Sucralfate 1 GM Orally 4 times a day 1 tablet before meals and at bedtime 6h Active Tamsulosin HCl 0.4 MG Orally Once a day 1 capsule 24h Active Digoxin 125 mcg Orally Once a day take 1 tablet (125 mcg) by oral route once daily 24h Dec, 90 days Active Insulin Syringe/Needle 27G X 1/2 subcutaneously Once a day as directed 24h Aug, Not-Taking Hydrocodone-Acetaminophen 5-325 mg Orally every 4 hrs 1 tablet as needed 4h Mar, Active Gabapentin 300 MG Orally 3 times a day TAKE ONE (1) CAPSULE BY MOUTH IN THE MORNING, one capsule at noon, THREE (3) CAPSULES AT BEDTIME 8h Active Albuterol Sulfate 90 mcg/actuation Inhalation every 4 hrs inhale 2 puffs by inhalation route every 4 hours as needed 4h Dec, 12 months Active Advair Diskus 100-50 MCG/DOSE Inhalation Twice a day 1 puff 12h Jun, 12 months Active Calcium Antacid 500 mg Orally 3 times a day 1 tablet as needed 8h Active Lisinopril 5 mg Orally Once a day 1 tablet 24h 90 days Active Spironolactone 25 MG Orally twice a day 1 tablet with food 12h Active Glucocard Expression Test 1 subcutaneously 2 times a day test 2 times per day three days per week 12h February, 12 months Not-Taking Pantoprazole Sodium 40 MG Orally Once a day 1 tablet 24h Active Amlodipine Besylate 5 MG Orally Once a day 1 tablet 24h Active RESULTS No Results PROCEDURES No Known [...]
--- OUTSIDE RECORDS SUMMARY | 2018-07-29 05:24 | XMS REPORT ---
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 Name Role Phone FRIDA PARKS Unavailable PROBLEMS Type Condition ICD9-CM Code GQS07-SM Code Onset Dates Condition Status SNOMED Code Problem Alcoholism /alcohol abuse F10.20 Active 9244975 Problem skilled nursing current use of 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 Active 805830974 Problem Type 2 diabetes mellitus with other specified complication E11.69 Active 38731039 Problem Type 2 diabetes mellitus with hyperglycemia E11.65 Active [id number] Problem Essential hypertension I10 Active 79373396 Problem 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 Active 366349470 Problem Lumbar degenerative disc disease M51.36 Active 84701758 Problem Hypercalcemia E83.52 Active 66749131 Problem Amputated toe of left foot Z89.422 Active 650477489 Problem Falls frequently R29.6 Active 841894271 Problem Other hammer toe(s) (acquired), right foot M20.41 Active 412306216 Problem Other hammer toe(s) (acquired), left foot M20.42 Active 40500124 Problem Chronic obstructive pulmonary disease, unspecified COPD type J44.9 Active 44111917 Problem Atrial fibrillation, unspecified type I48.91 Active 10444542 Problem Alcoholic cirrhosis of liver without ascites K70.30 Active 766920420 Problem Other chronic pain G89.29 Active 01027574 Problem Cervical pain (neck) M54.2 Active 68375495 Problem Requires assistance with activities of daily living (ADL) Z74.1 Active 396954595 Problem Other chronic pain G89.29 Active 57248398 Problem Other urinary incontinence N39.498 Active 614639046 Problem Anemia, unspecified D64.9 Active 192196376 Problem Polyneuropathy associated with underlying disease G63 Active 859201296 Problem GERD without esophagitis K21.9 Active 669009784 ALLERGIES No Information ENCOUNTERS Encounter Location Date Diagnosis [facility] [address] [address] May, Lumbar degenerative disc disease M51.36 [facility] [id number] [place] [address] 03258- 5554 May, Type 2 diabetes mellitus with hyperglycemia E11.65 [facility] [address] [address] 4[address] May, Lumbar degenerative disc disease M51.36 [facility] [id number] [place] [address] 77388- 7881 May, [facility] [id number] [place] [address] [id number] May, Dental examination Z01.20 and Dental caries K02.9 [facility] [id number] [place] [address] 36985- 6999 May, 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 ; 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 ; Polyneuropathy associated with underlying disease G63 ; Essential hypertension I10 ; Other hammer toe(s) (acquired), left foot M20.42 ; Other hammer toe(s) (acquired), right foot M20.41 and Amputated toe of left foot Z89.422 [facility] [address] [address] May, [facility] [id number] [place] [address] 48456- 3605 May, Type 2 diabetes mellitus with hyperglycemia E11.65 [facility] [id number] [place] [address] 71638- 2013 Apr, [facility] [address] [place] [id number] Apr, Type 2 diabetes mellitus with hyperglycemia E11.65 ; Chronic obstructive pulmonary disease, unspecified COPD type J44.9 and Essential hypertension I10 [facility] [facility] [address] [place] [address] 03162- 5701 Apr, Type 2 diabetes mellitus with hyperglycemia E11.65 [facility] [address] [address] 8[address] Apr, Type 2 diabetes mellitus with hyperglycemia E11.65 [facility] [id number] [place] [address] 83746- 0239 Apr, Lumbar degenerative disc disease M51.36 [facility] [id number] [place] [address] 66854- 1127 Apr, Type 2 diabetes mellitus with hyperglycemia E11.65 [facility] [address] [place] [id number] Apr, Type 2 diabetes mellitus with hyperglycemia E11.65 ; Atrial fibrillation, unspecified type I48.91 ; Anemia due to other cause D64.89 ; Alcoholism / alcohol abuse F10.20 ; Acute pylorus ulcer K25.3 and Alcoholic cirrhosis of liver without ascites K70.30 [facility] [id number] [place] [address] 08639- 4664 Apr, Lumbar degenerative disc disease M51.36 [facility] [id number] [place] [address] 15587- 5910 Mar, [facility] [id number] [place] [address] 75471- 5078 Mar, [facility] [id number] [place] [address] 81097- 7657 Mar, [facility] [id number] [place] [address] 28263- 9592 Mar, [facility] [id number] [place] [address] 20652- 9449 Mar, Lumbar degenerative disc disease M51.36 [facility] [id number] [place] [address] 90864- 2905 Mar, Dizziness R42 ; Falls frequently R29.6 ; Weight loss, non- intentional R63.4 ; Essential hypertension I10 ; Cardiac murmur R01.1 ; Hypercalcemia E83.52 and Requires assistance with activities of daily living ( ADL) Z74.1 [facility] [id number] [address] Mar, [facility] [id number] [place] [address] 98652- 7348 Mar, Hypercalcemia E83.52 [facility] [id number] [place] [address] 43416- 0244 February, Lumbar degenerative disc disease M51.36 [facility] [id number] [place] [address] 12169- 8283 February, Type 2 diabetes mellitus with diabetic neuropathy, unspecified 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 ; Type 2 diabetes mellitus with other specified complication E11.69 ; skilled nursing current use of 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 ; Essential hypertension I10 ; Chronic obstructive pulmonary disease, unspecified COPD type J44.9 ; Polyneuropathy associated with underlying disease G63 ; Atrial fibrillation, unspecified type I48.91 ; GERD without esophagitis K21.9 and Lumbar degenerative disc disease M51.36 [facility] [id number] [place] [address] 36877- 0040 Jan, Other chronic pain G89.29 [facility] [id number] [place] [address] 51580- 9084 Jan, [facility] [id number] [place] [address] 35513- 7318 Jan, [facility] [id number] [place] [address] 59099- 4879 Jan, Type 2 diabetes mellitus with diabetic neuropathy, unspecified [facility] insulin 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 [facility] [id number] [place] [address] 97925- 5134 Jan, [facility] [id number] [place] [address] 30158- 5268 Jan, [facility] [id number] [place] [address] 57563- 6278 Jan, Other chronic pain G89.29 [facility] [address] [address] Dec, Atrial fibrillation, unspecified type I48.91 ; Essential hypertension I10 and Other chronic pain G89.29 [facility] [address] [address] 7[address] Dec, Atrial fibrillation, unspecified type I48.91 [facility] [id number] [place] [address] 81504- 2774 Dec, [facility] [id number] [place] [address] 21991- 4584 Nov, Other chronic pain G89.29 [facility] [id number] [place] [address] 08402- 4867 Nov, [facility] [id number] [place] [address] 35300- 6190 Nov, [facility] [id number] [place] [address] 24567- 5415 Nov, Type 2 diabetes mellitus with diabetic neuropathy, unspecified 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 ; Type 2 diabetes mellitus with hyperglycemia E11.65 ; Essential hypertension I10 ; Chronic obstructive pulmonary disease, unspecified COPD type J44.9 ; Atrial fibrillation, unspecified type I48.91 ; GERD without esophagitis K21.9 ; Lumbar degenerative disc disease M51.36 ; Alcoholism /alcohol abuse F10.20 and Encounter for immunization Z23 [facility] [address] [address] 6[address] Oct, Type 2 diabetes mellitus with hyperglycemia E11.65 ; Other chronic pain G89.29 and Other 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 (current) drug therapy Z79.899 [facility] [address] [address] 6028 Oct, [facility] [id number] [place] [address] 54848- 5338 Oct, Essential hypertension I10 ; Anemia, unspecified D64.9 ; Chronic obstructive pulmonary disease, unspecified COPD type J44.9 ; Type 2 diabetes mellitus with hyperglycemia E11.65 ; Alcoholic cirrhosis of liver without ascites K70.30 ; Polyneuropathy associated with underlying disease G63 and Atrial fibrillation, unspecified type I48.91 [facility] [address] [address] 5699 Sep, Other chronic pain G89.29 [facility] [address] [place] [address] 49006- 7312 Sep, Type 2 diabetes mellitus with hyperglycemia E11.65 ; Atrial fibrillation, unspecified type I48.91 and Essential hypertension I10 [facility] [id number] [place] [address] 62417- 8164 Sep, Essential hypertension I10 [facility] [id number] [place] [address] 82230- 2007 Sep, Essential hypertension I10 [facility] [id number] [place] [address] 15929- 7474 Sep, [facility] [address] [place] [address] 39292- 4221 Sep, Other chronic pain G89.29 [facility] [address] [address] 4246 Aug, [facility] [id number] [place] [address] 89281- 5326 Aug, Polyneuropathy associated with underlying disease G63 and Chronic obstructive pulmonary disease, unspecified COPD type J44.9 [facility] [id number] [id number] Aug, [facility] [address] [place] [address] 49515- 5145 Aug, [facility] [address] [address]- 6175 Aug, Chronic obstructive pulmonary disease, unspecified COPD type J44.9 [facility] [address] [address]- 4132 10 Aug, 2017 Medicare annual wellness visit, subsequent Z00.00 [facility] [id number] [place] [address] 43169- 6819 07 Aug, 2017 Other chronic pain G89.29 [facility] [address] [address]- 4425 16 Jul, 2017 [facility] [id number] [place] [address] 25801- 3021 Jul, [facility] [id number] [place] [address] 40774- 3353 Jul, Other chronic pain G89.29 and Essential hypertension I10 [facility] [id number] [place] [address] 06828- 9096 Jun, [facility] [id number] [place] [address] 53983- 8316 Jun, Essential hypertension I10 [facility] [address] [address]- 4724 Jun, [facility] [id number] [place] [address] 12765- 7147 Jun, Other chronic pain G89.29 [facility] [address] [address]- 8765 Jun, Other chronic pain G89.29 [facility] [address] [address]- 1172 05 Jun, 2017 [facility] [id number] [place] [address] 23946- 8095 Jun, Type 2 diabetes mellitus with hyperglycemia E11.65 ; Essential hypertension I10 ; Atrial fibrillation, unspecified type I48.91 ; Polyneuropathy associated with underlying disease G63 ; Anemia, unspecified D64.9 ; Chronic obstructive pulmonary disease, unspecified COPD type J44.9 ; Other urinary incontinence N39.498 ; Lumbar degenerative disc disease M51.36 and GERD without esophagitis K21.9 [facility] [id number] [place] [address] 92372- 4708 May, [facility] [id number] [place] [address] 82714- 7028 May, [facility] [id number] [place] [address] 41266- 0463 May, [facility] [id number] [place] [address] 64676- 1830 May, Other chronic pain G89.29 [facility] [address] 76739- 3134 Apr, Onychomycosis B35.1 and Type 2 diabetes mellitus with diabetic neuropathy, unspecified [facility] insulin 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 [facility] [id number] [place] [address] 87293- 0792 Apr, Essential hypertension I10 [facility] [id number] [place] [address] 27072- 0188 Apr, [facility] [id number] [place] [address] 50890- 4256 Apr, Other chronic pain G89.29 [facility] [id number] [place] [address] 55462- 1606 Mar, Cervical pain (neck) M54.2 ; Other chronic pain G89.29 ; Other urinary incontinence N39.498 and Essential hypertension I10 [facility] [id number] [place] [address] 41758- 4651 Mar, [facility] [id number] [place] [address] 62310- 6099 Mar, Other chronic pain G89.29 [facility] [id number] [place] [address] 80471- 5234 February, [facility] [id number] [place] [address] 59023848- 4227 February, [facility] [address] [place] [address] 189972- 7124 February, Other chronic pain G89.29 [facility] [id number] [place] [address] 119366- 5629 February, Essential hypertension I10 ; Type 2 diabetes mellitus with hyperglycemia E11.65 ; Alcoholic cirrhosis of liver without ascites K70.30 ; Chronic obstructive pulmonary disease, unspecified COPD type J44.9 ; Atrial fibrillation, unspecified type I48.91 ; Polyneuropathy associated with underlying disease G63 ; Anemia, unspecified D64.9 ; Requires assistance with activities of daily living (ADL) Z74.1 and Non-compliant behavior R46.89 [facility] [id number] [place] [address] [id number] February, Dental examination Z01.20 [facility] [id number] [place] [address] 79548- 8752 Jan, [facility] [id number] [place] [address] [id number] Jan, Dental caries K02.9 [place] [id number] [place] [address] 17399- 9655 Jan, Anemia, unspecified D64.9 ; Chronic obstructive pulmonary disease, unspecified COPD type J44.9 ; Other chronic pain G89.29 ; Syncope and collapse R55 and Polyneuropathy associated with underlying disease G63 [facility] [id number] [place] [address] [id number] Jan, Dental examination Z01.20 [facility] [id number] [place] [address] 90774173- 8312 Dec, Type 2 diabetes mellitus with hyperglycemia E11.65 ; Anemia , unspecified D64.9 ; Essential hypertension I10 ; Chronic obstructive pulmonary disease, unspecified COPD type J44.9 ; Atrial fibrillation, unspecified type I48.91 ; Cervical pain (neck) M54.2 ; Polyneuropathy associated with underlying disease G63 ; Low back pain M54.5 ; Other chronic pain G89.29 and Alcoholic cirrhosis of liver without ascites K70.30 [facility] [address] [address]- 2302 Dec, [facility] [address] [address]- 8223 Dec, [facility] [id number] [place] [address] 82433- 8829 Dec, [facility] [id number] [place] [address] 74784- 2076 Dec, Type 2 diabetes mellitus with hyperglycemia E11.65 ; History of alcoholism F10.21 ; Anemia due to other cause D64.89 and Atrial fibrillation, unspecified type I48.91 [facility] [address] [address]- 2362 Dec, [facility] [id number] [place] [address] 78323- 0337 Dec, [facility] [address] [address]- 1692 Dec, Type 2 diabetes mellitus with hyperglycemia E11.65 ; History of alcoholism F10.21 ; Anemia due to other cause D64.89 and Atrial fibrillation, unspecified type I48.91 [facility] [address] [address]- 8235 Nov, [facility] [address] [address]- 5020 Nov, Other chronic pain G89.29 [facility] [address] [address]- 0958 Nov, Other chronic pain G89.29 [facility] [address] [address]- 6291 Nov, Type 2 diabetes mellitus with hyperglycemia E11.65 ; Anemia due to other cause D64.89 ; Hypotension due to blood loss I95.89 ; Alcoholic cirrhosis of liver without ascites K70.30 ; History of alcoholism F10.21 and Chronic obstructive pulmonary disease, unspecified COPD type J44.9 [facility] [id number] [place] [address] 37148- 2402 Sep, [facility] [address] [place] [address] [id number] Jan, Dental examination Z01.20 [facility] [id number] [place] [address] 06491- 2790 Nov, Chronic obstructive pulmonary disease, unspecified COPD type J44.9 ; Panic attacks F41.0 and Other chronic pain G89.29 [place] [address] 55221- 3326 Jan, [place] [id number] [place] [address] 85317- 4603 Jan, [facility] [id number] [place] [address] 96833- 8917 Dec, [place] [id number] [place] [address] 46974- 4206 Dec, [place] [id number] [place] [address] 20531- 7626 Dec, [facility] [id number] [place] [address] 30613- 1187 Dec, IMMUNIZATIONS No Known Immunizations SOCIAL HISTORY Never Assessed REASON FOR VISIT Requests return call PLAN OF CARE VITAL SIGNS MEDICATIONS Unknown [...]
--- OUTSIDE RECORDS SUMMARY | 2018-07-29 05:24 | XMS REPORT ---
Author Author FRIDA PARKS Organization [facility] Address [address] [place] [address] Care Team Providers Care Kettle Operator Head Name Role Phone FRIDA PARKS Unavailable PROBLEMS Type Condition ICD9-CM Code BQB18-VR Code Onset Dates Condition Status SNOMED Code Problem Alcoholism /alcohol abuse F10.20 Active 6967846 Problem half-way current use of 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 Active 120104276 Problem Type 2 diabetes mellitus with other specified complication E11.69 Active 92223136 Problem Type 2 diabetes mellitus with hyperglycemia E11.65 Active 731188818107746 Problem Essential hypertension I10 Active 13666844 Problem 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 Active 274352136 Problem Lumbar degenerative disc disease M51.36 Active 83199390 Problem Hypercalcemia E83.52 Active 69497852 Problem Amputated toe of left foot Z89.422 Active 327621340 Problem Falls frequently R29.6 Active 346854771 Problem Other hammer toe(s) (acquired), right foot M20.41 Active 921893159 Problem Other hammer toe(s) (acquired), left foot M20.42 Active 51824232 Problem Chronic obstructive pulmonary disease, unspecified COPD type J44.9 Active 90777051 Problem Atrial fibrillation, unspecified type I48.91 Active 23932870 Problem Alcoholic cirrhosis of liver without ascites K70.30 Active 943318365 Problem Other chronic pain G89.29 Active 08562772 Problem Cervical pain (neck) M54.2 Active 59274600 Problem Requires assistance with activities of daily living (ADL) Z74.1 Active 763846944 Problem Other chronic pain G89.29 Active 01339444 Problem Other urinary incontinence N39.498 Active 748700838 Problem Anemia, unspecified D64.9 Active 721690808 Problem Polyneuropathy associated with underlying disease G63 Active 580079711 Problem GERD without esophagitis K21.9 Active 463685898 ALLERGIES No Information ENCOUNTERS Encounter Location Date Diagnosis [facility] [id number] [place] [address] 78159- 2769 May, Type 2 diabetes mellitus with hyperglycemia E11.65 [facility] [id number] [place] [address] 15248- 0310 May, Lumbar degenerative disc disease M51.36 [facility] [id number] [place] [address] 48635- 1088 May, [facility] [id number] [place] [address] [phone] May, Dental examination Z01.20 and Dental caries K02.9 [facility] [address] 9[address]- 6580 May, 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 ; 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 ; Polyneuropathy associated with underlying disease G63 ; Essential hypertension I10 ; Other hammer toe(s) (acquired), left foot M20.42 ; Other hammer toe(s) (acquired), right foot M20.41 and Amputated toe of left foot Z89.422 [facility] [id number] [place] [address] 86472- 8685 May, [facility] [id number] [place] [address] 05349- 6676 May, Type 2 diabetes mellitus with hyperglycemia E11.65 [facility] [id number] [place] [address] 91718- 8267 Apr, [facility] [address] [place] [id number] Apr, Type 2 diabetes mellitus with hyperglycemia E11.65 ; Chronic obstructive pulmonary disease, unspecified COPD type J44.9 and Essential hypertension I10 [facility] [id number] [place] [address] 40795- 5602 Apr, Type 2 diabetes mellitus with hyperglycemia E11.65 [facility] [id number] [place] [address] 20727- 3624 Apr, Type 2 diabetes mellitus with hyperglycemia E11.65 [facility] [id number] [place] [address] 83942- 9846 Apr, Lumbar degenerative disc disease M51.36 [facility] [id number] [place] [address] 48824- 7503 Apr, Type 2 diabetes mellitus with hyperglycemia E11.65 [facility] [address] [place] [id number] Apr, Type 2 diabetes mellitus with hyperglycemia E11.65 ; Atrial fibrillation, unspecified type I48.91 ; Anemia due to other cause D64.89 ; Alcoholism / alcohol abuse F10.20 ; Acute pylorus ulcer K25.3 and Alcoholic cirrhosis of liver without ascites K70.30 [facility] [id number] [place] [address] 20279- 2436 Apr, Lumbar degenerative disc disease M51.36 [facility] [id number] [place] [address] 93705- 9461 Mar, [facility] [id number] [place] [address] 60169- 0588 Mar, [facility] [id number] [place] [address] 25251- 4649 Mar, [facility] [id number] [place] [address] 05363- 8987 Mar, [facility] [id number] [place] [address] 24452- 1538 Mar, Lumbar degenerative disc disease M51.36 [facility] [id number] [place] [address] 78033- 3480 14 Mar, 2018 Dizziness R42 ; Falls frequently R29.6 ; Weight loss, non- intentional R63.4 ; Essential hypertension I10 ; Cardiac murmur R01.1 ; Hypercalcemia E83.52 and Requires assistance with activities of daily living ( ADL) Z74.1 [facility] [id number] [place] [address] 00039- 1161 Mar, [facility] [id number] [place] [address] 83115- 5555 Mar, Hypercalcemia E83.52 [facility] [id number] [place] [address] 77205- 2359 February, Lumbar degenerative disc disease M51.36 [facility] [id number] [place] [address] 51669- 8134 February, Type 2 diabetes mellitus with diabetic neuropathy, unspecified 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 ; Type 2 diabetes mellitus with other specified complication E11.69 ; 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 ; Essential hypertension I10 ; Chronic obstructive pulmonary disease, unspecified COPD type J44.9 ; Polyneuropathy associated with underlying disease G63 ; Atrial fibrillation, unspecified type I48.91 ; GERD without esophagitis K21.9 and Lumbar degenerative disc disease M51.36 [facility] [id number] [place] [address] 51241- 8206 Jan, Other chronic pain G89.29 [facility] [id number] [place] [address] 28360- 7975 Jan, [facility] [id number] [place] [address] 36794- 8338 Jan, [facility] [id number] [place] [address] 03237- 5503 Jan, Type 2 diabetes mellitus with diabetic neuropathy, unspecified 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 [facility] [id number] [place] [address] 77542- 7630 Jan, [facility] [id number] [place] [address] 13978- 7587 Jan, [facility] [id number] [place] [address] 46028- 8357 Jan, Other chronic pain G89.29 [facility] [id number] [place] [address] 47712- 4021 Dec, Atrial fibrillation, unspecified type I48.91 ; Essential hypertension I10 and Other chronic pain G89.29 [facility] [id number] [place] [address] 33704- 1901 Dec, Atrial fibrillation, unspecified type I48.91 [facility] [address] [place] [address] 61115- 5194 Dec, [facility] [id number] [place] [address] 83049- 0172 Nov, Other chronic pain G89.29 [facility] [id number] [place] [address] 15356- 3267 Nov, [facility] [id number] [place] [address] 42918- 7264 Nov, [facility] [id number] [place] [address] 86249- 8602 Nov, Type 2 diabetes mellitus with diabetic neuropathy, unspecified [facility] insulin 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 ; Type 2 diabetes mellitus with hyperglycemia E11.65 ; Essential hypertension I10 ; Chronic obstructive pulmonary disease, unspecified COPD type J44.9 ; Atrial fibrillation, unspecified type I48.91 ; GERD without esophagitis K21.9 ; Lumbar degenerative disc disease M51.36 ; Alcoholism /alcohol abuse F10.20 and Encounter for immunization Z23 [facility] [address] [place] [address] 65831- 2537 Oct, Type 2 diabetes mellitus with hyperglycemia E11.65 ; Other chronic pain G89.29 and Other long term care social worker (current) drug therapy Z79.899 [facility] [address] [address] 3514 Oct, [facility] [id number] [place] [address] 72355- 7707 Oct, Essential hypertension I10 ; Anemia, unspecified D64.9 ; Chronic obstructive pulmonary disease, unspecified COPD type J44.9 ; Type 2 diabetes mellitus with hyperglycemia E11.65 ; Alcoholic cirrhosis of liver without ascites K70.30 ; Polyneuropathy associated with underlying disease G63 and Atrial fibrillation, unspecified type I48.91 [facility] [id number] [place] [address] 57755- 5392 Sep, Other chronic pain G89.29 [facility] [address] [address] 6476 Sep, Type 2 diabetes mellitus with hyperglycemia E11.65 ; Atrial fibrillation, unspecified type I48.91 and Essential hypertension I10 [facility] [address] [place] [address]- 9502 Sep, Essential hypertension I10 [facility] [id number] [place] [address] 04212- 0315 Sep, Essential hypertension I10 [facility] [id number] [place] [address] 97993- 3000 Sep, [facility] [id number] [place] [address] 25784- 3273 Sep, Other chronic pain G89.29 [facility] [address] [address] 1710 Aug, [facility] [id number] [place] [address] 72361- 6083 Aug, Polyneuropathy associated with underlying disease G63 and Chronic obstructive pulmonary disease, unspecified COPD type J44.9 [facility] [address] [id number] Aug, [facility] [address] [place] [address]- 5944 Aug, [facility] [id number] [place] [address] 23156- 5499 Aug, Chronic obstructive pulmonary disease, unspecified COPD type J44.9 [facility] [address] [address]- 6304 Aug, Medicare annual wellness visit, subsequent Z00.00 [facility] [address] [place] [address]- 1380 07 Aug, 2017 Other chronic pain G89.29 [facility] [id number] [place] [address] 80921- 5194 16 Jul, 2017 [facility] [id number] [place] [address] 40869- 6978 Jul, [facility] [id number] [place] [address] 29228- 1271 Jul, Other chronic pain G89.29 and Essential hypertension I10 [facility] [id number] [place] [address] 17834- 3449 29 Jun, 2017 [facility] [id number] [place] [address] 88604- 4673 19 Jun, 2017 Essential hypertension I10 [facility] [id number] [place] [address] 42043- 9568 07 Jun, 2017 [facility] [id number] [place] [address] 49737- 5388 Jun, Other chronic pain G89.29 [facility] [id number] [place] [address] 76331- 8397 Jun, Other chronic pain G89.29 [facility] [id number] [place] [address] 58714- 9778 05 Jun, 2017 [facility] [id number] [place] [address] 26732- 2404 Jun, Type 2 diabetes mellitus with hyperglycemia E11.65 ; Essential hypertension I10 ; Atrial fibrillation, unspecified type I48.91 ; Polyneuropathy associated with underlying disease G63 ; Anemia, unspecified D64.9 ; Chronic obstructive pulmonary disease, unspecified COPD type J44.9 ; Other urinary incontinence N39.498 ; Lumbar degenerative disc disease M51.36 and GERD without esophagitis K21.9 [facility] [id number] [place] [address] 33246- 8066 May, [facility] [address] [address]- 6189 May, [facility] [id number] [place] [address] 78603- 3805 May, [facility] [id number] [place] [address] 62541- 0094 May, Other chronic pain G89.29 [facility] [id number] [place] [address] 32692- 5234 Apr, Onychomycosis B35.1 and Type 2 diabetes mellitus with diabetic neuropathy, unspecified 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 [facility] [id number] [place] [address] 86522- 8344 Apr, Essential hypertension I10 [facility] [id number] [place] [address] 73700- 5424 Apr, [facility] [id number] [place] [address] 96078- 4776 Apr, Other chronic pain G89.29 [facility] [id number] [place] [address] 48625- 9529 Mar, Cervical pain (neck) M54.2 ; Other chronic pain G89.29 ; Other urinary incontinence N39.498 and Essential hypertension I10 [facility] [address] [address]- 1737 Mar, [facility] [id number] [place] [address] 80289- 7536 Mar, Other chronic pain G89.29 [facility] [address] 5178 February, [facility] [address] 9910 February, [facility] [id number] [place] [address] 23924- 3745 February, Other chronic pain G89.29 [facility] [id number] [place] [address] 83647- 5649 February, Essential hypertension I10 ; Type 2 [...] behavior R46.89 [facility] [id number] [place] [address] [phone] February, Dental examination Z01.20 [facility] [id number] [place] [address] 91546- 0356 Jan, [facility] [id number] [place] [address] [id number] Jan, Dental caries K02.9 [facility] [id number] [place] [address] 93263- 1627 Jan, Anemia, unspecified D64.9 ; Chronic obstructive pulmonary disease, unspecified COPD type J44.9 ; Other chronic pain G89.29 ; Syncope and collapse R55 and Polyneuropathy associated with underlying disease G63 [facility] [id number] [place] [address] [phone] Jan, Dental examination Z01.20 [facility] [id number] [place] [address] 24480- 6576 Dec, Type 2 diabetes mellitus with hyperglycemia E11.65 ; Anemia , unspecified D64.9 ; Essential hypertension I10 ; Chronic obstructive pulmonary disease, unspecified COPD type J44.9 ; Atrial fibrillation, unspecified type I48.91 ; Cervical pain (neck) M54.2 ; Polyneuropathy associated with underlying disease G63 ; Low back pain M54.5 ; Other chronic pain G89.29 and Alcoholic cirrhosis of liver without ascites K70.30 [facility] [id number] [place] [address] 63081- 1981 Dec, [facility] [address], [place] [address]- 5162 Dec, [facility] [address], [place] [address]- 1666 Dec, [facility] [address], [place] [address]- 0557 Dec, Type 2 diabetes mellitus with hyperglycemia E11.65 ; History of alcoholism F10.21 ; Anemia due to other cause D64.89 and Atrial fibrillation, unspecified type I48.91 [facility] [address], [place] [address]- 6440 Dec, [facility] [id number] [place] [address] 14103- 5257 Dec, [facility] [id number] [place] [address] 85954- 9843 Dec, Type 2 diabetes mellitus with hyperglycemia E11.65 ; History of alcoholism F10.21 ; Anemia due to other cause D64.89 and Atrial fibrillation, unspecified type I48.91 [facility] [address], [place] [address]- 0469 Nov, [facility] [address], [place] [address]- 8641 Nov, Other chronic pain G89.29 [facility] [address], [place] [address]- 7873 Nov, Other chronic pain G89.29 [facility] [address], [place] [address]- 8908 Nov, Type 2 diabetes mellitus with hyperglycemia E11.65 ; Anemia due to other cause D64.89 ; Hypotension due to blood loss I95.89 ; Alcoholic cirrhosis of liver without ascites K70.30 ; History of alcoholism F10.21 and Chronic obstructive pulmonary disease, unspecified COPD type J44.9 [facility] [address] [address] 8035 Sep, [facility] [id number] [id number] Jan, Dental examination Z01.20 [facility] [address] [place] [address]- 1911 Nov, Chronic obstructive pulmonary disease, unspecified COPD type J44.9 ; Panic attacks F41.0 and Other chronic pain G89.29 [facility] [address], [place] [address]- 7814 Jan, [facility] [id number] [place] [address] 53105- 5143 Jan, [facility] [id number] [place] [address] 06514- 5996 Dec, [facility] [id number] [place] [address] 27000- 4263 Dec, [facility] [address], [place] [address]- 3139 Dec, [facility] [address], [place] [address]- 3849 Dec, IMMUNIZATIONS No Known Immunizations SOCIAL HISTORY Never Assessed REASON FOR VISIT Controlled Med Refill 04/17 PLAN OF CARE VITAL SIGNS MEDICATIONS Medication Instructions Dosage Frequency Start Date End Date Duration Status Hydrocodone-Acetaminophen 5-325 mg Orally 2 times a day 1 tablet as needed 12h Mar, 28 days Active RESULTS No Results PROCEDURES [...]
--- OUTSIDE RECORDS SUMMARY | 2018-07-29 05:25 | XMS REPORT ---
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 Active 890831121 Problem Essential hypertension I10 Active 40165851 Problem Other hammer toe(s) (acquired), right foot M20.41 Active 229316429 Problem Lumbar degenerative disc disease M51.36 Active 71205639 Problem Anemia, unspecified D64.9 Active 482761331 Problem Falls frequently R29.6 Active 466112057 Problem 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 Active 582287849 Problem Other hammer toe(s) (acquired), left foot M20.42 Active 94698109 Problem Amputated toe of left foot Z89.422 Active 920582603 Problem Other chronic pain G89.29 Active 70030834 Problem Chronic obstructive pulmonary disease, unspecified COPD type J44.9 Active 08281932 Problem Hypercalcemia E83.52 Active 73364314 Problem Alcoholic cirrhosis of liver without ascites K70.30 Active 505884565 Problem Polyneuropathy associated with underlying disease G63 Active 087907053 Problem Cervical pain (neck) M54.2 Active 40377270 Problem Atrial fibrillation, unspecified type I48.91 Active 07794658 Problem Requires assistance with activities of daily living (ADL) Z74.1 Active 121877878 Problem Other chronic pain G89.29 Active 72072426 Problem Other urinary incontinence N39.498 Active 040485634 ALLERGIES Substance Reaction Event Type Date Status Haldol Unknown Drug Allergy Mar, Active ENCOUNTERS Encounter Location Date Diagnosis [facility] [id number] [place] [address] 66303- 6873 May, Lumbar degenerative disc disease M51.36 [facility] [id number] [place] [address] 94736- 9852 May, [facility] [id number] [place] [address] [phone] May, Dental examination Z01.20 and Dental caries K02.9 [facility] [facility] [address] [address]25- 8882 May, 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 ; shelter current use of 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 ; Polyneuropathy associated with underlying disease G63 ; Essential hypertension I10 ; Other hammer toe(s) (acquired), left foot M20.42 ; Other hammer toe(s) (acquired), right foot M20.41 and Amputated toe of left foot Z89.422 [facility] [id number] [place] [address] 11443- 1003 May, [facility] [id number] [place] [address] 07756- 8228 May, Type 2 diabetes mellitus with hyperglycemia E11.65 [facility] [id number] [place] [address] 36468- 6544 Apr, [facility] [address] [place] [id number] Apr, Type 2 diabetes mellitus with hyperglycemia E11.65 ; Chronic obstructive pulmonary disease, unspecified COPD type J44.9 and Essential hypertension I10 [facility] [id number] [place] [address] 97996- 3879 Apr, Type 2 diabetes mellitus with hyperglycemia E11.65 [facility] [id number] [place] [address] 27705- 2280 Apr, Type 2 diabetes mellitus with hyperglycemia E11.65 [facility] [id number] [place] [address] 61147- 8424 Apr, Lumbar degenerative disc disease M51.36 [facility] [id number] [address] 3[address] Apr, Type 2 diabetes mellitus with hyperglycemia E11.65 [facility] [address] [place] [id number] Apr, Type 2 diabetes mellitus with hyperglycemia E11.65 ; Atrial fibrillation, unspecified type I48.91 ; Anemia due to other cause D64.89 ; Alcoholism / alcohol abuse F10.20 ; Acute pylorus ulcer K25.3 and Alcoholic cirrhosis of liver without ascites K70.30 [facility] [id number] [place] [address] 72765- 6468 Apr, Lumbar degenerative disc disease M51.36 [facility] [id number] [place] [address] 40788- 1612 Mar, [facility] [id number] [place] [address] 02824- 5584 Mar, [facility] [id number] [place] [address] 54826- 6930 Mar, [facility] [id number] [place] [address] 68183- 0199 Mar, [facility] [id number] [place] [address] 21853- 4864 Mar, Lumbar degenerative disc disease M51.36 [facility] [id number] [place] [address] 45499- 8247 Mar, Dizziness R42 ; Falls frequently R29.6 ; Weight loss, non- intentional R63.4 ; Essential hypertension I10 ; Cardiac murmur R01.1 ; Hypercalcemia E83.52 and Requires assistance with activities of daily living ( ADL) Z74.1 [facility] [id number] [place] [address] 56824- 8544 Mar, [facility] [id number] [place] [address] 98610- 9904 01 Luis, 2018 Hypercalcemia E83.52 [facility] [id number] [place] [address] 82054- 1066 February, Lumbar degenerative disc disease M51.36 [facility] [id number] [place] [address] 55027- 7748 February, Type 2 diabetes mellitus with diabetic neuropathy, 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 ; Type 2 diabetes mellitus with other specified complication E11.69 ; 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 ; Essential hypertension I10 ; Chronic obstructive pulmonary disease, unspecified COPD type J44.9 ; Polyneuropathy associated with underlying disease G63 ; Atrial fibrillation, unspecified type I48.91 ; GERD without esophagitis K21.9 and Lumbar degenerative disc disease M51.36 [facility] [id number] [place] [address] 52640- 6404 Jan, Other chronic pain G89.29 [facility] [address] 25004- 8014 Jan, [facility] [id number] [place] [address] 52619- 8502 Jan, [facility] [id number] [place] [address] 43377- 8263 Jan, Type 2 diabetes mellitus with diabetic neuropathy, unspecified alf insulin 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 [facility] [id number] [place] [address] 98566- 4278 Jan, [facility] [id number] [place] [address] 72877- 4760 Jan, [facility] [id number] [place] [address] 69836- 8698 Jan, Other chronic pain G89.29 [facility] [id number] [place] [address] 64034- 2495 Dec, Atrial fibrillation, unspecified type I48.91 ; Essential hypertension I10 and Other chronic pain G89.29 [facility] [id number] [address] 2209 Dec, Atrial fibrillation, unspecified type I48.91 [facility] [id number] [place] [address] 69382- 2772 Dec, [facility] [id number] [place] [address] 46249- 8070 Nov, Other chronic pain G89.29 [facility] [id number] [place] [address] 67499- 6177 Nov, [facility] [id number] [place] [address] 61925- 7333 Nov, [facility] [id number] [place] [address] 66446- 5018 Nov, Type 2 diabetes mellitus with diabetic neuropathy, 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 ; Type 2 diabetes mellitus with hyperglycemia E11.65 ; Essential hypertension I10 ; Chronic obstructive pulmonary disease, unspecified COPD type J44.9 ; Atrial fibrillation, unspecified type I48.91 ; GERD without esophagitis K21.9 ; Lumbar degenerative disc disease M51.36 ; Alcoholism /alcohol abuse F10.20 and Encounter for immunization Z23 [place] [id number] [place] [address] 01010- 0710 Oct, Type 2 diabetes mellitus with hyperglycemia E11.65 ; Other chronic pain G89.29 and Other termite exterminator (current) drug therapy Z79.899 [facility] [id number] [place] [address] 35767- 9384 Oct, [place] [id number] [place] [address] 66174- 0036 Oct, Essential hypertension I10 ; Anemia, unspecified D64.9 ; Chronic obstructive pulmonary disease, unspecified COPD type J44.9 ; Type 2 diabetes mellitus with hyperglycemia E11.65 ; Alcoholic cirrhosis of liver without ascites K70.30 ; Polyneuropathy associated with underlying disease G63 and Atrial fibrillation, unspecified type I48.91 [facility] [id number] [place] [address] 44218- 6408 Sep, Other chronic pain G89.29 [facility] [id number] [place] [address] 02850- 9018 Sep, Type 2 diabetes mellitus with hyperglycemia E11.65 ; Atrial fibrillation, unspecified type I48.91 and Essential hypertension I10 [facility] [id number] [address] 8686 Sep, Essential hypertension I10 [facility] [id number] [place] [address] 69617- 9983 Sep, Essential hypertension I10 [facility] [id number] [place] [address] 19233- 5871 Sep, [facility] [id number] [place] [address] 65100- 7693 Sep, Other chronic pain G89.29 [facility] [id number] [place] [address] 33548- 8904 Aug, [facility] [id number] [place] [address] 00378- 5356 Aug, Polyneuropathy associated with underlying disease G63 and Chronic obstructive pulmonary disease, unspecified COPD type J44.9 [facility] [id number] [id number] Aug, [facility] [address] [address]- 6473 Aug, [facility] [address] [address] 3762 Aug, Chronic obstructive pulmonary disease, unspecified COPD type J44.9 [facility] [address] [address]- 0376 Aug, Medicare annual wellness visit, subsequent Z00.00 [facility] [address] [address]- 3068 Aug, Other chronic pain G89.29 [facility] [address] [address]- 1130 Jul, [facility] [id number] [place] [address] 59782- 6317 Jul, [facility] [address] [address]- 4308 Jul, Other chronic pain G89.29 and Essential hypertension I10 [facility] [id number] [place] [address] 03934- 2676 29 Jun, 2017 [facility] [id number] [place] [address] 79074- 7508 Jun, Essential hypertension I10 [facility] [id number] [place] [address] 00489- 9510 Jun, [facility] [id number] [place] [address] 02396- 5074 Jun, Other chronic pain G89.29 [facility] [id number] [place] [address] 21027- 1653 06 Jun, 2017 Other chronic pain G89.29 [facility] [id number] [place] [address] 46941- 3320 05 Jun, 2017 [facility] [address] [address]- 9776 Jun, Type 2 diabetes mellitus with hyperglycemia E11.65 ; Essential hypertension I10 ; Atrial fibrillation, unspecified type I48.91 ; Polyneuropathy associated with underlying disease G63 ; Anemia, unspecified D64.9 ; Chronic obstructive pulmonary disease, unspecified COPD type J44.9 ; Other urinary incontinence N39.498 ; Lumbar degenerative disc disease M51.36 and GERD without esophagitis K21.9 [facility] [address], [place] [address]- 3688 May, [facility] [address] [address]- 4613 May, [facility] [address] [address]- 7605 May, [facility] [id number] [place] [address] 57055- 3910 May, Other chronic pain G89.29 [facility] [address], [place] [address]- 7766 Apr, Onychomycosis B35.1 and Type 2 diabetes mellitus with diabetic neuropathy, unspecified alf insulin 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 [facility] [address] [address]- 0171 Apr, Essential hypertension I10 [facility] [id number] [place] [address] 45006- 1227 Apr, [facility] [id number] [place] [address] 07431- 7715 Apr, Other chronic pain G89.29 [facility] [id number] [place] [address] 25560- 8565 Mar, Cervical pain (neck) M54.2 ; Other chronic pain G89.29 ; Other urinary incontinence N39.498 and Essential hypertension I10 [facility] [address] [address]- 5785 Mar, [facility] [address] [address]- 6972 Mar, Other chronic pain G89.29 [facility] [address] [address]- 3552 February, [facility] [address] [address]- 3209 February, [facility] [address] [address]- 2914 February, Other chronic pain G89.29 [facility] [address] [address]- 7138 February, Essential hypertension I10 ; Type 2 diabetes mellitus with hyperglycemia E11.65 ; Alcoholic cirrhosis of liver without ascites K70.30 ; Chronic obstructive pulmonary disease, unspecified COPD type J44.9 ; Atrial fibrillation, unspecified type I48.91 ; Polyneuropathy associated with underlying disease G63 ; Anemia, unspecified D64.9 ; Requires assistance with activities of daily living (ADL) Z74.1 and Non-compliant behavior R46.89 [facility] [address] [id number] February, Dental examination Z01.20 [facility] [address] 89080- 8258 Jan, [facility] [id number] [place] [address] [id number] Jan, Dental caries K02.9 [facility] [id number] [place] [address] 12060- 7192 Jan, Anemia, unspecified D64.9 ; Chronic obstructive pulmonary disease, unspecified COPD type J44.9 ; Other chronic pain G89.29 ; Syncope and collapse R55 and Polyneuropathy associated with underlying disease G63 [facility] [id number] [place] [address] [phone] Jan, Dental examination Z01.20 [facility] [id number] [place] [address] 07812- 5509 Dec, Type 2 diabetes mellitus with hyperglycemia E11.65 ; Anemia , unspecified D64.9 ; Essential hypertension I10 ; Chronic obstructive pulmonary disease, unspecified COPD type J44.9 ; Atrial fibrillation, unspecified type I48.91 ; Cervical pain (neck) M54.2 ; Polyneuropathy associated with underlying disease G63 ; Low back pain M54.5 ; Other chronic pain G89.29 and Alcoholic cirrhosis of liver without ascites K70.30 [facility] [id number] [place] [address] 55895- 1797 Dec, [facility] [id number] [place] [address] 21535- 9097 Dec, [facility] [address], [place] [address]- 7786 Dec, [facility] [id number] [place] [address] 52434- 6630 Dec, Type 2 diabetes mellitus with hyperglycemia E11.65 ; History of alcoholism F10.21 ; Anemia due to other cause D64.89 and Atrial fibrillation, unspecified type I48.91 [facility] [id number] [place] [address] 07738- 4641 Dec, [facility] [id number] [place] [address] 02310- 2404 Dec, [facility] [address] [place] [address] 91049- 1241 Dec, Type 2 diabetes mellitus with hyperglycemia E11.65 ; History of alcoholism F10.21 ; Anemia due to other cause D64.89 and Atrial fibrillation, unspecified type I48.91 [facility] [address] [place] [address] 03417- 4833 Nov, [facility] [id number] [place] [address] 22308- 2722 Nov, Other chronic pain G89.29 [facility] [address] [place] [address] 10261- 7003 Nov, Other chronic pain G89.29 [facility] [address] [place] [address] 22211- 3242 Nov, Type 2 diabetes mellitus with hyperglycemia E11.65 ; Anemia due to other cause D64.89 ; Hypotension due to blood loss I95.89 ; Alcoholic cirrhosis of liver without ascites K70.30 ; History of alcoholism F10.21 and Chronic obstructive pulmonary disease, unspecified COPD type J44.9 [facility] [address] [address]- 4773 Sep, [place] [address] [id number] Jan, Dental examination Z01.20 [place] [address] [place] [address] [phone] 8086 Nov, Chronic obstructive pulmonary disease, unspecified COPD type J44.9 ; Panic attacks F41.0 and Other chronic pain G89.29 [place] [address] [address]- 9319 Jan, [place] [id number] [place] [address] 578299- 7765 Jan, [place] [id number] [place] [address] 977798- 7057 Dec, [place] [id number] [place] [address] 76060- 6863 Dec, [place] [id number] [place] [address] 21452- 4224 Dec, [place] [id number] [address] 8187 Dec, IMMUNIZATIONS No Known Immunizations SOCIAL HISTORY Never Assessed REASON FOR VISIT Dizziness--tcuppettRN, -Having frequent falls pt states is related to toe amputation few years back, decreased oxygen, and vision is worsening PLAN OF CARE Activity Details Follow Up 3 Months, prn Reason:CHM/ Pending Test CT Scan : Chest w/o Contrast Pending Test CT Scan : Brain w/o Contrast VITAL SIGNS Height 69 in 2018-04-03 Weight 148.0 lbs 2018-04-03 Temperature 97.6 degrees Fahrenheit 2018-04-03 Heart Rate 76 bpm 2018-04-03 Respiratory Rate 20 2018-04-03 Oximetry 100 % 2018-04-03 BMI 21.85 kg/m2 2018-04-03 Blood pressure systolic 108 mmHg 2018-04-03 Blood pressure diastolic 62 mmHg 2018-04-03 MEDICATIONS Medication Instructions Dosage Frequency Start Date End Date Duration Status Gabapentin 300 MG Orally 3 times a day TAKE ONE (1) CAPSULE BY MOUTH IN THE MORNING, one capsule at noon, THREE (3) CAPSULES AT BEDTIME 8h 90 days Active Lisinopril 5 mg Orally Once a day 1 tablet 24h 90 days Active Albuterol Sulfate 90 mcg/actuation Inhalation every 4 hrs inhale 2 puffs by inhalation route every 4 hours as needed 4h 05 Dec, 2014 12 months Active Hydrocodone-Acetaminophen 5-325 mg Orally 2 times a day 1 tablet as needed 12h February, Mar, 28 days Active Advair Diskus 100-50 MCG/DOSE Inhalation Twice a day 1 puff 12h Jun, 12 months Active Novolin 70/30 (70-30) 100 UNIT/ML Subcutaneous Once a day 35 units 24h 12 months Active Glucocard Expression Test 1 subcutaneously 2 times a day test 2 times per day three days per week 12h February, 12 months Active Digoxin 125 mcg Orally Once a day take 1 tablet (125 mcg) by oral route once daily 24h Dec, 90 days Active Insulin Syringe/Needle 27G X 1/2 subcutaneously Once a day as directed 24h Aug, Active RESULTS No Results PROCEDURES Procedure Date Ordered Result Body Site [facility] April 03, 2018 [facility] VISIT ESTABLISHED PATIENT April 03, 2018 INSTRUCTIONS MEDICATIONS ADMINISTERED No Known Medications [...]
--- OUTSIDE RECORDS SUMMARY | 2018-07-29 05:25 | XMS REPORT ---
Author Author FRIDA PARKS Organization [facility] Address [address] [place] [address] Care Team Providers Care Cover Marker Name Role Phone FRIDA PARKS Unavailable PROBLEMS Type Condition ICD9-CM Code UOE28-CP Code Onset Dates Condition Status SNOMED Code Problem Alcoholism /alcohol abuse F10.20 Active 2756202 Problem assisted current use of 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 Active 493085827 Problem Type 2 diabetes mellitus with other specified complication E11.69 Active 89560444 Problem Type 2 diabetes mellitus with hyperglycemia E11.65 Active 660907931322811 Problem Essential hypertension I10 Active 45371242 Problem 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 Active 897062531 Problem Lumbar degenerative disc disease M51.36 Active 98446713 Problem Hypercalcemia E83.52 Active 59055370 Problem Amputated toe of left foot Z89.422 Active 155176639 Problem Falls frequently R29.6 Active 978746149 Problem Other hammer toe(s) (acquired), right foot M20.41 Active 118588054 Problem Other hammer toe(s) (acquired), left foot M20.42 Active 24407754 Problem Chronic obstructive pulmonary disease, unspecified COPD type J44.9 Active 20851636 Problem Atrial fibrillation, unspecified type I48.91 Active 22451896 Problem Alcoholic cirrhosis of liver without ascites K70.30 Active 632706848 Problem Other chronic pain G89.29 Active 77352585 Problem Cervical pain (neck) M54.2 Active 84830022 Problem Requires assistance with activities of daily living (ADL) Z74.1 Active 915981200 Problem Other chronic pain G89.29 Active 58023357 Problem Other urinary incontinence N39.498 Active 979379070 Problem Anemia, unspecified D64.9 Active 360708464 Problem Polyneuropathy associated with underlying disease G63 Active 530128423 Problem GERD without esophagitis K21.9 Active 149426503 ALLERGIES No Information ENCOUNTERS Encounter Location Date Diagnosis [place] [id number] [place] [address] 33383- 8651 May, Type 2 diabetes mellitus with hyperglycemia E11.65 [facility] [id number] [place] [address] 79749- 8231 May, Lumbar degenerative disc disease M51.36 [facility] [id number] [place] [address] 41960- 8620 May, [facility] [id number] [place] [address] [id number] May, Dental examination Z01.20 and Dental caries K02.9 [place] [address] 45296- 8271 May, 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 ; 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 ; Polyneuropathy associated with underlying disease G63 ; Essential hypertension I10 ; Other hammer toe(s) (acquired), left foot M20.42 ; Other hammer toe(s) (acquired), right foot M20.41 and Amputated toe of left foot Z89.422 [place] [id number] [place] [address] 58805- 0853 May, [place] [id number] [place] [address] 21709- 3490 May, Type 2 diabetes mellitus with hyperglycemia E11.65 [place] [id number] [place] [address] 51958- 6889 Apr, [facility] [address] [place] [id number] Apr, Type 2 diabetes mellitus with hyperglycemia E11.65 ; Chronic obstructive pulmonary disease, unspecified COPD type J44.9 and Essential hypertension I10 [place] [id number] [place] [address] 98036- 9924 Apr, Type 2 diabetes mellitus with hyperglycemia E11.65 [facility] [id number] [place] [address] 70557- 2075 Apr, Type 2 diabetes mellitus with hyperglycemia E11.65 [facility] [place] [id number] [place] [address] 27123- 5346 Apr, Lumbar degenerative disc disease M51.36 [facility] [place] [id number] [place] [address] 27409- 7066 Apr, Type 2 diabetes mellitus with hyperglycemia E11.65 [facility] [address] [place] [id number] Apr, Type 2 diabetes mellitus with hyperglycemia E11.65 ; Atrial fibrillation, unspecified type I48.91 ; Anemia due to other cause D64.89 ; Alcoholism / alcohol abuse F10.20 ; Acute pylorus ulcer K25.3 and Alcoholic cirrhosis of liver without ascites K70.30 [place] [place] [id number] [place] [address] 94483- 3945 Apr, Lumbar degenerative disc disease M51.36 [facility] [place] [id number] [place] [address] 90963- 3324 Mar, [facility] [place] [id number] [place] [address] 74072- 6474 Mar, [facility] [id number] [place] [address] 90365- 5970 Mar, [facility] [place] [id number] [place] [address] 70926- 4540 Mar, [facility] [place] [id number] [place] [address] 78434- 0257 Mar, Lumbar degenerative disc disease M51.36 [facility] [place] [id number] [place] [address] 79401- 7905 14 Mar, 2018 Dizziness R42 ; Falls frequently R29.6 ; Weight loss, non- intentional R63.4 ; Essential hypertension I10 ; Cardiac murmur R01.1 ; Hypercalcemia E83.52 and Requires assistance with activities of daily living ( ADL) Z74.1 [place] [id number] [place] [address] 39670- 3631 Mar, [facility] [id number] [place] [address] 43824- 2706 Mar, Hypercalcemia E83.52 [facility] [id number] [place] [address] 28417- 4834 February, Lumbar degenerative disc disease M51.36 [place] [id number] [place] [address] 22109- 2524 February, Type 2 diabetes mellitus with diabetic neuropathy, unspecified 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 ; Type 2 diabetes mellitus with other specified complication E11.69 ; 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 ; Essential hypertension I10 ; Chronic obstructive pulmonary disease, unspecified COPD type J44.9 ; Polyneuropathy associated with underlying disease G63 ; Atrial fibrillation, unspecified type I48.91 ; GERD without esophagitis K21.9 and Lumbar degenerative disc disease M51.36 [facility] [id number] [place] [address] 09376- 6530 Jan, Other chronic pain G89.29 [facility] [place] [id number] [place] [address] 96774- 9625 Jan, [facility] [place] [id number] [place] [address] 50690- 1866 Jan, [facility] [place] [id number] [place] [address] 01385- 1391 Jan, Type 2 diabetes mellitus with diabetic neuropathy, unspecified 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 [facility] [id number] [place] [address] 18617- 6142 Jan, [facility] [id number] [place] [address] 43767- 9737 Jan, [facility] [id number] [place] [address] 99647- 6969 Jan, Other chronic pain G89.29 [place] [id number] [place] [address] 14007- 7545 Dec, Atrial fibrillation, unspecified type I48.91 ; Essential hypertension I10 and Other chronic pain G89.29 [place] [id number] [place] [address] 92903- 8631 Dec, Atrial fibrillation, unspecified type I48.91 [place] [id number] [place] [address] 04744- 8579 Dec, [place] [id number] [place] [address] 00640- 6962 Nov, Other chronic pain G89.29 [place] [id number] [place] [address] 36871- 9701 Nov, [place] [id number] [place] [address] 50232- 2627 Nov, [place] [id number] [place] [address] 75320- 4767 Nov, Type 2 diabetes mellitus with diabetic neuropathy, unspecified intermediate insulin 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 ; Type 2 diabetes mellitus with hyperglycemia E11.65 ; Essential hypertension I10 ; Chronic obstructive pulmonary disease, unspecified COPD type J44.9 ; Atrial fibrillation, unspecified type I48.91 ; GERD without esophagitis K21.9 ; Lumbar degenerative disc disease M51.36 ; Alcoholism /alcohol abuse F10.20 and Encounter for immunization Z23 [place] [id number] [place] [address] 06791- 0184 Oct, Type 2 diabetes mellitus with hyperglycemia E11.65 ; Other chronic pain G89.29 and Other terminal computer operator (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) drug therapy 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.899 [place] [address] [address]- 0765 Oct, [place] [id number] [place] [address] 31386- 3570 Oct, Essential hypertension I10 ; Anemia, unspecified D64.9 ; Chronic obstructive pulmonary disease, unspecified COPD type J44.9 ; Type 2 diabetes mellitus with hyperglycemia E11.65 ; Alcoholic cirrhosis of liver without ascites K70.30 ; Polyneuropathy associated with underlying disease G63 and Atrial fibrillation, unspecified type I48.91 [facility] [id number] [place] [address] 08892- 7611 Sep, Other chronic pain G89.29 [facility] [address] [place] [address]- 3015 Sep, Type 2 diabetes mellitus with hyperglycemia E11.65 ; Atrial fibrillation, unspecified type I48.91 and Essential hypertension I10 [facility] [address] [place] [address]- 9117 Sep, Essential hypertension I10 [facility] [id number] [place] [address] 25078- 1966 Sep, Essential hypertension I10 [facility] [id number] [place] [address] 86272- 4192 Sep, [facility] [id number] [place] [address] 60414- 3464 Sep, Other chronic pain G89.29 [facility] [address] [place] [address]- 4437 Aug, [facility] [id number] [place] [address] 21822- 4969 Aug, Polyneuropathy associated with underlying disease G63 and Chronic obstructive pulmonary disease, unspecified COPD type J44.9 [facility] [address] [id number] Aug, [facility] [address] [place] [address]- 8785 Aug, [facility] [id number] [place] [address] 85666- 4956 Aug, Chronic obstructive pulmonary disease, unspecified COPD type J44.9 [facility] [address] [place] [address]- 2712 Aug, Medicare annual wellness visit, subsequent Z00.00 [facility] [address] [place] [address]- 5687 07 Aug, 2017 Other chronic pain G89.29 [facility] [id number] [place] [address] 64772- 5365 16 Jul, 2017 [facility] [id number] [place] [address] 16975- 4753 Jul, [facility] [id number] [place] [address] 20452- 4091 Jul, Other chronic pain G89.29 and Essential hypertension I10 [facility] [id number] [place] [address] 95404- 5288 29 Jun, 2017 [facility] [id number] [place] [address] 94078- 0821 19 Jun, 2017 Essential hypertension I10 [facility] [id number] [place] [address] 32821- 9552 07 Jun, 2017 [facility] [id number] [place] [address] 94458- 6512 Jun, Other chronic pain G89.29 [facility] [id number] [place] [address] 05518- 8974 Jun, Other chronic pain G89.29 [facility] [id number] [place] [address] 86610- 4847 05 Jun, 2017 [facility] [id number] [place] [address] 15445- 9254 Jun, Type 2 diabetes mellitus with hyperglycemia E11.65 ; Essential hypertension I10 ; Atrial fibrillation, unspecified type I48.91 ; Polyneuropathy associated with underlying disease G63 ; Anemia, unspecified D64.9 ; Chronic obstructive pulmonary disease, unspecified COPD type J44.9 ; Other urinary incontinence N39.498 ; Lumbar degenerative disc disease M51.36 and GERD without esophagitis K21.9 [facility] [id number] [place] [address] 54980- 4501 May, [facility] [address], [place] [address]- 2988 May, [facility] [id number] [place] [address] 16441- 0688 May, [facility] [id number] [place] [address] 67729- 6417 May, Other chronic pain G89.29 [facility] [id number] [place] [address] 13259- 8620 Apr, Onychomycosis B35.1 and Type 2 diabetes mellitus with diabetic neuropathy, unspecified 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 [facility] [id number] [place] [address] 06311- 3590 Apr, Essential hypertension I10 [facility] [id number] [place] [address] 88074- 0415 Apr, [facility] [id number] [place] [address] 17910- 0026 Apr, Other chronic pain G89.29 [facility] [id number] [place] [address] 78989- 9378 Mar, Cervical pain (neck) M54.2 ; Other chronic pain G89.29 ; Other urinary incontinence N39.498 and Essential hypertension I10 [facility] [address], [place] [address]- 7954 Mar, [facility] [id number] [place] [address] 15000- 4564 Mar, Other chronic pain G89.29 [facility] [address] [address] 3282 February, [facility] [address] [address] 5112 February, [facility] [id number] [place] [address] 31292- 0287 February, Other chronic pain G89.29 [facility] [id number] [place] [address] 23689- 6318 February, Essential hypertension I10 ; Type 2 diabetes mellitus with hyperglycemia E11.65 ; Alcoholic cirrhosis of liver without ascites K70.30 ; Chronic obstructive pulmonary disease, unspecified COPD type J44.9 ; Atrial fibrillation, unspecified type I48.91 ; Polyneuropathy associated with underlying disease G63 ; Anemia, unspecified D64.9 ; Requires assistance with activities of daily living (ADL) Z74.1 and Non-compliant behavior R46.89 [facility] [id number] [place] [address] [id number] February, Dental examination Z01.20 [place] [id number] [place] [address] 48889- 8513 Jan, [facility] [id number] [place] [address] [id number] Jan, Dental caries K02.9 [place] [id number] [place] [address] 65912- 9399 Jan, Anemia, unspecified D64.9 ; Chronic obstructive pulmonary disease, unspecified COPD type J44.9 ; Other chronic pain G89.29 ; Syncope and collapse R55 and Polyneuropathy associated with underlying disease G63 [facility] [id number] [place] [address] [id number] Jan, Dental examination Z01.20 [facility] [id number] [place] [address] 62447- 6938 Dec, Type 2 diabetes mellitus with hyperglycemia E11.65 ; Anemia , unspecified D64.9 ; Essential hypertension I10 ; Chronic obstructive pulmonary disease, unspecified COPD type J44.9 ; Atrial fibrillation, unspecified type I48.91 ; Cervical pain (neck) M54.2 ; Polyneuropathy associated with underlying disease G63 ; Low back pain M54.5 ; Other chronic pain G89.29 and Alcoholic cirrhosis of liver without ascites K70.30 [facility] [id number] [place] [address] 63826- 4567 Dec, [place] [address], [place] [address]- 8817 Dec, [facility] [address], [place] [address]- 4161 Dec, [facility] [address], [place] [address]- 2448 Dec, Type 2 diabetes mellitus with hyperglycemia E11.65 ; History of alcoholism F10.21 ; Anemia due to other cause D64.89 and Atrial fibrillation, unspecified type I48.91 [facility] [place] [address], [place] [address]- 2156 Dec, [facility] [place] [id number] [place] [address] 12930- 9796 Dec, [facility] [place] [id number] [place] [address] 24874- 0024 Dec, Type 2 diabetes mellitus with hyperglycemia E11.65 ; History of alcoholism F10.21 ; Anemia due to other cause D64.89 and Atrial fibrillation, unspecified type I48.91 [facility] [place] [address], [place] [address]- 0600 Nov, [facility] [place] [address], [place] [address]- 8695 Nov, Other chronic pain G89.29 [facility] [address], [place] [address]- 7144 Nov, Other chronic pain G89.29 [place] [place] [address], [place] [address]- 8404 Nov, Type 2 diabetes mellitus with hyperglycemia E11.65 ; Anemia due to other cause D64.89 ; Hypotension due to blood loss I95.89 ; Alcoholic cirrhosis of liver without ascites K70.30 ; History of alcoholism F10.21 and Chronic obstructive pulmonary disease, unspecified COPD type J44.9 [place] [address], [place] [address]- 7045 Sep, [facility] [id number] [id number] Jan, Dental examination Z01.20 [facility] [id number] [place] [address] 10543- 8078 Nov, Chronic obstructive pulmonary disease, unspecified COPD type J44.9 ; Panic attacks F41.0 and Other chronic pain G89.29 [facility] [id number] [place] [address] 52926- 7270 Jan, [place] [id number] [place] [address] 41935- 0821 Jan, [facility] [id number] [place] [address] 49234- 8771 Dec, [facility] [id number] [place] [address] 94141- 8311 Dec, [facility] [address], [place] [address]- 1407 Dec, [facility] [id number] [place] [address] 39137- 6541 Dec, IMMUNIZATIONS No Known Immunizations SOCIAL HISTORY Never Assessed REASON FOR VISIT unable to contact pt PLAN OF CARE VITAL SIGNS MEDICATIONS Unknown [...]
--- OUTSIDE RECORDS SUMMARY | 2018-07-29 05:25 | XMS REPORT ---
Author Author FRIDA PARKS Organization 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 Active 215774420 Problem Essential hypertension I10 Active 06879263 Problem Other hammer toe(s) (acquired), right foot M20.41 Active 615806520 Problem Lumbar degenerative disc disease M51.36 Active 53328634 Problem Anemia, unspecified D64.9 Active 049095392 Problem Falls frequently R29.6 Active 632462807 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 Active 379359227 Problem Other hammer toe(s) (acquired), left foot M20.42 Active 47834318 Problem Amputated toe of left foot Z89.422 Active 734427807 Problem Other chronic pain G89.29 Active 83825129 Problem Chronic obstructive pulmonary disease, unspecified COPD type J44.9 Active 59269715 Problem Hypercalcemia E83.52 Active 40880600 Problem Alcoholic cirrhosis of liver without ascites K70.30 Active 097737962 Problem Polyneuropathy associated with underlying disease G63 Active 359144846 Problem Cervical pain (neck) M54.2 Active 58779450 Problem Atrial fibrillation, unspecified type I48.91 Active 84198998 Problem Requires assistance with activities of daily living (ADL) Z74.1 Active 326554051 Problem Other chronic pain G89.29 Active 04028386 Problem Other urinary incontinence N39.498 Active 499699296 ALLERGIES No Information ENCOUNTERS Encounter Location Date Diagnosis [facility] [id number] [address] May, Lumbar degenerative disc disease M51.36 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 ; Polyneuropathy associated with underlying disease G63 ; Essential hypertension I10 ; Other hammer toe(s) (acquired), left foot M20.42 ; Other hammer toe(s) (acquired), right foot M20.41 and Amputated toe of left foot Z89.422 [place] [address] [address]- [address] May, [place] [address] [address]- [address]86 May, Type 2 diabetes mellitus with hyperglycemia E11.65 [facility] [id number] [place] [address] 82173- 0034 Apr, [facility] [address] [place] [id number] Apr, Type 2 diabetes mellitus with hyperglycemia E11.65 ; Chronic obstructive pulmonary disease, unspecified COPD type J44.9 and Essential hypertension I10 [place] [address] [place] [address] 15922- 4347 Apr, Type 2 diabetes mellitus with hyperglycemia E11.65 [facility] [place] [id number] [place] [address] 51476- 0797 Apr, Type 2 diabetes mellitus with hyperglycemia E11.65 [facility] [place] [id number] [place] [address] 25908- 9285 Apr, Lumbar degenerative disc disease M51.36 [facility] [address] [address] 17 Apr, 2018 Type 2 diabetes mellitus with hyperglycemia E11.65 [facility] [address] [place] [id number] Apr, Type 2 diabetes mellitus with hyperglycemia E11.65 ; Atrial fibrillation, unspecified type I48.91 ; Anemia due to other cause D64.89 ; Alcoholism / alcohol abuse F10.20 ; Acute pylorus ulcer K25.3 and Alcoholic cirrhosis of liver without ascites K70.30 [facility] [id number] [place] [address] 34081- 1945 Apr, Lumbar degenerative disc disease M51.36 [facility] [id number] [place] [address] 19244- 2630 Mar, [facility] [id number] [place] [address] 94437- 3778 Mar, [facility] [place] [id number] [place] [address] 12059- 2751 Mar, [facility] [id number] [place] [address] 63177- 9356 Mar, [facility] [id number] [place] [address] 87275- 9758 Mar, Lumbar degenerative disc disease M51.36 [facility] [place] [id number] [place] [address] 48605- 1107 14 Mar, 2018 Dizziness R42 ; Falls frequently R29.6 ; Weight loss, non- intentional R63.4 ; Essential hypertension I10 ; Cardiac murmur R01.1 ; Hypercalcemia E83.52 and Requires assistance with activities of daily living ( ADL) Z74.1 [facility] [id number] [place] [address] 66348- 8356 Mar, [facility] [id number] [place] [address] 84328- 7763 Mar, Hypercalcemia E83.52 [facility] [place] [id number] [place] [address] 07761- 3991 February, Lumbar degenerative disc disease M51.36 [facility] [id number] [place] [address] 63671- 7569 February, Type 2 diabetes mellitus with diabetic neuropathy, unspecified [employer] insulin 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 ; Type 2 diabetes mellitus with other specified complication E11.69 ; long-term current use of 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 ; Essential hypertension I10 ; Chronic obstructive pulmonary disease, unspecified COPD type J44.9 ; Polyneuropathy associated with underlying disease G63 ; Atrial fibrillation, unspecified type I48.91 ; GERD without esophagitis K21.9 and Lumbar degenerative disc disease M51.36 [facility] [id number] [place] [address] 66118- 3592 Jan, Other chronic pain G89.29 [facility] [id number] [place] [address] 60313- 2146 Jan, [facility] [place] [id number] [place] [address] 54066- 4024 Jan, [place] [id number] [place] [address] 50385- 7745 Jan, Type 2 diabetes mellitus with diabetic neuropathy, unspecified halfway insulin 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 [facility] [place] [id number] [place] [address] 57622- 4157 Jan, [facility] [place] [id number] [place] [address] 02633- 8112 Jan, [facility] [id number] [place] [address] 99253- 3662 Jan, Other chronic pain G89.29 [facility] [id number] [place] [address] 01027- 6032 Dec, Atrial fibrillation, unspecified type I48.91 ; Essential hypertension I10 and Other chronic pain G89.29 [facility] [id number] [place] [address] 60541- 1968 Dec, Atrial fibrillation, unspecified type I48.91 [facility] [address] [address] Dec, [facility] [address] [place] [address] 19619- 7483 Nov, Other chronic pain G89.29 [facility] [id number] [place] [address] 72009- 1700 Nov, [facility] [id number] [place] [address] 95133- 2046 Nov, [facility] [id number] [place] [address] 67234- 5028 Nov, Type 2 diabetes mellitus with diabetic neuropathy, unspecified [employer] insulin 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 ; Type 2 diabetes mellitus with hyperglycemia E11.65 ; Essential hypertension I10 ; Chronic obstructive pulmonary disease, unspecified COPD type J44.9 ; Atrial fibrillation, unspecified type I48.91 ; GERD without esophagitis K21.9 ; Lumbar degenerative disc disease M51.36 ; Alcoholism /alcohol abuse F10.20 and Encounter for immunization Z23 [place] [id number] [place] [address] 48259- 4272 Oct, Type 2 diabetes mellitus with hyperglycemia E11.65 ; Other chronic pain G89.29 and Other [employer] (current) drug therapy Z79.899 [place] [address] [place] [address] 53798- 2438 Oct, [place] [id number] [place] [address] 68293- 0630 Oct, Essential hypertension I10 ; Anemia, unspecified D64.9 ; Chronic obstructive pulmonary disease, unspecified COPD type J44.9 ; Type 2 diabetes mellitus with hyperglycemia E11.65 ; Alcoholic cirrhosis of liver without ascites K70.30 ; Polyneuropathy associated with underlying disease G63 and Atrial fibrillation, unspecified type I48.91 [place] [address] [place] [address] 86045- 6083 Sep, Other chronic pain G89.29 [facility] [address] [address] Sep, Type 2 diabetes mellitus with hyperglycemia E11.65 ; Atrial fibrillation, unspecified type I48.91 and Essential hypertension I10 [facility] [address] [address] 6272 Sep, Essential hypertension I10 [facility] [id number] [place] [address] 52816- 5402 Sep, Essential hypertension I10 [facility] [id number] [place] [address] 99908- 3428 Sep, [facility] [id number] [place] [address] 03917- 6332 Sep, Other chronic pain G89.29 [facility] [address] [place] [address] 63485- 7865 Aug, [facility] [address] [place] [address] 57649- 6566 Aug, Polyneuropathy associated with underlying disease G63 and Chronic obstructive pulmonary disease, unspecified COPD type J44.9 [facility] [id number] [id number] Aug, [facility] [id number] [address] Aug, [facility] [address] [address]- 1141 Aug, Chronic obstructive pulmonary disease, unspecified COPD type J44.9 [facility] [address] [place] [address] 05954- 9912 Aug, Medicare annual wellness visit, subsequent Z00.00 [facility] [address] [place] [address] 96104- 4571 07 Aug, 2017 Other chronic pain G89.29 [facility] [id number] [place] [address] 91965- 3240 Jul, [facility] [id number] [place] [address] 00002- 9618 Jul, [facility] [id number] [place] [address] 82637- 2673 Jul, Other chronic pain G89.29 and Essential hypertension I10 [facility] [id number] [place] [address] 78429- 7814 29 Jun, 2017 [facility] [id number] [place] [address] 36895- 4211 19 Jun, [address] [facility] [id number] [place] [address] 81159- 3855 07 Jun, 2017 [facility] [id number] [place] [address] 81058- 2146 Jun, Other chronic pain G89.29 [facility] [id number] [place] [address] 93906- 8686 06 Jun, 2017 Other chronic pain G89.29 [facility] [id number] [place] [address] 27901- 6252 05 Jun, 2017 [facility] [id number] [place] [address] 05901- 4472 Jun, Type 2 diabetes mellitus with hyperglycemia E11.65 ; Essential hypertension I10 ; Atrial fibrillation, unspecified type I48.91 ; Polyneuropathy associated with underlying disease G63 ; Anemia, unspecified D64.9 ; Chronic obstructive pulmonary disease, unspecified COPD type J44.9 ; Other urinary incontinence N39.498 ; Lumbar degenerative disc disease M51.36 and GERD without esophagitis K21.9 [facility] [id number] [place] [address] 95142- 1534 May, [facility] [id number] [place] [address] 15202- 3064 May, [facility] [id number] [place] [address] 68091- 5089 May, [facility] [address] [address]- 5914 May, Other chronic pain G89.29 [facility] [address] [place] [address] 49233- 5788 Apr, Onychomycosis B35.1 and Type 2 diabetes mellitus with diabetic neuropathy, unspecified halfway insulin 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 [facility] [id number] [place] [address] 35021- 7726 Apr, Essential hypertension I10 [place] [id number] [place] [address] 60366- 1854 Apr, [place] [id number] [place] [address] 68947- 1501 Apr, Other chronic pain G89.29 [place] [id number] [place] [address] 04632- 4425 Mar, Cervical pain (neck) M54.2 ; Other chronic pain G89.29 ; Other urinary incontinence N39.498 and Essential hypertension I10 [place] [address] [place] [address] 27280- 0564 Mar, [facility] [address] [address]- 8522 Mar, Other chronic pain G89.29 [facility] [address] [address]- 1015 February, [facility] [address] [address]- 1099 February, [facility] [id number] [place] [address] 49784- 0082 February, Other chronic pain G89.29 [facility] [address] [address]- 8339 February, Essential hypertension I10 ; Type 2 [...] R46.89 [facility] [id number] [place] [address] [id number] February, Dental examination Z01.20 [facility] [id number] [place] [address] 21425- 9104 Jan, [facility] [id number] [place] [address] [id number] Jan, Dental caries K02.9 [facility] [id number] [place] [address] 11843- 5536 Jan, Anemia, unspecified D64.9 ; Chronic obstructive pulmonary disease, unspecified COPD type J44.9 ; Other chronic pain G89.29 ; Syncope and collapse R55 and Polyneuropathy associated with underlying disease G63 [facility] [id number] [place] [address] [id number] Jan, Dental examination Z01.20 [facility] [address] [place] [address] 09799- 4754 Dec, Type 2 diabetes mellitus with hyperglycemia E11.65 ; Anemia , unspecified D64.9 ; Essential hypertension I10 ; Chronic obstructive pulmonary disease, unspecified COPD type J44.9 ; Atrial fibrillation, unspecified type I48.91 ; Cervical pain (neck) M54.2 ; Polyneuropathy associated with underlying disease G63 ; Low back pain M54.5 ; Other chronic pain G89.29 and Alcoholic cirrhosis of liver without ascites K70.30 [facility] [address] [place] [address] 20619- 0138 Dec, [facility] [address] [place] [address] 92664- 7800 Dec, [facility] [address] [address]- 8007 Dec, [place] [address] [place] [address] 07706- 5853 Dec, Type 2 diabetes mellitus with hyperglycemia E11.65 ; History of alcoholism F10.21 ; Anemia due to other cause D64.89 and Atrial fibrillation, unspecified type I48.91 [place] [id number] [place] [address] 02789- 9884 Dec, [place] [address] [place] [address] 60667- 1835 Dec, [place] [id number] [place] [address] 25190- 3060 Dec, Type 2 diabetes mellitus with hyperglycemia E11.65 ; History of alcoholism F10.21 ; Anemia due to other cause D64.89 and Atrial fibrillation, unspecified type I48.91 [place] [id number] [place] [address] 32419- 6765 Nov, [place] [id number] [place] [address] 19683- 5701 Nov, Other chronic pain G89.29 [facility] [id number] [place] [address] 80998- 1523 Nov, Other chronic pain G89.29 [place] [address] [place] [address] 38640- 3109 10 Nov, 2016 Type 2 diabetes mellitus with hyperglycemia E11.65 ; Anemia due to other cause D64.89 ; Hypotension due to blood loss I95.89 ; Alcoholic cirrhosis of liver without ascites K70.30 ; History of alcoholism F10.21 and Chronic obstructive pulmonary disease, unspecified COPD type J44.9 [place] [address] [address]- 2620 Sep, [facility] [address] [place] [address] [id number] 06 Apr, [address] [facility] [address] [address]- 1728 Nov, Chronic obstructive pulmonary disease, unspecified COPD type J44.9 ; Panic attacks F41.0 and Other chronic pain G89.29 [facility] [address] [address]- 7139 Jan, [facility] [id number] [place] [address] 41395- 6842 Jan, [facility] [id number] [place] [address] 73479- 5172 Dec, [facility] [id number] [place] [address] 12984- 8749 Dec, [facility] [address] [place] [address] 60131- 4179 Dec, [place] [address] [place] [address] 16950- 0259 Dec, IMMUNIZATIONS No Known Immunizations SOCIAL HISTORY Never Assessed REASON FOR VISIT fyi PLAN OF CARE VITAL SIGNS MEDICATIONS Unknown [...]
--- OUTSIDE RECORDS SUMMARY | 2018-07-29 05:26 | XMS REPORT ---
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 Active 911718483 Problem Essential hypertension I10 Active 82348987 Problem Other hammer toe(s) (acquired), right foot M20.41 Active 808975475 Problem Lumbar degenerative disc disease M51.36 Active 79191390 Problem Anemia, unspecified D64.9 Active 483118519 Problem Falls frequently R29.6 Active 380871169 Problem 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 Active 293863007 Problem Other hammer toe(s) (acquired), left foot M20.42 Active 73739459 Problem Amputated toe of left foot Z89.422 Active 643727960 Problem Other chronic pain G89.29 Active 48058222 Problem Chronic obstructive pulmonary disease, unspecified COPD type J44.9 Active 46177236 Problem Hypercalcemia E83.52 Active 98039709 Problem Alcoholic cirrhosis of liver without ascites K70.30 Active 400888914 Problem Polyneuropathy associated with underlying disease G63 Active 782979706 Problem Cervical pain (neck) M54.2 Active 60735664 Problem Atrial fibrillation, unspecified type I48.91 Active 90781118 Problem Requires assistance with activities of daily living (ADL) Z74.1 Active 163880432 Problem Other chronic pain G89.29 Active 26816235 Problem Other urinary incontinence N39.498 Active 732415035 ALLERGIES No Information ENCOUNTERS Encounter Location Date Diagnosis [facility] [id number] [id number] May, Dental examination Z01.20 and Dental caries K02.9 [id number] [place] [address] 09612- 0184 May, 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 ; 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 ; Polyneuropathy associated with underlying disease G63 ; Essential hypertension I10 ; Other hammer toe(s) (acquired), left foot M20.42 ; Other hammer toe(s) (acquired), right foot M20.41 and Amputated toe of left foot Z89.422 [id number] [place] [address] 36285- 6707 May, [id number] [place] [address] 44958- 3492 May, Type 2 diabetes mellitus with hyperglycemia E11.65 [id number] [place] [address] 70708- 5018 Apr, [facility] [address] [id number] Apr, Type 2 diabetes mellitus with hyperglycemia E11.65 ; Chronic obstructive pulmonary disease, unspecified COPD type J44.9 and Essential hypertension I10 [address] [place] [address] 99788- 4781 Apr, Type 2 diabetes mellitus with hyperglycemia E11.65 [id number] [place] [address] 88051- 7036 Apr, Type 2 diabetes mellitus with hyperglycemia E11.65 [address] [place] [address] 59131- 6735 Apr, Lumbar degenerative disc disease M51.36 [id number] [place] [address] 21925- 6218 Apr, Type 2 diabetes mellitus with hyperglycemia E11.65 [facility] [address] [address] [id number] Apr, Type 2 diabetes mellitus with hyperglycemia E11.65 ; Atrial fibrillation, unspecified type I48.91 ; Anemia due to other cause D64.89 ; Alcoholism / alcohol abuse F10.20 ; Acute pylorus ulcer K25.3 and Alcoholic cirrhosis of liver without ascites K70.30 [place] [place] [id number] [place] [address] 28894- 5999 Apr, Lumbar degenerative disc disease M51.36 [place] [facility] [id number] [place] [address] 45094- 9593 Mar, [place] [id number] [place] [address] 83736- 8523 Mar, [place] [address] 78522- 4149 Mar, [place] [facility] [id number] [place] [address] 49490- 5044 Mar, [place] [facility] [id number] [place] [address] 64684- 7771 Mar, Lumbar degenerative disc disease M51.36 [facility] [id number] [place] [address] 05600- 1649 Mar, Dizziness R42 ; Falls frequently R29.6 ; Weight loss, non- intentional R63.4 ; Essential hypertension I10 ; Cardiac murmur R01.1 ; Hypercalcemia E83.52 and Requires assistance with activities of daily living ( ADL) Z74.1 [place] [id number] [place] [address] 48040- 3041 Mar, [place] [id number] [place] [address] 02881- 5760 Mar, Hypercalcemia E83.52 [id number] [place] [address] 77236- 5297 February, Lumbar degenerative disc disease M51.36 [place] [facility] [id number] [place] [address] 53166- 2138 February, Type 2 diabetes mellitus with diabetic neuropathy, unspecified 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 ; Type 2 diabetes mellitus with other specified complication E11.69 ; 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 ; Essential hypertension I10 ; Chronic obstructive pulmonary disease, unspecified COPD type J44.9 ; Polyneuropathy associated with underlying disease G63 ; Atrial fibrillation, unspecified type I48.91 ; GERD without esophagitis K21.9 and Lumbar degenerative disc disease M51.36 [place] [id number] [place] [address] 10038- 7850 Jan, Other chronic pain G89.29 [place] [facility] [id number] [place] [address] 99138- 0270 Jan, [place] [facility] [id number] [place] [address] 48407- 9009 Jan, [place] [facility] [id number] [place] [address] 17095- 3486 Jan, Type 2 diabetes mellitus with diabetic neuropathy, unspecified 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 [facility] [id number] [place] [address] 57154- 3946 Jan, [place] [id number] [place] [address] 80577- 0120 Jan, [facility] [id number] [place] [address] 35794- 5283 Jan, Other chronic pain G89.29 [place] [id number] [place] [address] 41896- 6920 Dec, Atrial fibrillation, unspecified type I48.91 ; Essential hypertension I10 and Other chronic pain G89.29 [place] [id number] [place] [address] 57278- 7127 Dec, Atrial fibrillation, unspecified type I48.91 [place] [facility] [id number] [place] [address] 72696- 2907 Dec, [facility] [id number] [place] [address] 43538- 1215 Nov, Other chronic pain G89.29 [address] [address] 07[address] Nov, [place] [address] [place] [address] 00380- 7668 Nov, [place] [address] [place] [address] 27984- 5489 Nov, Type 2 diabetes mellitus with diabetic neuropathy, unspecified fci insulin 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 ; Type 2 diabetes mellitus with hyperglycemia E11.65 ; Essential hypertension I10 ; Chronic obstructive pulmonary disease, unspecified COPD type J44.9 ; Atrial fibrillation, unspecified type I48.91 ; GERD without esophagitis K21.9 ; Lumbar degenerative disc disease M51.36 ; Alcoholism /alcohol abuse F10.20 and Encounter for immunization Z23 [id number] [place] [address] 04656- 9454 Oct, Type 2 diabetes mellitus with hyperglycemia E11.65 ; Other chronic pain G89.29 and Other fci (current) drug therapy Z79.899 [place] [address] [place] [address] 19511- 4700 Oct, [id number] [place] [address] 56263- 4538 Oct, Essential hypertension I10 ; Anemia, unspecified D64.9 ; Chronic obstructive pulmonary disease, unspecified COPD type J44.9 ; Type 2 diabetes mellitus with hyperglycemia E11.65 ; Alcoholic cirrhosis of liver without ascites K70.30 ; Polyneuropathy associated with underlying disease G63 and Atrial fibrillation, unspecified type I48.91 [place] [address] [place] [address] 06743- 4361 Sep, Other chronic pain G89.29 [address] [place] [address] 50281- 8542 Sep, Type 2 diabetes mellitus with hyperglycemia E11.65 ; Atrial fibrillation, unspecified type I48.91 and Essential hypertension I10 [place] [address] [address] 46[address] 13 Sep, 2017 Essential hypertension I10 [facility] [address] [address]- 3347 Sep, Essential hypertension I10 [facility] [address] [address]- 6463 07 Sep, 2017 [facility] [address] [place] [address] 95935- 0077 Sep, Other chronic pain G89.29 [facility] [address] [address]- 3238 Aug, [facility] [address] [place] [address] 53920- 0575 Aug, Polyneuropathy associated with underlying disease G63 and Chronic obstructive pulmonary disease, unspecified COPD type J44.9 [facility] [address] [id number] Aug, [facility] [address] [address]- 9622 Aug, [facility] [address] [place] [address] 52837- 8642 Aug, Chronic obstructive pulmonary disease, unspecified COPD type J44.9 [facility] [address] [address]- 0147 10 Aug, 2017 Medicare annual wellness visit, subsequent Z00.00 [facility] [address] [address]- 8533 07 Aug, 2017 Other chronic pain G89.29 [facility] [address], [place] [address]- 9396 16 Jul, 2017 [facility] [address] [address]- 5215 12 Jul, 2017 [facility] [address] [place] [address] 09799- 1502 Jul, Other chronic pain G89.29 and Essential hypertension I10 [facility] [id number] [place] [address] 48952- 3639 Jun, [facility] [id number] [place] [address] 27190- 6766 Jun, Essential hypertension I10 [facility] [id number] [place] [address] 05188- 9276 Jun, [facility] [id number] [place] [address] 13401- 6106 Jun, Other chronic pain G89.29 [facility] [id number] [place] [address] 11367- 2074 Jun, Other chronic pain G89.29 [facility] [id number] [place] [address] 45838- 7670 Jun, [facility] [id number] [place] [address] 34205- 0465 Jun, Type 2 diabetes mellitus with hyperglycemia E11.65 ; Essential hypertension I10 ; Atrial fibrillation, unspecified type I48.91 ; Polyneuropathy associated with underlying disease G63 ; Anemia, unspecified D64.9 ; Chronic obstructive pulmonary disease, unspecified COPD type J44.9 ; Other urinary incontinence N39.498 ; Lumbar degenerative disc disease M51.36 and GERD without esophagitis K21.9 [facility] [id number] [place] [address] 22750- 7825 May, [facility] [id number] [place] [address] 12465- 0060 May, [facility] [id number] [place] [address] 96893- 8792 May, [facility] [id number] [place] [address] 02989- 3084 May, Other chronic pain G89.29 [facility] [id number] [place] [address] 53533- 3217 Apr, Onychomycosis B35.1 and Type 2 diabetes mellitus with diabetic neuropathy, unspecified 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 [place] [id number] [place] [address] 70928- 9789 Apr, Essential hypertension I10 [place] [id number] [place] [address] 34541- 2629 Apr, [place] [facility] [id number] [place] [address] 16900- 9301 Apr, Other chronic pain G89.29 [place] [facility] [id number] [place] [address] 24358- 7585 Mar, Cervical pain (neck) M54.2 ; Other chronic pain G89.29 ; Other urinary incontinence N39.498 and Essential hypertension I10 [place] [id number] [place] [address] 84262- 6626 Mar, [place] [facility] [id number] [place] [address] 27102- 6872 Mar, Other chronic pain G89.29 [place] [id number] [place] [address] 87340- 1306 February, [place] [address] [place] [address] 74143- 8434 February, [place] [id number] [place] [address] 11540- 1973 February, Other chronic pain G89.29 [place] [address] [place] [address] 06991- 6332 February, Essential hypertension I10 ; Type 2 diabetes mellitus with hyperglycemia E11.65 ; Alcoholic cirrhosis of liver without ascites K70.30 ; Chronic obstructive pulmonary disease, unspecified COPD type J44.9 ; Atrial fibrillation, unspecified type I48.91 ; Polyneuropathy associated with underlying disease G63 ; Anemia, unspecified D64.9 ; Requires assistance with activities of daily living (ADL) Z74.1 and Non-compliant behavior R46.89 [facility] [id number] [id number] February, Dental examination Z01.20 [facility] [address] [place] [address] 70958599- 6521 Jan, [facility] [address] [place] [address] [id number] Jan, Dental caries K02.9 [facility] [id number] [place] [address] 97830- 5971 Jan, Anemia, unspecified D64.9 ; Chronic obstructive pulmonary disease, unspecified COPD type J44.9 ; Other chronic pain G89.29 ; Syncope and collapse R55 and Polyneuropathy associated with underlying disease G63 [facility] [address] [address] Jan, Dental examination Z01.20 [facility] [address] [place] [address] 20436- 5938 Dec, Type 2 diabetes mellitus with hyperglycemia E11.65 ; Anemia , unspecified D64.9 ; Essential hypertension I10 ; Chronic obstructive pulmonary disease, unspecified COPD type J44.9 ; Atrial fibrillation, unspecified type I48.91 ; Cervical pain (neck) M54.2 ; Polyneuropathy associated with underlying disease G63 ; Low back pain M54.5 ; Other chronic pain G89.29 and Alcoholic cirrhosis of liver without ascites K70.30 [facility] [address] [place] [address] 25483- 9337 Dec, [facility] [id number] [place] [address] 88649- 4095 Dec, [facility] [id number] [place] [address] 04835- 2307 Dec, [facility] [address] [place] [address] 76292- 7988 Dec, Type 2 diabetes mellitus with hyperglycemia E11.65 ; History of alcoholism F10.21 ; Anemia due to other cause D64.89 and Atrial fibrillation, unspecified type I48.91 [place] [facility] [id number] [place] [address] 67632- 6627 Dec, [place] [facility] [id number] [place] [address] 25889- 0301 Dec, [place] [id number] [place] [address] 37372- 1690 Dec, Type 2 diabetes mellitus with hyperglycemia E11.65 ; History of alcoholism F10.21 ; Anemia due to other cause D64.89 and Atrial fibrillation, unspecified type I48.91 [place] [id number] [place] [address] 18877- 5886 Nov, [place] [facility] [id number] [place] [address] 18842- 2959 Nov, Other chronic pain G89.29 [facility] [id number] [place] [address] 03366- 3574 Nov, Other chronic pain G89.29 [facility] [id number] [place] [address] 64694- 1975 Nov, Type 2 diabetes mellitus with hyperglycemia E11.65 ; Anemia due to other cause D64.89 ; Hypotension due to blood loss I95.89 ; Alcoholic cirrhosis of liver without ascites K70.30 ; History of alcoholism F10.21 and Chronic obstructive pulmonary disease, unspecified COPD type J44.9 [place] [address] [place] [address] 16966- 6107 Sep, [facility] [id number] [place] [address] [id number] Jan, Dental examination Z01.20 [place] [facility] [id number] [place] [address] 20350- 3911 23 Nov, 2015 Chronic obstructive pulmonary disease, unspecified COPD type J44.9 ; Panic attacks F41.0 and Other chronic pain G89.29 [place] [address] [address]- 1214 14 Jan, 2015 [facility] [address] [facility] [id number] [address]- 9351 Jan, [facility] [id number] [address]- 9452 Dec, [facility] [address] [facility] [id number] [address]- 5045 Dec, [facility] [id number] [address]- 8512 Dec, [facility] [address] [facility] [id number] [address]- 5761 Dec, IMMUNIZATIONS No Known Immunizations SOCIAL HISTORY Never Assessed REASON FOR VISIT Requests return call PLAN OF CARE VITAL SIGNS MEDICATIONS Medication Instructions Dosage Frequency Start Date End Date Duration Status Hydrocodone-Acetaminophen 5-325 mg Orally 2 times a day 1 tablet as needed 12h February, Mar, 28 days Active RESULTS No Results [...]
--- OUTSIDE RECORDS SUMMARY | 2018-07-29 05:26 | XMS REPORT ---
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 Active 311516440 Problem Essential hypertension I10 Active 11067823 Problem Other hammer toe(s) (acquired), right foot M20.41 Active 250458145 Problem Lumbar degenerative disc disease M51.36 Active 14157059 Problem Anemia, unspecified D64.9 Active 423597474 Problem Falls frequently R29.6 Active 019260107 Problem 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 Active 335712298 Problem Other hammer toe(s) (acquired), left foot M20.42 Active 31867280 Problem Amputated toe of left foot Z89.422 Active 415371018 Problem Other chronic pain G89.29 Active 49696067 Problem Chronic obstructive pulmonary disease, unspecified COPD type J44.9 Active 09550394 Problem Hypercalcemia E83.52 Active 00481513 Problem Alcoholic cirrhosis of liver without ascites K70.30 Active 713115303 Problem Polyneuropathy associated with underlying disease G63 Active 940588322 Problem Cervical pain (neck) M54.2 Active 88428839 Problem Atrial fibrillation, unspecified type I48.91 Active 54127715 Problem Requires assistance with activities of daily living (ADL) Z74.1 Active 726991389 Problem Other chronic pain G89.29 Active 00723632 Problem Other urinary incontinence N39.498 Active [id number] ALLERGIES No Information ENCOUNTERS Encounter Location Date Diagnosis [facility] [id number] [id number] May, Dental examination Z01.20 and Dental caries K02.[id number] [place] [address] 32180- 1188 May, 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 ; 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 ; Polyneuropathy associated with underlying disease G63 ; Essential hypertension I10 ; Other hammer toe(s) (acquired), left foot M20.42 ; Other hammer toe(s) (acquired), right foot M20.41 and Amputated toe of left foot Z89.422 [id number] [place] [address] 02995- 0507 May, [id number] [place] [address] 87196- 1426 May, Type 2 diabetes mellitus with hyperglycemia E11.65 [id number] [place] [address] 37105- 6755 Apr, [facility] [address] [id number] Apr, Type 2 diabetes mellitus with hyperglycemia E11.65 ; Chronic obstructive pulmonary disease, unspecified COPD type J44.9 and Essential hypertension I10 [address] [place] [address] 14489- 6862 Apr, Type 2 diabetes mellitus with hyperglycemia E11.65 [id number] [place] [address] 15173- 7998 Apr, Type 2 diabetes mellitus with hyperglycemia E11.65 [address] [place] [address] 45376- 4796 Apr, Lumbar degenerative disc disease M51.36 [id number] [place] [address] 19837- 9839 Apr, Type 2 diabetes mellitus with hyperglycemia E11.65 [facility] [address] [facility] [id number] Apr, Type 2 diabetes mellitus with hyperglycemia E11.65 ; Atrial fibrillation, unspecified type I48.91 ; Anemia due to other cause D64.89 ; Alcoholism / alcohol abuse F10.20 ; Acute pylorus ulcer K25.3 and Alcoholic cirrhosis of liver without ascites K70.30 [id number] [place] [address] 61977- 1172 Apr, Lumbar degenerative disc disease M51.36 [id number] [place] [address] 27332- 8069 Mar, [address] [id number] [place] [address] 14751- 5947 Mar, [address] 10489- 1561 Mar, [place] [id number] [place] [address] 24794- 5790 Mar, [place] [id number] [place] [address] 01332- 1142 Mar, Lumbar degenerative disc disease M51.36 [id number] [place] [address] 06604- 3188 Mar, Dizziness R42 ; Falls frequently R29.6 ; Weight loss, non- intentional R63.4 ; Essential hypertension I10 ; Cardiac murmur R01.1 ; Hypercalcemia E83.52 and Requires assistance with activities of daily living ( ADL) Z74.1 [id number] [place] [address] 81055- 6280 Mar, [id number] [place] [address] 98406- 8695 Mar, Hypercalcemia E83.52 [id number] [place] [address] 88686- 5851 February, Lumbar degenerative disc disease M51.36 [id number] [place] [address] 19311- 1125 February, Type 2 diabetes mellitus with diabetic neuropathy, unspecified human services case manager 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 ; Type 2 diabetes mellitus with other specified complication E11.69 ; 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 ; Essential hypertension I10 ; Chronic obstructive pulmonary disease, unspecified COPD type J44.9 ; Polyneuropathy associated with underlying disease G63 ; Atrial fibrillation, unspecified type I48.91 ; GERD without esophagitis K21.9 and Lumbar degenerative disc disease M51.36 [id number] [place] [address] 45499- 0401 Jan, Other chronic pain G89.29 [address] [id number] [place] [address] 67507- 6173 Jan, [place] [id number] [place] [address] 39267- 0546 Jan, [place] [id number] [place] [address] 52455- 6489 Jan, Type 2 diabetes mellitus with diabetic neuropathy, unspecified human services case manager insulin 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 [facility] [id number] [place] [address] 85400- 8511 Jan, [place] [id number] [place] [address] 03490- 3530 Jan, [facility] [id number] [place] [address] 57575- 9966 Jan, Other chronic pain G89.29 [address] [id number] [place] [address] 23387- 0554 Dec, Atrial fibrillation, unspecified type I48.91 ; Essential hypertension I10 and Other chronic pain G89.29 [address] [place] [id number] [place] [address] 49726- 0863 Dec, Atrial fibrillation, unspecified type I48.91 [address] [place] [id number] [place] [address] 86164- 3408 Dec, [place] [facility] [id number] [place] [address] 16800- 5319 Nov, Other chronic pain G89.29 [address], [place] [address]- 6400 Nov, [address] [place] [address] 82918- 4131 Nov, [address] [place] [address] 53420- 6503 Nov, Type 2 diabetes mellitus with diabetic neuropathy, unspecified long-term insulin 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 ; Type 2 diabetes mellitus with hyperglycemia E11.65 ; Essential hypertension I10 ; Chronic obstructive pulmonary disease, unspecified COPD type J44.9 ; Atrial fibrillation, unspecified type I48.91 ; GERD without esophagitis K21.9 ; Lumbar degenerative disc disease M51.36 ; Alcoholism /alcohol abuse F10.20 and Encounter for immunization Z23 [id number] [place] [address] 23174- 0629 Oct, Type 2 diabetes mellitus with hyperglycemia E11.65 ; Other chronic pain G89.29 and Other long-term (current) drug therapy Z79.899 [address] [place] [address] 68255- 1584 Oct, [id number] [place] [address] 86364- 4695 Oct, Essential hypertension I10 ; Anemia, unspecified D64.9 ; Chronic obstructive pulmonary disease, unspecified COPD type J44.9 ; Type 2 diabetes mellitus with hyperglycemia E11.65 ; Alcoholic cirrhosis of liver without ascites K70.30 ; Polyneuropathy associated with underlying disease G63 and Atrial fibrillation, unspecified type I48.91 [address] [place] [address] 51232- 5556 Sep, Other chronic pain G89.29 [address] [place] [address] 23049- 6518 Sep, Type 2 diabetes mellitus with hyperglycemia E11.65 ; Atrial fibrillation, unspecified type I48.91 and Essential hypertension I10 [address], [place] [address]- 4923 13 Sep, 2017 Essential hypertension I10 [facility] [address], [place] [address]- 4934 Sep, Essential hypertension I10 [facility] [address], [place] [address]- 2482 07 Sep, 2017 [facility] [address] [place] [address] 02394- 5837 Sep, Other chronic pain G89.29 [facility] [address], [place] [address] 0866 Aug, [facility] [address] [place] [address] 86628- 4678 Aug, Polyneuropathy associated with underlying disease G63 and Chronic obstructive pulmonary disease, unspecified COPD type J44.9 [facility] [address] [id number] Aug, [facility] [address], [place] [address]- 4979 Aug, [facility] [address] [place] [address] 47086- 5731 Aug, Chronic obstructive pulmonary disease, unspecified COPD type J44.9 [facility] [address], [place] [address] 0117 10 Aug, 2017 Medicare annual wellness visit, subsequent Z00.00 [facility] [address], [place] [address]- 9303 07 Aug, 2017 Other chronic pain G89.29 [facility] [address], [place] [address]- 0577 16 Jul, 2017 [facility] [address], [place] [address]- 1631 12 Jul, 2017 [facility] [address] [place] [address] 94384- 2808 Jul, Other chronic pain G89.29 and Essential hypertension I10 [facility] [id number] [place] [address] 44155- 2332 Jun, [facility] [id number] [place] [address] 76479- 1174 Jun, Essential hypertension I10 [facility] [id number] [place] [address] 75920- 1532 Jun, [facility] [id number] [place] [address] 42002- 2531 Jun, Other chronic pain G89.29 [facility] [id number] [place] [address] 61818- 5011 Jun, Other chronic pain G89.29 [facility] [id number] [place] [address] 49986- 0377 Jun, [facility] [id number] [place] [address] 44939- 0134 Jun, Type 2 diabetes mellitus with hyperglycemia E11.65 ; Essential hypertension I10 ; Atrial fibrillation, unspecified type I48.91 ; Polyneuropathy associated with underlying disease G63 ; Anemia, unspecified D64.9 ; Chronic obstructive pulmonary disease, unspecified COPD type J44.9 ; Other urinary incontinence N39.498 ; Lumbar degenerative disc disease M51.36 and GERD without esophagitis K21.9 [facility] [id number] [place] [address] 93067- 1817 May, [facility] [id number] [place] [address] 60944- 0217 May, [facility] [id number] [place] [address] 14922- 5178 May, [facility] [id number] [place] [address] 22933- 3210 May, Other chronic pain G89.29 [facility] [id number] [place] [address] 51371- 4280 Apr, Onychomycosis B35.1 and Type 2 diabetes mellitus with diabetic neuropathy, unspecified human services case manager insulin 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 [address] [facility] [id number] [place] [address] 84518- 1242 Apr, Essential hypertension I10 [address] [place] [id number] [place] [address] 61455- 0388 Apr, [address] [facility] [id number] [place] [address] 96711- 9527 Apr, Other chronic pain G89.29 [address] [facility] [id number] [place] [address] 80450- 0006 Mar, Cervical pain (neck) M54.2 ; Other chronic pain G89.29 ; Other urinary incontinence N39.498 and Essential hypertension I10 [id number] [place] [address] 42616- 5188 Mar, [place] [facility] [id number] [place] [address] 29851- 1897 Mar, Other chronic pain G89.29 [address] [facility] [id number] [place] [address] 50353- 1643 February, [address] [facility] [address] [place] [address] 10432- 2749 February, [facility] [id number] [place] [address] 93633- 5632 February, Other chronic pain G89.29 [address] [place] [address] 69453- 1245 February, Essential hypertension I10 ; Type 2 diabetes mellitus with hyperglycemia E11.65 ; Alcoholic cirrhosis of liver without ascites K70.30 ; Chronic obstructive pulmonary disease, unspecified COPD type J44.9 ; Atrial fibrillation, unspecified type I48.91 ; Polyneuropathy associated with underlying disease G63 ; Anemia, unspecified D64.9 ; Requires assistance with activities of daily living (ADL) Z74.1 and Non-compliant behavior R46.89 [facility] [id number] [id number] February, Dental examination Z01.20 [facility] [id number] [place] [address] 60574405- 7870 Jan, [facility] [address] [place] [address] [id number] Jan, Dental caries K02.9 [facility] [id number] [place] [address] 98174- 9355 Jan, Anemia, unspecified D64.9 ; Chronic obstructive pulmonary disease, unspecified COPD type J44.9 ; Other chronic pain G89.29 ; Syncope and collapse R55 and Polyneuropathy associated with underlying disease G63 [facility] [address] [id number] Jan, Dental examination Z01.20 [facility] [address] [place] [address] 48421- 6910 Dec, Type 2 diabetes mellitus with hyperglycemia E11.65 ; Anemia , unspecified D64.9 ; Essential hypertension I10 ; Chronic obstructive pulmonary disease, unspecified COPD type J44.9 ; Atrial fibrillation, unspecified type I48.91 ; Cervical pain (neck) M54.2 ; Polyneuropathy associated with underlying disease G63 ; Low back pain M54.5 ; Other chronic pain G89.29 and Alcoholic cirrhosis of liver without ascites K70.30 [facility] [id number] [place] [address] 52909- 2416 Dec, [facility] [id number] [place] [address] 51913- 1511 Dec, [facility] [id number] [place] [address] 65669- 7297 Dec, [facility] [address] [place] [address] 92370- 7932 Dec, Type 2 diabetes mellitus with hyperglycemia E11.65 ; History of alcoholism F10.21 ; Anemia due to other cause D64.89 and Atrial fibrillation, unspecified type I48.91 [address] [place] [id number] [place] [address] 11514- 2983 Dec, [place] [facility] [id number] [place] [address] 38260- 7997 Dec, [place] [facility] [id number] [place] [address] 13220- 7023 Dec, Type 2 diabetes mellitus with hyperglycemia E11.65 ; History of alcoholism F10.21 ; Anemia due to other cause D64.89 and Atrial fibrillation, unspecified type I48.91 [place] [id number] [place] [address] 18901- 2284 Nov, [facility] [id number] [place] [address] 53948- 3928 Nov, Other chronic pain G89.29 [facility] [id number] [place] [address] 95350- 2836 Nov, Other chronic pain G89.29 [facility] [id number] [place] [address] 06747- 6205 Nov, Type 2 diabetes mellitus with hyperglycemia E11.65 ; Anemia due to other cause D64.89 ; Hypotension due to blood loss I95.89 ; Alcoholic cirrhosis of liver without ascites K70.30 ; History of alcoholism F10.21 and Chronic obstructive pulmonary disease, unspecified COPD type J44.9 [address] [place] [address] [place] [address] 11675- 9666 Sep, [facility] [id number] [place] [address] [id number] Jan, Dental examination Z01.20 [address] [facility] [id number] [place] [address] 83299- 6766 23 Nov, 2015 Chronic obstructive pulmonary disease, unspecified COPD type J44.9 ; Panic attacks F41.0 and Other chronic pain G89.29 [place] [facility] [address] [address] 7211 Jan, [facility] [id number], [place] [address]- 7213 Jan, [facility] [id number] [address]- 6674 Dec, [facility] [id number], [place] [address]- 0615 Dec, [facility] [id number], [place] [address]- 3004 Dec, [facility] [id number], [place] [address]- 7702 Dec, IMMUNIZATIONS No Known Immunizations SOCIAL HISTORY Never Assessed REASON FOR VISIT Deferred Lab PLAN OF CARE VITAL SIGNS MEDICATIONS Unknown [...]
--- OUTSIDE RECORDS SUMMARY | 2018-07-29 05:27 | XMS REPORT ---
Author Author PARKSMAUDEFRIDA Organization [facility] Address [address] [place] [address] Care Team Providers Care Director Of Accounting Name Role Phone PARKSFRIDA Del Toro Unavailable PROBLEMS Type Condition ICD9-CM Code RWX20-IE Code Onset Dates Condition Status SNOMED Code Problem Polyneuropathy associated with underlying disease G63 Active 046501382 Problem Requires assistance with activities of daily living (ADL) Z74.1 Active 661616385 Problem Cervical pain (neck) M54.2 Active 89034540 Problem Falls frequently R29.6 Active 780100187 Problem Type 2 diabetes mellitus with other specified complication E11.69 Active 45015085 Problem GERD without esophagitis K21.9 Active 378530869 Problem Other urinary incontinence N39.498 Active 691474477 Problem care home current use of 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 Active 035375131 Problem Alcoholism /alcohol abuse F10.20 Active 9844342 Problem Hypercalcemia E83.52 Active 72706736 Problem Lumbar degenerative disc disease M51.36 Active 47608291 Problem Type 2 diabetes mellitus with hyperglycemia E11.65 Active 526811109 Problem Anemia, unspecified D64.9 Active 646425020 Problem Other chronic pain G89.29 Active 73615975 Problem Chronic obstructive pulmonary disease, unspecified COPD type J44.9 Active 69948248 Problem Essential hypertension I10 Active 44745282 Problem Atrial fibrillation, unspecified type I48.91 Active 00771468 Problem Alcoholic cirrhosis of liver without ascites K70.30 Active 095255970 Problem Other chronic pain G89.29 Active 48427317 ALLERGIES No Information ENCOUNTERS Encounter Location Date Diagnosis [facility] [address] [id number] [id number] Jun, [facility] [id number] [address] May, [facility] [address], [place] [address] May, [place] [address], [place] [address] May, Type 2 diabetes mellitus with hyperglycemia E11.65 [place] [address], [place] [address] Apr, [facility] [address] [id number] Apr, Type 2 diabetes mellitus with hyperglycemia E11.65 ; Chronic obstructive pulmonary disease, unspecified COPD type J44.9 and Essential hypertension I10 [place] [address], [place] [address] Apr, Type 2 diabetes mellitus with hyperglycemia E11.65 [place] [address], [place] [address] Apr, Type 2 diabetes mellitus with hyperglycemia E11.65 [place] [id number] [address] Apr, Lumbar degenerative disc disease M51.36 [place] [address], [place] [address] Apr, Type 2 diabetes mellitus with hyperglycemia E11.65 [facility] [address] [id number] Apr, Type 2 diabetes mellitus with hyperglycemia E11.65 ; Atrial fibrillation, unspecified type I48.91 ; Anemia due to other cause D64.89 ; Alcoholism / alcohol abuse F10.20 ; Acute pylorus ulcer K25.3 and Alcoholic cirrhosis of liver without ascites K70.30 [place] [address] [address] Apr, Lumbar degenerative disc disease M51.36 [place] [address], [place] [address] Mar, [place] [address], [place] [address] Mar, [place] [id number] [place] [address]1800- 8958 Mar, [place] [id number] [place] [address] 04583- 7849 Mar, [place] [id number] [place] [address] 42095- 1340 Mar, Lumbar degenerative disc disease M51.36 [place] [address] [address] Mar, Dizziness R42 ; Falls frequently R29.6 ; Weight loss, non- intentional R63.4 ; Essential hypertension I10 ; Cardiac murmur R01.1 ; Hypercalcemia E83.52 and Requires assistance with activities of daily living ( ADL) Z74.1 [place] [id number] [place] [address] 35359- 1363 Mar, [address] [address] Mar, Hypercalcemia E83.52 [place] [id number] [place] [address] 89505- 0313 February, Lumbar degenerative disc disease M51.36 [place] [id number] [place] [address] 25109- 4863 February, Type 2 diabetes mellitus with diabetic neuropathy, unspecified correction insulin 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 ; Type 2 diabetes mellitus with other specified complication E11.69 ; 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 of 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 ; Essential hypertension I10 ; Chronic obstructive pulmonary disease, unspecified COPD type J44.9 ; Polyneuropathy associated with underlying disease G63 ; Atrial fibrillation, unspecified type I48.91 ; GERD without esophagitis K21.9 and Lumbar degenerative disc disease M51.36 [place] [id number] [place] [address] 88441- 4843 Jan, Other chronic pain G89.29 [place] [id number] [place] [address] 43695- 8253 Jan, [address] [id number] [address] Jan, [facility] [id number] [place] [address] 69876- 0447 Jan, Type 2 diabetes mellitus with diabetic neuropathy, 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 [facility] [address], [place] [address] Jan, [facility] [id number] [place] [address] 26009- 9409 Jan, [facility] [address] [place] [address] 41801- 9202 Jan, Other chronic pain G89.29 [place] [address] [place] [address] 61420- 3087 Dec, Atrial fibrillation, unspecified type I48.91 ; Essential hypertension I10 and Other chronic pain G89.29 [facility] [address], [place] [address] Dec, Atrial fibrillation, unspecified type I48.91 [place] [address], [place] [address] Dec, [facility] [address], [place] [address] 8[address] Nov, Other chronic pain G89.29 [place] [address], [place] [address] Nov, [facility] [address], [place] [address] Nov, [facility] [address], [place] [address] 3[address] Nov, Type 2 diabetes mellitus with diabetic neuropathy, 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 ; Type 2 diabetes mellitus with hyperglycemia E11.65 ; Essential hypertension I10 ; Chronic obstructive pulmonary disease, unspecified COPD type J44.9 ; Atrial fibrillation, unspecified type I48.91 ; GERD without esophagitis K21.9 ; Lumbar degenerative disc disease M51.36 ; Alcoholism /alcohol abuse F10.20 and Encounter for immunization Z23 [place] [id number] [place] [address] 46833- 1332 Oct, Type 2 diabetes mellitus with hyperglycemia E11.65 ; Other chronic pain G89.29 and Other correction (current) drug therapy Z79.899 [place] [address] [address] Oct, [place] [address] [address] Oct, Essential hypertension I10 ; Anemia, unspecified D64.9 ; Chronic obstructive pulmonary disease, unspecified COPD type J44.9 ; Type 2 diabetes mellitus with hyperglycemia E11.65 ; Alcoholic cirrhosis of liver without ascites K70.30 ; Polyneuropathy associated with underlying disease G63 and Atrial fibrillation, unspecified type I48.91 [place] [id number] [place] [address] 59302- 9955 Sep, Other chronic pain G89.[address] [address]- 8681 Sep, Type 2 diabetes mellitus with hyperglycemia E11.65 ; Atrial fibrillation, unspecified type I48.91 and Essential hypertension I10 [place] [id number] [place] [address] 38873- 5926 Sep, Essential hypertension I10 [place] [id number] [place] [address] 16599- 3592 Sep, Essential hypertension I10 [address] [address]- 3988 Sep, [address] [address]- 2545 Sep, Other chronic pain G89.[address] [address]- 8519 Aug, [facility] [id number] [address] Aug, Polyneuropathy associated with underlying disease G63 and Chronic obstructive pulmonary disease, unspecified COPD type J44.9 [facility] [address] [facility] [address] [id number] [id number] Aug, [facility] [address], [place] [address] 137[address] Aug, [facility] [address], [place] [address] 2439 Aug, Chronic obstructive pulmonary disease, unspecified COPD type J44.9 [facility] [address], [place] [address] 10 Aug, 2017 Medicare annual wellness visit, subsequent Z00.00 [facility] [address], [place] [address] 93[address] Aug, Other chronic pain G89.29 [facility] [address], [place] [address] 6[address] 16 Jul, 2017 [facility] [address], [place] [address] 0670 Jul, [facility] [address], [place] [address] Jul, Other chronic pain G89.29 and Essential hypertension I10 [facility] [address], [place] [address] 27[address] Jun, [facility] [id number], [place] [address] 3028 Jun, Essential hypertension I10 [facility] [address], [place] [address]- 16[address] 07 Jun, 2017 [facility] [id number], [place] [address] 5654 Jun, Other chronic pain G89.29 [facility] [address], [place] [address] 7[address] Jun, Other chronic pain G89.29 [place] [id number] [place] [address] 33778- 0314 Jun, [place] [id number] [place] [address] 20254- 8722 Jun, Type 2 diabetes mellitus with hyperglycemia E11.65 ; Essential hypertension I10 ; Atrial fibrillation, unspecified type I48.91 ; Polyneuropathy associated with underlying disease G63 ; Anemia, unspecified D64.9 ; Chronic obstructive pulmonary disease, unspecified COPD type J44.9 ; Other urinary incontinence N39.498 ; Lumbar degenerative disc disease M51.36 and GERD without esophagitis K21.9 [place] [id number] [place] [address] 49999- 1400 May, [place] [id number] [place] [address] 99166- 9791 May, [place] [id number] [place] [address] 12268- 1955 May, [place] [id number] [place] [address] 67175- 9738 May, Other chronic pain G89.29 [place] [address] [place] [address] 95327- 9711 Apr, Onychomycosis B35.1 and Type 2 diabetes mellitus with diabetic neuropathy, unspecified correction insulin 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 [place] [address] [place] [address] 65747- 4351 Apr, Essential hypertension I10 [place] [id number] [place] [address] 76401- 6899 Apr, [place] [id number] [place] [address] 68919- 7207 Apr, Other chronic pain G89.29 [place] [id number] [place] [address] 52733- 8649 Mar, Cervical pain (neck) M54.2 ; Other chronic pain G89.29 ; Other urinary incontinence N39.498 and Essential hypertension I10 [place] [id number] [place] [address] 59365- 1697 Mar, [facility] [id number] [place] [address] 00161- 7262 Mar, Other chronic pain G89.29 [facility] [id number] [place] [address] 38120- 4228 February, [place] [address] [address]- 2605 February, [place] [id number] [place] [address] 30744- 9301 February, Other chronic pain G89.29 [place] [id number] [place] [address] 30550- 3142 February, Essential hypertension I10 ; Type 2 diabetes mellitus with hyperglycemia E11.65 ; Alcoholic cirrhosis of liver without ascites K70.30 ; Chronic obstructive pulmonary disease, unspecified COPD type J44.9 ; Atrial fibrillation, unspecified type I48.91 ; Polyneuropathy associated with underlying disease G63 ; Anemia, unspecified D64.9 ; Requires assistance with activities of daily living (ADL) Z74.1 and Non-compliant behavior R46.89 [facility] [id number] [place] [address] [id number] February, Dental examination Z01.20 [facility] [id number] [place] [address] 06576- 5503 Jan, [facility] [id number] [place] [address] [id number] Jan, Dental caries K02.9 [facility] [id number] [place] [address] 34108- 5631 Jan, Anemia, unspecified D64.9 ; Chronic obstructive pulmonary disease, unspecified COPD type J44.9 ; Other chronic pain G89.29 ; Syncope and collapse R55 and Polyneuropathy associated with underlying disease G63 [facility] [id number] [id number] 04 Jan, 2017 Dental examination Z01.20 [facility] [address] [place] [address] 57831- 6098 28 Dec, 2016 Type 2 diabetes mellitus [...] Alcoholic cirrhosis of liver without ascites K70.30 [place] [address] [place] [address] 84611- 0036 Dec, [place] [id number] [place] [address] 85197- 4060 Dec, [place] [id number] [place] [address] 01687- 1778 Dec, [place] [id number] [place] [address] 32199- 6812 Dec, Type 2 diabetes mellitus with hyperglycemia E11.65 ; History of alcoholism F10.21 ; Anemia due to other cause D64.89 and Atrial fibrillation, unspecified type I48.91 [place] [address] [place] [address] 52965- 1037 Dec, [place] [id number] [place] [address] 41278- 8382 Dec, [place] [id number] [place] [address] 79572- 6234 10 Dec, 2016 Type 2 diabetes mellitus with hyperglycemia E11.65 ; History of alcoholism F10.21 ; Anemia due to other cause D64.89 and Atrial fibrillation, unspecified type I48.91 [place] [address]- 9515 21 Nov, 2016 [facility] [id number] [place] [address] 28833- 2489 17 Nov, 2016 Other chronic pain G89.29 [facility] [id number] [place] [address] 77132- 3498 13 Nov, 2016 Other chronic pain G89.29 [facility] [id number] [place] [address] 78764- 4051 10 Nov, 2016 Type 2 diabetes mellitus with hyperglycemia E11.65 ; Anemia due to other cause D64.89 ; Hypotension due to blood loss I95.89 ; Alcoholic cirrhosis of liver without ascites K70.30 ; History of alcoholism F10.21 and Chronic obstructive pulmonary disease, unspecified COPD type J44.9 [facility] [address], [place] [address]- 2855 Sep, [facility] [id number] [place] [address] [id number] Jan, Dental examination Z01.20 [facility] [id number] [place] [address] 18830- 8713 23 Nov, 2015 Chronic obstructive pulmonary disease, unspecified COPD type J44.9 ; Panic attacks F41.0 and Other chronic pain G89.29 [facility] [address], [place] [address]- 0105 Jan, [facility] [id number] [place] [address] 74727- 4599 Jan, [facility] [address], [place] [address]- 6502 Dec, [facility] [id number] [place] [address] 77762- 3068 Dec, [facility] [address], [place] [address]- 6236 Dec, [facility] [id number] [address]- 4582 Dec, IMMUNIZATIONS No Known Immunizations SOCIAL HISTORY Never Assessed REASON FOR VISIT controlled refill 02/18 PLAN OF CARE VITAL SIGNS MEDICATIONS Medication Instructions Dosage Frequency Start Date End Date Duration Status Hydrocodone-Acetaminophen 5-325 mg Orally 2 times a day 1 tablet as needed 12h Jan, 28 days Active RESULTS No Results PROCEDURES No Known procedures INSTRUCTIONS MEDICATIONS ADMINISTERED No Known Medications MEDICAL (GENERAL) HISTORY Type Description Date Medical History HBP Medical History COPD Medical History Liver cirrhosis Medical History Type 2 diabetes Medical History back trouble Medical History gout Medical History arthritis Medical History Secondary esophageal varices without bleeding Medical History Syncope and collapse Surgical History broken left leg Surgical History hernia x 2 Surgical History L. toe amputation 08/2016 Hospitalization History surgeries Hospitalization History transfusion 2017
--- OUTSIDE RECORDS SUMMARY | 2018-07-29 05:27 | XMS REPORT ---
Author Author PARKSMAUDEFRIDA Organization [facility] Address [address] [place] [address] Care Team Providers Care Staff Writer Name Role Phone FRIDA PARKS Unavailable PROBLEMS Type Condition ICD9-CM Code VNF63-XZ Code Onset Dates Condition Status SNOMED Code Problem Polyneuropathy associated with underlying disease G63 Active 882631551 Problem Requires assistance with activities of daily living (ADL) Z74.1 Active 510665015 Problem Cervical pain (neck) M54.2 Active 07365805 Problem Falls frequently R29.6 Active 855262619 Problem Type 2 diabetes mellitus with other specified complication E11.69 Active 96172602 Problem GERD without esophagitis K21.9 Active 630515235 Problem Other urinary incontinence N39.498 Active 962544795 Problem alf current use of 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 Active 401163160 Problem Alcoholism /alcohol abuse F10.20 Active 0438960 Problem Hypercalcemia E83.52 Active 93732685 Problem Lumbar degenerative disc disease M51.36 Active 34907450 Problem Type 2 diabetes mellitus with hyperglycemia E11.65 Active 192828159 Problem Anemia, unspecified D64.9 Active 283326097 Problem Other chronic pain G89.29 Active 23406290 Problem Chronic obstructive pulmonary disease, unspecified COPD type J44.9 Active 48104025 Problem Essential hypertension I10 Active 62564724 Problem Atrial fibrillation, unspecified type I48.91 Active 92043303 Problem Alcoholic cirrhosis of liver without ascites K70.30 Active 807842012 Problem Other chronic pain G89.29 Active 90539428 ALLERGIES No Information ENCOUNTERS Encounter Location Date Diagnosis [facility] [address] [facility] [id number] [id number] Jun, [facility] [place] [id number] [address] May, [facility] [address] [place] [address] 84219- 9774 Apr, [facility] [address] [facility] [address] [id number] Apr, Type 2 diabetes mellitus with hyperglycemia E11.65 ; Chronic obstructive pulmonary disease, unspecified COPD type J44.9 and Essential hypertension I10 [facility] [address] [address] Apr, Type 2 diabetes mellitus with hyperglycemia E11.65 [facility] [id number] [place] [address] 73693- 1739 Apr, Type 2 diabetes mellitus with hyperglycemia E11.65 [facility] [facility] [id number] [place] [address] 95058- 6006 Apr, Lumbar degenerative disc disease M51.36 [facility] [facility] [id number] [place] [address] 65406- 2751 Apr, Type 2 diabetes mellitus with hyperglycemia E11.65 [facility] [address] [facility] [id number] Apr, Type 2 diabetes mellitus with hyperglycemia E11.65 ; Atrial fibrillation, unspecified type I48.91 ; Anemia due to other cause D64.89 ; Alcoholism / alcohol abuse F10.20 ; Acute pylorus ulcer K25.3 and Alcoholic cirrhosis of liver without ascites K70.30 [place] [address] [address] Apr, Lumbar degenerative disc disease M51.36 [facility] [facility] [address] [address] Mar, [facility] [address] [place] [address] 72351- 3265 Mar, [facility] [id number] [place] [address] 71217- 8871 Mar, [place] [address] [address] 9868 Mar, [facility] [id number] [place] [address] 06608- 6400 Mar, Lumbar degenerative disc disease M51.36 [facility] [facility] [id number] [place] [address] 12713- 2417 14 Mar, 2018 Dizziness R42 ; Falls frequently R29.6 ; Weight loss, non- intentional R63.4 ; Essential hypertension I10 ; Cardiac murmur R01.1 ; Hypercalcemia E83.52 and Requires assistance with activities of daily living ( ADL) Z74.1 [facility] [facility] [id number] [place] [address] 10673- 0434 Mar, [facility] [facility] [id number] [place] [address] 19907- 4181 Mar, Hypercalcemia E83.52 [facility] [id number] [place] [address] 03365- 5098 February, Lumbar degenerative disc disease M51.36 [facility] [facility] [id number] [place] [address] 66960- 8288 February, Type 2 diabetes mellitus with diabetic neuropathy, unspecified [facility] insulin 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 ; Type 2 diabetes mellitus with other specified complication E11.69 ; alf current use of 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 ; Essential hypertension I10 ; Chronic obstructive pulmonary disease, unspecified COPD type J44.9 ; Polyneuropathy associated with underlying disease G63 ; Atrial fibrillation, unspecified type I48.91 ; GERD without esophagitis K21.9 and Lumbar degenerative disc disease M51.36 [place] [address] [place] [address] 58863- 6673 Jan, Other chronic pain G89.29 [place] [address] [place] [address] 11224- 3611 Jan, [place] [id number] [place] [address] 26053- 6678 Jan, [place] [address] [place] [address] 48391- 8684 Jan, Type 2 diabetes mellitus with diabetic neuropathy, unspecified [facility] insulin 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 [facility] [address] [place] [address] 86466- 5741 16 Jan, 2018 [facility] [id number] [place] [address] 42938- 2281 Jan, [facility] [id number] [place] [address] 48863- 9470 Jan, Other chronic pain G89.29 [facility] [facility] [id number] [place] [address] 61882- 2916 Dec, Atrial fibrillation, unspecified type I48.91 ; Essential hypertension I10 and Other chronic pain G89.29 [facility] [id number] [place] [address] 12596- 0799 Dec, Atrial fibrillation, unspecified type I48.91 [facility] [id number] [place] [address] 22170- 5822 Dec, [facility] [facility] [id number] [place] [address] 29557- 7190 Nov, Other chronic pain G89.29 [facility] [id number] [place] [address] 57841- 6890 Nov, [place] [id number] [place] [address] 26850- 0316 Nov, [facility] [facility] [id number] [place] [address] 39611- 4210 Nov, Type 2 diabetes mellitus with diabetic [...] abuse F10.20 and Encounter for immunization Z23 [facility] [id number] [place] [address] 79787- 4612 Oct, Type 2 diabetes mellitus with hyperglycemia E11.65 ; Other chronic pain G89.29 and Other [place] drug therapy Z79.899 [facility] [id number] [place] [address] 71051- 1458 Oct, [facility] [id number] [place] [address] 68210- 1514 Oct, Essential hypertension I10 ; Anemia, unspecified D64.9 ; Chronic obstructive pulmonary disease, unspecified COPD type J44.9 ; Type 2 diabetes mellitus with hyperglycemia E11.65 ; Alcoholic cirrhosis of liver without ascites K70.30 ; Polyneuropathy associated with underlying disease G63 and Atrial fibrillation, unspecified type I48.91 [facility] [id number] [place] [address] 29969- 8353 Sep, Other chronic pain G89.29 [facility] [id number] [place] [address] 22220- 9051 Sep, Type 2 diabetes mellitus with hyperglycemia E11.65 ; Atrial fibrillation, unspecified type I48.91 and Essential hypertension I10 [facility] [id number] [place] [address] 01084- 5912 Sep, Essential hypertension I10 [facility] [id number] [place] [address] 62884- 7339 Sep, Essential hypertension I10 [facility] [id number] [place] [address] 99821- 5523 Sep, [facility] [id number] [place] [address] 96891- 3705 Sep, Other chronic pain G89.29 [facility] [id number] [place] [address] 04193- 9998 Aug, [facility] [id number] [place] [address] 78267- 4219 Aug, Polyneuropathy associated with underlying disease G63 and Chronic obstructive pulmonary disease, unspecified COPD type J44.9 [facility] [id number] [id number] Aug, [facility] [address] [address]- 6084 Aug, [facility] [address] [address]- 8675 Aug, Chronic obstructive pulmonary disease, unspecified COPD type J44.9 [facility] [address] [address]- 4355 10 Aug, 2017 Medicare annual wellness visit, subsequent Z00.00 [facility] [address] [address]- 9906 07 Aug, 2017 Other chronic pain G89.29 [facility] [address] [address]- 4273 16 Jul, 2017 [facility] [id number] [place] [address] 91794- 1282 Jul, [facility] [address] [address]- 0427 11 Jul, 2017 Other chronic pain G89.29 and Essential hypertension I10 [facility] [address] [address]- 8954 29 Jun, 2017 [facility] [address] [address]- 7467 19 Jun, 2017 Essential hypertension I10 [facility] [place] [address] [address]- 9201 07 Jun, 2017 [facility] [address] [address]- 7001 07 Jun, 2017 Other chronic pain G89.29 [facility] [address] [address]- 9265 06 Jun, 2016 Other chronic pain G89.29 [facility] [address] [address]- 8793 05 Jun, 2016 [facility] [id number] [place] [address] 59469- 0278 Jun, Type 2 diabetes mellitus with hyperglycemia E11.65 ; Essential hypertension I10 ; Atrial fibrillation, unspecified type I48.91 ; Polyneuropathy associated with underlying disease G63 ; Anemia, unspecified D64.9 ; Chronic obstructive pulmonary disease, unspecified COPD type J44.9 ; Other urinary incontinence N39.498 ; Lumbar degenerative disc disease M51.36 and GERD without esophagitis K21.9 [facility] [id number] [place] [address] 00858- 8555 May, [place] [address] 50401- 4685 May, [facility] [address] 47234- 0123 May, [facility] [facility] [id number] [place] [address] 83008- 4529 May, Other chronic pain G89.29 [facility] [facility] [id number] [place] [address] 66281- 7420 Apr, Onychomycosis B35.1 and Type 2 diabetes mellitus with diabetic neuropathy, unspecified 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 [address] [id number] [place] [address] 33408- 1274 Apr, Essential hypertension I10 [id number] [place] [address] 32683- 0032 Apr, [place] [id number] [place] [address] 60724- 0171 Apr, Other chronic pain G89.29 [address] [id number] [place] [address] 94668- 5364 Mar, Cervical pain (neck) M54.2 ; Other chronic pain G89.29 ; Other urinary incontinence N39.498 and Essential hypertension I10 [place] [id number] [place] [address] 95571- 0635 Mar, [facility] [address] [address]- 0194 Mar, Other chronic pain G89.29 [facility] [address] [address]- 6981 February, [facility] [address] [address]- 6495 February, [facility] [id number] [place] [address] 56377- 1740 February, Other chronic pain G89.29 [place] [address] [place] [address] 02623- 0631 February, Essential hypertension I10 ; Type 2 diabetes mellitus with hyperglycemia E11.65 ; Alcoholic cirrhosis of liver without ascites K70.30 ; Chronic obstructive pulmonary disease, unspecified COPD type J44.9 ; Atrial fibrillation, unspecified type I48.91 ; Polyneuropathy associated with underlying disease G63 ; Anemia, unspecified D64.9 ; Requires assistance with activities of daily living (ADL) Z74.1 and Non-compliant behavior R46.89 [facility] [id number] [place] [address] [id number] February, Dental examination Z01.20 [place] [id number] [place] [address] 80396- 5280 Jan, [facility] [address] [place] [address] [id number] Jan, Dental caries K02.9 [facility] [address] [address]- 0116 Jan, Anemia, unspecified D64.9 ; Chronic obstructive pulmonary disease, unspecified COPD type J44.9 ; Other chronic pain G89.29 ; Syncope and collapse R55 and Polyneuropathy associated with underlying disease G63 [facility] [address] [place] [address] [id number] Jan, Dental examination Z01.20 [facility] [address] [address]- 4215 Dec, Type 2 diabetes mellitus with hyperglycemia E11.65 ; Anemia , unspecified D64.9 ; Essential hypertension I10 ; Chronic obstructive pulmonary disease, unspecified COPD type J44.9 ; Atrial fibrillation, unspecified type I48.91 ; Cervical pain (neck) M54.2 ; Polyneuropathy associated with underlying disease G63 ; Low back pain M54.5 ; Other chronic pain G89.29 and Alcoholic cirrhosis of liver without ascites K70.30 [place] [address] [place] [address] 21007- 2458 Dec, [place] [id number] [place] [address] 33362- 1645 Dec, [place] [id number] [place] [address] 17975- 9988 Dec, [facility] [id number] [place] [address] 41266- 5344 Dec, Type 2 diabetes mellitus with hyperglycemia E11.65 ; History of alcoholism F10.21 ; Anemia due to other cause D64.89 and Atrial fibrillation, unspecified type I48.91 [address] [place] [address] 54779- 0874 Dec, [place] [address] [place] [address] 26679- 1709 Dec, [place] [address] [place] [address] 63698- 5583 Dec, Type 2 diabetes mellitus with hyperglycemia E11.65 ; History of alcoholism F10.21 ; Anemia due to other cause D64.89 and Atrial fibrillation, unspecified type I48.91 [address] [place] [address] 22497- 8132 Nov, [address] [address]- 9699 Nov, Other chronic pain G89.29 [facility] [id number] [place] [address] 72365- 2917 13 Nov, 2016 Other chronic pain G89.29 [facility] [facility] [id number] [place] [address] 30629- 6646 10 Nov, 2016 Type 2 diabetes mellitus with hyperglycemia E11.65 ; Anemia due to other cause D64.89 ; Hypotension due to blood loss I95.89 ; Alcoholic cirrhosis of liver without ascites K70.30 ; History of alcoholism F10.21 and Chronic obstructive pulmonary disease, unspecified COPD type J44.9 [facility] [id number] [place] [address] 87252- 5510 Sep, [facility] [address] [id number] Jan, Dental examination Z01.20 [id number] [place] [address] 43900- 4590 23 Nov, 2015 Chronic obstructive pulmonary disease, unspecified COPD type J44.9 ; Panic attacks F41.0 and Other chronic pain G89.29 [place] [id number] [place] [address] 85050- 3722 Jan, [place] [id number] [place] [address] 01224- 4859 Jan, [place] [id number] [place] [address] 32675- 3871 Dec, [place] [id number] [place] [address] 26384- 5398 Dec, [place] [id number] [place] [address] 76406- 1159 Dec, [place] [id number] [place] [address] 20895- 9017 Dec, IMMUNIZATIONS No Known Immunizations SOCIAL HISTORY Never Assessed REASON FOR VISIT RX clarification PLAN OF CARE VITAL SIGNS MEDICATIONS Medication Instructions Dosage Frequency Start Date End Date Duration Status Gabapentin 300 MG Orally 3 times a day TAKE ONE (1) CAPSULE BY MOUTH IN THE MORNING, one capsule at noon, THREE (3) CAPSULES AT BEDTIME 8h 30 days Active RESULTS No Results PROCEDURES [...]
--- OUTSIDE RECORDS SUMMARY | 2018-07-29 05:27 | XMS REPORT ---
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 Active 058437566 Problem Essential hypertension I10 Active 98804701 Problem Other hammer toe(s) (acquired), right foot M20.41 Active 425086237 Problem Lumbar degenerative disc disease M51.36 Active 94594570 Problem Anemia, unspecified D64.9 Active 157664706 Problem Falls frequently R29.6 Active 415810216 Problem 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 Active 937420303 Problem Other hammer toe(s) (acquired), left foot M20.42 Active 74142059 Problem Amputated toe of left foot Z89.422 Active 641845738 Problem Other chronic pain G89.29 Active 48148663 Problem Chronic obstructive pulmonary disease, unspecified COPD type J44.9 Active 27428707 Problem Hypercalcemia E83.52 Active 54323303 Problem Alcoholic cirrhosis of liver without ascites K70.30 Active 398087303 Problem Polyneuropathy associated with underlying disease G63 Active 367622714 Problem Cervical pain (neck) M54.2 Active 88057675 Problem Atrial fibrillation, unspecified type I48.91 Active 71951481 Problem Requires assistance with activities of daily living (ADL) Z74.1 Active 121561509 Problem Other chronic pain G89.29 Active 77449806 Problem Other urinary incontinence N39.498 Active 075584445 ALLERGIES Substance Reaction Event Type Date Status Haldol Unknown Drug Allergy February, Active ENCOUNTERS Encounter Location Date Diagnosis [facility] [id number] [id number] May, Dental examination Z01.20 and Dental caries K02.9 [address] [place] [address] 88839- 5710 May, 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 ; 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 ; Polyneuropathy associated with underlying disease G63 ; Essential hypertension I10 ; Other hammer toe(s) (acquired), left foot M20.42 ; Other hammer toe(s) (acquired), right foot M20.41 and Amputated toe of left foot Z89.422 [place] [id number] [place] [address] 66543- 7130 May, [place] [id number] [place] [address] 11601- 4340 May, Type 2 diabetes mellitus with hyperglycemia E11.65 [place] [id number] [place] [address] 28166- 7313 Apr, [facility] [address] [id number] Apr, Type 2 diabetes mellitus with hyperglycemia E11.65 ; Chronic obstructive pulmonary disease, unspecified COPD type J44.9 and Essential hypertension I10 [place] [id number] [place] [address] 96769- 7010 Apr, Type 2 diabetes mellitus with hyperglycemia E11.65 [place] [address] [place] [address] 44171- 5567 Apr, Type 2 diabetes mellitus with hyperglycemia E11.65 [place] [id number] [place] [address] 22880- 3061 Apr, Lumbar degenerative disc disease M51.36 [place] [id number] [place] [address] 22027- 5896 Apr, Type 2 diabetes mellitus with hyperglycemia E11.65 [facility] [address] [id number] Apr, Type 2 diabetes mellitus with hyperglycemia E11.65 ; Atrial fibrillation, unspecified type I48.91 ; Anemia due to other cause D64.89 ; Alcoholism / alcohol abuse F10.20 ; Acute pylorus ulcer K25.3 and Alcoholic cirrhosis of liver without ascites K70.30 [place] [id number] [place] [address] 21077- 7500 Apr, Lumbar degenerative disc disease M51.36 [place] [address] 04143- 4171 Mar, [place] [id number] [place] [address] 96992- 2798 Mar, [place] [id number] [place] [address] 87046- 7469 Mar, [place] [id number] [place] [address] 27472- 1402 Mar, [place] [id number] [place] [address] 20621- 5716 Mar, Lumbar degenerative disc disease M51.36 [id number] [place] [address] 20793- 6108 Mar, Dizziness R42 ; Falls frequently R29.6 ; Weight loss, non- intentional R63.4 ; Essential hypertension I10 ; Cardiac murmur R01.1 ; Hypercalcemia E83.52 and Requires assistance with activities of daily living ( ADL) Z74.1 [place] [id number] [place] [address] 62414- 6057 Mar, [place] [id number] [place] [address] 05934- 1557 Mar, Hypercalcemia E83.52 [id number] [place] [address] 09429- 4371 February, Lumbar degenerative disc disease M51.36 [place] [id number] [place] [address] 48388- 3206 February, Type 2 diabetes mellitus with diabetic neuropathy, unspecified mcfp insulin 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 ; Type 2 diabetes mellitus with other specified complication E11.69 ; 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 ; Essential hypertension I10 ; Chronic obstructive pulmonary disease, unspecified COPD type J44.9 ; Polyneuropathy associated with underlying disease G63 ; Atrial fibrillation, unspecified type I48.91 ; GERD without esophagitis K21.9 and Lumbar degenerative disc disease M51.36 [facility] [id number] [place] [address] 71085- 2763 Jan, Other chronic pain G89.29 [place] [id number] [place] [address] 44992- 9818 Jan, [place] [id number] [place] [address] 15881- 0907 Jan, [place] [id number] [place] [address] 61291- 8663 Jan, Type 2 diabetes mellitus with diabetic neuropathy, unspecified terminal clerk insulin 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 [facility] [id number] [place] [address] 18295- 9705 Jan, [facility] [id number] [place] [address] 94406- 6122 Jan, [place] [id number] [place] [address] 42281- 7096 Jan, Other chronic pain G89.29 [facility] [id number] [place] [address] 45123- 9762 Dec, Atrial fibrillation, unspecified type I48.91 ; Essential hypertension I10 and Other chronic pain G89.29 [facility] [id number] [place] [address] 37585- 0196 Dec, Atrial fibrillation, unspecified type I48.91 [place] [id number] [place] [address] 95205- 4255 Dec, [facility] [address] [place] [address] Nov, Other chronic pain G89.29 [place] [id number] [place] [address] 02929- 0775 Nov, [place] [id number] [place] [address] 45209- 0641 Nov, [place] [address] 67879- 2937 Nov, Type 2 diabetes mellitus with diabetic neuropathy, unspecified mcfp insulin 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 ; Type 2 diabetes mellitus with hyperglycemia E11.65 ; Essential hypertension I10 ; Chronic obstructive pulmonary disease, unspecified COPD type J44.9 ; Atrial fibrillation, unspecified type I48.91 ; GERD without esophagitis K21.9 ; Lumbar degenerative disc disease M51.36 ; Alcoholism /alcohol abuse F10.20 and Encounter for immunization Z23 [place] [address] 42427- 1191 Oct, Type 2 diabetes mellitus with hyperglycemia E11.65 ; Other chronic pain G89.29 and Other mcfp (current) drug therapy Z79.899 [place] [id number] [place] [address] 54790- 3585 Oct, [place] [id number] [place] [address] 00089- 1535 Oct, Essential hypertension I10 ; Anemia, unspecified D64.9 ; Chronic obstructive pulmonary disease, unspecified COPD type J44.9 ; Type 2 diabetes mellitus with hyperglycemia E11.65 ; Alcoholic cirrhosis of liver without ascites K70.30 ; Polyneuropathy associated with underlying disease G63 and Atrial fibrillation, unspecified type I48.91 [place] [id number] [place] [address] 46109- 2945 Sep, Other chronic pain G89.29 [place] [id number] [place] [address] 67310- 2154 Sep, Type 2 diabetes mellitus with hyperglycemia E11.65 ; Atrial fibrillation, unspecified type I48.91 and Essential hypertension I10 [facility] [address], [place] [address] Sep, Essential hypertension I10 [facility] [address], [place] [address] 4761 Sep, Essential hypertension I10 [facility] [address] [address] 5070 Sep, [facility] [address] [place] [address] 11109- 6914 Sep, Other chronic pain G89.29 [facility] [address] [place] [address] 28373- 9706 Aug, [facility] [address] [address] 9414 Aug, Polyneuropathy associated with underlying disease G63 and Chronic obstructive pulmonary disease, unspecified COPD type J44.9 [facility] [address] [id number] Aug, [facility] [address] [place] [address] 93885- 2984 Aug, [facility] [address] [address] 4048 Aug, Chronic obstructive pulmonary disease, unspecified COPD type J44.9 [facility] [address], [place] [address] 9579 10 Aug, 2017 Medicare annual wellness visit, subsequent Z00.00 [facility] [address], [place] [address] 07 Aug, 2017 Other chronic pain G89.29 [facility] [address] [address] 0057 16 Jul, 2017 [facility] [address] [address] 5[address] Jul, [facility] [address], [place] [address]- 7590 Jul, Other chronic pain G89.29 and Essential hypertension I10 [facility] [id number] [place] [address] 63198- 4700 29 Jun, 2017 [facility] [id number] [place] [address] 87235- 0064 Jun, Essential hypertension I10 [facility] [id number] [place] [address] 94641- 9702 Jun, [facility] [id number] [place] [address] 98013- 6167 Jun, Other chronic pain G89.29 [place] [id number] [place] [address] 34437- 4125 Jun, Other chronic pain G89.29 [place] [id number] [place] [address] 15427- 0512 Jun, [facility] [id number] [place] [address] 79871- 1547 Jun, Type 2 diabetes mellitus with hyperglycemia E11.65 ; Essential hypertension I10 ; Atrial fibrillation, unspecified type I48.91 ; Polyneuropathy associated with underlying disease G63 ; Anemia, unspecified D64.9 ; Chronic obstructive pulmonary disease, unspecified COPD type J44.9 ; Other urinary incontinence N39.498 ; Lumbar degenerative disc disease M51.36 and GERD without esophagitis K21.9 [facility] [address] [place] [address] 11015- 9725 May, [facility] [id number] [place] [address] 34897- 4155 May, [facility] [id number] [place] [address] 99866- 1593 May, [facility] [address] [place] [address] 68464- 1804 May, Other chronic pain G89.29 [address], [place] [address]- 7071 Apr, Onychomycosis B35.1 and Type 2 diabetes mellitus with diabetic neuropathy, unspecified mcfp insulin 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 [address] [address] [address]- 5777 Apr, Essential hypertension I10 [place] [id number] [place] [address] 46389- 8954 Apr, [address] [place] [address]- 0527 Apr, Other chronic pain G89.29 [place] [id number] [place] [address] 17496- 9904 Mar, Cervical pain (neck) M54.2 ; Other chronic pain G89.29 ; Other urinary incontinence N39.498 and Essential hypertension I10 [address] [place] [address] 80004- 6459 Mar, [address] [place] [address]- 5546 Mar, Other chronic pain G89.29 [address] [place], [place] [address]- 3718 February, [address] [place], [place] [address]- 6549 February, [address] [place], [place] [address]- 4963 February, Other chronic pain G89.29 [address] [place], [place] [address]- 4293 February, Essential hypertension I10 ; Type 2 diabetes mellitus with hyperglycemia E11.65 ; Alcoholic cirrhosis of liver without ascites K70.30 ; Chronic obstructive pulmonary disease, unspecified COPD type J44.9 ; Atrial fibrillation, unspecified type I48.91 ; Polyneuropathy associated with underlying disease G63 ; Anemia, unspecified D64.9 ; Requires assistance with activities of daily living (ADL) Z74.1 and Non-compliant behavior R46.89 [facility] [address] [address] February, Dental examination Z01.20 [facility] [address] [place] [address] 95008- 5523 Jan, [facility] [id number] [place] [address] [id number] Jan, Dental caries K02.9 [facility] [id number] [place] [address] 75637- 2014 Jan, Anemia, unspecified D64.9 ; Chronic obstructive pulmonary disease, unspecified COPD type J44.9 ; Other chronic pain G89.29 ; Syncope and collapse R55 and Polyneuropathy associated with underlying disease G63 [facility] [address] [place] [id number] Jan, Dental examination Z01.20 [facility] [address] [place] [address] 22039- 0723 Dec, Type 2 diabetes mellitus with hyperglycemia E11.65 ; Anemia , unspecified D64.9 ; Essential hypertension I10 ; Chronic obstructive pulmonary disease, unspecified COPD type J44.9 ; Atrial fibrillation, unspecified type I48.91 ; Cervical pain (neck) M54.2 ; Polyneuropathy associated with underlying disease G63 ; Low back pain M54.5 ; Other chronic pain G89.29 and Alcoholic cirrhosis of liver without ascites K70.30 [facility] [address] [place] [address] 76713- 0108 Dec, [facility] [id number] [place] [address] 75444- 9665 Dec, [facility] [id number] [place] [address] 23626- 7269 Dec, [facility] [address] [place] [address] 46737- 9049 Dec, Type 2 diabetes mellitus with hyperglycemia E11.65 ; History of alcoholism F10.21 ; Anemia due to other cause D64.89 and Atrial fibrillation, unspecified type I48.91 [address] [id number] [place] [address] 48086- 8851 Dec, [address] [id number] [place] [address] 29007- 5085 Dec, [address] [id number] [place] [address] 18175- 6875 Dec, Type 2 diabetes mellitus with hyperglycemia E11.65 ; History of alcoholism F10.21 ; Anemia due to other cause D64.89 and Atrial fibrillation, unspecified type I48.91 [address] [id number] [place] [address] 83571- 1464 Nov, [address] [id number] [place] [address] 24991- 9027 Nov, Other chronic pain G89.29 [place] [id number] [place] [address] 24257- 8186 Nov, Other chronic pain G89.29 [address] [id number] [place] [address] 98473- 5644 Nov, Type 2 diabetes mellitus with hyperglycemia E11.65 ; Anemia due to other cause D64.89 ; Hypotension due to blood loss I95.89 ; Alcoholic cirrhosis of liver without ascites K70.30 ; History of alcoholism F10.21 and Chronic obstructive pulmonary disease, unspecified COPD type J44.9 [address] [place] [place] [address] 11585- 4777 Sep, [facility] [id number] [place] [address] [id number] Jan, Dental examination Z01.20 [address] [place] [address] [place] [address] 23694- 8347 23 Nov, 2015 Chronic obstructive pulmonary disease, unspecified COPD type J44.9 ; Panic attacks F41.0 and Other chronic pain G89.29 [facility] [address], [place] [address] 7723 Jan, [facility] [address], [place] [address]- 2255 Jan, [facility] [address] [place] [address] 64898- 8809 Dec, [facility] [id number] [place] [address] 30383- 0818 Dec, [facility] [address] [place] [address] 97480- 2164 Dec, [facility] [address] [place] [address] 75575- 8752 Dec, IMMUNIZATIONS No Known Immunizations SOCIAL HISTORY Never Assessed REASON FOR VISIT COPD----DBennettRN, having problems with glucometer, anxiety d/t housing concerns PLAN OF CARE Activity Details Follow Up 3 Months, prn Reason:CHM/DM VITAL SIGNS Height 69 in 2018-03-14 Weight 154 lbs 2018-03-14 Temperature 98.2 degrees Fahrenheit 2018-03-14 Heart Rate 80 bpm 2018-03-14 Respiratory Rate 20 2018-03-14 BMI 22.74 kg/m2 2018-03-14 Blood pressure systolic 132 mmHg 2018-03-14 Blood pressure diastolic 88 mmHg 2018-03-14 MEDICATIONS Medication Instructions Dosage Frequency Start Date End Date Duration Status Glucocard Expression Test 1 subcutaneously 2 times a day test 2 times per day three days per week 12h February, 12 months Active Novolin 70/30 (70-30) 100 UNIT/ML Subcutaneous Once a day 35 units 24h 12 months Active Hydrocodone-Acetaminophen 5-325 mg Orally 2 times a day 1 tablet as needed 12h Jan, Active Gabapentin 300 MG Orally 3 times a day TAKE ONE (1) CAPSULE BY MOUTH IN THE MORNING, one capsule at noon, THREE (3) CAPSULES AT BEDTIME 8h 90 days Active Insulin Syringe/Needle 27G X 1/2 subcutaneously Once a day as directed 24h Aug, Active Albuterol Sulfate 90 mcg/actuation Inhalation every 4 hrs inhale 2 puffs by inhalation route every 4 hours as needed 4h 05 Dec, 2014 12 months Active Lisinopril 5 mg Orally Once a day 1 tablet 24h 90 days Active Advair Diskus 100-50 MCG/DOSE Inhalation Twice a day 1 puff 12h Jun, 12 months Active Spironolactone 25 MG Orally twice a day take 1 tablet (25 mg) by oral route 2 times per day 12h Dec, February, 90 days Active Digoxin 125 mcg Orally Once a day take 1 tablet (125 mcg) by oral route once daily 24h Dec, 90 days Active RESULTS No Results PROCEDURES Procedure Date Ordered Result Body Site GLYCATED HEMOGLOBIN TEST March 14, 2018 MICROALBUMIN, SEMIQUANT March 14, 2018 VENIPUNCT, ROUTINE* March 14, 2018 [facility], 2018 [facility] VISIT ESTABLISHED PATIENT March 14, 2018 INSTRUCTIONS MEDICATIONS ADMINISTERED No Known Medications [...]
--- OUTSIDE RECORDS SUMMARY | 2018-07-29 05:28 | XMS REPORT ---
Author Author PARKSMAUDEFRIDA Organization [facility] Address [address] [place] [address] Care Team Providers Care Music Library Assistant Name Role Phone FRIDA PARKS Unavailable PROBLEMS Type Condition ICD9-CM Code DOU79-FC Code Onset Dates Condition Status SNOMED Code Problem Polyneuropathy associated with underlying disease G63 Active 939502588 Problem Requires assistance with activities of daily living (ADL) Z74.1 Active 398714586 Problem Cervical pain (neck) M54.2 Active 03421124 Problem Falls frequently R29.6 Active 546833067 Problem Type 2 diabetes mellitus with other specified complication E11.69 Active 33108422 Problem GERD without esophagitis K21.9 Active 931709283 Problem Other urinary incontinence N39.498 Active 349224863 Problem skilled nursing current use of 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 Active 775368415 Problem Alcoholism /alcohol abuse F10.20 Active 1375936 Problem Hypercalcemia E83.52 Active 83972118 Problem Lumbar degenerative disc disease M51.36 Active 33457361 Problem Type 2 diabetes mellitus with hyperglycemia E11.65 Active 660739260 Problem Anemia, unspecified D64.9 Active 008517440 Problem Other chronic pain G89.29 Active 29591180 Problem Chronic obstructive pulmonary disease, unspecified COPD type J44.9 Active 98194661 Problem Essential hypertension I10 Active 34297151 Problem Atrial fibrillation, unspecified type I48.91 Active 06001658 Problem Alcoholic cirrhosis of liver without ascites K70.30 Active 143477868 Problem Other chronic pain G89.29 Active 80744524 ALLERGIES No Information ENCOUNTERS Encounter Location Date Diagnosis [facility] [address] [facility] [id number] [id number] Jun, [facility] [id number] [address] May, [facility] [id number] [place] [address] 60473- 0541 Apr, [facility] [address] [id number] Apr, Type 2 diabetes mellitus with hyperglycemia E11.65 ; Chronic obstructive pulmonary disease, unspecified COPD type J44.9 and Essential hypertension I10 [facility] [address] [address] Apr, Type 2 diabetes mellitus with hyperglycemia E11.65 [facility] [id number] [place] [address] 58401- 6215 Apr, Type 2 diabetes mellitus with hyperglycemia E11.65 [place] [id number] [place] [address] 27281- 7611 Apr, Lumbar degenerative disc disease M51.36 [place] [id number] [place] [address] 94295- 3920 Apr, Type 2 diabetes mellitus with hyperglycemia E11.65 [facility] [address] [facility] [id number] Apr, Type 2 diabetes mellitus with hyperglycemia E11.65 ; Atrial fibrillation, unspecified type I48.91 ; Anemia due to other cause D64.89 ; Alcoholism / alcohol abuse F10.20 ; Acute pylorus ulcer K25.3 and Alcoholic cirrhosis of liver without ascites K70.30 [place] [address], [place] [address] Apr, Lumbar degenerative disc disease M51.36 [place] [address], [place] [address] Mar, [facility] [id number] [place] [address] 35133- 5039 Mar, [facility] [id number] [place] [address] 55931- 2637 Mar, [place] [address] [address] 0[address] Mar, [facility] [id number] [place] [address] 49882- 0338 Mar, Lumbar degenerative disc disease M51.36 [place] [id number] [place] [address] 54804- 3819 14 Mar, 2018 Dizziness R42 ; Falls frequently R29.6 ; Weight loss, non- intentional R63.4 ; Essential hypertension I10 ; Cardiac murmur R01.1 ; Hypercalcemia E83.52 and Requires assistance with activities of daily living ( ADL) Z74.1 [place] [id number] [place] [address] 71486- 7627 Mar, [place] [id number] [place] [address] 85564- 6828 Mar, Hypercalcemia E83.52 [facility] [id number] [place] [address] 77960- 1935 February, Lumbar degenerative disc disease M51.36 [facility] [facility] [id number] [place] [address] 20110- 1207 February, Type 2 diabetes mellitus with diabetic neuropathy, unspecified senior care insulin 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 ; Type 2 diabetes mellitus with other specified complication E11.69 ; skilled nursing current use of 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 ; Essential hypertension I10 ; Chronic obstructive pulmonary disease, unspecified COPD type J44.9 ; Polyneuropathy associated with underlying disease G63 ; Atrial fibrillation, unspecified type I48.91 ; GERD without esophagitis K21.9 and Lumbar degenerative disc disease M51.36 [place] [id number] [place] [address] 33629- 2610 Jan, Other chronic pain G89.29 [place] [id number] [place] [address] 23768- 8513 Jan, [facility] [id number] [place] [address] 58201- 4728 Jan, [place] [address] [place] [address] 87731- 9517 Jan, Type 2 diabetes mellitus with diabetic neuropathy, unspecified senior care insulin 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 [place] [id number] [place] [address] 60474- 5025 16 Jan, 2018 [facility] [id number] [place] [address] 22714- 2789 Jan, [facility] [id number] [place] [address] 72303- 7151 Jan, Other chronic pain G89.29 [place] [id number] [place] [address] 91349- 3380 Dec, Atrial fibrillation, unspecified type I48.91 ; Essential hypertension I10 and Other chronic pain G89.29 [place] [id number] [place] [address] 88135- 0260 Dec, Atrial fibrillation, unspecified type I48.91 [place] [id number] [place] [address] 35852- 3028 Dec, [facility] [id number] [place] [address] 31327- 7245 Nov, Other chronic pain G89.29 [place] [id number] [place] [address] 91105- 0151 Nov, [place] [id number] [place] [address] 23098- 1453 Nov, [facility] [facility] [id number] [place] [address] 07462- 4435 Nov, Type 2 diabetes mellitus with diabetic neuropathy, unspecified manager of patient insulin 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 ; Type 2 diabetes mellitus with hyperglycemia E11.65 ; Essential hypertension I10 ; Chronic obstructive pulmonary disease, unspecified COPD type J44.9 ; Atrial fibrillation, unspecified type I48.91 ; GERD without esophagitis K21.9 ; Lumbar degenerative disc disease M51.36 ; Alcoholism /alcohol abuse F10.20 and Encounter for immunization Z23 [place] [id number] [place] [address] 09561- 6720 Oct, Type 2 diabetes mellitus with hyperglycemia E11.65 ; Other chronic pain G89.29 and Other senior care (current) drug therapy Z79.899 [facility] [id number] [place] [address] 38647- 7914 Oct, [facility] [id number] [place] [address] 67983- 7167 Oct, Essential hypertension I10 ; Anemia, unspecified D64.9 ; Chronic obstructive pulmonary disease, unspecified COPD type J44.9 ; Type 2 diabetes mellitus with hyperglycemia E11.65 ; Alcoholic cirrhosis of liver without ascites K70.30 ; Polyneuropathy associated with underlying disease G63 and Atrial fibrillation, unspecified type I48.91 [facility] [id number] [place] [address] 48179- 9009 Sep, Other chronic pain G89.29 [facility] [id number] [place] [address] 66982- 2699 Sep, Type 2 diabetes mellitus with hyperglycemia E11.65 ; Atrial fibrillation, unspecified type I48.91 and Essential hypertension I10 [facility] [id number] [place] [address] 54796- 0648 Sep, Essential hypertension I10 [facility] [id number] [place] [address] 36447- 9887 Sep, Essential hypertension I10 [facility] [id number] [place] [address] 40967- 0428 Sep, [facility] [id number] [place] [address] 16352- 7371 Sep, Other chronic pain G89.29 [facility] [id number] [place] [address] 69048- 4030 Aug, [facility] [id number] [place] [address] 72087- 1860 Aug, Polyneuropathy associated with underlying disease G63 and Chronic obstructive pulmonary disease, unspecified COPD type J44.9 [facility] [address] [id number] [id number] Aug, [facility] [address], [place] [address] 9893 Aug, [facility] [address], [place] [address] 3518 Aug, Chronic obstructive pulmonary disease, unspecified COPD type J44.9 [facility] [id number], [place] [address]- 8468 10 Aug, 2017 Medicare annual wellness visit, subsequent Z00.00 [facility] [address], [place] [address]- 9985 07 Aug, 2017 Other chronic pain G89.29 [facility] [id number], [place] [address]- 2777 16 Jul, 2017 [facility] [id number] [place] [address] 77033- 6936 Jul, [facility] [id number], [place] [address]- 5022 11 Jul, 2017 Other chronic pain G89.29 and Essential hypertension I10 [facility] [address], [place] [address]- 4646 29 Jun, 2017 [facility] [address], [place] [address]- 5563 19 Jun, 2017 Essential hypertension I10 [facility] [address], [place] [address]- 3384 07 Jun, 2017 [facility] [address], [place] [address]- 0202 07 Jun, 2017 Other chronic pain G89.29 [facility] [address], [place] [address]- 3292 06 Jun, 2016 Other chronic pain G89.29 [facility] [address], [place] [address]- 6664 05 Jun, 2016 [facility] [id number] [place] [address] 47298- 7815 Jun, Type 2 diabetes mellitus with hyperglycemia E11.65 ; Essential hypertension I10 ; Atrial fibrillation, unspecified type I48.91 ; Polyneuropathy associated with underlying disease G63 ; Anemia, unspecified D64.9 ; Chronic obstructive pulmonary disease, unspecified COPD type J44.9 ; Other urinary incontinence N39.498 ; Lumbar degenerative disc disease M51.36 and GERD without esophagitis K21.9 [place] [id number] [place] [address] 45107- 9050 May, [place] [address] 81526- 2511 May, [place] [address] 16712- 5021 May, [place] [id number] [place] [address] 45080- 8451 May, Other chronic pain G89.29 [place] [id number] [place] [address] 62196- 1910 Apr, Onychomycosis B35.1 and Type 2 diabetes mellitus with diabetic neuropathy, unspecified manager of patient insulin 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 [id number] [place] [address] 96123- 2142 Apr, Essential hypertension I10 [id number] [place] [address] 63062- 9834 Apr, [address] [id number] [place] [address] 85267- 0494 Apr, Other chronic pain G89.29 [id number] [place] [address] 80242- 4454 Mar, Cervical pain (neck) M54.2 ; Other chronic pain G89.29 ; Other urinary incontinence N39.498 and Essential hypertension I10 [id number] [place] [address] 91563- 9982 Mar, [facility] [address], [place] [address]- 1017 Mar, Other chronic pain G89.29 [facility] [address], [place] [address]- 2927 February, [facility] [address], [place] [address]- 1730 February, [facility] [id number] [place] [address] 22328- 6977 February, Other chronic pain G89.29 [place] [address] [place] [address] 94364- 2852 February, Essential hypertension I10 ; Type 2 [...] [facility] [id number] [place] [address] [id number] February, Dental examination Z01.20 [place] [address] [place] [address] 05030- 8476 Jan, [facility] [address] [place] [address] [id number] Jan, Dental caries K02.9 [facility] [address], [place] [address]- 6481 Jan, Anemia, unspecified D64.9 ; Chronic obstructive pulmonary disease, unspecified COPD type J44.9 ; Other chronic pain G89.29 ; Syncope and collapse R55 and Polyneuropathy associated with underlying disease G63 [facility] [address] [place] [address] [id number] Jan, Dental examination Z01.20 [facility] [address], [place] [address]- 2313 Dec, Type 2 diabetes mellitus with hyperglycemia E11.65 ; Anemia , unspecified D64.9 ; Essential hypertension I10 ; Chronic obstructive pulmonary disease, unspecified COPD type J44.9 ; Atrial fibrillation, unspecified type I48.91 ; Cervical pain (neck) M54.2 ; Polyneuropathy associated with underlying disease G63 ; Low back pain M54.5 ; Other chronic pain G89.29 and Alcoholic cirrhosis of liver without ascites K70.30 [place] [address] [place] [address] 44050- 7232 Dec, [place] [id number] [place] [address] 16100- 7737 Dec, [place] [id number] [place] [address] 12609- 0080 Dec, [place] [id number] [place] [address] 16896- 6059 Dec, Type 2 diabetes mellitus with hyperglycemia E11.65 ; History of alcoholism F10.21 ; Anemia due to other cause D64.89 and Atrial fibrillation, unspecified type I48.91 [address] [place] [address] 63378- 3565 Dec, [place] [address] [place] [address] 43905- 6429 Dec, [place] [address] [place] [address] 85113- 3981 Dec, Type 2 diabetes mellitus with hyperglycemia E11.65 ; History of alcoholism F10.21 ; Anemia due to other cause D64.89 and Atrial fibrillation, unspecified type I48.91 [address] [place] [address] 05778- 1748 Nov, [address], [place] [address]- 5609 Nov, Other chronic pain G89.29 [place] [id number] [place] [address] 87817- 9869 13 Nov, 2016 Other chronic pain G89.29 [place] [id number] [place] [address] 49191- 7781 10 Nov, 2016 Type 2 diabetes mellitus with hyperglycemia E11.65 ; Anemia due to other cause D64.89 ; Hypotension due to blood loss I95.89 ; Alcoholic cirrhosis of liver without ascites K70.30 ; History of alcoholism F10.21 and Chronic obstructive pulmonary disease, unspecified COPD type J44.9 [place] [address] [place] [address] 37952- 6663 Sep, [facility] [address] [id number] Jan, Dental examination Z01.20 [place] [id number] [place] [address] 15307- 0516 23 Nov, 2015 Chronic obstructive pulmonary disease, unspecified COPD type J44.9 ; Panic attacks F41.0 and Other chronic pain G89.29 [place] [id number] [place] [address] 62917- 1076 Jan, [place] [id number] [place] [address] 85747- 2196 Jan, [place] [id number] [place] [address] 29677- 4439 Dec, [place] [id number] [place] [address] 56371- 7969 Dec, [place] [id number] [place] [address] 67166- 3069 Dec, [place] [id number] [place] [address] 38269- 2113 Dec, IMMUNIZATIONS No Known Immunizations SOCIAL HISTORY Never Assessed REASON FOR VISIT Refill request PLAN OF CARE VITAL SIGNS MEDICATIONS Medication Instructions Dosage Frequency Start Date End Date Duration Status Gabapentin 300 MG Orally 3 times a day TAKE ONE (1) CAPSULE BY MOUTH IN THE MORNING AND THREE (3) CAPSULES AT BEDTIME 8h 90 Active RESULTS No Results PROCEDURES No Known [...]
--- OUTSIDE RECORDS SUMMARY | 2018-07-29 05:28 | XMS REPORT ---
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 Role Phone KASEY FRIDA Unavailable PROBLEMS Type Condition ICD9-CM Code SKD38-BE Code Onset Dates Condition Status SNOMED Code Problem Polyneuropathy associated with underlying disease G63 Active 852892482 Problem Requires assistance with activities of daily living (ADL) Z74.1 Active 342445658 Problem Cervical pain (neck) M54.2 Active 57433885 Problem Falls frequently R29.6 Active 914325465 Problem Type 2 diabetes mellitus with other specified complication E11.69 Active 81185915 Problem GERD without esophagitis K21.9 Active 336494399 Problem Other urinary incontinence N39.498 Active 061899903 Problem [facility] current use of 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 Active 147267576 Problem Alcoholism /alcohol abuse F10.20 Active 3440901 Problem Hypercalcemia E83.52 Active 37132579 Problem Lumbar degenerative disc disease M51.36 Active 80299298 Problem Type 2 diabetes mellitus with hyperglycemia E11.65 Active 940297270 Problem Anemia, unspecified D64.9 Active 700427311 Problem Other chronic pain G89.29 Active 63121957 Problem Chronic obstructive pulmonary disease, unspecified COPD type J44.9 Active 40896372 Problem Essential hypertension I10 Active 61299796 Problem Atrial fibrillation, unspecified type I48.91 Active 00255122 Problem Alcoholic cirrhosis of liver without ascites K70.30 Active 151157544 Problem Other chronic pain G89.29 Active 48838540 ALLERGIES No Information ENCOUNTERS Encounter Location Date Diagnosis [facility] [address] [facility] [id number] [address] May, [facility] [address] [facility] [id number] [id number] May, [facility] [address] [place] [id number] Apr, Type 2 diabetes mellitus with hyperglycemia E11.65 ; Chronic obstructive pulmonary disease, unspecified COPD type J44.9 and Essential hypertension I10 [facility] [id number] [place] [address] 01542- 0562 Apr, Type 2 diabetes mellitus with hyperglycemia E11.65 [facility] [id number] [place] [address] 20516- 2573 Apr, Type 2 diabetes mellitus with hyperglycemia E11.65 [facility] [id number] [place] [address] 21658- 7403 Apr, Lumbar degenerative disc disease M51.36 [place] [facility] [id number] [place] [address] 84807- 9495 Apr, Type 2 diabetes mellitus with hyperglycemia E11.65 [facility] [address] [place] [id number] Apr, Type 2 diabetes mellitus with hyperglycemia E11.65 ; Atrial fibrillation, unspecified type I48.91 ; Anemia due to other cause D64.89 ; Alcoholism / alcohol abuse F10.20 ; Acute pylorus ulcer K25.3 and Alcoholic cirrhosis of liver without ascites K70.30 [place] [id number] [place] [address] 25155- 7228 Apr, Lumbar degenerative disc disease M51.36 [place] [facility] [address] [id number] [address] Mar, [facility] [id number] [place] [address] 28107- 5631 Mar, [facility] [id number] [place] [address] 88463- 9489 Mar, [facility] [id number] [place] [address] 44557- 8733 Mar, [facility] [id number] [place] [address] 84754- 6273 Mar, Lumbar degenerative disc disease M51.36 [facility] [address] [place] [address] 14 Mar, 2018 Dizziness R42 ; Falls frequently R29.6 ; Weight loss, non- intentional R63.4 ; Essential hypertension I10 ; Cardiac murmur R01.1 ; Hypercalcemia E83.52 and Requires assistance with activities of daily living ( ADL) Z74.1 [place] [facility] [id number] [place] [address] 26994- 4857 13 Mar, 2018 [place] [facility] [id number] [place] [address] 02316- 8617 Mar, Hypercalcemia E83.52 [place] [facility] [address] [address]63- 9598 February, Lumbar degenerative disc disease M51.36 [place] [facility] [id number] [place] [address] 48510- 5103 February, Type 2 diabetes mellitus with diabetic neuropathy, unspecified longterm insulin 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 ; Type 2 diabetes mellitus with other specified complication E11.69 ; [facility] current use of 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 ; Essential hypertension I10 ; Chronic obstructive pulmonary disease, unspecified COPD type J44.9 ; Polyneuropathy associated with underlying disease G63 ; Atrial fibrillation, unspecified type I48.91 ; GERD without esophagitis K21.9 and Lumbar degenerative disc disease M51.36 [place] [facility] [id number] [place] [address] 73339- 3251 Jan, Other chronic pain G89.29 [facility] [facility] [id number] [place] [address] 21463- 6956 Jan, [facility] [facility] [id number] [place] [address] 81212- 9721 Jan, [place] [facility] [id number] [place] [address] 34731- 7874 Jan, Type 2 diabetes mellitus with diabetic neuropathy, 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 [place] [facility] [id number] [place] [address] 17811- 2935 Jan, [place] [address] [address] 6[address] Jan, [facility] [facility] [id number] [place] [address] 27731- 4787 Jan, Other chronic pain G89.29 [facility] [id number] [place] [address] 95199- 6144 Dec, Atrial fibrillation, unspecified type I48.91 ; Essential hypertension I10 and Other chronic pain G89.29 [facility] [id number] [place] [address] 13045- 4806 Dec, Atrial fibrillation, unspecified type I48.91 [facility] [id number] [place] [address] 37836- 3409 Dec, [facility] [facility] [id number] [place] [address] 47756- 5600 Nov, Other chronic pain G89.29 [place] [facility] [id number] [place] [address] 49539- 9676 Nov, [place] [facility] [id number] [place] [address] 64717- 3709 Nov, [place] [id number] [place] [address] 72766- 5810 Nov, Type 2 diabetes mellitus with diabetic neuropathy, unspecified longterm insulin 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 ; Type 2 diabetes mellitus with hyperglycemia E11.65 ; Essential hypertension I10 ; Chronic obstructive pulmonary disease, unspecified COPD type J44.9 ; Atrial fibrillation, unspecified type I48.91 ; GERD without esophagitis K21.9 ; Lumbar degenerative disc disease M51.36 ; Alcoholism /alcohol abuse F10.20 and Encounter for immunization Z23 [facility] [facility] [id number] [place] [address] 48924- 6159 Oct, Type 2 diabetes mellitus with hyperglycemia E11.65 ; Other chronic pain G89.29 and Other longterm (current) drug therapy Z79.899 [place] [address], [place] [address] Oct, [facility] [id number] [place] [address] 15427- 0121 Oct, Essential hypertension I10 ; Anemia, unspecified D64.9 ; Chronic obstructive pulmonary disease, unspecified COPD type J44.9 ; Type 2 diabetes mellitus with hyperglycemia E11.65 ; Alcoholic cirrhosis of liver without ascites K70.30 ; Polyneuropathy associated with underlying disease G63 and Atrial fibrillation, unspecified type I48.91 [facility] [address] [id number] [address] Sep, Other chronic pain G89.29 [facility] [id number] [place] [address] 61524- 3355 Sep, Type 2 diabetes mellitus with hyperglycemia E11.65 ; Atrial fibrillation, unspecified type I48.91 and Essential hypertension I10 [facility] [id number] [place] [address] 52462- 9251 Sep, Essential hypertension I10 [facility] [id number] [place] [address] 28249- 2236 Sep, Essential hypertension I10 [facility] [id number] [place] [address] 41640- 8363 Sep, [facility] [id number] [place] [address] 63728- 1863 Sep, Other chronic pain G89.29 [facility] [address], [place] [address] 99[address] Aug, [facility] [id number] [place] [address] 70340- 6179 Aug, Polyneuropathy associated with underlying disease G63 and Chronic obstructive pulmonary disease, unspecified COPD type J44.9 [facility] [address] [id number] Aug, [facility] [address] [id number] [address] 7[address] Aug, [facility] [address], [place] [address] 2537 13 Aug, 2017 Chronic obstructive pulmonary disease, unspecified COPD type J44.9 [facility] [address], [place] [address] 6704 10 Aug, 2017 Medicare annual wellness visit, subsequent Z00.00 [facility] [id number] [place] [address] 44612- 5193 07 Aug, 2017 Other chronic pain G89.29 [facility] [id number] [place] [address] 06518- 0126 16 Jul, 2017 [facility] [id number] [place] [address] 40786- 4872 Jul, [facility] [id number] [place] [address] 04914- 6059 Jul, Other chronic pain G89.29 and Essential hypertension I10 [facility] [address], [place] [address] 9055 29 Jun, 2017 [facility] [id number] [place] [address] 40343- 3407 19 Jun, 2017 Essential hypertension I10 [facility] [address], [place] [address]- 0228 Jun, [facility] [id number] [place] [address] 92016- 9355 Jun, Other chronic pain G89.29 [facility] [address], [place] [address]- 4945 06 Jun, 2017 Other chronic pain G89.29 [facility] [address], [place] [address]- 7869 05 Jun, 2017 [facility] [address], [place] [address]- 7354 Jun, Type 2 diabetes mellitus with hyperglycemia E11.65 ; Essential hypertension I10 ; Atrial fibrillation, unspecified type I48.91 ; Polyneuropathy associated with underlying disease G63 ; Anemia, unspecified D64.9 ; Chronic obstructive pulmonary disease, unspecified COPD type J44.9 ; Other urinary incontinence N39.498 ; Lumbar degenerative disc disease M51.36 and GERD without esophagitis K21.9 [place] [facility] [id number] [place] [address] 69816- 2845 May, [place] [facility] [address] 66736- 1276 May, [place] [facility] [id number] [place] [address] 34564- 5689 May, [place] [address] 32227- 9329 May, Other chronic pain G89.29 [place] [address] 31962- 6285 Apr, Onychomycosis B35.1 and Type 2 diabetes mellitus with diabetic neuropathy, unspecified longterm insulin 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 [place] [facility] [id number] [place] [address] 48996- 0434 Apr, Essential hypertension I10 [place] [id number] [place] [address] 37474- 4202 Apr, [place] [id number] [place] [address] 57525- 2360 Apr, Other chronic pain G89.29 [place] [id number] [place] [address] 38482- 1431 Mar, Cervical pain (neck) M54.2 ; Other chronic pain G89.29 ; Other urinary incontinence N39.498 and Essential hypertension I10 [place] [facility] [id number] [place] [address] 90480- 4411 Mar, [place] [facility] [id number] [place] [address] 61825- 1323 Mar, Other chronic pain G89.29 [place] [facility] [address], [place] [address] 3367 February, [place] [facility] [id number] [place] [address] 77162- 8996 February, [place] [facility] [id number] [place] [address] 59396- 0469 February, Other chronic pain G89.29 [place] [facility] [id number] [place] [address] 40280- 7880 February, Essential hypertension I10 ; Type 2 diabetes mellitus with hyperglycemia E11.65 ; Alcoholic cirrhosis of liver without ascites K70.30 ; Chronic obstructive pulmonary disease, unspecified COPD type J44.9 ; Atrial fibrillation, unspecified type I48.91 ; Polyneuropathy associated with underlying disease G63 ; Anemia, unspecified D64.9 ; Requires assistance with activities of daily living (ADL) Z74.1 and Non-compliant behavior R46.89 [facility] [id number] [place] [address] [id number] February, Dental examination Z01.20 [place] [id number] [place] [address] 74523- 1421 Jan, [facility] [id number] [place] [address] [id number] Jan, Dental caries K02.9 [id number] [place] [address] 50603- 8214 Jan, Anemia, unspecified D64.9 ; Chronic obstructive pulmonary disease, unspecified COPD type J44.9 ; Other chronic pain G89.29 ; Syncope and collapse R55 and Polyneuropathy associated with underlying disease G63 [facility] [address] [id number] Jan, Dental examination Z01.20 [place] [id number] [place] [address] 36128- 2314 Dec, Type 2 diabetes mellitus with hyperglycemia E11.65 ; Anemia , unspecified D64.9 ; Essential hypertension I10 ; Chronic obstructive pulmonary disease, unspecified COPD type J44.9 ; Atrial fibrillation, unspecified type I48.91 ; Cervical pain (neck) M54.2 ; Polyneuropathy associated with underlying disease G63 ; Low back pain M54.5 ; Other chronic pain G89.29 and Alcoholic cirrhosis of liver without ascites K70.30 [place] [id number] [place] [address] 21246- 4287 Dec, [place] [id number] [place] [address] 27189- 0926 Dec, [place] [id number] [place] [address] 99722- 6215 Dec, [place] [id number] [place] [address] 71372- 8544 Dec, Type 2 diabetes mellitus with hyperglycemia E11.65 ; History of alcoholism F10.21 ; Anemia due to other cause D64.89 and Atrial fibrillation, unspecified type I48.91 [place] [id number] [place] [address] 31423- 3832 Dec, [place] [id number] [place] [address] 15770- 4091 Dec, [place] [address] [place] [address] 91410- 8405 Dec, Type 2 diabetes mellitus with hyperglycemia E11.65 ; History of alcoholism F10.21 ; Anemia due to other cause D64.89 and Atrial fibrillation, unspecified type I48.91 [place] [address] [place] [address] 04375- 7384 Nov, [place] [id number] [place] [address] 46406- 8677 Nov, Other chronic pain G89.29 [place] [facility] [id number] [place] [address] 00552- 7394 Nov, Other chronic pain G89.29 [place] [address] [place] [address] 00880- 6661 10 Nov, 2016 Type 2 diabetes mellitus with hyperglycemia E11.65 ; Anemia due to other cause D64.89 ; Hypotension due to blood loss I95.89 ; Alcoholic cirrhosis of liver without ascites K70.30 ; History of alcoholism F10.21 and Chronic obstructive pulmonary disease, unspecified COPD type J44.9 [place] [id number] [place] [address] 39004- 5865 Sep, [facility] [address] [place] [address] [id number] Jan, Dental examination Z01.20 [id number] [place] [address] 38869- 3626 23 Nov, 2015 Chronic obstructive pulmonary disease, unspecified COPD type J44.9 ; Panic attacks F41.0 and Other chronic pain G89.29 [place] [id number] [place] [address] 74727- 8899 Jan, [place] [id number] [place] [address] 76015- 1456 Jan, [place] [id number] [place] [address] 30802- 1016 Dec, [place] [id number] [place] [address] 49821- 1561 Dec, [place] [id number] [place] [address] 56195- 0419 Dec, [place] [id number] [place] [address] 16429- 3292 Dec, IMMUNIZATIONS No Known Immunizations SOCIAL HISTORY Never Assessed REASON FOR VISIT med refill PLAN OF CARE VITAL SIGNS MEDICATIONS Medication Instructions Dosage Frequency Start Date End Date Duration Status Gabapentin 300 mg 1 capsule (300 mg) am, 3 capsules (900 mg) bedtime Dec, 90 days Active RESULTS No Results PROCEDURES No [...]
--- OUTSIDE RECORDS SUMMARY | 2018-07-29 05:29 | XMS REPORT ---
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 Name Role Phone KASEY FRIDA Unavailable PROBLEMS Type Condition ICD9-CM Code QJC46-WW Code Onset Dates Condition Status SNOMED Code Problem Polyneuropathy associated with underlying disease G63 Active 697874161 Problem Requires assistance with activities of daily living (ADL) Z74.1 Active 603218973 Problem Cervical pain (neck) M54.2 Active 54033919 Problem Falls frequently R29.6 Active 185348623 Problem Type 2 diabetes mellitus with other specified complication E11.69 Active 60246515 Problem GERD without esophagitis K21.9 Active 936560727 Problem Other urinary incontinence N39.498 Active 753585672 Problem long-term current use of 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 Active 090909569 Problem Alcoholism /alcohol abuse F10.20 Active 9492467 Problem Hypercalcemia E83.52 Active 69841928 Problem Lumbar degenerative disc disease M51.36 Active 35877130 Problem Type 2 diabetes mellitus with hyperglycemia E11.65 Active 111378457 Problem Anemia, unspecified D64.9 Active 423219568 Problem Other chronic pain G89.29 Active 20814277 Problem Chronic obstructive pulmonary disease, unspecified COPD type J44.9 Active 27895831 Problem Essential hypertension I10 Active 54418344 Problem Atrial fibrillation, unspecified type I48.91 Active 99427363 Problem Alcoholic cirrhosis of liver without ascites K70.30 Active 357667792 Problem Other chronic pain G89.29 Active 13543811 ALLERGIES No Information ENCOUNTERS Encounter Location Date Diagnosis [facility] [address] [facility] [id number] [address] May, [facility] [address] [facility] [id number] [id number] May, [facility] [address] [place] [id number] Apr, [facility] [address] [address] Apr, Type 2 diabetes mellitus with hyperglycemia E11.65 [facility] [address], [place] [address] Apr, Type 2 diabetes mellitus with hyperglycemia E11.65 [facility] [address] [address] Apr, Lumbar degenerative disc disease M51.36 [facility] [address] [place] [id number] [place] [address] 19571- 6903 Apr, Type 2 diabetes mellitus with hyperglycemia E11.65 [facility] [address] [place] [id number] Apr, Type 2 diabetes mellitus with hyperglycemia E11.65 ; Atrial fibrillation, unspecified type I48.91 ; Anemia due to other cause D64.89 ; Alcoholism / alcohol abuse F10.20 ; Acute pylorus ulcer K25.3 and Alcoholic cirrhosis of liver without ascites K70.30 [facility] [address] [place] [address] 86272- 9977 Apr, Lumbar degenerative disc disease M51.36 [facility] [address] [place] [address] 73680- 3404 Mar, [facility] [address], [place] [address] Mar, [facility] [address], [place] [address] Mar, [facility] [address] [address] Mar, [facility] [address] [place] [id number] [place] [address] 32645- 4047 Mar, Lumbar degenerative disc disease M51.36 [facility] [address] [address] 14 Mar, 2018 Dizziness R42 ; Falls frequently R29.6 ; Weight loss, non- intentional R63.4 ; Essential hypertension I10 ; Cardiac murmur R01.1 ; Hypercalcemia E83.52 and Requires assistance with activities of daily living ( ADL) Z74.1 [facility] [address] [place] [id number] [place] [address] 09039- 0721 Mar, [facility] [address] [place] [id number] [place] [address] 79347- 8434 Mar, Hypercalcemia E83.52 [facility] [address] [address] February, Lumbar degenerative disc disease M51.36 [facility] [address] [address] February, Type 2 diabetes mellitus with diabetic neuropathy, unspecified 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 ; Type 2 diabetes mellitus with other specified complication E11.69 ; long-term current use of 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 ; Essential hypertension I10 ; Chronic obstructive pulmonary disease, unspecified COPD type J44.9 ; Polyneuropathy associated with underlying disease G63 ; Atrial fibrillation, unspecified type I48.91 ; GERD without esophagitis K21.9 and Lumbar degenerative disc disease M51.36 [facility] [address] [place] [id number] [place] [address] 86599- 6905 Jan, Other chronic pain G89.29 [facility] [address] [place] [id number] [place] [address] 59896- 7132 Jan, [facility] [address] [place] [id number] [place] [address] 10738- 5522 Jan, [facility] [address] [place] [id number] [place] [address] 82974- 7980 Jan, Type 2 diabetes mellitus with diabetic neuropathy, unspecified retirement insulin 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 [facility] [address] [place] [id number] [place] [address] 46838- 6214 Jan, [facility] [address] [address] Jan, [facility] [address] [place] [address] 50307- 3248 Jan, Other chronic pain G89.29 [facility] [address] [place] [id number] [place] [address] 58797- 5102 Dec, Atrial fibrillation, unspecified type I48.91 ; Essential hypertension I10 and Other chronic pain G89.29 [facility] [address] [place] [id number] [place] [address] 21500- 8211 Dec, Atrial fibrillation, unspecified type I48.91 [facility] [address] [place] [id number] [place] [address] 85306- 3547 Dec, [facility] [address] [place] [id number] [place] [address] 24914- 4811 Nov, Other chronic pain G89.29 [facility] [address] [place] [id number] [place] [address] 33919- 4622 Nov, [facility] [address] [place] [id number] [place] [address] 30197- 9912 Nov, [facility] [address] [place] [id number] [place] [address] 20805- 2925 Nov, Type 2 diabetes mellitus with diabetic neuropathy, unspecified 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 ; Type 2 diabetes mellitus with hyperglycemia E11.65 ; Essential hypertension I10 ; Chronic obstructive pulmonary disease, unspecified COPD type J44.9 ; Atrial fibrillation, unspecified type I48.91 ; GERD without esophagitis K21.9 ; Lumbar degenerative disc disease M51.36 ; Alcoholism /alcohol abuse F10.20 and Encounter for immunization Z23 [facility] [address] [place] [id number] [place] [address] 25069- 5305 Oct, Type 2 diabetes mellitus with hyperglycemia E11.65 ; Other chronic pain G89.29 and Other retirement (current) drug therapy Z79.899 [facility] [address] [place] [id number] [place] [address] 66592- 3410 Oct, [facility] [address], [place] [address] Oct, Essential hypertension I10 ; Anemia, unspecified D64.9 ; Chronic obstructive pulmonary disease, unspecified COPD type J44.9 ; Type 2 diabetes mellitus with hyperglycemia E11.65 ; Alcoholic cirrhosis of liver without ascites K70.30 ; Polyneuropathy associated with underlying disease G63 and Atrial fibrillation, unspecified type I48.91 [facility] [address] [place] [address] 37262- 0576 Sep, Other chronic pain G89.29 [facility] [address], [place] [address] Sep, Type 2 diabetes mellitus with hyperglycemia E11.65 ; Atrial fibrillation, unspecified type I48.91 and Essential hypertension I10 [facility] [address] [address] 1007 Sep, Essential hypertension I10 [facility] [address] [place] [address] 31198- 4105 Sep, Essential hypertension I10 [facility] [address] [place] [address] 83821- 8940 Sep, [facility] [address] [place] [address] 74726- 8053 Sep, Other chronic pain G89.29 [facility] [address] [address] Aug, [facility] [address] [address] 7[address] Aug, Polyneuropathy associated with underlying disease G63 and Chronic obstructive pulmonary disease, unspecified COPD type J44.9 [facility] [address] [id number] Aug, [facility] [address] [address] Aug, [facility] [address] [place] [address] [address] 13 Aug, 2017 Chronic obstructive pulmonary disease, unspecified COPD type J44.9 [facility] [address] [place] [id number] [place] [address] 16436- 6091 10 Aug, 2017 Medicare annual wellness visit, subsequent Z00.00 [facility] [address], [place] [address] 6[address] 07 Aug, 2017 Other chronic pain G89.29 [facility] [address], [place] [address] 6324 16 Jul, 2017 [facility] [address] [place] [id number] [place] [address] 43758- 0243 Jul, [facility] [address] [place] [id number] [place] [address] 77167- 1417 Jul, Other chronic pain G89.29 and Essential hypertension I10 [facility] [address], [place] [address] 2161 Jun, [facility] [address], [place] [address]- 6047 Jun, Essential hypertension I10 [facility] [address] [address]- 6183 Jun, [facility] [address], [place] [address]- 0411 Jun, Other chronic pain G89.29 [facility] [address] [address]- 9416 Jun, Other chronic pain G89.29 [facility] [address], [place] [address]- 9424 05 Jun, 2017 [facility] [address] [address]- 8315 Jun, Type 2 diabetes mellitus with hyperglycemia E11.65 ; Essential hypertension I10 ; Atrial fibrillation, unspecified type I48.91 ; Polyneuropathy associated with underlying disease G63 ; Anemia, unspecified D64.9 ; Chronic obstructive pulmonary disease, unspecified COPD type J44.9 ; Other urinary incontinence N39.498 ; Lumbar degenerative disc disease M51.36 and GERD without esophagitis K21.9 [facility] [address] [place] [id number] [place] [address] 02482- 3996 May, [facility] [address] [place] [id number] [place] [address] 76803- 4651 May, [facility] [address] [place] [id number] [place] [address] 38379- 8519 May, [facility] [address] [place] [id number] [place] [address] 10454- 8655 May, Other chronic pain G89.29 [facility] [address] [place] [id number] [place] [address] 08713- 8091 Apr, Onychomycosis B35.1 and Type 2 diabetes mellitus with diabetic neuropathy, unspecified 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 [facility] [address] [place] [id number] [place] [address] 31119- 3433 Apr, Essential hypertension I10 [facility] [address] [place] [id number] [place] [address] 45712- 3213 Apr, [facility] [address] [place] [id number] [place] [address] 41025- 2709 Apr, Other chronic pain G89.29 [facility] [address] [place] [address] [place] [address] 41236- 6197 Mar, Cervical pain (neck) M54.2 ; Other chronic pain G89.29 ; Other urinary incontinence N39.498 and Essential hypertension I10 [facility] [address] [place] [id number] [place] [address] 03996- 9521 Mar, [facility] [address] [place] [id number] [place] [address] 48444- 6659 Mar, Other chronic pain G89.29 [facility] [address] [place] [address]- 4468 February, [facility] [address] 23639- 0064 February, [facility] [address] 18310- 2412 February, Other chronic pain G89.29 [facility] [address] 52956- 6891 February, Essential hypertension I10 ; Type 2 diabetes mellitus with hyperglycemia E11.65 ; Alcoholic cirrhosis of liver without ascites K70.30 ; Chronic obstructive pulmonary disease, unspecified COPD type J44.9 ; Atrial fibrillation, unspecified type I48.91 ; Polyneuropathy associated with underlying disease G63 ; Anemia, unspecified D64.9 ; Requires assistance with activities of daily living (ADL) Z74.1 and Non-compliant behavior R46.89 [facility] [address] [id number] February, Dental examination Z01.20 [facility] [address] [place] [id number] [place] [address] 05309- 7219 Jan, [facility] [address] [id number] Jan, Dental caries K02.9 [facility] [address] [place] [address] [place] [address] 47922- 0597 Jan, Anemia, unspecified D64.9 ; Chronic obstructive pulmonary disease, unspecified COPD type J44.9 ; Other chronic pain G89.29 ; Syncope and collapse R55 and Polyneuropathy associated with underlying disease G63 [facility] [address] [place] [id number] [place] [address] [id number] Jan, Dental examination Z01.20 [facility] [address] 58363926- 8699 Dec, Type 2 diabetes mellitus with hyperglycemia [...] of liver without ascites K70.30 [facility] [address], [place] [address]- 6539 Dec, [facility] [address] [place] [id number] [place] [address] 39573- 9288 Dec, [facility] [address] [place] [id number] [place] [address] 52796- 1274 Dec, [facility] [address] [place] [id number] [place] [address] 04901- 2896 Dec, Type 2 diabetes mellitus with hyperglycemia E11.65 ; History of alcoholism F10.21 ; Anemia due to other cause D64.89 and Atrial fibrillation, unspecified type I48.91 [facility] [address] [place] [id number] [place] [address] 74222- 9254 Dec, [facility] [address] [place] [id number] [place] [address] 55703- 7171 Dec, [facility] [address] [place] [id number] [place] [address] 73688- 5054 Dec, Type 2 diabetes mellitus with hyperglycemia E11.65 ; History of alcoholism F10.21 ; Anemia due to other cause D64.89 and Atrial fibrillation, unspecified type I48.91 [facility] [address], [place] [address]- 3068 Nov, [facility] [address] [address]- 7719 Nov, Other chronic pain G89.29 [facility] [address] [place] [address] [place] [address] 08454- 1317 13 Nov, 2016 Other chronic pain G89.29 [place] [id number] [place] [address] 41061- 2507 Nov, Type 2 diabetes mellitus with hyperglycemia E11.65 ; Anemia due to other cause D64.89 ; Hypotension due to blood loss I95.89 ; Alcoholic cirrhosis of liver without ascites K70.30 ; History of alcoholism F10.21 and Chronic obstructive pulmonary disease, unspecified COPD type J44.9 [facility] [address], [place] [address]- 9066 Sep, [facility] [address] [place] [id number] [place] [address] [id number] Jan, Dental examination Z01.20 [facility] [address] 28351- 7799 Nov, Chronic obstructive pulmonary disease, unspecified COPD type J44.9 ; Panic attacks F41.0 and Other chronic pain G89.29 [facility] [address] [place] [id number] [place] [address] 17716- 4863 Jan, [facility] [address] 69872- 2620 Jan, [facility] [address] [place] [id number] [place] [address] 50799- 1230 Dec, [facility] [address] [place] [id number] [place] [address] 44739- 0867 Dec, [facility] [address] [place] [id number] [place] [address] 73071- 1234 Dec, [facility] [address] [place] [id number] [place] [address] 71479- 0716 Dec, IMMUNIZATIONS No Known Immunizations SOCIAL HISTORY Never Assessed REASON FOR VISIT Medication refill request PLAN OF CARE VITAL SIGNS MEDICATIONS Unknown [...]
--- OUTSIDE RECORDS SUMMARY | 2018-07-29 05:29 | XMS REPORT ---
Author Author KASEY FRIDA Organization [facility] Address [address] [place] [address] Care Team Providers Care Ventilation Mechanic Name Role Phone KASEY FRIDA Unavailable PROBLEMS Type Condition ICD9-CM Code WRB87-DQ Code Onset Dates Condition Status SNOMED Code Problem Polyneuropathy associated with underlying disease G63 Active 668712676 Problem Requires assistance with activities of daily living (ADL) Z74.1 Active 967116694 Problem Cervical pain (neck) M54.2 Active 00036814 Problem Falls frequently R29.6 Active 427488296 Problem Type 2 diabetes mellitus with other specified complication E11.69 Active 49414253 Problem GERD without esophagitis K21.9 Active 309806939 Problem Other urinary incontinence N39.498 Active 735423151 Problem alf current use of 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 Active 242319499 Problem Alcoholism /alcohol abuse F10.20 Active 3254939 Problem Hypercalcemia E83.52 Active 28608975 Problem Lumbar degenerative disc disease M51.36 Active 55751685 Problem Type 2 diabetes mellitus with hyperglycemia E11.65 Active 130801462 Problem Anemia, unspecified D64.9 Active 358519949 Problem Other chronic pain G89.29 Active 44022471 Problem Chronic obstructive pulmonary disease, unspecified COPD type J44.9 Active 05910024 Problem Essential hypertension I10 Active 04217058 Problem Atrial fibrillation, unspecified type I48.91 Active 51455160 Problem Alcoholic cirrhosis of liver without ascites K70.30 Active 002770474 Problem Other chronic pain G89.29 Active 92990699 ALLERGIES No Information ENCOUNTERS Encounter Location Date Diagnosis [facility] [address] [facility] [id number] [address] May, [facility] [address] [facility] [id number] [id number] May, [facility] [address] [place] [id number] Apr, Type 2 diabetes mellitus with hyperglycemia E11.65 ; Chronic obstructive pulmonary disease, unspecified COPD type J44.9 and Essential hypertension I10 [facility] [id number] [place] [address] 60492- 7769 Apr, Type 2 diabetes mellitus with hyperglycemia E11.65 [facility] [id number] [place] [address] 86689- 3911 Apr, Type 2 diabetes mellitus with hyperglycemia E11.65 [facility] [id number] [place] [address] 14193- 0071 Apr, Lumbar degenerative disc disease M51.36 [facility] [id number] [place] [address] 69954- 6632 Apr, Type 2 diabetes mellitus with hyperglycemia E11.65 [facility] [address] [place] [id number] Apr, Type 2 diabetes mellitus with hyperglycemia E11.65 ; Atrial fibrillation, unspecified type I48.91 ; Anemia due to other cause D64.89 ; Alcoholism / alcohol abuse F10.20 ; Acute pylorus ulcer K25.3 and Alcoholic cirrhosis of liver without ascites K70.30 [facility] [id number] [address] 60987- 9309 Apr, Lumbar degenerative disc disease M51.36 [facility] [address] [id number] [address] Mar, [facility] [id number] [place] [address] 84092- 5353 Mar, [facility] [id number] [place] [address] 31928- 5777 Mar, [facility] [id number] [place] [address] 49341- 2873 Mar, [facility] [id number] [place] [address] 31286- 0899 Mar, Lumbar degenerative disc disease M51.36 [facility] [id number] [place] [address] 14 Mar, 2018 Dizziness R42 ; Falls frequently R29.6 ; Weight loss, non- intentional R63.4 ; Essential hypertension I10 ; Cardiac murmur R01.1 ; Hypercalcemia E83.52 and Requires assistance with activities of daily living ( ADL) Z74.1 [place] [id number] [address] 29804- 3823 13 Mar, 2018 [place] [id number] [place] [address] 71676- 6612 Mar, Hypercalcemia E83.52 [facility] [address] [address] February, Lumbar degenerative disc disease M51.36 [facility] [id number] [address] 26730- 1735 February, Type 2 diabetes mellitus with diabetic [...] K21.9 and Lumbar degenerative disc disease M51.36 [facility] [id number] [place] [address] 56594- 7635 Jan, Other chronic pain G89.29 [facility] [id number] [place] [address] 33445- 1882 Jan, [facility] [id number] [place] [address] 95297- 6896 Jan, [facility] [id number] [place] [address] 10130- 6784 Jan, Type 2 diabetes mellitus with diabetic neuropathy, unspecified table runner insulin 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 [facility] [id number] [address] 50284- 2323 Jan, [place] [address] [address] Jan, [facility] [id number] [address] 32048- 5960 Jan, Other chronic pain G89.29 [facility] [id number] [address] 25754- 5116 Dec, Atrial fibrillation, unspecified type I48.91 ; Essential hypertension I10 and Other chronic pain G89.29 [facility] [id number] [address] 54877- 0016 Dec, Atrial fibrillation, unspecified type I48.91 [facility] [id number] [address] 24640- 2219 Dec, [facility] [id number] [place] [address] 27587- 9800 Nov, Other chronic pain G89.29 [facility] [id number] [address] 21907- 2758 Nov, [facility] [id number] [place] [address] 95416- 2268 Nov, [place] [id number] [address] 87338- 4652 Nov, Type 2 diabetes mellitus with diabetic neuropathy, unspecified snf insulin 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 ; Type 2 diabetes mellitus with hyperglycemia E11.65 ; Essential hypertension I10 ; Chronic obstructive pulmonary disease, unspecified COPD type J44.9 ; Atrial fibrillation, unspecified type I48.91 ; GERD without esophagitis K21.9 ; Lumbar degenerative disc disease M51.36 ; Alcoholism /alcohol abuse F10.20 and Encounter for immunization Z23 [facility] [id number] [address] 50634- 3513 Oct, Type 2 diabetes mellitus with hyperglycemia E11.65 ; Other chronic pain G89.29 and Other snf (current) drug therapy Z79.899 [place] [address] [address] Oct, [facility] [id number] [address] 41206- 2174 Oct, Essential hypertension I10 ; Anemia, unspecified D64.9 ; Chronic obstructive pulmonary disease, unspecified COPD type J44.9 ; Type 2 diabetes mellitus with hyperglycemia E11.65 ; Alcoholic cirrhosis of liver without ascites K70.30 ; Polyneuropathy associated with underlying disease G63 and Atrial fibrillation, unspecified type I48.91 [facility] [address] [id number] [address] Sep, Other chronic pain G89.29 [facility] [id number] [address] 38840- 9577 Sep, Type 2 diabetes mellitus with hyperglycemia E11.65 ; Atrial fibrillation, unspecified type I48.91 and Essential hypertension I10 [facility] [id number] [address] 72906- 8622 Sep, Essential hypertension I10 [facility] [id number] [address] 71491- 9798 Sep, Essential hypertension I10 [facility] [id number] [address] 22823- 4556 Sep, [facility] [id number] [place] [address] 43550- 7960 Sep, Other chronic pain G89.29 [facility] [address] [address] Aug, [facility] [id number] [address] 87539- 8461 Aug, Polyneuropathy associated with underlying disease G63 and Chronic obstructive pulmonary disease, unspecified COPD type J44.9 [facility] [id number] [id number] Aug, [facility] [address] [id number] [address] 79[address] Aug, [facility] [address] [address] 13 Aug, 2017 Chronic obstructive pulmonary disease, unspecified COPD type J44.9 [facility] [address] [address] 5[address] 10 Aug, 2017 Medicare annual wellness visit, subsequent Z00.00 [facility] [id number] [address] 92810- 1531 07 Aug, 2017 Other chronic pain G89.29 [facility] [id number] [address] 89355- 9954 16 Jul, 2017 [facility] [id number] [address] 84049- 7609 Jul, [facility] [id number] [address] 45340- 2916 Jul, Other chronic pain G89.29 and Essential hypertension I10 [facility] [address] [address] 9803 29 Jun, 2017 [facility] [id number] [address] 06566- 7841 19 Jun, 2017 Essential hypertension I10 [facility] [address] [address] 7735 Jun, [facility] [id number] [place] [address] 41158- 7760 Jun, Other chronic pain G89.29 [facility] [address] [address] 3254 06 Jun, 2017 Other chronic pain G89.29 [facility] [address] [address] 0643 05 Jun, 2017 [facility] [address] [address]- 1722 Jun, Type 2 diabetes mellitus with hyperglycemia E11.65 ; Essential hypertension I10 ; Atrial fibrillation, unspecified type I48.91 ; Polyneuropathy associated with underlying disease G63 ; Anemia, unspecified D64.9 ; Chronic obstructive pulmonary disease, unspecified COPD type J44.9 ; Other urinary incontinence N39.498 ; Lumbar degenerative disc disease M51.36 and GERD without esophagitis K21.9 [facility] [place] [id number] [address] 04510- 2341 May, [facility] [address] 42988- 9788 May, [facility] [place] [id number] [address] 55568- 0290 May, [place] [facility] [address] 67671- 4675 May, Other chronic pain G89.29 [place] [facility] [address] 15916- 6755 Apr, Onychomycosis B35.1 and Type 2 diabetes mellitus with diabetic neuropathy, unspecified snf insulin 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 [facility] [id number] [place] [address] 41498- 8175 Apr, Essential hypertension I10 [facility] [id number] [place] [address] 79628- 8551 Apr, [facility] [place] [id number] [address] 60007- 8075 Apr, Other chronic pain G89.29 [facility] [place] [id number] [address] 39042- 2497 Mar, Cervical pain (neck) M54.2 ; Other chronic pain G89.29 ; Other urinary incontinence N39.498 and Essential hypertension I10 [facility] [place] [id number] [address] 50180- 1114 Mar, [place] [id number] [address] 87541- 2238 Mar, Other chronic pain G89.29 [place] [address] [address] 7931 February, [facility] [id number] [address] 47168- 9075 February, [facility] [facility] [id number] [place] [address] 21110- 1927 February, Other chronic pain G89.29 [facility] [id number] [address] 58866- 9269 February, Essential hypertension I10 ; Type 2 diabetes mellitus with hyperglycemia E11.65 ; Alcoholic cirrhosis of liver without ascites K70.30 ; Chronic obstructive pulmonary disease, unspecified COPD type J44.9 ; Atrial fibrillation, unspecified type I48.91 ; Polyneuropathy associated with underlying disease G63 ; Anemia, unspecified D64.9 ; Requires assistance with activities of daily living (ADL) Z74.1 and Non-compliant behavior R46.89 [facility] [id number] [address] [id number] February, Dental examination Z01.20 [facility] [place] [id number] [address] 98196- 0604 Jan, [facility] [id number] [address] [id number] Jan, Dental caries K02.9 [place] [id number] [place] [address] 36218- 8432 Jan, Anemia, unspecified D64.9 ; Chronic obstructive pulmonary disease, unspecified COPD type J44.9 ; Other chronic pain G89.29 ; Syncope and collapse R55 and Polyneuropathy associated with underlying disease G63 [facility] [address] [id number] Jan, Dental examination Z01.20 [facility] [id number] [place] [address] 24590- 1301 Dec, Type 2 diabetes mellitus with hyperglycemia E11.65 ; Anemia , unspecified D64.9 ; Essential hypertension I10 ; Chronic obstructive pulmonary disease, unspecified COPD type J44.9 ; Atrial fibrillation, unspecified type I48.91 ; Cervical pain (neck) M54.2 ; Polyneuropathy associated with underlying disease G63 ; Low back pain M54.5 ; Other chronic pain G89.29 and Alcoholic cirrhosis of liver without ascites K70.30 [id number] [place] [address] 84665- 2125 Dec, [place] [id number] [address] 17812- 5498 Dec, [place] [id number] [address] 73168- 2201 Dec, [place] [id number] [address] 68228- 6009 Dec, Type 2 diabetes mellitus with hyperglycemia E11.65 ; History of alcoholism F10.21 ; Anemia due to other cause D64.89 and Atrial fibrillation, unspecified type I48.91 [facility] [id number] [place] [address] 60191- 9123 Dec, [place] [id number] [address] 47303- 2045 Dec, [place] [id number] [place] [address] 92971- 7012 Dec, Type 2 diabetes mellitus with hyperglycemia E11.65 ; History of alcoholism F10.21 ; Anemia due to other cause D64.89 and Atrial fibrillation, unspecified type I48.91 [place] [id number] [place] [address] 95862- 7778 Nov, [id number] [address] 21585- 7042 Nov, Other chronic pain G89.29 [facility] [place] [id number] [address] 18511- 6254 Nov, Other chronic pain G89.29 [place] [id number] [place] [address] 25928- 4680 10 Nov, 2016 Type 2 diabetes mellitus with hyperglycemia E11.65 ; Anemia due to other cause D64.89 ; Hypotension due to blood loss I95.89 ; Alcoholic cirrhosis of liver without ascites K70.30 ; History of alcoholism F10.21 and Chronic obstructive pulmonary disease, unspecified COPD type J44.9 [id number] [address] 93027- 4943 Sep, [facility] [id number] [place] [address] [id number] Jan, Dental examination Z01.20 [address] [id number] [address] 02170- 0770 23 Nov, 2015 Chronic obstructive pulmonary disease, unspecified COPD type J44.9 ; Panic attacks F41.0 and Other chronic pain G89.29 [place] [id number] [place] [address] 06141- 8802 Jan, [place] [id number] [address] 38972- 9869 Jan, [place] [id number] [address] 08151- 6825 Dec, [place] [id number] [address] 82140- 0047 Dec, [id number] [address] 97174- 9652 Dec, [facility] [id number] [place] [address] 31307- 0910 Dec, IMMUNIZATIONS No Known Immunizations SOCIAL HISTORY [...]
--- OUTSIDE RECORDS SUMMARY | 2018-07-29 05:29 | XMS REPORT ---
Author Author KASEY FRIDA Organization [facility] Address [address] [place] [address] Care Team Providers Care Leather Sponger Name Role Phone PARKSFRIDA Del Toro Unavailable PROBLEMS Type Condition ICD9-CM Code SCZ50-KV Code Onset Dates Condition Status SNOMED Code Problem Polyneuropathy associated with underlying disease G63 Active 358925604 Problem Requires assistance with activities of daily living (ADL) Z74.1 Active 416257264 Problem Cervical pain (neck) M54.2 Active 12712877 Problem Falls frequently R29.6 Active 145060617 Problem Type 2 diabetes mellitus with other specified complication E11.69 Active 58415533 Problem GERD without esophagitis K21.9 Active 510914704 Problem Other urinary incontinence N39.498 Active 255863337 Problem senior living current use of 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 Active 027031267 Problem Alcoholism /alcohol abuse F10.20 Active 1872571 Problem Hypercalcemia E83.52 Active 78006796 Problem Lumbar degenerative disc disease M51.36 Active 92108215 Problem Type 2 diabetes mellitus with hyperglycemia E11.65 Active 118790204 Problem Anemia, unspecified D64.9 Active 930687303 Problem Other chronic pain G89.29 Active 54233906 Problem Chronic obstructive pulmonary disease, unspecified COPD type J44.9 Active 46843695 Problem Essential hypertension I10 Active 24641208 Problem Atrial fibrillation, unspecified type I48.91 Active 53128170 Problem Alcoholic cirrhosis of liver without ascites K70.30 Active 593949201 Problem Other chronic pain G89.29 Active 45094599 ALLERGIES No Information ENCOUNTERS Encounter Location Date Diagnosis [facility] [address] [facility] [id number] [address] May, [facility] [address] [facility] [id number] [id number] May, [facility] [id number] [place] [address] 29782- 8206 Apr, Type 2 diabetes mellitus with hyperglycemia E11.65 [place] [id number] [place] [address] 85902- 6349 Apr, Type 2 diabetes mellitus with hyperglycemia E11.65 [place] [id number] [place] [address] 16634- 4941 Apr, Lumbar degenerative disc disease M51.36 [place] [id number] [place] [address] 37284- 2532 Apr, Type 2 diabetes mellitus with hyperglycemia E11.65 [facility] [address] [place] [id number] Apr, Type 2 diabetes mellitus with hyperglycemia E11.65 ; Atrial fibrillation, unspecified type I48.91 ; Anemia due to other cause D64.89 ; Alcoholism / alcohol abuse F10.20 ; Acute pylorus ulcer K25.3 and Alcoholic cirrhosis of liver without ascites K70.30 [place] [id number] [place] [address] 10529- 3294 Apr, Lumbar degenerative disc disease M51.36 [facility] [id number] [place] [address] 05448- 5652 Mar, [facility] [id number] [place] [address] 78295- 0020 Mar, [place] [id number] [place] [address] 45769- 5467 Mar, [place] [id number] [place] [address] 55726- 8780 Mar, [facility] [id number] [place] [address] 26663- 4105 Mar, Lumbar degenerative disc disease M51.36 [facility] [id number] [place] [address] 11894- 7835 Mar, Dizziness R42 ; Falls frequently R29.6 ; Weight loss, non- intentional R63.4 ; Essential hypertension I10 ; Cardiac murmur R01.1 ; Hypercalcemia E83.52 and Requires assistance with activities of daily living ( ADL) Z74.1 [place] [id number] [place] [address] 41384- 6622 Mar, [facility] [id number] [place] [address] 83295- 0895 Mar, Hypercalcemia E83.52 [place] [address] 07337- 9941 February, Lumbar degenerative disc disease M51.36 [facility] [id number] [place] [address] 32786- 0404 February, Type 2 diabetes mellitus with diabetic neuropathy, unspecified correction insulin 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 ; Type 2 diabetes mellitus with other specified complication E11.69 ; senior living current use of 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 ; Essential hypertension I10 ; Chronic obstructive pulmonary disease, unspecified COPD type J44.9 ; Polyneuropathy associated with underlying disease G63 ; Atrial fibrillation, unspecified type I48.91 ; GERD without esophagitis K21.9 and Lumbar degenerative disc disease M51.36 [place] [id number] [place] [address] 57487- 9851 Jan, Other chronic pain G89.29 [facility] [id number] [place] [address] 70988- 6473 Jan, [place] [id number] [place] [address] 14308- 2561 Jan, [place] [id number] [place] [address] 48804- 5538 Jan, Type 2 diabetes mellitus with diabetic neuropathy, 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 [facility] [id number] [place] [address] 39546- 4754 Jan, [place] [id number] [place] [address] 89718- 7044 Jan, [place] [id number] [place] [address] 67011- 4756 Jan, Other chronic pain G89.29 [place] [id number] [place] [address] 97107- 4305 Dec, Atrial fibrillation, unspecified type I48.91 ; Essential hypertension I10 and Other chronic pain G89.29 [place] [id number] [place] [address] 37817- 7916 Dec, Atrial fibrillation, unspecified type I48.91 [place] [id number] [place] [address] 49328- 3982 Dec, [place] [address] 77386- 1057 Nov, Other chronic pain G89.29 [place] [id number] [place] [address] 04207- 1670 Nov, [place] [id number] [place] [address] 59486- 3756 Nov, [place] [id number] [place] [address] 33897- 3025 Nov, Type 2 diabetes mellitus with diabetic [...] and Encounter for immunization Z23 [place] [id number] [place] [address] 40687- 9260 Oct, Type 2 diabetes mellitus with hyperglycemia E11.65 ; Other chronic pain G89.29 and 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.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 [place] [id number] [place] [address] 24311- 4334 Oct, [place] [id number] [place] [address] 38562- 2058 Oct, Essential hypertension I10 ; Anemia, unspecified D64.9 ; Chronic obstructive pulmonary disease, unspecified COPD type J44.9 ; Type 2 diabetes mellitus with hyperglycemia E11.65 ; Alcoholic cirrhosis of liver without ascites K70.30 ; Polyneuropathy associated with underlying disease G63 and Atrial fibrillation, unspecified type I48.91 [facility] [address] [address] Sep, Other chronic pain G89.29 [facility] [id number] [place] [address] 29023- 9025 Sep, Type 2 diabetes mellitus with hyperglycemia E11.65 ; Atrial fibrillation, unspecified type I48.91 and Essential hypertension I10 [facility] [id number] [place] [address] 14691- 4132 Sep, Essential hypertension I10 [facility] [id number] [place] [address] 83851- 3743 Sep, Essential hypertension I10 [facility] [id number] [place] [address] 49137- 2736 Sep, [facility] [id number] [place] [address] 34301- 7049 Sep, Other chronic pain G89.29 [facility] [address] [address] Aug, [facility] [id number] [place] [address] 78984- 8565 Aug, Polyneuropathy associated with underlying disease G63 and Chronic obstructive pulmonary disease, unspecified COPD type J44.9 [facility] [id number] [id number] Aug, [facility] [id number] [place] [address] 52747- 2210 Aug, [facility] [id number] [place] [address] 10443- 7187 Aug, Chronic obstructive pulmonary disease, unspecified COPD type J44.9 [facility] [address] [address] 10 Aug, 2017 Medicare annual wellness visit, subsequent Z00.00 [facility] [address] [address] 6[address] 07 Aug, 2017 Other chronic pain G89.29 [facility] [address] [address] 16 Jul, 2017 [facility] [address] [address] 4[address] Jul, [facility] [id number] [place] [address] 85152- 2231 Jul, Other chronic pain G89.29 and Essential hypertension I10 [facility] [address] [address] 29[address] Jun, [facility] [address] [address] 6588 Jun, Essential hypertension I10 [facility] [address] [address] 7592 Jun, [facility] [address] [address] 1476 Jun, Other chronic pain G89.29 [facility] [address] [address] 7358 Jun, Other chronic pain G89.29 [facility] [address] [address] 5381 05 Jun, 2017 [facility] [address] [address] 9528 Jun, Type 2 diabetes mellitus with hyperglycemia E11.65 ; Essential hypertension I10 ; Atrial fibrillation, unspecified type I48.91 ; Polyneuropathy associated with underlying disease G63 ; Anemia, unspecified D64.9 ; Chronic obstructive pulmonary disease, unspecified COPD type J44.9 ; Other urinary incontinence N39.498 ; Lumbar degenerative disc disease M51.36 and GERD without esophagitis K21.9 [facility] [id number] [place] [address] 69421- 9999 May, [facility] [id number] [place] [address] 45988- 2895 May, [facility] [id number] [place] [address] 64761- 6045 May, [facility] [id number] [place] [address] 84916- 5627 May, Other chronic pain G89.29 [facility] [id number] [place] [address] 40139- 9207 Apr, Onychomycosis B35.1 and Type 2 diabetes mellitus with diabetic neuropathy, 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 [facility] [id number] [place] [address] 91307- 5035 Apr, Essential hypertension I10 [facility] [id number] [place] [address] 31193- 5727 Apr, [facility] [id number] [place] [address] 51071- 9689 Apr, Other chronic pain G89.29 [facility] [id number] [place] [address] 02884- 3577 Mar, Cervical pain (neck) M54.2 ; Other chronic pain G89.29 ; Other urinary incontinence N39.498 and Essential hypertension I10 [facility] [id number] [place] [address] 71293- 1471 Mar, [facility] [id number] [place] [address] 51063- 7319 Mar, Other chronic pain G89.29 [facility] [id number] [place] [address] 39083- 8587 February, [facility] [id number] [place] [address] 60464- 0712 February, [address] 111414- 6318 February, Other chronic pain G89.[address] 79667- 5317 February, Essential hypertension I10 ; Type 2 diabetes mellitus with hyperglycemia E11.65 ; Alcoholic cirrhosis of liver without ascites K70.30 ; Chronic obstructive pulmonary disease, unspecified COPD type J44.9 ; Atrial fibrillation, unspecified type I48.91 ; Polyneuropathy associated with underlying disease G63 ; Anemia, unspecified D64.9 ; Requires assistance with activities of daily living (ADL) Z74.1 and Non-compliant behavior R46.89 [facility] [address] [id number] February, Dental examination Z01.[address] 06285- 0595 Jan, [facility] [address] [id number] Jan, Dental caries K02.9 [place] [id number] [place] [address] 78193- 5519 Jan, Anemia, unspecified D64.9 ; Chronic obstructive pulmonary disease, unspecified COPD type J44.9 ; Other chronic pain G89.29 ; Syncope and collapse R55 and Polyneuropathy associated with underlying disease G63 [facility] [address] [id number] Jan, Dental examination Z01.20 [place] [address] [place] [id number]- 9319 Dec, Type 2 diabetes mellitus with hyperglycemia [...] of liver without ascites K70.30 [place] [address] [address] 2136 Dec, [place] [address] [address]- 9289 Dec, [place] [id number] [place] [address] 12300- 6600 Dec, [place] [address] [address]- 4495 Dec, Type 2 diabetes mellitus with hyperglycemia E11.65 ; History of alcoholism F10.21 ; Anemia due to other cause D64.89 and Atrial fibrillation, unspecified type I48.91 [place] [address] [address]- 0848 Dec, [place] [address] [address]- 4739 Dec, [place] [address] [address]- 3735 Dec, Type 2 diabetes mellitus with hyperglycemia E11.65 ; History of alcoholism F10.21 ; Anemia due to other cause D64.89 and Atrial fibrillation, unspecified type I48.91 [place] [address] [address]- 4809 Nov, [place] [address] [address]- 2387 Nov, Other chronic pain G89.29 [place] [id number] [address]- 3064 Nov, Other chronic pain G89.29 [place] [address] [address]- 9696 Nov, Type 2 diabetes mellitus with hyperglycemia E11.65 ; Anemia due to other cause D64.89 ; Hypotension due to blood loss I95.89 ; Alcoholic cirrhosis of liver without ascites K70.30 ; History of alcoholism F10.21 and Chronic obstructive pulmonary disease, unspecified COPD type J44.9 [place] [id number] [place] [address] 68122- 6995 Sep, [facility] [id number] [place] [address] [id number] Jan, Dental examination Z01.20 [place] [address] 62824- 8037 Nov, Chronic obstructive pulmonary disease, unspecified COPD type J44.9 ; Panic attacks F41.0 and Other chronic pain G89.29 [place] [id number] [place] [address] 57398- 5165 Jan, [place] [address] 89112- 1052 Jan, [place] [id number] [place] [address] 89815- 7340 Dec, [place] [id number] [place] [address] 05970- 1267 Dec, [place] [id number] [place] [address] 59259- 3716 Dec, [place] [id number] [place] [address] 87022- 9716 Dec, IMMUNIZATIONS No Known Immunizations SOCIAL HISTORY [...]
[2018-07-29] MEDS ORDERED: NITROGLYCERIN 2% OINT 1 GM UNIT DOSE PACKET TOP ONE (05:30)
[2018-07-29] MEDS ORDERED: RT-ALBUTEROL/IPRATROPIUM 3 ML (DUONEB) VIAL INH ONE (05:30)
--- OUTSIDE RECORDS SUMMARY | 2018-07-29 05:30 | XMS REPORT ---
Author Author KASEY FRIDA Organization [facility] Address [address] [place] [address] Care Team Providers Care Manufacturing Engineer Supervisor Name Role Phone PARKSFRIDA Del Toro Unavailable PROBLEMS Type Condition ICD9-CM Code EMU31-PV Code Onset Dates Condition Status SNOMED Code Problem Polyneuropathy associated with underlying disease G63 Active 150168437 Problem Requires assistance with activities of daily living (ADL) Z74.1 Active 452821718 Problem Cervical pain (neck) M54.2 Active 82947160 Problem Falls frequently R29.6 Active 065722058 Problem Type 2 diabetes mellitus with other specified complication E11.69 Active 35523362 Problem GERD without esophagitis K21.9 Active 795673478 Problem Other urinary incontinence N39.498 Active 324532193 Problem long-term current use of 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 Active 832657072 Problem Alcoholism /alcohol abuse F10.20 Active 5358612 Problem Hypercalcemia E83.52 Active 61989236 Problem Lumbar degenerative disc disease M51.36 Active 03920167 Problem Type 2 diabetes mellitus with hyperglycemia E11.65 Active 169540394 Problem Anemia, unspecified D64.9 Active 995108768 Problem Other chronic pain G89.29 Active 63162405 Problem Chronic obstructive pulmonary disease, unspecified COPD type J44.9 Active 43526399 Problem Essential hypertension I10 Active 35914620 Problem Atrial fibrillation, unspecified type I48.91 Active 32253372 Problem Alcoholic cirrhosis of liver without ascites K70.30 Active 314920853 Problem Other chronic pain G89.29 Active 27202756 ALLERGIES No Information ENCOUNTERS Encounter Location Date Diagnosis [facility] [address] [facility] [id number] [address] May, [facility] [address] [facility] [id number] [id number] May, [facility] [id number] [place] [address] 52016- 6002 Apr, Type 2 diabetes mellitus with hyperglycemia E11.65 [facility] [id number] [place] [address] 13790- 0925 Apr, Lumbar degenerative disc disease M51.36 [facility] [id number] [place] [address] 80800- 8374 Apr, Type 2 diabetes mellitus with hyperglycemia E11.65 [facility] [address] [facility] [place] [id number] Apr, Type 2 diabetes mellitus with hyperglycemia E11.65 ; Atrial fibrillation, unspecified type I48.91 ; Anemia due to other cause D64.89 ; Alcoholism / alcohol abuse F10.20 ; Acute pylorus ulcer K25.3 and Alcoholic cirrhosis of liver without ascites K70.30 [facility] [id number] [place] [address] 74878- 5729 Apr, Lumbar degenerative disc disease M51.36 [place] [address] [address]- [address] Mar, [place] [address] [address]- [address]57 Mar, [place] [address] 10[address]- 8296 Mar, [facility] [id number] [place] [address] 47707- 1042 Mar, [facility] [id number] [place] [address] 70635- 1300 Mar, Lumbar degenerative disc disease M51.36 [facility] [id number] [place] [address] 42133- 9137 14 Mar, 2018 Dizziness R42 ; Falls frequently R29.6 ; Weight loss, non- intentional R63.4 ; Essential hypertension I10 ; Cardiac murmur R01.1 ; Hypercalcemia E83.52 and Requires assistance with activities of daily living ( ADL) Z74.1 [place] [address] [place] [address] Mar, [facility] [id number] [place] [address] 80820- 7026 Mar, Hypercalcemia E83.52 [facility] [id number] [place] [address] 12650- 1723 February, Lumbar degenerative disc disease M51.36 [facility] [id number] [place] [address] 58095- 7061 February, Type 2 diabetes mellitus with diabetic neuropathy, unspecified mcc insulin 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 ; Type 2 diabetes mellitus with other specified complication E11.69 ; 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 ; Essential hypertension I10 ; Chronic obstructive pulmonary disease, unspecified COPD type J44.9 ; Polyneuropathy associated with underlying disease G63 ; Atrial fibrillation, unspecified type I48.91 ; GERD without esophagitis K21.9 and Lumbar degenerative disc disease M51.36 [facility] [id number] [place] [address] 87341- 0653 Jan, Other chronic pain G89.29 [facility] [id number] [place] [address] 98712- 8424 Jan, [facility] [id number] [place] [address] 45359- 9301 Jan, [facility] [id number] [place] [address] 19648- 0914 Jan, Type 2 diabetes mellitus with diabetic neuropathy, unspecified mcc insulin 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 [facility] [id number] [place] [address] 33050- 4886 Jan, [facility] [id number] [place] [address] 64148- 1924 Jan, [facility] [id number] [place] [address] 58177- 4413 Jan, Other chronic pain G89.29 [facility] [id number] [place] [address] 29225- 5366 Dec, Atrial fibrillation, unspecified type I48.91 ; Essential hypertension I10 and Other chronic pain G89.29 [facility] [id number] [place] [address] 49802- 3708 Dec, Atrial fibrillation, unspecified type I48.91 [facility] [id number] [place] [address] 68234- 7214 Dec, [facility] [id number] [place] [address] 06884- 8542 Nov, Other chronic pain G89.29 [facility] [id number] [place] [address] 59608- 5266 Nov, [facility] [id number] [place] [address] 95237- 8407 Nov, [place] [id number] [place] [address] 77118- 0526 Nov, Type 2 diabetes mellitus with diabetic neuropathy, unspecified 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 ; Type 2 diabetes mellitus with hyperglycemia E11.65 ; Essential hypertension I10 ; Chronic obstructive pulmonary disease, unspecified COPD type J44.9 ; Atrial fibrillation, unspecified type I48.91 ; GERD without esophagitis K21.9 ; Lumbar degenerative disc disease M51.36 ; Alcoholism /alcohol abuse F10.20 and Encounter for immunization Z23 [place] [address] [place] [address] 27573- 3504 Oct, Type 2 diabetes mellitus with hyperglycemia E11.65 ; Other chronic pain G89.29 and Other mcc (current) drug therapy Z79.899 [facility] [id number] [place] [address] 52490- 8717 Oct, [place] [address] [place] [address] 02137- 3381 Oct, Essential hypertension I10 ; Anemia, unspecified D64.9 ; Chronic obstructive pulmonary disease, unspecified COPD type J44.9 ; Type 2 diabetes mellitus with hyperglycemia E11.65 ; Alcoholic cirrhosis of liver without ascites K70.30 ; Polyneuropathy associated with underlying disease G63 and Atrial fibrillation, unspecified type I48.91 [facility] [address] [address] Sep, Other chronic pain G89.29 [facility] [id number] [address] Sep, Type 2 diabetes mellitus with hyperglycemia E11.65 ; Atrial fibrillation, unspecified type I48.91 and Essential hypertension I10 [facility] [address] [address] 9[address] Sep, Essential hypertension I10 [facility] [address] [place] [address] 51774- 7222 Sep, Essential hypertension I10 [facility] [address] [place] [address] 23305- 7229 Sep, [facility] [address] [address] 6618 Sep, Other chronic pain G89.29 [facility] [address] [address] 65[address] Aug, [facility] [id number] [address] 5917 Aug, Polyneuropathy associated with underlying disease G63 and Chronic obstructive pulmonary disease, unspecified COPD type J44.9 [facility] [id number] [id number] Aug, [facility] [address] [address] 9401 Aug, [facility] [address] [address] 6433 Aug, Chronic obstructive pulmonary disease, unspecified COPD type J44.9 [facility] [address], [place] [address] 9[address] Aug, Medicare annual wellness visit, subsequent Z00.00 [facility] [address] [address] 0928 Aug, Other chronic pain G89.29 [facility] [address], [place] [address]- 8055 16 Jul, 2017 [facility] [address] [place] [address] 42518- 1969 Jul, [facility] [id number] [place] [address] 77629- 7455 Jul, Other chronic pain G89.29 and Essential hypertension I10 [facility] [id number] [place] [address] 37703- 8962 29 Jun, 2017 [facility] [id number] [place] [address] 82806- 5947 19 Jun, 2017 Essential hypertension I10 [facility] [id number] [place] [address] 88751- 9611 Jun, [facility] [address] [place] [address] 99612- 5376 Jun, Other chronic pain G89.29 [facility] [address], [place] [address]- 4523 Jun, Other chronic pain G89.29 [facility] [address], [place] [address]- 3043 05 Jun, 2017 [facility] [address], [place] [address]- 3579 Jun, Type 2 diabetes mellitus with hyperglycemia E11.65 ; Essential hypertension I10 ; Atrial fibrillation, unspecified type I48.91 ; Polyneuropathy associated with underlying disease G63 ; Anemia, unspecified D64.9 ; Chronic obstructive pulmonary disease, unspecified COPD type J44.9 ; Other urinary incontinence N39.498 ; Lumbar degenerative disc disease M51.36 and GERD without esophagitis K21.9 [facility] [address] [id number] [address] 7[address] May, [facility] [address], [place] [address]- 1415 May, [facility] [address], [place] [address]- 5978 May, [facility] [address], [place] [address]- 6502 May, Other chronic pain G89.29 [facility] [id number] [address]- 4332 Apr, Onychomycosis B35.1 and Type 2 diabetes mellitus with diabetic neuropathy, unspecified mcc insulin 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 [facility] [address], [place] [address]- 4995 Apr, Essential hypertension I10 [facility] [id number] [place] [address] 19320- 3354 Apr, [facility] [id number] [address]- 6605 Apr, Other chronic pain G89.29 [facility] [id number] [place] [address] 24582- 4477 Mar, Cervical pain (neck) M54.2 ; Other chronic pain G89.29 ; Other urinary incontinence N39.498 and Essential hypertension I10 [facility] [address], [place] [address]- 8801 Mar, [facility] [address], [place] [address]- 1634 Mar, Other chronic pain G89.29 [facility] [id number], [place] [address]- 1796 February, [facility] [address], [place] [address]- 1821 February, [facility] [id number] [place] [address] 79859- 4907 February, Other chronic pain G89.29 [facility] [address] 29099- 5163 February, Essential hypertension I10 ; Type 2 diabetes mellitus with hyperglycemia E11.65 ; Alcoholic cirrhosis of liver without ascites K70.30 ; Chronic obstructive pulmonary disease, unspecified COPD type J44.9 ; Atrial fibrillation, unspecified type I48.91 ; Polyneuropathy associated with underlying disease G63 ; Anemia, unspecified D64.9 ; Requires assistance with activities of daily living (ADL) Z74.1 and Non-compliant behavior R46.89 [facility] [address] [id number] February, Dental examination Z01.20 [facility] [id number] [place] [address] 80469- 8271 Jan, [facility] [id number] [place] [address] [id number] Jan, Dental caries K02.9 [facility] [id number] [place] [address] 07215- 1274 Jan, Anemia, unspecified D64.9 ; Chronic obstructive pulmonary disease, unspecified COPD type J44.9 ; Other chronic pain G89.29 ; Syncope and collapse R55 and Polyneuropathy associated with underlying disease G63 [facility] [id number] [place] [address] [id number] Jan, Dental examination Z01.20 [facility] [id number] [place] [address] 33205- 4357 Dec, Type 2 diabetes mellitus with hyperglycemia E11.65 ; Anemia , unspecified D64.9 ; Essential hypertension I10 ; Chronic obstructive pulmonary disease, unspecified COPD type J44.9 ; Atrial fibrillation, unspecified type I48.91 ; Cervical pain (neck) M54.2 ; Polyneuropathy associated with underlying disease G63 ; Low back pain M54.5 ; Other chronic pain G89.29 and Alcoholic cirrhosis of liver without ascites K70.30 [facility] [address], [place] [address]- 7178 Dec, [place] [address] [place] [address] 12208- 8237 Dec, [facility] [address] [place] [address] 67633- 2873 Dec, [place] [id number] [place] [address] 75922- 6025 Dec, Type 2 diabetes mellitus with hyperglycemia E11.65 ; History of alcoholism F10.21 ; Anemia due to other cause D64.89 and Atrial fibrillation, unspecified type I48.91 [place] [id number] [place] [address] 47766- 3961 Dec, [place] [address] [place] [address] 34736- 8780 Dec, [place] [address] [place] [address] 09967- 1802 Dec, Type 2 diabetes mellitus with hyperglycemia E11.65 ; History of alcoholism F10.21 ; Anemia due to other cause D64.89 and Atrial fibrillation, unspecified type I48.91 [place] [address] [address]- 1352 Nov, [place] [address] [place] [address] 80452- 0566 Nov, Other chronic pain G89.29 [place] [place] [address] [place] [address] 36056- 3338 Nov, Other chronic pain G89.29 [place] [address] [place] [address] 02484- 9517 10 Nov, 2016 Type 2 diabetes mellitus with hyperglycemia E11.65 ; Anemia due to other cause D64.89 ; Hypotension due to blood loss I95.89 ; Alcoholic cirrhosis of liver without ascites K70.30 ; History of alcoholism F10.21 and Chronic obstructive pulmonary disease, unspecified COPD type J44.9 [facility] [id number], [place] [address]- 4263 Sep, [facility] [address] [place] [address] [id number] Jan, Dental examination Z01.20 [facility] [address] [place] [address] 85214- 6125 Nov, Chronic obstructive pulmonary disease, unspecified COPD type J44.9 ; Panic attacks F41.0 and Other chronic pain G89.29 [facility] [address], [place] [address]- 8830 Jan, [facility] [id number] [place] [address] 64979- 8544 Jan, [facility] [id number] [place] [address] 97274- 7345 Dec, [facility] [address] [place] [address] 61450- 2140 Dec, [facility] [address], [place] [address]- 7520 Dec, [facility] [address], [place] [address]- 6491 Dec, IMMUNIZATIONS No Known Immunizations SOCIAL HISTORY Never Assessed REASON FOR VISIT Controlled Med Refill PLAN OF CARE VITAL SIGNS MEDICATIONS Medication Instructions Dosage Frequency Start Date End Date Duration Status Hydrocodone-Acetaminophen 5-325 mg Orally 2 times a day 1 tablet as needed 12h 29 Dec, 2017 28 days Active Digoxin 125 mcg Orally Once a day take 1 tablet (125 mcg) by oral route once daily 24h Dec, 30 days Active Lisinopril 5 mg Orally Once a day 1 tablet 24h 30 days Active RESULTS No Results PROCEDURES [...]
--- OUTSIDE RECORDS SUMMARY | 2018-07-29 05:31 | XMS REPORT ---
Author Author PARKS[facility]UDE [facility] Address [address] [place] [address] Care Team Providers Care Biomass Facilitator Name Role Phone PARKSFRIDA Del Toro Unavailable PROBLEMS Type Condition ICD9-CM Code ZDF67-FT Code Onset Dates Condition Status SNOMED Code Problem Polyneuropathy associated with underlying disease G63 Active 205417487 Problem Requires assistance with activities of daily living (ADL) Z74.1 Active 178274956 Problem Cervical pain (neck) M54.2 Active 02580216 Problem Falls frequently R29.6 Active 615685965 Problem Type 2 diabetes mellitus with other specified complication E11.69 Active 39275981 Problem GERD without esophagitis K21.9 Active 832835077 Problem Other urinary incontinence N39.498 Active 422402653 Problem correction current use of 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 Active 092398233 Problem Alcoholism /alcohol abuse F10.20 Active 5421368 Problem Hypercalcemia E83.52 Active 62579107 Problem Lumbar degenerative disc disease M51.36 Active 07297794 Problem Type 2 diabetes mellitus with hyperglycemia E11.65 Active 623089228 Problem Anemia, unspecified D64.9 Active 745586410 Problem Other chronic pain G89.29 Active 35864422 Problem Chronic obstructive pulmonary disease, unspecified COPD type J44.9 Active 50996934 Problem Essential hypertension I10 Active 67230432 Problem Atrial fibrillation, unspecified type I48.91 Active 56424969 Problem Alcoholic cirrhosis of liver without ascites K70.30 Active 971754912 Problem Other chronic pain G89.29 Active 90654559 ALLERGIES No Information ENCOUNTERS Encounter Location Date Diagnosis [facility] [id number] [id number] May, [facility] [address] [address] Apr, Lumbar degenerative disc disease M51.36 [facility] [address] [address] Mar, [facility] [facility] [id number] [place] [address] 73449- 5704 Mar, [place] [id number] [place] [address] 52324- 4441 Mar, [facility] [facility] [id number] [place] [address] 01030- 4708 Mar, [facility] [facility] [id number] [place] [address] 19055- 5740 Mar, Lumbar degenerative disc disease M51.36 [facility] [id number] [place] [address] 18925- 1486 Mar, Dizziness R42 ; Falls frequently R29.6 ; Weight loss, non- intentional R63.4 ; Essential hypertension I10 ; Cardiac murmur R01.1 ; Hypercalcemia E83.52 and Requires assistance with activities of daily living ( ADL) Z74.1 [place] [id number] [place] [address] 00235- 6997 Mar, [place] [id number] [place] [address] 35749- 7502 Mar, Hypercalcemia E83.52 [facility] [id number] [place] [address] 07711- 6890 February, Lumbar degenerative disc disease M51.36 [place] [id number] [place] [address] 11968- 8607 February, Type 2 diabetes mellitus with diabetic neuropathy, 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 ; Type 2 diabetes mellitus with other specified complication E11.69 ; correction current use of 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 ; Essential hypertension I10 ; Chronic obstructive pulmonary disease, unspecified COPD type J44.9 ; Polyneuropathy associated with underlying disease G63 ; Atrial fibrillation, unspecified type I48.91 ; GERD without esophagitis K21.9 and Lumbar degenerative disc disease M51.36 [facility] [id number] [address] Jan, Other chronic pain G89.29 [facility] [address] [address] Jan, [facility] [address] [address] Jan, [facility] [id number] [place] [address] 57248- 2193 Jan, Type 2 diabetes mellitus with diabetic neuropathy, unspecified alf insulin 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 [facility] [id number] [place] [address] 28003- 7214 Jan, [facility] [id number] [place] [address] 63045- 5601 Jan, [facility] [id number] [place] [address] 65688- 4324 Jan, Other chronic pain G89.29 [facility] [id number] [place] [address] 21020- 3956 Dec, Atrial fibrillation, unspecified type I48.91 ; Essential hypertension I10 and Other chronic pain G89.29 [facility] [address], [place] [address] Dec, Atrial fibrillation, unspecified type I48.91 [facility] [address] [address] 6958 Dec, [facility] [address], [place] [address] 7868 Nov, Other chronic pain G89.29 [facility] [address], [place] [address] 0[address] Nov, [facility] [address] [address] 150[address] Nov, [facility] [id number] [place] [address] 41941- 7034 Nov, Type 2 diabetes mellitus with diabetic neuropathy, 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 ; Type 2 diabetes mellitus with hyperglycemia E11.65 ; Essential hypertension I10 ; Chronic obstructive pulmonary disease, unspecified COPD type J44.9 ; Atrial fibrillation, unspecified type I48.91 ; GERD without esophagitis K21.9 ; Lumbar degenerative disc disease M51.36 ; Alcoholism /alcohol abuse F10.20 and Encounter for immunization Z23 [place] [address] [address] Oct, Type 2 diabetes mellitus with hyperglycemia E11.65 ; Other chronic pain G89.29 and Other alf (current) drug therapy Z79.899 [place] [address] [address]- 2215 Oct, [place] [address] [address] Oct, Essential hypertension I10 ; Anemia, unspecified D64.9 ; Chronic obstructive pulmonary disease, unspecified COPD type J44.9 ; Type 2 diabetes mellitus with hyperglycemia E11.65 ; Alcoholic cirrhosis of liver without ascites K70.30 ; Polyneuropathy associated with underlying disease G63 and Atrial fibrillation, unspecified type I48.91 [facility] [id number] [place] [address] 67166- 5891 Sep, Other chronic pain G89.29 [facility] [id number] [place] [address] 70130- 5100 Sep, Type 2 diabetes mellitus with hyperglycemia E11.65 ; Atrial fibrillation, unspecified type I48.91 and Essential hypertension I10 [place] [address] 42774- 1780 Sep, Essential hypertension I10 [place] [address] 47127- 4182 Sep, Essential hypertension I10 [place] [address] 00746- 7426 Sep, [facility] [address], [place] [address] 08[address] Sep, Other chronic pain G89.29 [facility] [address], [place] [address] 7[address] Aug, [facility] [address], [place] [address] Aug, Polyneuropathy associated with underlying disease G63 and Chronic obstructive pulmonary disease, unspecified COPD type J44.9 [facility] [address] [facility] [id number] [id number] Aug, [facility] [id number] [place] [address] 03502- 4006 Aug, [facility] [address], [place] [address] 0[address] Aug, Chronic obstructive pulmonary disease, unspecified COPD type J44.9 [facility] [address], [place] [address] 36[address] 10 Aug, 2017 Medicare annual wellness visit, subsequent Z00.00 [facility] [id number] [place] [address] 90412- 9706 07 Aug, 2017 Other chronic pain G89.29 [facility] [address], [place] [address] 0661 16 Jul, 2017 [facility] [address], [place] [address] 70[address] Jul, [facility] [address] [place] [address] 36004- 8137 Jul, Other chronic pain G89.29 and Essential hypertension I10 [facility] [address], [place] [address] 2493 29 Jun, 2017 [facility] [address], [place] [address]- 6177 19 Jun, 2017 Essential hypertension I10 [facility] [id number] [address] 0[address] Jun, [facility] [id number] [place] [address] 85122- 1847 Jun, Other chronic pain G89.29 [facility] [address], [place] [address] 6002 Jun, Other chronic pain G89.29 [place] [id number] [place] [address] 99345- 4567 Jun, [place] [id number] [place] [address] 55094- 9584 Jun, Type 2 diabetes mellitus with hyperglycemia E11.65 ; Essential hypertension I10 ; Atrial fibrillation, unspecified type I48.91 ; Polyneuropathy associated with underlying disease G63 ; Anemia, unspecified D64.9 ; Chronic obstructive pulmonary disease, unspecified COPD type J44.9 ; Other urinary incontinence N39.498 ; Lumbar degenerative disc disease M51.36 and GERD without esophagitis K21.9 [place] [address], [place] [address] 67[address] May, [place] [id number] [place] [address] 88484- 9106 May, [place] [address], [place] [address] 6324 May, [place] [id number] [place] [address] 27991- 6180 May, Other chronic pain G89.29 [place] [address], [place] [address] 4[address] Apr, Onychomycosis B35.1 and Type 2 diabetes mellitus with diabetic neuropathy, unspecified alf insulin 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 [place] [address], [place] [address] 1025 Apr, Essential hypertension I10 [facility] [id number] [place] [address] 48302- 4024 Apr, [facility] [id number] [place] [address] 34435- 4791 Apr, Other chronic pain G89.29 [facility] [id number] [place] [address] 60837- 3893 Mar, Cervical pain (neck) M54.2 ; Other chronic pain G89.29 ; Other urinary incontinence N39.498 and Essential hypertension I10 [facility] [id number] [place] [address] 52580- 4996 Mar, [facility] [address] 24632- 8214 Mar, Other chronic pain G89.29 [facility] [id number] [place] [address] 89665- 8229 February, [facility] [address] 43641- 4908 February, [facility] [id number] [place] [address] 10302- 6255 February, Other chronic pain G89.29 [facility] [id number] [place] [address] 58844- 4165 February, Essential hypertension I10 ; Type 2 diabetes mellitus with hyperglycemia E11.65 ; Alcoholic cirrhosis of liver without ascites K70.30 ; Chronic obstructive pulmonary disease, unspecified COPD type J44.9 ; Atrial fibrillation, unspecified type I48.91 ; Polyneuropathy associated with underlying disease G63 ; Anemia, unspecified D64.9 ; Requires assistance with activities of daily living (ADL) Z74.1 and Non-compliant behavior R46.89 [facility] [id number] [place] [id number] February, Dental examination Z01.20 [facility] [id number] [place] [address] 61603- 9702 Jan, [facility] [address] [id number] Jan, Dental caries K02.9 [facility] [id number] [place] [address] 05929- 8622 Jan, Anemia, unspecified D64.9 ; Chronic obstructive pulmonary disease, unspecified COPD type J44.9 ; Other chronic pain G89.29 ; Syncope and collapse R55 and Polyneuropathy associated with underlying disease G63 [facility] [id number] [place] [id number] Jan, Dental examination Z01.20 [id number] [place] [address] 09400- 3976 Dec, Type 2 diabetes mellitus with hyperglycemia E11.65 ; Anemia , unspecified D64.9 ; Essential hypertension I10 ; Chronic obstructive pulmonary disease, unspecified COPD type J44.9 ; Atrial fibrillation, unspecified type I48.91 ; Cervical pain (neck) M54.2 ; Polyneuropathy associated with underlying disease G63 ; Low back pain M54.5 ; Other chronic pain G89.29 and Alcoholic cirrhosis of liver without ascites K70.30 [place] [id number] [place] [address] 55874- 8870 Dec, [place] [id number] [place] [address] 00951- 3347 Dec, [place] [id number] [place] [address] 69693- 3624 Dec, [place] [id number] [place] [address] 53265- 9326 Dec, Type 2 diabetes mellitus with hyperglycemia E11.65 ; History of alcoholism F10.21 ; Anemia due to other cause D64.89 and Atrial fibrillation, unspecified type I48.91 [place] [id number] [place] [address] 66662- 9126 Dec, [place] [id number] [place] [address] 62717- 8378 Dec, [place] [address] [place] [address]- 8960 10 Dec, 2016 Type 2 diabetes mellitus with hyperglycemia E11.65 ; History of alcoholism F10.21 ; Anemia due to other cause D64.89 and Atrial fibrillation, unspecified type I48.91 [facility] [address] [place] [address] 06780- 3920 21 Nov, 2016 [facility] [id number] [place] [address] 49614- 3036 17 Nov, 2016 Other chronic pain G89.29 [facility] [id number] [place] [address] 34037- 1239 13 Nov, 2016 Other chronic pain G89.29 [facility] [id number] [place] [address] 85399- 4790 10 Nov, 2016 Type 2 diabetes mellitus with hyperglycemia E11.65 ; Anemia due to other cause D64.89 ; Hypotension due to blood loss I95.89 ; Alcoholic cirrhosis of liver without ascites K70.30 ; History of alcoholism F10.21 and Chronic obstructive pulmonary disease, unspecified COPD type J44.9 [facility] [id number] [place] [address] 80199- 1954 Sep, [facility] [id number] [place] [address] [id number] 06 Jan, 2016 Dental examination Z01.20 [facility] [id number] [place] [address] 17970- 4355 23 Nov, 2015 Chronic obstructive pulmonary disease, unspecified COPD type J44.9 ; Panic attacks F41.0 and Other chronic pain G89.29 [facility] [address], [place] [address]- 4524 Jan, [facility] [id number] [place] [address] 86215- 0781 Jan, [facility] [address], [place] [address]- 2100 Dec, [facility] [id number] [address]- 6197 Dec, [facility] [address] [facility] [id number] [place] [address]- 7612 Dec, [facility] [address] [facility] [id number] [place] [address]- 8994 Dec, IMMUNIZATIONS No Known Immunizations SOCIAL HISTORY [...]
--- OUTSIDE RECORDS SUMMARY | 2018-07-29 05:32 | XMS REPORT ---
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 Name Role Phone PARKSFRIDA Del Toro Unavailable PROBLEMS Type Condition ICD9-CM Code XRU51-VE Code Onset Dates Condition Status SNOMED Code Problem Polyneuropathy associated with underlying disease G63 Active 988239404 Problem Requires assistance with activities of daily living (ADL) Z74.1 Active 936280588 Problem Cervical pain (neck) M54.2 Active 21738862 Problem Falls frequently R29.6 Active 279081493 Problem Type 2 diabetes mellitus with other specified complication E11.69 Active 43109336 Problem GERD without esophagitis K21.9 Active 854272857 Problem Other urinary incontinence N39.498 Active 432428849 Problem snf current use of 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 Active 720413200 Problem Alcoholism /alcohol abuse F10.20 Active 2893799 Problem Hypercalcemia E83.52 Active 86076419 Problem Lumbar degenerative disc disease M51.36 Active 05465719 Problem Type 2 diabetes mellitus with hyperglycemia E11.65 Active 799564822 Problem Anemia, unspecified D64.9 Active 448748215 Problem Other chronic pain G89.29 Active 75340300 Problem Chronic obstructive pulmonary disease, unspecified COPD type J44.9 Active 61799559 Problem Essential hypertension I10 Active 73064754 Problem Atrial fibrillation, unspecified type I48.91 Active 65490783 Problem Alcoholic cirrhosis of liver without ascites K70.30 Active 283896435 Problem Other chronic pain G89.29 Active 49893725 ALLERGIES No Information ENCOUNTERS Encounter Location Date Diagnosis [facility] [address] [facility] [address] [id number] [address] Mar, [facility] [address] [address] [id number] [address] Mar, [facility] [id number] [place] [address] 66686- 2627 Mar, [place] [id number] [place] [address] 71738- 0363 Mar, [place] [id number] [place] [address] 96106- 6584 Mar, Lumbar degenerative disc disease M51.36 [place] [address] [address]- [address] Mar, Dizziness R42 ; Falls frequently R29.6 ; Weight loss, non- intentional R63.4 ; Essential hypertension I10 ; Cardiac murmur R01.1 ; Hypercalcemia E83.52 and Requires assistance with activities of daily living ( ADL) Z74.1 [place] [id number] [place] [address] 41992- 3986 Mar, [place] [address] [address]- 5806 Mar, Hypercalcemia E83.52 [place] [id number] [place] [address] 68408- 8446 February, Lumbar degenerative disc disease M51.36 [place] [id number] [place] [address] 42185- 3147 February, Type 2 diabetes mellitus with diabetic neuropathy, unspecified 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 ; Type 2 diabetes mellitus with other specified complication E11.69 ; snf current use of 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 ; Essential hypertension I10 ; Chronic obstructive pulmonary disease, unspecified COPD type J44.9 ; Polyneuropathy associated with underlying disease G63 ; Atrial fibrillation, unspecified type I48.91 ; GERD without esophagitis K21.9 and Lumbar degenerative disc disease M51.36 [place] [id number] [place] [address] 76068- 8725 Jan, Other chronic pain G89.29 [place] [id number] [place] [address] 68095- 5861 Jan, [place] [address] [address] Jan, [facility] [address] [place] [address] 17116- 0716 Jan, Type 2 diabetes mellitus with diabetic neuropathy, unspecified usp insulin 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 [place] [id number] [place] [address] 10826- 1491 Jan, [facility] [id number] [place] [address] 69628- 1635 Jan, [facility] [id number] [place] [address] 59832- 3942 Jan, Other chronic pain G89.29 [place] [id number] [place] [address] 29228- 2530 Dec, Atrial fibrillation, unspecified type I48.91 ; Essential hypertension I10 and Other chronic pain G89.29 [place] [id number] [place] [address] 85688- 4346 Dec, Atrial fibrillation, unspecified type I48.91 [place] [id number] [place] [address] 36662- 7241 Dec, [facility] [address] [place] [address] 06177- 4598 Nov, Other chronic pain G89.29 [place] [id number] [place] [address] 67805- 3736 Nov, [facility] [address] [place] [address] 23626- 8273 Nov, [facility] [id number] [place] [address] 96496- 9391 Nov, Type 2 diabetes mellitus with diabetic neuropathy, unspecified usp insulin 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 ; Type 2 diabetes mellitus with hyperglycemia E11.65 ; Essential hypertension I10 ; Chronic obstructive pulmonary disease, unspecified COPD type J44.9 ; Atrial fibrillation, unspecified type I48.91 ; GERD without esophagitis K21.9 ; Lumbar degenerative disc disease M51.36 ; Alcoholism /alcohol abuse F10.20 and Encounter for immunization Z23 [place] [address] 70355- 6803 Oct, Type 2 diabetes mellitus with hyperglycemia E11.65 ; Other chronic pain G89.29 and Other usp (current) drug therapy Z79.899 [place] [address] 97687- 1805 Oct, [place] [address] 87234- 7006 Oct, Essential hypertension I10 ; Anemia, unspecified D64.9 ; Chronic obstructive pulmonary disease, unspecified COPD type J44.9 ; Type 2 diabetes mellitus with hyperglycemia E11.65 ; Alcoholic cirrhosis of liver without ascites K70.30 ; Polyneuropathy associated with underlying disease G63 and Atrial fibrillation, unspecified type I48.91 [place] [address] 78267- 6142 Sep, Other chronic pain G89.29 [place] [address] 28194- 4816 Sep, Type 2 diabetes mellitus with hyperglycemia E11.65 ; Atrial fibrillation, unspecified type I48.91 and Essential hypertension I10 [address] [address]27- 7526 Sep, Essential hypertension I10 [place] [address] 47324- 7658 Sep, Essential hypertension I10 [place] [address] 69132- 3445 Sep, [place] [address] 40994- 1786 Sep, Other chronic pain G89.29 [place] [address] 31401- 0584 Aug, [facility] [address] [address] [id number] [address] Aug, Polyneuropathy associated with underlying disease G63 and Chronic obstructive pulmonary disease, unspecified COPD type J44.9 [facility] [address] [id number] [place] [id number] Aug, [facility] [address] [address] Aug, [facility] [address] [address]259 Aug, Chronic obstructive pulmonary disease, unspecified COPD type J44.9 [facility] [address] [address] 0[address] Aug, Medicare annual wellness visit, subsequent Z00.00 [facility] [address] [address] 6846 Aug, Other chronic pain G89.29 [facility] [address] [address] 16 Jul, 2017 [facility] [address] [address] Jul, [facility] [address] [address] 2642 Jul, Other chronic pain G89.29 and Essential hypertension I10 [facility] [address] [address] 70[address] Jun, [facility] [id number] [address] 2372 Jun, Essential hypertension I10 [facility] [address] [address] 8374 Jun, [facility] [id number] [address]- 4019 Jun, Other chronic pain G89.29 [facility] [address] [address]- 4911 Jun, Other chronic pain G89.29 [facility] [id number] [place] [address] 25435- 7827 Jun, [place] [id number] [place] [address] 28412- 7016 Jun, Type 2 diabetes mellitus with hyperglycemia E11.65 ; Essential hypertension I10 ; Atrial fibrillation, unspecified type I48.91 ; Polyneuropathy associated with underlying disease G63 ; Anemia, unspecified D64.9 ; Chronic obstructive pulmonary disease, unspecified COPD type J44.9 ; Other urinary incontinence N39.498 ; Lumbar degenerative disc disease M51.36 and GERD without esophagitis K21.9 [place] [id number] [place] [address] 43728- 2418 May, [place] [id number] [place] [address] 07969- 3772 May, [place] [id number] [place] [address] 91933- 3649 May, [place] [id number] [place] [address] 36574- 1727 May, Other chronic pain G89.29 [place] [id number] [address]- 8347 Apr, Onychomycosis B35.1 and Type 2 diabetes mellitus with diabetic neuropathy, unspecified 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 [place] [address] [address]- 6292 Apr, Essential hypertension I10 [place] [id number] [place] [address] 67276- 8123 Apr, [place] [id number] [place] [address] 64228- 9016 Apr, Other chronic pain G89.29 [place] [id number] [place] [address] 22131- 0138 Mar, Cervical pain (neck) M54.2 ; Other chronic pain G89.29 ; Other urinary incontinence N39.498 and Essential hypertension I10 [place] [address] [place] [address] 30461- 7948 Mar, [facility] [id number] [place] [address] 40048- 3510 Mar, Other chronic pain G89.29 [facility] [id number] [place] [address] 05931- 3640 February, [place] [id number] [place] [address] 66491- 6184 February, [place] [id number] [place] [address] 35652- 3207 February, Other chronic pain G89.29 [place] [id number] [place] [address] 26722- 8237 February, Essential hypertension I10 ; Type 2 diabetes mellitus with hyperglycemia E11.65 ; Alcoholic cirrhosis of liver without ascites K70.30 ; Chronic obstructive pulmonary disease, unspecified COPD type J44.9 ; Atrial fibrillation, unspecified type I48.91 ; Polyneuropathy associated with underlying disease G63 ; Anemia, unspecified D64.9 ; Requires assistance with activities of daily living (ADL) Z74.1 and Non-compliant behavior R46.89 [facility] [address] [place] [id number] February, Dental examination Z01.20 [facility] [address] [address]- 4892 Jan, [facility] [id number] [place] [address] [id number] Jan, Dental caries K02.9 [place] [address] [place] [address] 21372- 1193 Jan, Anemia, unspecified D64.9 ; Chronic obstructive pulmonary disease, unspecified COPD type J44.9 ; Other chronic pain G89.29 ; Syncope and collapse R55 and Polyneuropathy associated with underlying disease G63 [facility] [id number] [id number] 04 Jan, 2017 Dental examination Z01.20 [facility] [address] [place] [address] 13065- 6228 28 Dec, 2016 Type 2 diabetes mellitus [...] Alcoholic cirrhosis of liver without ascites K70.30 [place] [address] [place] [address] 59105- 1232 Dec, [place] [id number] [place] [address] 97316- 3087 Dec, [place] [id number] [place] [address] 03462- 1547 Dec, [place] [id number] [place] [address] 23337- 8661 Dec, Type 2 diabetes mellitus with hyperglycemia E11.65 ; History of alcoholism F10.21 ; Anemia due to other cause D64.89 and Atrial fibrillation, unspecified type I48.91 [place] [address] [place] [address] 10470- 4834 Dec, [place] [address] [place] [address] 69408- 3099 Dec, [place] [id number] [place] [address] 42046- 2562 10 Dec, 2016 Type 2 diabetes mellitus with hyperglycemia E11.65 ; History of alcoholism F10.21 ; Anemia due to other cause D64.89 and Atrial fibrillation, unspecified type I48.91 [place] [address] [address]- 7602 21 Nov, 2016 [facility] [id number] [place] [address] 22586- 3318 17 Nov, 2016 Other chronic pain G89.29 [facility] [id number] [place] [address] 18397- 5721 13 Nov, 2016 Other chronic pain G89.29 [facility] [id number] [place] [address] 59590- 1379 10 Nov, 2016 Type 2 diabetes mellitus with hyperglycemia E11.65 ; Anemia due to other cause D64.89 ; Hypotension due to blood loss I95.89 ; Alcoholic cirrhosis of liver without ascites K70.30 ; History of alcoholism F10.21 and Chronic obstructive pulmonary disease, unspecified COPD type J44.9 [facility] [address] [place] [address] 83929- 7940 Sep, [facility] [id number] [place] [address] [id number] Jan, Dental examination Z01.20 [facility] [id number] [place] [address] 49949- 6778 23 Nov, 2015 Chronic obstructive pulmonary disease, unspecified COPD type J44.9 ; Panic attacks F41.0 and Other chronic pain G89.29 [facility] [address] [address]- 1229 Jan, [facility] [id number] [place] [address] 40176- 6099 Jan, [facility] [address] [place] [address] 94461- 9559 Dec, [facility] [id number] [place] [address] 68521- 2220 Dec, [facility] [address] [address]- 3339 05 Dec, 2014 [facility] [id number] [place] [address] 35812- 8461 Dec, IMMUNIZATIONS No Known Immunizations SOCIAL HISTORY [...]
[2018-07-29 05:33] LABS: BASOPHILS % (AUTO) 0 % (0-10); EOSINOPHILS # (AUTO) 0.2 10^3/uL (0.0-0.3); EOSINOPHILS % (AUTO) 2 % (0-10); HEMATOCRIT 30 % (40-54); HEMOGLOBIN 8.9 G/DL (13.3-17.7); LYMPHOCYTES % (AUTO) 11 % (12-44); MEAN CORPUSCULAR HEMOGLOBIN 21 PG (25-34); MEAN CORPUSCULAR HGB CONC 29 G/DL (32-36); MEAN CORPUSCULAR VOLUME 72 FL (80-99); MEAN PLATELET VOLUME 11.5 FL (7.4-10.4); MONOCYTES # (AUTO) 0.6 X 10^3 (0.0-1.0); MONOCYTES % (AUTO) 7 % (0-12); NEUTROPHILS # (AUTO) 6.9 X 10^3 (1.8-7.8); NEUTROPHILS % (AUTO) 80 % (42-75); PLATELET COUNT 218 10^3/uL (130-400); RED BLOOD COUNT 4.21 10^6/uL (4.35-5.85); RED CELL DISTRIBUTION WIDTH 17.2 % (10.0-14.5); WHITE BLOOD COUNT 8.7 10^3/uL (4.3-11.0)
--- OUTSIDE RECORDS SUMMARY | 2018-07-29 05:39 | XMS REPORT ---
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 Software Engineer Name Role Phone KASEY FRIDA Unavailable PROBLEMS Type Condition ICD9-CM Code [id number] Code Onset Dates Condition Status SNOMED Code Problem Polyneuropathy associated with underlying disease G63 Active 843183679 Problem Requires assistance with activities of daily living (ADL) Z74.1 Active 315634966 Problem Cervical pain (neck) M54.2 Active 42832444 Problem Falls frequently R29.6 Active 146304601 Problem Type 2 diabetes mellitus with other specified complication E11.69 Active 77973103 Problem GERD without esophagitis K21.9 Active 968944291 Problem Other urinary incontinence N39.498 Active 637727164 Problem MCC current use of 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 Active 879603422 Problem Alcoholism /alcohol abuse F10.20 Active 7258870 Problem Hypercalcemia E83.52 Active 21146794 Problem Lumbar degenerative disc disease M51.36 Active 51685579 Problem Type 2 diabetes mellitus with hyperglycemia E11.65 Active 025345000 Problem Anemia, unspecified D64.9 Active 644450261 Problem Other chronic pain G89.29 Active 04908569 Problem Chronic obstructive pulmonary disease, unspecified COPD type J44.9 Active 38176314 Problem Essential hypertension I10 Active 98955808 Problem Atrial fibrillation, unspecified type I48.91 Active 07402784 Problem Alcoholic cirrhosis of liver without ascites K70.30 Active 388399158 Problem Other chronic pain G89.29 Active 33290287 ALLERGIES No Information ENCOUNTERS Encounter Location Date Diagnosis [facility] [address] [facility] [id number] [address] May, [facility] [address] [facility] [id number] [id number] May, [facility] [address] [place] [id number] Apr, Type 2 diabetes mellitus with hyperglycemia E11.65 ; Atrial fibrillation, unspecified type I48.91 ; Anemia due to other cause D64.89 ; Alcoholism / alcohol abuse F10.20 ; Acute pylorus ulcer K25.3 and Alcoholic cirrhosis of liver without ascites K70.30 [facility] [id number] [place] [address] 06052- 6510 Apr, Lumbar degenerative disc disease M51.36 [facility] [id number] [place] [address] 78883- 3647 Mar, [facility] [id number] [place] [address] 59271- 3588 Mar, [facility] [id number] [place] [address] 60951- 7656 Mar, [facility] [id number] [place] [address] 51215- 6081 Mar, [facility] [id number] [place] [address] 79088- 6334 Mar, Lumbar degenerative disc disease M51.36 [facility] [id number] [place] [address] 18257- 2361 Mar, Dizziness R42 ; Falls frequently R29.6 ; Weight loss, non- intentional R63.4 ; Essential hypertension I10 ; Cardiac murmur R01.1 ; Hypercalcemia E83.52 and Requires assistance with activities of daily living ( ADL) Z74.1 [facility] [id number] [place] [address] 09351- 3862 Mar, [facility] [id number] [place] [address] 61329- 7729 Mar, Hypercalcemia E83.52 [facility] [id number] [place] [address] 78519- 7008 February, Lumbar degenerative disc disease M51.36 [facility] [id number] [place] [address] 73132- 9087 February, Type 2 diabetes mellitus with diabetic neuropathy, unspecified jail insulin 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 ; Type 2 diabetes mellitus with other specified complication E11.69 ; 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 ; Essential hypertension I10 ; Chronic obstructive pulmonary disease, unspecified COPD type J44.9 ; Polyneuropathy associated with underlying disease G63 ; Atrial fibrillation, unspecified type I48.91 ; GERD without esophagitis K21.9 and Lumbar degenerative disc disease M51.36 [facility] [id number] [place] [address] 93151- 7811 Jan, Other chronic pain G89.29 [facility] [id number] [place] [address] 84911- 0954 Jan, [facility] [id number] [place] [address] 94951- 2565 Jan, [facility] [id number] [place] [address] 52011- 2364 Jan, Type 2 diabetes mellitus with diabetic neuropathy, unspecified jail insulin 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 [facility] [id number] [place] [address] 33631- 0888 Jan, [facility] [id number] [place] [address] 68468- 2348 Jan, [facility] [id number] [place] [address] 09058- 8293 Jan, Other chronic pain G89.29 [facility] [id number] [place] [address] 59973- 7193 Dec, Atrial fibrillation, unspecified type I48.91 ; Essential hypertension I10 and Other chronic pain G89.29 [facility] [id number] [place] [address] 13771- 7329 Dec, Atrial fibrillation, unspecified type I48.91 [facility] [id number] [place] [address] 59745- 5143 Dec, [facility] [place] [address] 9410 Nov, Other chronic pain G89.29 [facility] [id number] [place] [address] 78168- 3948 Nov, [facility] [address] 34750- 1101 Nov, [facility] [address] 48500- 0081 Nov, Type 2 diabetes mellitus with diabetic neuropathy, 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 ; Type 2 diabetes mellitus with hyperglycemia E11.65 ; Essential hypertension I10 ; Chronic obstructive pulmonary disease, unspecified COPD type J44.9 ; Atrial fibrillation, unspecified type I48.91 ; GERD without esophagitis K21.9 ; Lumbar degenerative disc disease M51.36 ; Alcoholism /alcohol abuse F10.20 and Encounter for immunization Z23 [facility] [address] 9[address]14- 6970 Oct, Type 2 diabetes mellitus with hyperglycemia E11.65 ; Other chronic pain G89.29 and Other moth exterminator (current) drug therapy Z79.899 [facility] [id number] [place] [address] 64555- 6327 Oct, [facility] [id number] [place] [address] 12897- 9948 Oct, Essential hypertension I10 ; Anemia, unspecified D64.9 ; Chronic obstructive pulmonary disease, unspecified COPD type J44.9 ; Type 2 diabetes mellitus with hyperglycemia E11.65 ; Alcoholic cirrhosis of liver without ascites K70.30 ; Polyneuropathy associated with underlying disease G63 and Atrial fibrillation, unspecified type I48.91 [facility] [id number] [place] [address] 24560- 5689 Sep, Other chronic pain G89.29 [facility] [id number] [place] [address] 37767- 2728 Sep, Type 2 diabetes mellitus with hyperglycemia E11.65 ; Atrial fibrillation, unspecified type I48.91 and Essential hypertension I10 [facility] [address] [address] Sep, Essential hypertension I10 [facility] [address], [place] [address] 7668 Sep, Essential hypertension I10 [facility] [address], [place] [address] Sep, [facility] [address], [place] [address] 7088 Sep, Other chronic pain G89.29 [facility] [address] [place] [address] 27351- 1201 Aug, [facility] [address], [place] [address]6 Aug, Polyneuropathy associated with underlying disease G63 and Chronic obstructive pulmonary disease, unspecified COPD type J44.9 [facility] [address] [id number] Aug, [facility] [address] [place] [address] 00908- 8880 Aug, [facility] [address], [place] [address] 6[address] Aug, Chronic obstructive pulmonary disease, unspecified COPD type J44.9 [facility] [address], [place] [address] 64[address] Aug, Medicare annual wellness visit, subsequent Z00.00 [facility] [address], [place] [address] 07 Aug, 2017 Other chronic pain G89.29 [facility] [address], [place] [address] 2535 16 Jul, 2017 [facility] [address], [place] [address] 7309 Jul, [facility] [address], [place] [address] 8224 Jul, Other chronic pain G89.29 and Essential hypertension I10 [facility] [id number] [place] [address] 80966- 8963 29 Jun, 2017 [facility] [address] [place] [address] 42742- 6615 Jun, Essential hypertension I10 [facility] [id number] [place] [address] 18395- 0865 Jun, [facility] [id number] [place] [address] 36808- 5076 Jun, Other chronic pain G89.29 [facility] [id number] [place] [address] 09604- 0423 Jun, Other chronic pain G89.29 [facility] [id number] [place] [address] 42552- 0688 Jun, [facility] [id number] [place] [address] 39582- 1128 Jun, Type 2 diabetes mellitus with hyperglycemia E11.65 ; Essential hypertension I10 ; Atrial fibrillation, unspecified type I48.91 ; Polyneuropathy associated with underlying disease G63 ; Anemia, unspecified D64.9 ; Chronic obstructive pulmonary disease, unspecified COPD type J44.9 ; Other urinary incontinence N39.498 ; Lumbar degenerative disc disease M51.36 and GERD without esophagitis K21.9 [facility] [address], [place] [address] 4848 May, [facility] [id number] [place] [address] 93513- 5505 May, [facility] [address] [place] [address] 14287- 8778 May, [facility] [address], [place] [address] 2547 May, Other chronic pain G89.29 [facility] [address], [place] [address] 6953 Apr, Onychomycosis B35.1 and Type 2 diabetes mellitus with diabetic neuropathy, 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 [facility] [address], [place] [address]- 5734 Apr, Essential hypertension I10 [facility] [id number] [place] [address] 41602- 8314 Apr, [facility] [id number] [place] [address] 21072- 2559 Apr, Other chronic pain G89.29 [facility] [id number] [place] [address] 89868- 8701 Mar, Cervical pain (neck) M54.2 ; Other chronic pain G89.29 ; Other urinary incontinence N39.498 and Essential hypertension I10 [facility] [id number] [place] [address] 82166- 4743 Mar, [facility] [id number] [place] [address] 16855- 6919 Mar, Other chronic pain G89.29 [facility] [address], [place] [address]- 9296 February, [facility] [address], [place] [address]- 1692 February, [facility] [address] [place] [address] 11912- 9743 February, Other chronic pain G89.29 [facility] [address], [place] [address]- 8397 February, Essential hypertension I10 ; Type 2 diabetes mellitus with hyperglycemia E11.65 ; Alcoholic cirrhosis of liver without ascites K70.30 ; Chronic obstructive pulmonary disease, unspecified COPD type J44.9 ; Atrial fibrillation, unspecified type I48.91 ; Polyneuropathy associated with underlying disease G63 ; Anemia, unspecified D64.9 ; Requires assistance with activities of daily living (ADL) Z74.1 and Non-compliant behavior R46.89 [facility] [address] [id number] February, Dental examination Z01.20 [facility] [address] [place] [address] 78132- 3985 Jan, [facility] [id number] [place] [address] [id number] Jan, Dental caries K02.9 [facility] [id number] [place] [address] 20009- 6108 Jan, Anemia, unspecified D64.9 ; Chronic obstructive pulmonary disease, unspecified COPD type J44.9 ; Other chronic pain G89.29 ; Syncope and collapse R55 and Polyneuropathy associated with underlying disease G63 [facility] [address] [place] [address] [id number] Jan, Dental examination Z01.20 [facility] [id number] [place] [address] 35580- 0513 Dec, Type 2 diabetes mellitus with hyperglycemia E11.65 ; Anemia , unspecified D64.9 ; Essential hypertension I10 ; Chronic obstructive pulmonary disease, unspecified COPD type J44.9 ; Atrial fibrillation, unspecified type I48.91 ; Cervical pain (neck) M54.2 ; Polyneuropathy associated with underlying disease G63 ; Low back pain M54.5 ; Other chronic pain G89.29 and Alcoholic cirrhosis of liver without ascites K70.30 [facility] [address], [place] [address]- 3889 Dec, [facility] [id number] [place] [address] 49590- 7134 Dec, [facility] [address] [place] [address] 92188- 1500 Dec, [facility] [id number] [place] [address] 06841- 5158 Dec, Type 2 diabetes mellitus with hyperglycemia E11.65 ; History of alcoholism F10.21 ; Anemia due to other cause D64.89 and Atrial fibrillation, unspecified type I48.91 [facility] [id number] [place] [address] 17171- 3557 Dec, [facility] [id number] [place] [address] 35574- 4806 Dec, [facility] [address] 31355- 0916 Dec, Type 2 diabetes mellitus with hyperglycemia E11.65 ; History of alcoholism F10.21 ; Anemia due to other cause D64.89 and Atrial fibrillation, unspecified type I48.91 [facility] [id number] [place] [address] 16385- 9062 Nov, [facility] [address] 48340- 5065 Nov, Other chronic pain G89.29 [facility] [id number] [place] [address] 81884- 8451 Nov, Other chronic pain G89.29 [facility] [id number] [place] [address] 75156- 3349 10 Nov, 2016 Type 2 diabetes mellitus with hyperglycemia E11.65 ; Anemia due to other cause D64.89 ; Hypotension due to blood loss I95.89 ; Alcoholic cirrhosis of liver without ascites K70.30 ; History of alcoholism F10.21 and Chronic obstructive pulmonary disease, unspecified COPD type J44.9 [facility] [address] [place] [address] 20095- 9433 Sep, [facility] [address] [id number] Jan, Dental examination Z01.20 [facility] [id number] [place] [address] 63353- 1015 23 Nov, 2015 Chronic obstructive pulmonary disease, unspecified COPD type J44.9 ; Panic attacks F41.0 and Other chronic pain G89.29 [facility] [address] [facility] [id number] [address]- 5164 Jan, [facility] [id number] [address]- 1282 Jan, [facility] [id number] [address]- 6892 Dec, [facility] [address], [place] [address]- 7904 Dec, [facility] [id number] [address]- 0968 Dec, [facility] [id number], [place] [address]- 9154 Dec, IMMUNIZATIONS No Known Immunizations SOCIAL HISTORY Never Assessed REASON FOR VISIT Lidocaine note PLAN OF CARE VITAL SIGNS MEDICATIONS Medication Instructions Dosage Frequency Start Date End Date Duration Status Digoxin 125 mcg Orally Once a day take 1 tablet (125 mcg) by oral route once daily 24h Dec, 30 days Active RESULTS No Results PROCEDURES [...]
--- OUTSIDE RECORDS SUMMARY | 2018-07-29 05:39 | XMS REPORT ---
Author Author KASEY FRIDA Organization [facility] Address [address] [place] [address] Care Team Providers Care Mother Superior Name Role Phone KASEY FRIDA Unavailable PROBLEMS Type Condition ICD9-CM Code NSY29-LE Code Onset Dates Condition Status SNOMED Code Problem Polyneuropathy associated with underlying disease G63 Active 598394879 Problem Requires assistance with activities of daily living (ADL) Z74.1 Active 558961462 Problem Cervical pain (neck) M54.2 Active 27004896 Problem Falls frequently R29.6 Active 185985963 Problem Type 2 diabetes mellitus with other specified complication E11.69 Active 47160305 Problem GERD without esophagitis K21.9 Active 749318005 Problem Other urinary incontinence N39.498 Active 063059397 Problem halfway current use of 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 Active 831485739 Problem Alcoholism /alcohol abuse F10.20 Active 2372566 Problem Hypercalcemia E83.52 Active 48292993 Problem Lumbar degenerative disc disease M51.36 Active 21729836 Problem Type 2 diabetes mellitus with hyperglycemia E11.65 Active 740451927 Problem Anemia, unspecified D64.9 Active 096884666 Problem Other chronic pain G89.29 Active 90882386 Problem Chronic obstructive pulmonary disease, unspecified COPD type J44.9 Active 16009750 Problem Essential hypertension I10 Active 80478157 Problem Atrial fibrillation, unspecified type I48.91 Active 52666435 Problem Alcoholic cirrhosis of liver without ascites K70.30 Active 543893569 Problem Other chronic pain G89.29 Active 75300226 ALLERGIES No Information ENCOUNTERS Encounter Location Date Diagnosis [facility] [address] [facility] [id number] [address] May, [facility] [address] [facility] [id number] [id number] May, [facility] [address] [place] [id number] Apr, Type 2 diabetes mellitus with hyperglycemia E11.65 ; Atrial fibrillation, unspecified type I48.91 ; Anemia due to other cause D64.89 ; Alcoholism / alcohol abuse F10.20 ; Acute pylorus ulcer K25.3 and Alcoholic cirrhosis of liver without ascites K70.30 [facility] [id number] [place] [address] 45271- 4880 Apr, Lumbar degenerative disc disease M51.36 [facility] [id number] [place] [address] 37536- 2429 Mar, [facility] [id number] [place] [address] 88271- 4176 Mar, [facility] [id number] [place] [address] 79870- 1865 Mar, [facility] [id number] [place] [address] 43256- 2658 Mar, [facility] [id number] [place] [address] 14419- 3130 Mar, Lumbar degenerative disc disease M51.36 [facility] [id number] [place] [address] 13269- 4753 Mar, Dizziness R42 ; Falls frequently R29.6 ; Weight loss, non- intentional R63.4 ; Essential hypertension I10 ; Cardiac murmur R01.1 ; Hypercalcemia E83.52 and Requires assistance with activities of daily living ( ADL) Z74.1 [facility] [id number] [place] [address] 72389- 6931 Mar, [facility] [id number] [place] [address] 48109- 1335 Mar, Hypercalcemia E83.52 [facility] [id number] [place] [address] 51008- 0050 February, Lumbar degenerative disc disease M51.36 [facility] [id number] [place] [address] 67741- 7624 February, Type 2 diabetes mellitus with diabetic neuropathy, unspecified jail insulin 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 ; Type 2 diabetes mellitus with other specified complication E11.69 ; 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 ; Essential hypertension I10 ; Chronic obstructive pulmonary disease, unspecified COPD type J44.9 ; Polyneuropathy associated with underlying disease G63 ; Atrial fibrillation, unspecified type I48.91 ; GERD without esophagitis K21.9 and Lumbar degenerative disc disease M51.36 [facility] [id number] [place] [address] 56209- 0838 Jan, Other chronic pain G89.29 [facility] [id number] [place] [address] 60203- 6617 Jan, [facility] [id number] [place] [address] 82333- 3674 Jan, [facility] [id number] [place] [address] 05013- 9781 Jan, Type 2 diabetes mellitus with diabetic neuropathy, unspecified jail insulin 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 [facility] [id number] [place] [address] 24954- 9067 Jan, [facility] [id number] [place] [address] 27084- 4791 Jan, [facility] [id number] [place] [address] 14154- 6174 Jan, Other chronic pain G89.29 [facility] [id number] [place] [address] 76524- 6094 Dec, Atrial fibrillation, unspecified type I48.91 ; Essential hypertension I10 and Other chronic pain G89.29 [facility] [id number] [place] [address] 64608- 5130 Dec, Atrial fibrillation, unspecified type I48.91 [facility] [id number] [place] [address] 24780- 0408 Dec, [facility] [place] [address] Nov, Other chronic pain G89.29 [facility] [id number] [place] [address] 36975- 9382 Nov, [facility] [address] 65381- 6170 Nov, [facility] [address] 93872- 4273 Nov, Type 2 diabetes mellitus with diabetic neuropathy, unspecified pension 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 ; Type 2 diabetes mellitus with hyperglycemia E11.65 ; Essential hypertension I10 ; Chronic obstructive pulmonary disease, unspecified COPD type J44.9 ; Atrial fibrillation, unspecified type I48.91 ; GERD without esophagitis K21.9 ; Lumbar degenerative disc disease M51.36 ; Alcoholism /alcohol abuse F10.20 and Encounter for immunization Z23 [facility] [address] [address]20- 4003 Oct, Type 2 diabetes mellitus with hyperglycemia E11.65 ; Other chronic pain G89.29 and Other pension agent (current) drug therapy Z79.899 [facility] [id number] [place] [address] 94186- 2772 Oct, [facility] [id number] [place] [address] 12331- 2599 Oct, Essential hypertension I10 ; Anemia, unspecified D64.9 ; Chronic obstructive pulmonary disease, unspecified COPD type J44.9 ; Type 2 diabetes mellitus with hyperglycemia E11.65 ; Alcoholic cirrhosis of liver without ascites K70.30 ; Polyneuropathy associated with underlying disease G63 and Atrial fibrillation, unspecified type I48.91 [facility] [id number] [place] [address] 87801- 0186 Sep, Other chronic pain G89.29 [facility] [id number] [place] [address] 14073- 2731 Sep, Type 2 diabetes mellitus with hyperglycemia E11.65 ; Atrial fibrillation, unspecified type I48.91 and Essential hypertension I10 [facility] [address] [address] 138[address] Sep, Essential hypertension I10 [facility] [address] [address] 2804 Sep, Essential hypertension I10 [facility] [address] [address] Sep, [facility] [address] [address] 7918 Sep, Other chronic pain G89.29 [facility] [address] [place] [address] 35973- 3027 Aug, [facility] [address] [address] Aug, Polyneuropathy associated with underlying disease G63 and Chronic obstructive pulmonary disease, unspecified COPD type J44.9 [facility] [address] [id number] Aug, [facility] [address] [place] [address] 21817- 0615 Aug, [facility] [address] [address] 4845 Aug, Chronic obstructive pulmonary disease, unspecified COPD type J44.9 [facility] [address] [address] 7665 Aug, Medicare annual wellness visit, subsequent Z00.00 [facility] [address] [address] 0626 07 Aug, 2017 Other chronic pain G89.29 [facility] [address] [address] 3780 16 Jul, 2017 [facility] [address] [address] 2358 Jul, [facility] [address] [address] 0518 Jul, Other chronic pain G89.29 and Essential hypertension I10 [facility] [id number] [place] [address] 53612- 2179 29 Jun, 2017 [facility] [address] [place] [address] 30503- 5934 Jun, Essential hypertension I10 [facility] [id number] [place] [address] 97428- 1438 Jun, [facility] [id number] [place] [address] 29076- 3466 Jun, Other chronic pain G89.29 [facility] [id number] [place] [address] 52940- 3923 Jun, Other chronic pain G89.29 [facility] [id number] [place] [address] 81760- 7927 Jun, [facility] [id number] [place] [address] 56979- 1587 Jun, Type 2 diabetes mellitus with hyperglycemia E11.65 ; Essential hypertension I10 ; Atrial fibrillation, unspecified type I48.91 ; Polyneuropathy associated with underlying disease G63 ; Anemia, unspecified D64.9 ; Chronic obstructive pulmonary disease, unspecified COPD type J44.9 ; Other urinary incontinence N39.498 ; Lumbar degenerative disc disease M51.36 and GERD without esophagitis K21.9 [facility] [address] [address] 9223 May, [facility] [id number] [place] [address] 58255- 7611 May, [facility] [address] [place] [address] 29517- 2514 May, [facility] [address] [address] 0416 May, Other chronic pain G89.29 [facility] [address], [place] [address] 3519 Apr, Onychomycosis B35.1 and Type 2 diabetes mellitus with diabetic neuropathy, unspecified pension 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 [facility] [address] [address]- 5548 Apr, Essential hypertension I10 [facility] [id number] [place] [address] 88545- 0263 Apr, [facility] [address] [place] [address] 74094- 3282 Apr, Other chronic pain G89.29 [facility] [address] [place] [address] 74030- 2494 Mar, Cervical pain (neck) M54.2 ; Other chronic pain G89.29 ; Other urinary incontinence N39.498 and Essential hypertension I10 [facility] [id number] [place] [address] 99326- 4090 Mar, [facility] [address] [place] [address] 93435- 3834 Mar, Other chronic pain G89.29 [facility] [address] [address]- 3942 February, [facility] [address] [address]- 8479 February, [facility] [address] [place] [address] 98996- 0860 February, Other chronic pain G89.29 [facility] [address], [place] [address] 7068 February, Essential hypertension I10 ; Type 2 [...] [facility] [address] [address] February, Dental examination Z01.20 [facility] [address] [place] [address] 95009- 9328 Jan, [facility] [id number] [place] [address] [id number] Jan, Dental caries K02.9 [facility] [id number] [place] [address] 39150- 5110 Jan, Anemia, unspecified D64.9 ; Chronic obstructive pulmonary disease, unspecified COPD type J44.9 ; Other chronic pain G89.29 ; Syncope and collapse R55 and Polyneuropathy associated with underlying disease G63 [facility] [address] [place] [address] [id number] Jan, Dental examination Z01.20 [facility] [id number] [place] [address] 17460- 6882 Dec, Type 2 diabetes mellitus with hyperglycemia [...] liver without ascites K70.30 [facility] [address] [address]- 4090 Dec, [facility] [id number] [place] [address] 98253- 1518 Dec, [facility] [address] [place] [address] 44325- 1535 Dec, [facility] [id number] [place] [address] 60949- 9613 Dec, Type 2 diabetes mellitus with hyperglycemia E11.65 ; History of alcoholism F10.21 ; Anemia due to other cause D64.89 and Atrial fibrillation, unspecified type I48.91 [facility] [id number] [place] [address] 98666- 4664 Dec, [facility] [id number] [place] [address] 45844- 2111 Dec, [facility] [address] 98239- 1968 Dec, Type 2 diabetes mellitus with hyperglycemia E11.65 ; History of alcoholism F10.21 ; Anemia due to other cause D64.89 and Atrial fibrillation, unspecified type I48.91 [facility] [id number] [place] [address] 43982- 0927 Nov, [facility] [address] 79314- 6014 Nov, Other chronic pain G89.29 [facility] [address] [place] [address] 67850- 6851 Nov, Other chronic pain G89.29 [facility] [address] [place] [address] 02143- 0505 10 Nov, 2016 Type 2 diabetes mellitus with hyperglycemia E11.65 ; Anemia due to other cause D64.89 ; Hypotension due to blood loss I95.89 ; Alcoholic cirrhosis of liver without ascites K70.30 ; History of alcoholism F10.21 and Chronic obstructive pulmonary disease, unspecified COPD type J44.9 [facility] [address] [place] [address] 49547- 4160 Sep, [facility] [address] [id number] Jan, Dental examination Z01.20 [facility] [address] [place] [address] 94560- 6674 23 Nov, 2015 Chronic obstructive pulmonary disease, unspecified COPD type J44.9 ; Panic attacks F41.0 and Other chronic pain G89.29 [facility] [address] [facility] [id number] [address]- 4030 Jan, [facility] [address], [place] [address]- 3598 Jan, [facility] [id number] [address]- 6436 Dec, [facility] [address] [address]- 3163 Dec, [facility] [address] [address]- 2788 Dec, [facility] [id number] [address]- 5391 Dec, IMMUNIZATIONS No Known Immunizations SOCIAL HISTORY Never Assessed REASON FOR VISIT Prior Authorization PLAN OF CARE VITAL SIGNS MEDICATIONS Unknown [...]
--- OUTSIDE RECORDS SUMMARY | 2018-07-29 05:39 | XMS REPORT ---
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2 Active 09866116 Problem Other urinary incontinence N39.498 Active 567478100 Problem Requires assistance with activities of daily living (ADL) Z74.1 Active 329947434 Problem Lumbar degenerative disc disease M51.36 Active 49785301 Problem Anemia, unspecified D64.9 Active 684125631 Problem Alcoholic cirrhosis of liver without ascites K70.30 Active 384385455 Problem Essential hypertension I10 Active 19687965 Problem Other chronic pain G89.29 Active 57288344 Problem Type 2 diabetes mellitus with hyperglycemia E11.65 Active 380901083 Problem Chronic obstructive pulmonary disease, unspecified COPD type J44.9 Active 41306066 ALLERGIES No Information ENCOUNTERS Encounter Location Date Diagnosis [facility] [address] [facility] [id number] [address] February, [facility] [address] [address] Jan, Other chronic pain G89.29 [facility] [id number] [address] Jan, [facility] [address] [address] Jan, [facility] [id number] [place] [address]11- 6359 Jan, Type 2 diabetes mellitus with diabetic neuropathy, unspecified correction insulin 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 [facility] [address] [address] Jan, [facility] [id number] [place] [address]- [address] Jan, [facility] [id number] [place] [address] 65953- 1193 Jan, Other chronic pain G89.29 [place] [id number] [place] [address]- 3094 Dec, Atrial fibrillation, unspecified type I48.91 ; Essential hypertension I10 and Other chronic pain G89.29 [place] [address] [address] Dec, Atrial fibrillation, unspecified type I48.91 [place] [address] [address] Dec, [facility] [address] [address] Nov, Other chronic pain G89.29 [facility] [address], [place] [address] Nov, [facility] [address] [address] Nov, [facility] [address] [place] [address] 8[address]83- 6896 Nov, Type 2 diabetes mellitus with diabetic neuropathy, unspecified correction insulin 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 ; Type 2 diabetes mellitus with hyperglycemia E11.65 ; Essential hypertension I10 ; Chronic obstructive pulmonary disease, unspecified COPD type J44.9 ; Atrial fibrillation, unspecified type I48.91 ; GERD without esophagitis K21.9 ; Lumbar degenerative disc disease M51.36 ; Alcoholism /alcohol abuse F10.20 and Encounter for immunization Z23 [place] [address] [address] Oct, Type 2 diabetes mellitus with hyperglycemia E11.65 ; Other chronic pain G89.29 and 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 [place] [address] [address] Oct, [place] [address] [address] Oct, Essential hypertension I10 ; Anemia, unspecified D64.9 ; Chronic obstructive pulmonary disease, unspecified COPD type J44.9 ; Type 2 diabetes mellitus with hyperglycemia E11.65 ; Alcoholic cirrhosis of liver without ascites K70.30 ; Polyneuropathy associated with underlying disease G63 and Atrial fibrillation, unspecified type I48.91 [place] [address] [address] Sep, Other chronic pain G89.[address] [address] Sep, Type 2 diabetes mellitus with hyperglycemia E11.65 ; Atrial fibrillation, unspecified type I48.91 and Essential hypertension I10 [address] [address]- [address] Sep, Essential hypertension I10 [place] [address] [address] Sep, Essential hypertension I10 [place] [address] [address]- [address] Sep, [place] [address] [address]- [address]67 Sep, Other chronic pain G89.29 [place] [address] [address] Aug, [facility] [id number] [address] Aug, Polyneuropathy associated with underlying disease G63 and Chronic obstructive pulmonary disease, unspecified COPD type J44.9 [facility] [address] [id number] [id number] Aug, [facility] [address] [address] Aug, [facility] [address], [place] [address] Aug, Chronic obstructive pulmonary disease, unspecified COPD type J44.9 [facility] [address], [place] [address] 10 Aug, 2017 Medicare annual wellness visit, subsequent Z00.00 [facility] [address] [address] Aug, Other chronic pain G89.29 [facility] [address] [address] 16 Jul, 2017 [facility] [address], [place] [address] Jul, [facility] [address] [address] Jul, Other chronic pain G89.29 and Essential hypertension I10 [facility] [address] [address] Jun, [facility] [id number] [address] Jun, Essential hypertension I10 [facility] [address], [place] [address] Jun, [facility] [id number], [place] [address] Jun, Other chronic pain G89.29 [facility] [address] [address] Jun, Other chronic pain G89.29 [place] [id number] [place] [address]38- 1390 Jun, [place] [id number] [place] [address] 75484- 8[address] Jun, Type 2 diabetes mellitus with hyperglycemia E11.65 ; Essential hypertension I10 ; Atrial fibrillation, unspecified type I48.91 ; Polyneuropathy associated with underlying disease G63 ; Anemia, unspecified D64.9 ; Chronic obstructive pulmonary disease, unspecified COPD type J44.9 ; Other urinary incontinence N39.498 ; Lumbar degenerative disc disease M51.36 and GERD without esophagitis K21.9 [place] [id number] [place] [address]63- 5[address] May, [place] [id number] [place] [address]76- 9971 May, [place] [id number] [place] [address] 19261- 5310 May, [place] [id number] [place] [address] 90872- 1458 May, Other chronic pain G89.29 [place] [address], [place] [address] Apr, Onychomycosis B35.1 and Type 2 diabetes mellitus with diabetic neuropathy, unspecified correction insulin 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 [place] [address], [place] [address] Apr, Essential hypertension I10 [place] [id number] [place] [address] 37360- 0470 Apr, [place] [id number] [place] [address] 68424- 0086 Apr, Other chronic pain G89.29 [place] [id number] [place] [address] 50619- 8308 Mar, Cervical pain (neck) M54.2 ; Other chronic pain G89.29 ; Other urinary incontinence N39.498 and Essential hypertension I10 [place] [id number] [place] [address] 10279- 9368 Mar, [facility] [id number] [place] [address] 93493- 4583 Mar, Other chronic pain G89.29 [facility] [id number] [place] [address] 26234- 5832 February, [place] [id number] [place] [address] 52308- 1295 February, [place] [id number] [place] [address] 84880- 7621 February, Other chronic pain G89.29 [place] [id number] [place] [address] 53113- 4280 February, Essential hypertension I10 ; Type 2 diabetes mellitus with hyperglycemia E11.65 ; Alcoholic cirrhosis of liver without ascites K70.30 ; Chronic obstructive pulmonary disease, unspecified COPD type J44.9 ; Atrial fibrillation, unspecified type I48.91 ; Polyneuropathy associated with underlying disease G63 ; Anemia, unspecified D64.9 ; Requires assistance with activities of daily living (ADL) Z74.1 and Non-compliant behavior R46.89 [facility] [id number] [place] [address] [id number] February, Dental examination Z01.20 [facility] [id number] [place] [address] 16401- 0248 Jan, [facility] [id number] [place] [address] [id number] Jan, Dental caries K02.9 [place] [address] [place] [address] 63534- 3648 Jan, Anemia, unspecified D64.9 ; Chronic obstructive pulmonary disease, unspecified COPD type J44.9 ; Other chronic pain G89.29 ; Syncope and collapse R55 and Polyneuropathy associated with underlying disease G63 [facility] [id number] [address] Jan, 2017 Dental examination Z01.20 [facility] [id number] [place] [address] 69147- 2311 28 Dec, 2016 Type 2 diabetes mellitus [...] Alcoholic cirrhosis of liver without ascites K70.30 [place] [id number] [place] [address] 88156- 3304 Dec, [place] [id number] [place] [address] 19952- 3329 Dec, [place] [id number] [place] [address] 32299- 9403 Dec, [place] [id number] [place] [address] 59292- 1322 Dec, Type 2 diabetes mellitus with hyperglycemia E11.65 ; History of alcoholism F10.21 ; Anemia due to other cause D64.89 and Atrial fibrillation, unspecified type I48.91 [place] [id number] [place] [address] 62058- 5611 Dec, [place] [id number] [place] [address] 96878- 4506 Dec, [place] [id number] [place] [address] 40597- 3981 10 Dec, 2016 Type 2 diabetes mellitus with hyperglycemia E11.65 ; History of alcoholism F10.21 ; Anemia due to other cause D64.89 and Atrial fibrillation, unspecified type I48.91 [place] [address] 21 Nov, 2016 [facility] [id number] [place] [address] 14575- 7493 17 Nov, 2016 Other chronic pain G89.29 [facility] [id number] [place] [address] 42057- 0910 13 Nov, 2016 Other chronic pain G89.29 [facility] [id number] [place] [address] 84675- 1600 10 Nov, 2016 Type 2 diabetes mellitus with hyperglycemia E11.65 ; Anemia due to other cause D64.89 ; Hypotension due to blood loss I95.89 ; Alcoholic cirrhosis of liver without ascites K70.30 ; History of alcoholism F10.21 and Chronic obstructive pulmonary disease, unspecified COPD type J44.9 [facility] [id number] [place] [address] 84112- 0516 Sep, [facility] [id number] [place] [address] [id number] Jan, Dental examination Z01.20 [facility] [id number] [place] [address] 80261- 0480 23 Nov, 2015 Chronic obstructive pulmonary disease, unspecified COPD type J44.9 ; Panic attacks F41.0 and Other chronic pain G89.29 [facility] [address] [address]- 0247 Jan, [facility] [id number] [place] [address] 59691- 1055 Jan, [facility] [id number] [place] [address] 51809- 3413 Dec, [facility] [id number] [place] [address] 96115- 2621 Dec, [facility] [id number] [place] [address] 29185- 1657 Dec, [facility] [id number] [place] [address], [place] [address]- 4696 Dec, IMMUNIZATIONS No Known Immunizations SOCIAL HISTORY Never Assessed REASON FOR VISIT Oxygen PLAN OF CARE VITAL SIGNS MEDICATIONS Unknown [...]
[2018-07-29] MEDS ORDERED: CEFEPIME INJECTION 2,000 MG in NS (IVPB) 50 ML IV ONE (05:45)
[2018-07-29 05:52] LABS: ALANINE AMINOTRANSFERASE 26 U/L (0-55); ALKALINE PHOSPHATASE 141 U/L (40-136); BILIRUBIN,TOTAL 0.7 MG/DL (0.1-1.0); BUN/CREATININE RATIO 11; CALCIUM 9.6 MG/DL (8.5-10.1); CARBON DIOXIDE 22 MMOL/L (21-32); CHLORIDE 102 MMOL/L (98-107); CREATININE SERUM 0.87 MG/DL (0.60-1.30); GFR ESTIMATED > 60; GLUCOSE 198 MG/DL (70-105); MAGNESIUM 1.4 MG/DL (1.8-2.4); POTASSIUM 4.2 MMOL/L (3.6-5.0); SODIUM 136 MMOL/L (135-145); TOTAL PROTEIN 8.3 GM/DL (6.4-8.2)
[2018-07-29] MEDS: ACETAMINOPHEN 500 MG TAB (TYLENOL) PO ONE ×2 (05:53→06:30)
[2018-07-29 05:54] LABS: INR 1.1 (0.8-1.4); PROTHROMBIN TIME PATIENT 13.9 SEC (12.2-14.7)
[2018-07-29 05:59] LABS: DIGOXIN 0.51 NG/ML (0.80-2.00); MYOGLOBIN SERUM 32.2 NG/ML (10.0-92.0)
[2018-07-29] MEDS ORDERED: MAGNESIUM 1 GM/100 ML IVPB 100 ML IV ONE (06:00)
[2018-07-29] MEDS ORDERED: LORazepam INJ 2 MG/ML (ATIVAN) VIAL IVP ONE (06:15)
[2018-07-29] MEDS ORDERED: NS IV 1000 ML 1,000 ML IV ONE ×3 (06:25→07:23)
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
[2018-07-29] MEDS ORDERED: PROPOFOL DRIP (ICU) 100 ML IV ONE (06:27)
[2018-07-29] MEDS ORDERED: DILTIAZEM IV FOR DRIP 125 MG in NS (IVPB) 100 ML IV SCH (07:00)
[2018-07-29 07:53] LABS: ABG BASE EXCESS -4.7 MMOL/L (-2.5-2.5); ABG OXYGEN SATURATION 98 % (94-100); ABG PCO2 57 MMHG (35-45); ABG PO2 113 MMHG (79-93); ABG TCO2 23.3 MMOL/L (21.0-31.0)
[2018-07-29] MEDS ORDERED: ACETAMINOPHEN 650 MG SUPP (TYLENOL) ONE (07:53)
[2018-07-29 07:54] LABS: ABG PH 7.21 (7.37-7.43); ALLENS TEST YES-POS; INSPIRED O2 80%; PATIENT TEMP 100.7; VENTILATOR YES
[2018-07-29] MEDS ORDERED: ACETAMINOPHEN 650 MG SUPP (TYLENOL) PR STA (08:04)
--- NOTE | 2018-07-29 08:13 | Diagnostic Imaging Report ---
INDICATION: Respiratory failure Frontal chest obtained at 733 hours a.m, and compared to 535 hours a.m. on the same day. There is a new ET tube in place tip overlying mid trachea. There is a new NG tube seen with tip below the film. There is a new right IJ central catheter tip overlying the low SVC. Alveolar infiltrate is seen in the right lung base compatible with pneumonia. There is no pneumothorax or pleural fluid. IMPRESSION: New life support lines as described above. Unchanged right basilar infiltrate compatible with pneumonia. Dictated by: Dictated on workstation # [id number]
--- NOTE | 2018-07-29 08:18 | Diagnostic Imaging Report ---
INDICATION: Shortness of breath. Frontal chest obtained at 0535 hours a.m. and compared with 04/14/2018. Heart is normal in size. There is new alveolar infiltrate in the right lung base compatible with pneumonia. Left lung is grossly clear. There is no pneumothorax or pleural fluid. IMPRESSION: Alveolar infiltrate in right lung base compatible with pneumonia. Dictated by: Dictated on workstation # [id number]
--- NOTE | 2018-07-29 08:36 | Consultation-Hospitalist ---
HPI History of Present Illness: HPI/Chief Complaint Pt is a 78yoCM with a PMH of emphysema, paroxysmal a-fib, and diabetes who was admitted to the ICU with septic shock and respiratory failure to the [facility] service. I am consulted for ventilator management. Patient is currently intubated and sedated at this time so is unable to provide any history. Per ER notes he presented in respiratory distress and was quickly intubated. He was found to be febrile with a leukocytosis and CXR revealed right lung base infiltrate. Exam Limitations: clinical condition Date Seen 07/29/18 Attending Physician Tawny Hardin MD, Michele R Aprn Referring Physician Date of Admission Jul 29, 2018 at 07:44 Home Medications & Allergies Home Medications Reviewed patient Home Medication Reconciliation performed by pharmacy medication reconciliations computed tomography technician and/or nursing. Patients Allergies have been reviewed. Allergies Allergies Coded Allergies albuterol (Verified Allergy, Unknown, PATIENT TAKES AT HOME, SHORTNESS OF BREATH, 04/15/18) atenolol (Verified Allergy, Unknown, HAS RECEIVED METOPROLOL IN THE PAST, ) haloperidol (Verified Allergy, Unknown, 01/04/14) Past Hjdyzgt-Uadivi-Tmkimw Hx Past Med/Social Hx: Reviewed Nursing Past Med/Soc Hx Patient Social History Alcohol Use: Denies Use Number of Drinks Today: AA Alcohol Beverage of Choice: Beer Recreational Drug Use: No Former Smoker, Quit: May 24, 1975 Type Used: Cigarettes Recent Foreign Travel: No Contact w/other who traveled: No Recent Hopitalizations: No Recent Infectious Disease Expo: No Immunizations Up To Date Tetanus Booster (TDap): Unknown Date of Pneumonia Vaccine: February 18, 2015 Date of Influenza Vaccine: Sep 06, 2016 Seasonal Allergies Seasonal Allergies: No Past Medical History Surgeries: Abdominal, Orthopedic Respiratory: COPD Currently Using CPAP: No Currently Using BIPAP: No Cardiac: Atrial Fibrillation, Chronic Edema/Swelling, Coronary Artery Disease, Heart Murmur, High Cholesterol, Hypertension, Irregular Heartbeat Neurological: Neuropathy, Stroke Reproductive: No Sexually Transmitted Disease: No HIV/AIDS: No Gastrointestinal: Abdominal Hernia, Gastroesophageal Reflux, Liver Disease/ Jaundice, Gastrointestinal Bleed, Esophageal Varices, Esophagitis, Cirrhosis Musculoskeletal: Degenerate Disk Disease, Arthritis, Chronic Back Pain, Fractures, Gout Endocrine: Diabetes, Insulin dep Loss of Vision: Denies Hearing Impairment: Hard of Hearing Psychosocial: Sleep Difficulties, Anxiety, Depression History of Blood Disorders: Yes (ANEMIA) Adverse Reaction to Blood Velasquez: No Family History Reviewed Nursing Family Hx Diabetes mellitus GRANDMOTHER Thyroid disease 19 MOTHER No Family History of: AIDS Abdominal aortic aneurysm Enochs's disease Alcoholism Alzheimer's disease Aphasia Arthritis Asthma Cancer of mouth Cardiovascular disease Cataracts Colon cancer Completed stroke Congenital disease Congenital heart disease Coronary thrombosis Cystic fibrosis Deafness or hearing loss Dementia Drug abuse Dysphasia Fibrocystic disease of breast Gastroenteritis Glaucoma Headache disorder Hypercholesterolemia Hypertension Infertility Kidney disease Myocardial infarction Neoplasm Osteoporosis Parkinson's disease Prostate cancer Psychosocial problem Respiratory disorder Seizure disorder Severe allergy Tuberculosis Visual disorder No Pertinent Family Hx, Diabetes Review of Systems ROS-Unable to Obtain: Due to intubated Constitutional: see HPI Physical Exam Physical Exam Vital Signs Vital Signs - First Documented 07/29/18 07/29/18 05:11 06:50 Temp 100.4 Pulse 120 Resp 30 B/P (MAP) 229/111 (150) Pulse Ox 92 O2 Delivery Simple Mask O2 Flow Rate 6.00 FiO2 80 Capillary Refill : Less Than 3 Seconds Height, Weight, BMI Height: 5'9.00" Weight: 139lbs. 3.0oz. [id number]; 23.9 BMI Method:Stated General Appearance: Chronically ill, Other (intubated and sedated) HEENT: Other (OG in place) Respiratory: Decreased Breath Sounds, Other (intubated) Cardiovascular: Regular Rate, Rhythm, No Murmur Gastrointestinal: Normal Bowel Sounds, Non Tender, Soft Genital/Rectal: Other (smith in place) Extremity: No Pedal Edema, Slow Capillary Refill, Other (absent 5th digit on left foot) Neurologic/Psychiatric: Other (sedated) Skin: Normal Color, Warm/Dry Results Results/Procedures Labs Laboratory Tests 08/01/18 03:35 Patient resulted labs reviewed. Imaging: Reviewed Imaging Report Assessment/Plan Assessment and Plan Assess & Plan/Chief Complaint Septic Shock Critical Care Critical Care: Ventilator Management Diagnosis/Problems Diagnosis/Problems (1) Septic shock Status: Resolved Assessment & Plan: Febrile with leukocytosis RLL infiltrate on CXR lactic greater than 4 Received 30cc/kg bolus in ER Continue IVF Continue on abx/ Vanc and Cefepime Cultures drawn in ER (2) Right lower lobe pneumonia Status: Acute Assessment & Plan: abx as above Qualifiers: Pneumonia type: due to unspecified organism Qualified Codes: J18.1 - Lobar pneumonia, unspecified organism (3) Acute on chronic respiratory failure with hypoxia and hypercapnia Status: Acute Assessment & Plan: Reviewed vent settings and will get repeat ABG Maintain vent care (4) Tachycardia Status: Acute Assessment & Plan: Cardiology consulted, appreciate recs (5) Hypomagnesemia Status: Acute Assessment & Plan: Replaced in ER (6) Congestive heart failure Status: Acute Assessment & Plan: No evidence of acute failure at this time Cardiology consulted appreciate recs Echo ordered Qualifiers: Heart failure type: diastolic Heart failure chronicity: chronic Qualified Codes: I50.32 - Chronic diastolic (congestive) heart failure JALEEL GARAY MD Jul 29, 2018 08:36
[2018-07-29] MEDS ORDERED: EPINEPHrine 1 MG INJECTION 5 MG in NS (IVPB) 250 ML IV SCH (08:45)
[2018-07-29] MEDS ORDERED: RT-ALBUTEROL/IPRATROPIUM 3 ML (DUONEB) VIAL INH PRN (08:45)
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
[2018-07-29] MEDS ORDERED: VANCOMYCIN 1250 MG/NS 250 ML IVPB IV NR ×2 (09:00)
[2018-07-29] MEDS: NS IV 1000 ML 1,000 ML IV SCH ×4 (09:00→23:26)
[2018-07-29 09:14] LABS: ABG OXYGEN SATURATION 98 % (94-100); ABG PCO2 43 MMHG (35-45); ABG PO2 98 MMHG (79-93); ABG TCO2 23.2 MMOL/L (21.0-31.0)
[2018-07-29 09:15] LABS: ABG PH 7.33 (7.37-7.43)
[2018-07-29 09:16] LABS: ALLENS TEST YES-POS; INSPIRED O2 60%; VENTILATOR YES
[2018-07-29] MEDS ORDERED: fentaNYL INJECTION 100 MCG/2 ML AMP INJ ONE (10:36)
[2018-07-29] MEDS ORDERED: ROCURONIUM 10 MG/ML 5 ML SYRINGE IV ONE (10:36)
[2018-07-29] MEDS ORDERED: SUCCINYLCHOLINE INJ 100 MG/5 ML SYR INJ ONE (10:36)
[2018-07-29] MEDS ORDERED: MIDAZOLAM 5 MG/5 ML (VERSED) VIAL INJ ONE (10:36)
[2018-07-29] MEDS: RT-ALBUTEROL/IPRATROPIUM 3 ML (DUONEB) VIAL INH SCH ×4 (10:39→22:03)
[2018-07-29] MEDS ORDERED: AMLO5TAB7 PO (11:02)
[2018-07-29] MEDS ORDERED: INSU100I29 SC (11:02)
[2018-07-29] MEDS ORDERED: [UNRECOGNIZED DRUG - CODE] PO (11:02)
[2018-07-29] MEDS ORDERED: SUCR1TAB36 PO (11:02)
[2018-07-29] MEDS ORDERED: DEXT37.54 PO (11:02)
[2018-07-29] MEDS ORDERED: CALC500T7 PO (11:02)
[2018-07-29] MEDS ORDERED: INSU100I29 SQ (11:02)
[2018-07-29] MEDS ORDERED: PANT40TA2 PO (11:02)
[2018-07-29] MEDS ORDERED: GLUC1KIT IJ (11:02)
[2018-07-29] MEDS ORDERED: TAMS0.4C2 PO (11:02)
[2018-07-29] MEDS ORDERED: INSU100I14 SC (11:02)
[2018-07-29] MEDS ORDERED: HYDR-3816 PO (11:02)
[2018-07-29] MEDS ORDERED: METF500T8 PO (11:02)
[2018-07-29] MEDS ORDERED: GABA-490 PO (11:11)
[2018-07-29] MEDS: NOREPINEPHRINE 4 MG in NS (IVPB) 250 ML IV SCH ×2 (11:12→22:30)
[2018-07-29] MEDS: VASOPRESSIN INJECTION 20 UNIT in NS (IVPB) 100 ML IV SCH ×2 (11:12→16:53)
[2018-07-29] MEDS ORDERED: DEXMEDETOMIDINE INJECTION 1,000 MCG in NS (IVPB) 250 ML IV SCH (11:15)
--- NOTE | 2018-07-29 11:51 | History & Physicial ([facility]) ---
HPI History of Present Illness: 78 yo male sent from nursing facility with hypoxia. Intubated in ER, unable to obtain further history. Exam Limitations: clinical condition Date seen by provider: Jul 29, 2018 Time Seen by Provider: 09:07 Attending Physician Ray Hardin MD PCP Conrad Jones Aprn Consult Date of Admission Jul 29, 2018 at 7:44 am Home Medications Home Medications Reviewed patient Home Medication Reconciliation performed by pharmacy medication reconciliations aviation technician and/or nursing. Patients Allergies have been reviewed. Allergies Coded Allergies: albuterol (Verified Allergy, Unknown, PATIENT TAKES AT HOME, SHORTNESS OF BREATH, 04/15/18) atenolol (Verified Allergy, Unknown, HAS RECEIVED METOPROLOL IN THE PAST, 08/20/16) haloperidol (Verified Allergy, Unknown, 01/04/14) [id number]-Snmhli Hx Patient Social History Alcohol Use: Denies Use Recreational Drug Use: No Smoking Status: Former Smoker Former smoker/When Quit: Nov 01, 1981 Type Used: Cigarettes Recent Foreign Travel: No Contact w/other who traveled: No Recent Hopitalizations: No Recent Infectious Disease Expo: No Physical Abuse Screen: No Sexual Abuse: No Immunizations Up To Date Tetanus Booster (TDap): Unknown Date of Pneumonia Vaccine: February 18, 2015 Date of Influenza Vaccine: Sep 06, 2016 Past Medical History PMHx: Atrial fibrillation unable to tolerate anticoagulation due to cirrhosis/esophageal varices/thrombocytopenia DMII Cirrhosis HTN Alcoholism Anemia of chronic disease GERD Pyloric ulcer on EGD 03/2018 COPD SurgHx: 07/2016 Debridement of left lateral foot and bilateral great toes, 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 Family Medical History Significant Family History: Diabetes Family History: Diabetes mellitus GRANDMOTHER Thyroid disease 19 MOTHER No Family History of: AIDS Abdominal aortic aneurysm [place]'s disease Alcoholism Alzheimer's disease Aphasia Arthritis Asthma Cancer of mouth Cardiovascular disease Cataracts Colon cancer Completed stroke Congenital disease Congenital heart disease Coronary thrombosis Cystic fibrosis Deafness or hearing loss Dementia Drug abuse Dysphasia Fibrocystic disease of breast Gastroenteritis Glaucoma Headache disorder Hypercholesterolemia Hypertension Infertility Kidney disease Myocardial infarction Neoplasm Osteoporosis Parkinson's disease Prostate cancer Psychosocial problem Respiratory disorder Seizure disorder Severe allergy Tuberculosis Visual disorder Review of Systems ([facility]) Constitutional: other (unable to obtain due to condition- per NH fever and cough) Reviewed Test Results Reviewed Test Results Lab Laboratory Tests Test 07/29/18 05:25 07/29/18 05:47 07/29/18 07:40 07/29/18 07:46 Range/Units White Blood Count 8.7 4.3-11.0 10^3/uL Red Blood Count 4.21 L 4.35-5.85 10^6/uL Hemoglobin 8.9 L 13.3-17.7 G/DL Hematocrit 30 L 40-54 % Mean Corpuscular Volume 72 L 80-99 FL Mean Corpuscular Hemoglobin 21 L 25-34 PG Mean Corpuscular Hemoglobin Concent 29 L 32-36 G/DL Red Cell Distribution Width 17.2 H 10.0-14.5 % Platelet Count 218 130-400 10^3/uL Mean Platelet Volume 11.5 H 7.4-10.4 FL Neutrophils (%) (Auto) 80 H 42-75 % Lymphocytes (%) (Auto) 11 L 12-44 % Monocytes (%) (Auto) 7 0-12 % Eosinophils (%) (Auto) 2 0-10 % Basophils (%) (Auto) 0 0-10 % Neutrophils # (Auto) 6.9 1.8-7.8 X 10^3 Lymphocytes # (Auto) 1.0 1.0-4.0 X 10^3 Monocytes # (Auto) 0.6 0.0-1.0 X 10^3 Eosinophils # (Auto) 0.2 0.0-0.3 10^3/uL Basophils # (Auto) 0.0 0.0-0.1 10^3/uL Prothrombin Time 13.9 12.2-14.7 SEC INR Comment 1.1 0.8-1.4 Activated Partial Thromboplast Time 32 24-35 SEC Sodium Level 136 135-145 MMOL/L Potassium Level 4.2 3.6-5.0 MMOL/L Chloride Level 102 98-107 MMOL/L Carbon Dioxide Level 22 21-32 MMOL/L Anion Gap 12 5-14 MMOL/L Blood Urea Nitrogen 10 7-18 MG/DL Creatinine 0.87 0.60-1.30 MG/DL Estimat Glomerular Filtration Rate > 60 BUN/Creatinine Ratio 11 Glucose Level 198 H 70-105 MG/DL Calcium Level 9.6 8.5-10.1 MG/DL Corrected Calcium 9.6 8.5-10.1 MG/DL Magnesium Level 1.4 L 1.8-2.4 MG/DL Total Bilirubin 0.7 0.1-1.0 MG/DL Aspartate Amino Transf (AST/SGOT) 27 5-34 U/L Alanine Aminotransferase (ALT/SGPT) 26 0-55 U/L Alkaline Phosphatase 141 H 40-136 U/L Myoglobin 32.2 10.0-92.0 NG/ML Troponin I < 0.30 <0.30 NG/ML C-Reactive Protein High Sensitivity 2.33 H 0.00-0.50 MG/DL B-Type Natriuretic Peptide 161.6 H <100.0 PG/ML Total Protein 8.3 H 6.4-8.2 GM/DL Albumin 4.0 3.2-4.5 GM/DL Triglycerides Level 105 <150 MG/DL Digoxin Level 0.51 L 0.80-2.00 NG/ML Lactic Acid Level 4.76 *H 2.15 *H 0.50-2.00 MMOL/L Blood Gas Puncture Site LT BRACH Blood Gas Patient Temperature 100.7 Arterial Blood pH 7.21 *L 7.37-7.43 Arterial Blood Partial Pressure CO2 57 H 35-45 MMHG Arterial Blood Partial Pressure O2 113 H 79-93 MMHG Arterial Blood HCO3 22 L 23-27 MMOL/L Arterial Blood Total CO2 23.3 21.0-31.0 MMOL/L Arterial Blood Oxygen Saturation 98 94-100 % Arterial Blood Base Excess -4.7 L -2.5-2.5 MMOL/L Chu Test YES-POS Blood Gas Ventilator Setting YES Blood Gas Inspired Oxygen 80% Test 07/29/18 09:07 Range/Units Blood Gas Puncture Site LT RAD Blood Gas Patient Temperature 99.0 Arterial Blood pH 7.33 *L 7.37-7.43 Arterial Blood Partial Pressure CO2 43 35-45 MMHG Arterial Blood Partial Pressure O2 98 H 79-93 MMHG Arterial Blood HCO3 22 L 23-27 MMOL/L Arterial Blood Total CO2 23.2 21.0-31.0 MMOL/L Arterial Blood Oxygen Saturation 98 94-100 % Arterial Blood Base Excess -3.0 L -2.5-2.5 MMOL/L Chu Test YES-POS Blood Gas Ventilator Setting YES Blood Gas Inspired Oxygen 60% Radiology CXR 07/29/18 IMPRESSION: Alveolar infiltrate in right lung base compatible with pneumonia. Physical Exam-([facility]) Physical Exam Vital Signs VS - Last 72 Hours, by Label 07/29/18 07/29/18 07/29/18 07/29/18 05:11 05:11 05:28 05:44 Temp 100.4 Pulse 120 122 Resp 30 33 B/P (MAP) 229/111 (150) Pulse Ox 92 85 98 100 O2 Delivery Simple Mask Nasal Cannula O2 Flow Rate 6.00 6.00 100.00 07/29/18 07/29/18 07/29/18 07/29/18 06:43 06:50 07:54 08:21 Temp 100.4 100.4 Pulse 130 150 118 Resp 14 16 B/P (MAP) 146/70 (95) Pulse Ox 100 100 O2 Delivery Simple Mask O2 Flow Rate 100.00 FiO2 80 07/29/18 07/29/18 07/29/18 07/29/18 08:36 08:36 08:45 08:50 Temp 99.0 Pulse 98 96 Resp 19 B/P (MAP) Pulse Ox 100 O2 Delivery Mechanical Ventilator Mechanical Ventilator O2 Flow Rate 80.00 60.00 FiO2 80 07/29/18 07/29/18 07/29/18 09:00 10:10 10:39 Pulse 80 Resp 22 B/P (MAP) 132/78 Pulse Ox 99 O2 Delivery Mechanical Ventilator O2 Flow Rate 50.00 5.00 FiO2 80 Capillary Refill : Less Than 3 Seconds General Appearance: other (intubated, sedated) Respiratory: rhonchi Cardiovascular: regular rate, rhythm, no murmur Gastrointestinal: normal bowel sounds, soft; No distended, No mass Extremities: no pedal edema Neurologic/Psychiatric: other (sedated) Skin: warm/dry Assessment/Plan Assessment/Plan Admission Status: Inpatient Order (span 2 midnights) Reason for Inpatient Admission: Severe sepsis secondary to pneumonia with respiratory failure requiring intubation. (1) Right lower lobe pneumonia Status: Acute Assessment & Plan: Health care associated with recent nursing facility stay. Started on cefepime and vancomycin. Qualifiers: Qualified Codes: J18.1 - Lobar pneumonia, unspecified organism (2) Acute on chronic respiratory failure with hypoxia and hypercapnia Status: Acute Assessment & Plan: Failed bipap in ER, requiring intubation and mechanical ventilation. Hospitalist consult for vent management, appreciate recommendations. Improved ABG after intubation this am with decreasing FiO2 requirement. (3) Severe sepsis Status: Acute Assessment & Plan: Secondary to pneumonia, no hypotension but lactate above 4, received bolus in ER and lactate improved to just above 2. Vanc and cefepime as noted under pneumonia. (4) Tachycardia Status: Acute Assessment & Plan: Improving with treatment of above conditions. Cardiology consulted, appreciate recommendations. (5) Gastritis Status: Chronic Assessment & Plan: PPI prophylaxis, history of antral ulcer diagnosed 03/2018 by EGD. (6) Hypomagnesemia Status: Acute Assessment & Plan: Replace and recheck (7) COPD (chronic obstructive pulmonary disease) Status: Chronic Assessment & Plan: Currently intubated due to pneumonia with respiratory failure. No wheezing. (8) Chronic anemia Status: Chronic Assessment & Plan: Anemia of chronic disease suspected however has microcytosis , will check iron studies, monitor closely. (9) HTN (hypertension) Status: Chronic Assessment & Plan: Holding home meds while intubated, monitor closely. Initially hypertensive, now normotensive. Qualifiers: Qualified Codes: I10 - Essential (primary) hypertension (10) Cirrhosis Status: Chronic Qualifiers: (11) Atrial fibrillation Status: Chronic Assessment & Plan: History of atrial fibrillation, cannot tolerate anticoagulation due to cirrhosis, esophageal varices historically, intermittent thrombocytopenia. (12) Diabetes mellitus, type 2 Status: Chronic Assessment & Plan: Sliding scale insulin while NPO Qualifiers: Qualified Codes: E11.65 - Type 2 diabetes mellitus with hyperglycemia; Z79.4 - long-term (current) use of insulin (13) DVT prophylaxis Status: Acute Assessment & Plan: Unable to tolerate anticoagulation in past due to cirrhosis and bleeding Clinical Quality Measures DVT/VTE Risk/Contraindication: Risk Factor Score Per Nursin RFS Level Per Nursing on Admit: 4+=Very High RAY HARDIN MD Jul 29, 2018 11:51 am
[2018-07-29] MEDS: CEFEPIME INJECTION 1,000 MG in NS (IVPB) 50 ML IV SCH ×2 (12:53→18:38)
[2018-07-29] MEDS: PROPOFOL DRIP (ICU) 100 ML IV SCH ×3 (12:54→22:59)
[2018-07-29] MEDS ORDERED: meTOprolol 5 MG/5 ML (LOPRESSOR) VIAL IV PRN (14:45)
[2018-07-29] MEDS: fentaNYL INJECTION 1,250 MCG in NS (IVPB) 250 ML IV SCH (16:46)
[2018-07-29] MEDS: inSUlin ASPART (NovoLOG) 1 UNIT/0.01 ML (CHARGE PER UNIT) SC SCH (18:28)
[2018-07-29] MEDS ORDERED: FLU QUADRIvalent (5+ YOA) 2018-2019 (AFLURIA) 0.5 ML IM ONE (18:30)
[2018-07-30] VITALS (37 sets, daily range): BP systolic 79–177; BP diastolic 34–109
[2018-07-30] MEDS: inSUlin ASPART (NovoLOG) 1 UNIT/0.01 ML (CHARGE PER UNIT) SC SCH ×4 (00:10→18:35)
[2018-07-30] MEDS: NS IV 1000 ML 1,000 ML IV SCH ×3 (00:27→17:46)
[2018-07-30] MEDS: VASOPRESSIN INJECTION 20 UNIT in NS (IVPB) 100 ML IV SCH ×3 (01:23→18:08)
[2018-07-30] MEDS: CEFEPIME INJECTION 1,000 MG in NS (IVPB) 50 ML IV SCH ×4 (01:33→18:35)
[2018-07-30] MEDS: RT-ALBUTEROL/IPRATROPIUM 3 ML (DUONEB) VIAL INH SCH ×6 (02:10→21:53)
[2018-07-30 04:17] LABS: ABG BASE EXCESS -4.2 MMOL/L (-2.5-2.5); ABG OXYGEN SATURATION 95 % (94-100); ABG PCO2 36 MMHG (35-45); ABG PH 7.37 (7.37-7.43); ABG PO2 67 MMHG (79-93); ABG TCO2 21.5 MMOL/L (21.0-31.0); ALLENS TEST ARTLINE
[2018-07-30 04:18] LABS: INSPIRED O2 25%; PATIENT TEMP 97.1; VENTILATOR YES
[2018-07-30] MEDS: PROPOFOL DRIP (ICU) 100 ML IV SCH ×4 (04:18→17:46)
[2018-07-30 04:19] LABS: BASOPHILS % (AUTO) 0 % (0-10); EOSINOPHILS # (AUTO) 0.1 10^3/uL (0.0-0.3); EOSINOPHILS % (AUTO) 1 % (0-10); HEMATOCRIT 22 % (40-54); LYMPHOCYTES # (AUTO) 0.6 X 10^3 (1.0-4.0); LYMPHOCYTES % (AUTO) 5 % (12-44); MEAN CORPUSCULAR HEMOGLOBIN 22 PG (25-34); MEAN CORPUSCULAR HGB CONC 30 G/DL (32-36); MEAN CORPUSCULAR VOLUME 73 FL (80-99); MONOCYTES # (AUTO) 0.8 X 10^3 (0.0-1.0); MONOCYTES % (AUTO) 6 % (0-12); NEUTROPHILS # (AUTO) 10.6 X 10^3 (1.8-7.8); NEUTROPHILS % (AUTO) 87 % (42-75); PLATELET COUNT 164 10^3/uL (130-400); RED BLOOD COUNT 3.04 10^6/uL (4.35-5.85); RED CELL DISTRIBUTION WIDTH 17.2 % (10.0-14.5); WHITE BLOOD COUNT 12.1 10^3/uL (4.3-11.0)
[2018-07-30 04:20] LABS: HEMOGLOBIN 6.7 G/DL (13.3-17.7)
[2018-07-30 04:38] LABS: ALANINE AMINOTRANSFERASE 18 U/L (0-55); ALBUMIN 2.7 GM/DL (3.2-4.5); ALKALINE PHOSPHATASE 68 U/L (40-136); BILIRUBIN,TOTAL 0.7 MG/DL (0.1-1.0); BUN/CREATININE RATIO 15; CALCIUM 7.5 MG/DL (8.5-10.1); CARBON DIOXIDE 17 MMOL/L (21-32); CHLORIDE 113 MMOL/L (98-107); CHOLESTEROL 79 MG/DL (< 200); CREATININE SERUM 0.73 MG/DL (0.60-1.30); GFR ESTIMATED > 60; GLUCOSE 160 MG/DL (70-105); HDL CHOLESTEROL 28 MG/DL (40-60); MAGNESIUM 1.2 MG/DL (1.8-2.4); PHOSPHORUS 2.7 MG/DL (2.3-4.7); POTASSIUM 3.4 MMOL/L (3.6-5.0); SODIUM 138 MMOL/L (135-145); TOTAL PROTEIN 5.6 GM/DL (6.4-8.2); TRIGLYCERIDES 72 MG/DL (<150); VLDL CHOLESTEROL 14 MG/DL (5-40)
[2018-07-30] MEDS: POTASSIUM CL 10MEQ/50ML IVPB 50 ML IV SCH ×2 (05:03→05:18)
[2018-07-30] MEDS: MAGNESIUM 1 GM/100 ML IVPB 100 ML IV SCH ×5 (05:03→08:50)
[2018-07-30] MEDS: KCL 20 MEQ TAB (K-DUR) PO SCH (05:03)
[2018-07-30 05:19] LABS: LYMPHOCYTES % (MANUAL) 6 %; MONOCYTES % (MANUAL) 6 %; NEUTROPHILS % (MANUAL) 87 %; REACTIVE LYMPHOCYTES 1 %
[2018-07-30 05:43] LABS: BASOPHILS % (AUTO) 0 % (0-10); EOSINOPHILS # (AUTO) 0.1 10^3/uL (0.0-0.3); EOSINOPHILS % (AUTO) 1 % (0-10); HEMATOCRIT 22 % (40-54); LYMPHOCYTES # (AUTO) 0.7 X 10^3 (1.0-4.0); LYMPHOCYTES % (AUTO) 6 % (12-44); MEAN CORPUSCULAR HEMOGLOBIN 22 PG (25-34); MEAN CORPUSCULAR HGB CONC 30 G/DL (32-36); MEAN CORPUSCULAR VOLUME 74 FL (80-99); MEAN PLATELET VOLUME 12.6 FL (7.4-10.4); MONOCYTES # (AUTO) 0.8 X 10^3 (0.0-1.0); MONOCYTES % (AUTO) 7 % (0-12); NEUTROPHILS # (AUTO) 10.3 X 10^3 (1.8-7.8); NEUTROPHILS % (AUTO) 86 % (42-75); PLATELET COUNT 160 10^3/uL (130-400); RED BLOOD COUNT 3.01 10^6/uL (4.35-5.85); RED CELL DISTRIBUTION WIDTH 17.1 % (10.0-14.5); WHITE BLOOD COUNT 11.9 10^3/uL (4.3-11.0)
[2018-07-30 05:46] LABS: HEMOGLOBIN 6.6 G/DL (13.3-17.7)
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
--- NOTE | 2018-07-30 08:00 | Progress Note-Hospitalist ---
Subjective HPI/CC On Admission Date Seen by Provider: Jul 30, 2018 Time Seen by Provider: 07:54 Pt is a 78yoCM with a PMH of emphysema, paroxysmal a-fib, and diabetes who was admitted to the ICU with septic shock and respiratory failure to the [facility] service. I am consulted for ventilator management. Patient is currently intubated and sedated at this time so is unable to provide any history. Per ER notes he presented in respiratory distress and was quickly intubated. He was found to be febrile with a leukocytosis and CXR revealed right lung base infiltrate. Subjective/Events-last exam Pt is sedated and intubated. Unable to provide ROS. Discussed with RN. Hgb dropped overnight. No dark stools or OG output. Focused Exam Lactate Level 07/29/18 07:40: Lactic Acid Level 2.15*H 07/30/18 04:05: Lactic Acid Level 2.06*H 07/30/18 06:50: Lactic Acid Level 1.18 Time of Focused Exam: 07:40 Lactic Acid Level Laboratory Tests Test 07/30/18 04:05 07/30/18 06:50 Lactic Acid Level 2.06 MMOL/L (0.50-2.00) *H 1.18 MMOL/L (0.50-2.00) Objective Exam Vital Signs Vital Signs Date Time Temp Pulse Resp B/P (MAP) Pulse Ox O2 Delivery O2 Flow Rate FiO2 07/30/18 06:06 83 18 93 25 07/30/18 06:00 134/44 (74) Mechanical Ventilator 25.00 108/56 (73) 07/30/18 04:00 97.1 Capillary Refill : Less Than 3 Seconds General Appearance: Chronically ill, Other (intubated) HEENT: Other (OG in place) Respiratory: Lungs Clear, Crackles (bases); No Wheezing; Other (intubated) Cardiovascular: Regular Rate, Rhythm, No Murmur Gastrointestinal: Normal Bowel Sounds, Soft Extremity: No Calf Tenderness, Other (s/p 5th digit amputation on left foot) Neurologic/Psychiatric: Other (sedated) Skin: Pallor Results/Procedures Lab Laboratory Tests 07/30/18 04:05 07/30/18 05:25 Patient resulted labs reviewed. Imaging: Reviewed Imaging Report Assessment/Plan Assessment and Plan Assess & Plan/Chief Complaint Septic Shock Critical Care Critical Care: Ventilator Management Diagnosis/Problems Diagnosis/Problems (1) Septic shock Assessment & Plan: Febrile with leukocytosis RLL infiltrate on CXR Lactic acidosis now resolved Bp stable without pressors Continue IVF Continue on abx/ Vanc and Cefepime Cultures NGTD (2) Acute on chronic respiratory failure with hypoxia and hypercapnia Status: Acute Assessment & Plan: Maintain current vent settings Reviewed ABG (3) Right lower lobe pneumonia Status: Acute Assessment & Plan: abx as above Flu negative Sputum culture Qualifiers: Pneumonia type: due to unspecified organism Qualified Codes: J18.1 - Lobar pneumonia, unspecified organism (4) Microcytic anemia Assessment & Plan: Hgb 6.6 today transfusion ordered by eICU (5) Tachycardia Status: Acute Assessment & Plan: Cardiology consulted, appreciate recs (6) Hypomagnesemia Status: Acute Assessment & Plan: Replaced in ER (7) Congestive heart failure Status: Acute Assessment & Plan: No evidence of acute failure at this time Cardiology consulted appreciate recs Echo shows EF 55% with diastolic dysfunction Received 6L yesterday Qualifiers: Heart failure type: diastolic Heart failure chronicity: chronic Qualified Codes: I50.32 - Chronic diastolic (congestive) heart failure Clinical Quality Measures DVT/VTE Risk/Contraindication: Risk Factor Score Per Nursin RFS Level Per Nursing on Admit: 4+=Very High JALEEL GARAY MD Jul 30, 2018 07:59
--- NOTE | 2018-07-30 08:36 | Diagnostic Imaging Report ---
INDICATION: Dyspnea Frontal chest obtained at 3:48 a.m. and compared with 07/29/2018. There is cardiomegaly. There is ET tube in place with tip overlying mid to lower trachea. There is an NG tube seen with tip below the film. Right IJ central catheter tip overlies the SVC. There is no pneumothorax. There appears to be partial improvement in right basilar infiltrate compared to the prior study. There is some infiltrate in the left base which is stable. IMPRESSION: Bibasilar infiltrates, right greater than left, the right basilar infiltrate does show mild improvement compared to the previous day. Life-support lines are unchanged. There is no pneumothorax or gross pleural fluid. Dictated by: Dictated on workstation # [id number]
--- NOTE | 2018-07-30 08:52 | Progress Note (SOAP) ---
Subjective Subjective/Events-last exam Tmax 100.4. FiO2 down to 25% on ventilator with markedly improved ABG this am. Review of Systems Date Seen by Provider: Jul 30, 2018 Time Seen by Provider: 07:50 Focused Exam Lactate Level 07/29/18 07:40: Lactic Acid Level 2.15*H 07/30/18 04:05: Lactic Acid Level 2.06*H 07/30/18 06:50: Lactic Acid Level 1.18 Time of Focused Exam: 07:40 Lactic Acid Level Laboratory Tests Test 07/30/18 06:50 Lactic Acid Level 1.18 MMOL/L (0.50-2.00) Objective Exam Last Set of Vital Signs Vital Signs Date Time Temp Pulse Resp B/P (MAP) Pulse Ox O2 Delivery O2 Flow Rate FiO2 07/30/18 08:16 90 23 25 07/30/18 08:00 143/43 (76) 96 Mechanical Ventilator 25.00 109/56 (73) 07/30/18 04:00 97.1 Capillary Refill : Less Than 3 Seconds I&O Intake and Output 07/30/18 00:00 Intake Total 5762.5 ml Output Total 1600 ml Balance 4162.5 ml Intake IV Total 5762.5 ml Output Urine Total 1100 ml Gastric Drainage Total 500 ml Daily Weight Change Unsure General: Other (sedated, ventilated) Lungs: Clear to Auscultation Heart: Regular Rate, Other (systolic murmur) Abdomen: Normal Bowel Sounds, Soft Extremities: Other (trace edema) Results/Procedures Lab Laboratory Tests 07/29/18 09:07: Blood Gas Puncture Site LT RAD, Blood Gas Patient Temperature 99.0, Arterial Blood pH 7.33*L, Arterial Blood Partial Pressure CO2 43, Arterial Blood Partial Pressure O2 98H, Arterial Blood HCO3 22L, Arterial Blood Total CO2 23.2, Arterial Blood Oxygen Saturation 98, Arterial Blood Base Excess -3.0L, Chu Test YES-POS, Blood Gas Ventilator Setting YES, Blood Gas Inspired Oxygen 60% 07/29/18 16:49: Glucometer 258H 07/30/18 00:10: Glucometer 166H 07/30/18 04:05: Blood Gas Puncture Site RT RADIAL, Blood Gas Patient Temperature 97.1, Arterial Blood pH 7.37, Arterial Blood Partial Pressure CO2 36, Arterial Blood Partial Pressure O2 67L, Arterial Blood HCO3 20L, Arterial Blood Total CO2 21.5, Arterial Blood Oxygen Saturation 95, Arterial Blood Base Excess -4.2L, Chu Test ARTLINE, Blood Gas Ventilator Setting YES, Blood Gas Inspired Oxygen 25%, White Blood Count 12.1H, Red Blood Count 3.04L, Hemoglobin 6.7#*L, Hematocrit 22L, Mean Corpuscular Volume 73L, Mean Corpuscular Hemoglobin 22L, Mean Corpuscular Hemoglobin Concent 30L, Red Cell Distribution Width 17.2H, Platelet Count 164, Mean Platelet Volume , Neutrophils (%) (Auto) 87H, Lymphocytes (%) ( Auto) 5L, Monocytes (%) (Auto) 6, Eosinophils (%) (Auto) 1, Basophils (%) (Auto ) 0, Neutrophils # (Auto) 10.6H, Lymphocytes # (Auto) 0.6L, Monocytes # (Auto) 0.8, Eosinophils # (Auto) 0.1, Basophils # (Auto) 0.0, Neutrophils % (Manual) 87 , Lymphocytes % (Manual) 6, Monocytes % (Manual) 6, Reactive Lymphocytes 1, Sodium Level 138, Potassium Level 3.4L, Chloride Level 113#H, Carbon Dioxide Level 17L, Anion Gap 8, Blood Urea Nitrogen 11, Creatinine 0.73, Estimat Glomerular Filtration Rate > 60, BUN/Creatinine Ratio 15, Glucose Level 160H, Lactic Acid Level 2.06*H, Calcium Level 7.5L, Corrected Calcium 8.5, Phosphorus Level 2.7, Magnesium Level 1.2L, Total Bilirubin 0.7, Aspartate Amino Transf ( AST/SGOT) 18, Alanine Aminotransferase (ALT/SGPT) 18, Alkaline Phosphatase 68, Total Protein 5.6L, Albumin 2.7L, Triglycerides Level 72, Cholesterol Level 79, LDL Cholesterol Direct 34, VLDL Cholesterol 14, HDL Cholesterol 28L 07/30/18 05:25: White Blood Count 11.9H, Red Blood Count 3.01L, Hemoglobin 6.6*L, Hematocrit 22L , Mean Corpuscular Volume 74L, Mean Corpuscular Hemoglobin 22L, Mean Corpuscular Hemoglobin Concent 30L, Red Cell Distribution Width 17.1H, Platelet Count 160, Mean Platelet Volume 12.6H, Neutrophils (%) (Auto) 86H, Lymphocytes ( %) (Auto) 6L, Monocytes (%) (Auto) 7, Eosinophils (%) (Auto) 1, Basophils (%) ( Auto) 0, Neutrophils # (Auto) 10.3H, Lymphocytes # (Auto) 0.7L, Monocytes # ( Auto) 0.8, Eosinophils # (Auto) 0.1, Basophils # (Auto) 0.0 07/30/18 06:50: Lactic Acid Level 1.18 Microbiology 07/29/18 Blood Culture - Preliminary, Resulted No growth 07/29/18 Gram Stain - Final, Resulted 07/29/18 Sputum Culture, Resulted Pending Radiology CXR 07/29/18 IMPRESSION: Alveolar infiltrate in right lung base compatible with pneumonia. Assessment/Plan Assessment/Plan (1) Septic shock Status: Resolved Assessment & Plan: Initially with lactate above 4, pneumonia with respiratory failure. Lactate resolved after 30 ml/kg bolus, no hypotension throughout course. (2) Acute on chronic respiratory failure with hypoxia and hypercapnia Status: Acute Assessment & Plan: Ventilatory management per hospitalist, appreciate assistance. Improving hypoxia. (3) Right lower lobe pneumonia Status: Acute Assessment & Plan: Health care associated with recent nursing facility stay. Started on cefepime and vancomycin. Flu negative. Qualifiers: Qualified Codes: J18.1 - Lobar pneumonia, unspecified organism (4) Microcytic anemia Assessment & Plan: Iron studies pending Hgb 6.6 today, transfusion ordered by eICU (5) Tachycardia Status: Acute Assessment & Plan: Cardiology consulted, appreciate recs (6) Hypomagnesemia Status: Acute Assessment & Plan: Replaced initially, remains low, further supplement ordered per protocol this am (7) Congestive heart failure Status: Acute Assessment & Plan: No evidence of acute failure at this time Cardiology consulted appreciate recs Echo shows EF 55% with diastolic dysfunction, mild aortic stenosis Qualifiers: Qualified Codes: I50.32 - Chronic diastolic (congestive) heart failure (8) Diabetes mellitus, type 2 Status: Chronic Assessment & Plan: Sliding scale insulin Qualifiers: Qualified Codes: E11.65 - Type 2 diabetes mellitus with hyperglycemia; 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 Qualifiers: Qualified Codes: I10 - Essential (primary) hypertension (13) Cirrhosis Status: Chronic Assessment & Plan: Has been in nursing facility for some time, no concern for EtOH withdrawal. Monitor LFTs. Qualifiers: (14) Nutritional deficiency Status: Acute Assessment & Plan: Dietary consult for tube feedings (15) DVT prophylaxis Status: Acute Assessment & Plan: Unable to tolerate anticoagulation in past due to cirrhosis and bleeding Clinical Quality Measures DVT/VTE Risk/Contraindication: Risk Factor Score Per Nursin RFS Level Per Nursing on Admit: 4+=Very High RAY SHAFFER MD Jul 30, 2018 8:52 am
[2018-07-30] MEDS: PANTOPRAZOLE 40 MG (PROTONIX) VIAL IV SCH (09:00)
[2018-07-30] MEDS ORDERED: VANCOMYCIN INJECTION 1,000 MG in NS (IVPB) 250 ML IV SCH (09:00)
[2018-07-30] MEDS ORDERED: POTASSIUM CL 10MEQ/50ML IVPB 50 ML IV SCH (09:15)
[2018-07-30] MEDS ORDERED: POTASSIUM CL 10MEQ/50ML IVPB 50 ML IV NR (09:44)
[2018-07-30] MEDS: NOREPINEPHRINE 4 MG in NS (IVPB) 250 ML IV SCH (11:54)
[2018-07-30] MEDS: fentaNYL INJECTION 1,250 MCG in NS (IVPB) 250 ML IV SCH ×2 (13:21→22:42)
[2018-07-31] VITALS (34 sets, daily range): BP systolic 111–170; BP diastolic 35–89
[2018-07-31] MEDS: NS IV 1000 ML 1,000 ML IV SCH (00:54)
[2018-07-31] MEDS: PROPOFOL DRIP (ICU) 100 ML IV SCH ×3 (00:54→12:58)
[2018-07-31] MEDS: inSUlin ASPART (NovoLOG) 1 UNIT/0.01 ML (CHARGE PER UNIT) SC SCH ×4 (01:10→18:05)
[2018-07-31] MEDS: NOREPINEPHRINE 4 MG in NS (IVPB) 250 ML IV SCH ×2 (01:10→13:17)
[2018-07-31] MEDS: CEFEPIME INJECTION 1,000 MG in NS (IVPB) 50 ML IV SCH ×4 (01:30→21:22)
[2018-07-31] MEDS: VASOPRESSIN INJECTION 20 UNIT in NS (IVPB) 100 ML IV SCH ×3 (02:28→18:14)
[2018-07-31] MEDS: RT-ALBUTEROL/IPRATROPIUM 3 ML (DUONEB) VIAL INH SCH ×6 (03:15→21:49)
[2018-07-31 03:23] LABS: ABG BASE EXCESS -5.2 MMOL/L (-2.5-2.5); ABG OXYGEN SATURATION 88 % (94-100); ABG PCO2 40 MMHG (35-45); ABG PO2 60 MMHG (79-93); ABG TCO2 20.9 MMOL/L (21.0-31.0)
[2018-07-31 03:25] LABS: ABG PH 7.32 (7.37-7.43); ALLENS TEST ART LINE; INSPIRED O2 25%; PATIENT TEMP 99.8; VENTILATOR YES
[2018-07-31 03:31] LABS: BASOPHILS % (AUTO) 0 % (0-10); EOSINOPHILS # (AUTO) 0.4 10^3/uL (0.0-0.3); EOSINOPHILS % (AUTO) 3 % (0-10); HEMATOCRIT 27 % (40-54); LYMPHOCYTES % (AUTO) 10 % (12-44); MEAN CORPUSCULAR HEMOGLOBIN 22 PG (25-34); MEAN CORPUSCULAR HGB CONC 30 G/DL (32-36); MEAN CORPUSCULAR VOLUME 74 FL (80-99); MEAN PLATELET VOLUME 11.7 FL (7.4-10.4); MONOCYTES % (AUTO) 9 % (0-12); NEUTROPHILS # (AUTO) 8.3 X 10^3 (1.8-7.8); NEUTROPHILS % (AUTO) 78 % (42-75); PLATELET COUNT 174 10^3/uL (130-400); RED BLOOD COUNT 3.61 10^6/uL (4.35-5.85); RED CELL DISTRIBUTION WIDTH 18.1 % (10.0-14.5); WHITE BLOOD COUNT 10.7 10^3/uL (4.3-11.0)
[2018-07-31 03:50] LABS: ALANINE AMINOTRANSFERASE 16 U/L (0-55); ALBUMIN 2.7 GM/DL (3.2-4.5); ALKALINE PHOSPHATASE 73 U/L (40-136); BILIRUBIN,TOTAL 0.8 MG/DL (0.1-1.0); BUN/CREATININE RATIO 14; CALCIUM 7.7 MG/DL (8.5-10.1); CARBON DIOXIDE 17 MMOL/L (21-32); CHLORIDE 114 MMOL/L (98-107); CREATININE SERUM 0.66 MG/DL (0.60-1.30); GFR ESTIMATED > 60; GLUCOSE 123 MG/DL (70-105); MAGNESIUM 1.9 MG/DL (1.8-2.4); PHOSPHORUS 2.2 MG/DL (2.3-4.7); POTASSIUM 3.7 MMOL/L (3.6-5.0); SODIUM 137 MMOL/L (135-145); TOTAL PROTEIN 6.1 GM/DL (6.4-8.2)
[2018-07-31] MEDS: POTASSIUM CL 10MEQ/50ML IVPB 50 ML IV SCH (06:04)
[2018-07-31] MEDS: MAGNESIUM 1 GM/100 ML IVPB 100 ML IV SCH (06:04)
[2018-07-31] MEDS: KCL 20 MEQ TAB (K-DUR) PO SCH (06:04)
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
--- NOTE | 2018-07-31 07:30 | Diagnostic Imaging Report ---
INDICATION: Dyspnea. 0356 hours Semiupright portable AP view of the chest is obtained with comparison made study of 07/30/2018. FINDINGS: There has been increase in basilar airspace disease bilaterally. Support tubes remain in stable position. There is no evidence of pneumothorax. IMPRESSION: Increasing basilar densities likely due to edema and/or pneumonia with associated pleural fluid. Continued radiographic followup would be of use. Dictated by: Dictated on workstation # [id number]
--- NOTE | 2018-07-31 07:42 | Progress Note-Hospitalist ---
Subjective HPI/CC On Admission Date Seen by Provider: Jul 31, 2018 Time Seen by Provider: 07:37 Pt is a 78yoCM with a PMH of emphysema, paroxysmal a-fib, and diabetes who was admitted to the ICU with septic shock and respiratory failure to the [facility] service. I am consulted for ventilator management. Patient is currently intubated and sedated at this time so is unable to provide any history. Per ER notes he presented in respiratory distress and was quickly intubated. He was found to be febrile with a leukocytosis and CXR revealed right lung base infiltrate. Subjective/Events-last exam Pt is sedated and intubated at this time. Does not participate in exam. Per RN went in to a-fib with RVR last night. Cardizem ordered per cardiology. Focused Exam Lactate Level 07/30/18 04:05: Lactic Acid Level 2.06*H 07/30/18 06:50: Lactic Acid Level 1.18 Time of Focused Exam: 07:40 Objective Exam Vital Signs Vital Signs Date Time Temp Pulse Resp B/P (MAP) Pulse Ox O2 Delivery O2 Flow Rate FiO2 08/01/18 11:00 101 13 155/52 (86) Mechanical Ventilator 40.00 08/01/18 10:22 96 40 08/01/18 08:00 97.9 Capillary Refill : Less Than 3 Seconds General Appearance: Chronically ill, Other (sedated/intubated) HEENT: Other (OG in place with green output) Respiratory: Decreased Breath Sounds, Other (intubated) Cardiovascular: No Murmur, Normal Peripheral Pulses, Irregularly Irregular, Tachycardia Gastrointestinal: Normal Bowel Sounds, Non Tender, Soft Extremity: No Calf Tenderness, No Pedal Edema Results/Procedures Lab Laboratory Tests 08/01/18 03:35 Patient resulted labs reviewed. Imaging: Reviewed Imaging Report Assessment/Plan Assessment and Plan Assess & Plan/Chief Complaint Septic Shock Critical Care Critical Care: Ventilator Management Diagnosis/Problems Diagnosis/Problems (1) Septic shock Status: Resolved Assessment & Plan: Febrile with leukocytosis RLL infiltrate on CXR on arrival Today's shows worsening edema or infiltrate Lactic acidosis now resolved BP stable without pressors Continue on abx- Cefepime, DC Vanc Blood cultures show contaminant in 1 bottle Sputum growing strep (2) Acute on chronic respiratory failure with hypoxia and hypercapnia Status: Acute Assessment & Plan: Maintain current vent settings Reviewed ABG- shows metabolic acidosis Likely iatrogenic from fluids Will adjust (3) Atrial fibrillation with RVR Assessment & Plan: Cardizem gtt started per cardiology Previously could not tolerate anticoagulation due to bleeding Cardiology consulted, appreciate recs (4) Right lower lobe pneumonia Status: Acute Assessment & Plan: abx as above Flu negative Sputum culture Qualifiers: Pneumonia type: due to unspecified organism Qualified Codes: J18.1 - Lobar pneumonia, unspecified organism (5) Microcytic anemia Assessment & Plan: Hgb 8.0 today, up with transfusion yesterday (6) Tachycardia Status: Acute Assessment & Plan: Cardiology consulted, appreciate recs (7) Hypomagnesemia Status: Acute Assessment & Plan: Resolved (8) Congestive heart failure Status: Acute Assessment & Plan: CXR slightly worse today Will check BNP May need diuresis Cardiology consulted appreciate recs Echo shows EF 55% with diastolic dysfunction Qualifiers: Heart failure type: diastolic Heart failure chronicity: chronic Qualified Codes: I50.32 - Chronic diastolic (congestive) heart failure Clinical Quality Measures DVT/VTE Risk/Contraindication: Risk Factor Score Per Nursin RFS Level Per Nursing on Admit: 4+=Very High JALEEL GARAY MD Jul 31, 2018 7:42 am
[2018-07-31] MEDS: PANTOPRAZOLE 40 MG (PROTONIX) VIAL IV SCH (07:46)
[2018-07-31] MEDS: fentaNYL INJECTION 1,250 MCG in NS (IVPB) 250 ML IV SCH ×2 (07:49→18:36)
[2018-07-31] MEDS: 1/2 NS IV SOLUTION 1,000 ML IV SCH ×2 (07:53→17:44)
[2018-07-31] MEDS: DILTIAZEM IV FOR DRIP 125 MG in NS (IVPB) 100 ML IV SCH (07:55)
--- NOTE | 2018-07-31 14:10 | Progress Note (SOAP) ---
Subjective Subjective/Events-last exam Afebrile, but unable to tolerate weaning trial and had recurrence of atrial fibrillation with RVR this am, requiring cardizem drip. Review of Systems Date Seen by Provider: Jul 31, 2018 Time Seen by Provider: 09:00 Focused Exam Lactate Level 07/29/18 07:40: Lactic Acid Level 2.15*H 07/30/18 04:05: Lactic Acid Level 2.06*H 07/30/18 06:50: Lactic Acid Level 1.18 Time of Focused Exam: 07:40 Objective Exam Last Set of Vital Signs Vital Signs Date Time Temp Pulse Resp B/P (MAP) Pulse Ox O2 Delivery O2 Flow Rate FiO2 07/31/18 13:57 75 22 97 25 07/31/18 13:00 149/44 (79) Mechanical Ventilator 25.00 07/31/18 12:18 99.8 Capillary Refill : Less Than 3 Seconds I&O Intake and Output 07/31/18 00:00 Intake Total 2000 ml Output Total 1790 ml Balance 210 ml Intake Oral 0 ml IV Total 2000 ml Output Urine Total 1690 ml Gastric Drainage Total 100 ml General: Other (sedated and intubated) Lungs: Other (ronchi) Heart: Other (tachcyardic, irregular) Abdomen: Soft Results/Procedures Lab Laboratory Tests 07/30/18 18:08: Glucometer 182H 07/31/18 00:14: Glucometer 119H 07/31/18 03:15: White Blood Count 10.7, Red Blood Count 3.61L, Hemoglobin 8.0#L, Hematocrit 27L , Mean Corpuscular Volume 74L, Mean Corpuscular Hemoglobin 22L, Mean Corpuscular Hemoglobin Concent 30L, Red Cell Distribution Width 18.1H, Platelet Count 174, Mean Platelet Volume 11.7H, Neutrophils (%) (Auto) 78H, Lymphocytes ( %) (Auto) 10L, Monocytes (%) (Auto) 9, Eosinophils (%) (Auto) 3, Basophils (%) ( Auto) 0, Neutrophils # (Auto) 8.3H, Lymphocytes # (Auto) 1.0, Monocytes # (Auto ) 1.0, Eosinophils # (Auto) 0.4H, Basophils # (Auto) 0.0, Blood Gas Puncture Site RT ARTLINE, Blood Gas Patient Temperature 99.8, Arterial Blood pH 7.32*L, Arterial Blood Partial Pressure CO2 40, Arterial Blood Partial Pressure O2 60L, Arterial Blood HCO3 20L, Arterial Blood Total CO2 20.9L, Arterial Blood Oxygen Saturation 88L, Arterial Blood Base Excess -5.2L, Chu Test ART LINE, Blood Gas Ventilator Setting YES, Blood Gas Inspired Oxygen 25%, Sodium Level 137, Potassium Level 3.7, Chloride Level 114H, Carbon Dioxide Level 17L, Anion Gap 6 , Blood Urea Nitrogen 9, Creatinine 0.66, Estimat Glomerular Filtration Rate > 60, BUN/Creatinine Ratio 14, Glucose Level 123H, Calcium Level 7.7L, Corrected Calcium 8.7, Phosphorus Level 2.2L, Magnesium Level 1.9, Total Bilirubin 0.8, Aspartate Amino Transf (AST/SGOT) 15, Alanine Aminotransferase (ALT/SGPT) 16, Alkaline Phosphatase 73, B-Type Natriuretic Peptide 567.2H, Total Protein 6.1L, Albumin 2.7L, Triglycerides Level 87 07/31/18 12:04: Lab Scanned Report Transfusion Reaction Form 07/31/18 12:42: Glucometer 275H 07/31/18 12:55: Glucometer 80 Microbiology 07/29/18 Blood Culture - Preliminary, Resulted No growth 07/29/18 MRSA Screen - Final, Complete MRSA not isolated Radiology CXR 07/29/18 IMPRESSION: Alveolar infiltrate in right lung base compatible with pneumonia. Assessment/Plan Assessment/Plan Assessment & Plan (1) Septic shock Status: Resolved Assessment & Plan: Initially with lactate above 4, pneumonia with respiratory failure. Lactate resolved after 30 ml/kg bolus, no hypotension throughout course. (2) Acute on chronic respiratory failure with hypoxia and hypercapnia Status: Acute Assessment & Plan: Ventilatory management per hospitalist, appreciate assistance. Improved hypoxia but unable to tolerate weaning trial, being evaluated by [facility]. (3) Right lower lobe pneumonia Status: Acute Assessment & Plan: Health care associated with recent nursing facility stay. Started on cefepime and vancomycin. Flu negative. 07/31 d/c vancomycin. Qualifiers: Qualified Codes: J18.1 - Lobar pneumonia, unspecified organism (4) Microcytic anemia Assessment & Plan: Iron studies pending Hgb 6.6 today, transfusion done 07/30 (5) Tachycardia Status: Acute Assessment & Plan: Cardiology consulted, appreciate recs 07/30 recurrent a fib with RVR, cardizem drip started (6) Hypomagnesemia Status: Acute Assessment & Plan: Replaced initially, monitor and replace as necessary (7) Congestive heart failure Status: Acute Assessment & Plan: No evidence of acute failure on admission Cardiology consulted appreciate recs Echo shows EF 55% with diastolic dysfunction, mild aortic stenosis 10/ increasing edema, decrease IVF Qualifiers: Qualified Codes: I50.32 - Chronic diastolic (congestive) heart failure (8) Diabetes mellitus, type 2 Status: Chronic Assessment & Plan: Sliding scale insulin Qualifiers: Qualified Codes: E11.65 - Type 2 diabetes mellitus with hyperglycemia; Z79.4 - shelter (current) use of insulin (9) Atrial fibrillation Status: Chronic Assessment & Plan: cannot tolerate anticoagulation (10) Gastritis Status: Chronic Assessment & Plan: On PPI (11) Hypokalemia Status: Acute Assessment & Plan: Replace and recheck (12) HTN (hypertension) Status: Chronic Assessment & Plan: Labile, monitor closely Qualifiers: Qualified Codes: I10 - Essential (primary) hypertension (13) Cirrhosis Status: Chronic Assessment & Plan: Has been in nursing facility for some time, no concern for EtOH withdrawal. Monitor LFTs. Qualifiers: (14) Nutritional deficiency Status: Acute Assessment & Plan: Dietary consult for tube feedings (15) DVT prophylaxis Status: Acute Assessment & Plan: Unable to tolerate anticoagulation in past due to cirrhosis and bleeding (1) Septic shock Status: Resolved (2) Acute on chronic respiratory failure with hypoxia and hypercapnia Status: Acute (3) Atrial fibrillation with RVR (4) Right lower lobe pneumonia Status: Acute Qualifiers: Qualified Codes: J18.1 - Lobar pneumonia, unspecified organism (5) Microcytic anemia (6) Tachycardia Status: Acute (7) Hypomagnesemia Status: Acute (8) Congestive heart failure Status: Acute Qualifiers: Qualified Codes: I50.32 - Chronic diastolic (congestive) heart failure Clinical Quality Measures DVT/VTE Risk/Contraindication: Risk Factor Score Per Nursin RFS Level Per Nursing on Admit: 4+=Very High RAY SHAFFER MD Jul 31, 2018 14:10
[2018-07-31] MEDS: ACETAMINOPHEN 500 MG TAB (TYLENOL) PO PRN (17:45)
[2018-08-01] VITALS (17 sets, daily range): BP systolic 131–187; BP diastolic 39–58
[2018-08-01] MEDS: inSUlin ASPART (NovoLOG) 1 UNIT/0.01 ML (CHARGE PER UNIT) SC SCH ×2 (00:36→06:09)
[2018-08-01] MEDS: ACETAMINOPHEN 500 MG TAB (TYLENOL) PO PRN (00:37)
[2018-08-01] MEDS: PROPOFOL DRIP (ICU) 100 ML IV SCH ×2 (00:38→08:53)
[2018-08-01] MEDS: RT-ALBUTEROL/IPRATROPIUM 3 ML (DUONEB) VIAL INH SCH ×3 (01:52→10:22)
[2018-08-01] MEDS: CEFEPIME INJECTION 1,000 MG in NS (IVPB) 50 ML IV SCH ×2 (02:17→08:01)
[2018-08-01] MEDS: NOREPINEPHRINE 4 MG in NS (IVPB) 250 ML IV SCH (02:49)
[2018-08-01] MEDS: VASOPRESSIN INJECTION 20 UNIT in NS (IVPB) 100 ML IV SCH ×2 (02:50→11:50)
[2018-08-01 03:51] LABS: BASOPHILS % (AUTO) 0 % (0-10); EOSINOPHILS # (AUTO) 0.3 10^3/uL (0.0-0.3); EOSINOPHILS % (AUTO) 2 % (0-10); HEMATOCRIT 26 % (40-54); HEMOGLOBIN 7.9 G/DL (13.3-17.7); LYMPHOCYTES # (AUTO) 0.8 X 10^3 (1.0-4.0); LYMPHOCYTES % (AUTO) 7 % (12-44); MEAN CORPUSCULAR HEMOGLOBIN 22 PG (25-34); MEAN CORPUSCULAR HGB CONC 30 G/DL (32-36); MEAN CORPUSCULAR VOLUME 74 FL (80-99); MEAN PLATELET VOLUME 10.9 FL (7.4-10.4); MONOCYTES # (AUTO) 1.5 X 10^3 (0.0-1.0); MONOCYTES % (AUTO) 12 % (0-12); NEUTROPHILS # (AUTO) 9.8 X 10^3 (1.8-7.8); NEUTROPHILS % (AUTO) 79 % (42-75); PLATELET COUNT 172 10^3/uL (130-400); RED BLOOD COUNT 3.53 10^6/uL (4.35-5.85); RED CELL DISTRIBUTION WIDTH 18.4 % (10.0-14.5); WHITE BLOOD COUNT 12.4 10^3/uL (4.3-11.0)
[2018-08-01 03:51] LABS: ABG BASE EXCESS -5.3 MMOL/L (-2.5-2.5); ABG OXYGEN SATURATION 83 % (94-100); ABG PCO2 39 MMHG (35-45); ABG PO2 53 MMHG (79-93); ABG TCO2 20.6 MMOL/L (21.0-31.0)
[2018-08-01 03:52] LABS: ABG PH 7.33 (7.37-7.43); ALLENS TEST ARTLINE; INSPIRED O2 25% FIO2; PATIENT TEMP 100.5; VENTILATOR YES
[2018-08-01] MEDS: 1/2 NS IV SOLUTION 1,000 ML IV SCH (03:55)
[2018-08-01 04:08] LABS: ALANINE AMINOTRANSFERASE 14 U/L (0-55); ALBUMIN 2.7 GM/DL (3.2-4.5); ALKALINE PHOSPHATASE 84 U/L (40-136); BILIRUBIN,TOTAL 0.9 MG/DL (0.1-1.0); BUN/CREATININE RATIO 17; CALCIUM 7.5 MG/DL (8.5-10.1); CARBON DIOXIDE 18 MMOL/L (21-32); CHLORIDE 111 MMOL/L (98-107); CREATININE SERUM 0.76 MG/DL (0.60-1.30); GFR ESTIMATED > 60; GLUCOSE 207 MG/DL (70-105); PHOSPHORUS 1.6 MG/DL (2.3-4.7); POTASSIUM 3.7 MMOL/L (3.6-5.0); SODIUM 135 MMOL/L (135-145); TOTAL PROTEIN 5.9 GM/DL (6.4-8.2)
[2018-08-01] MEDS: POTASSIUM CL 10MEQ/50ML IVPB 50 ML IV SCH (04:14)
[2018-08-01] MEDS: KCL 20 MEQ TAB (K-DUR) PO SCH (04:15)
[2018-08-01] MEDS: MAGNESIUM 1 GM/100 ML IVPB 100 ML IV SCH ×3 (04:19→07:40)
[2018-08-01] MEDS: DILTIAZEM IV FOR DRIP 125 MG in NS (IVPB) 100 ML IV SCH (04:20)
[2018-08-01] MEDS: fentaNYL INJECTION 1,250 MCG in NS (IVPB) 250 ML IV SCH (05:07)
[2018-08-01] MEDS ORDERED: meTOprolol 5 MG/5 ML (LOPRESSOR) VIAL IV ONE ×2 (06:00→07:30)
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
--- NOTE | 2018-08-01 07:30 | Diagnostic Imaging Report ---
Indication: Ventilated patient. Respiratory failure. Comparison: 07/31/2018 Findings: Single frontal radiographic view of the chest was obtained and demonstrates indwelling endotracheal tube with tip less than 1 cm above the olivia. Gastric tube tip terminates near the pylorus. Right internal jugular central venous catheter is also seen with tip in the low SVC. There are persistent bibasilar infiltrate appearing opacities. Overall, aeration is stable. No large effusion or pneumothorax is seen. Cardiac silhouette and pulmonary vasculature are stable as well. Bony structures show no acute interval change. Impression: 1. Stable aeration showing bilateral infiltrates. Continued followup is recommended. 2. Lines and tubes as above. Again, endotracheal tube terminates less than 1 cm above the olivia. May want to consider partially withdrawing and reimaging. Dictated by: Dictated on workstation # [id number]
--- NOTE | 2018-08-01 07:31 | Progress Note-Hospitalist ---
Subjective HPI/CC On Admission Date Seen by Provider: Aug 01, 2018 Time Seen by Provider: 07:27 Pt is a 78yoCM with a PMH of emphysema, paroxysmal a-fib, and diabetes who was admitted to the ICU with septic shock and respiratory failure to the [facility] service. I am consulted for ventilator management. Patient is currently intubated and sedated at this time so is unable to provide any history. Per ER notes he presented in respiratory distress and was quickly intubated. He was found to be febrile with a leukocytosis and CXR revealed right lung base infiltrate. Subjective/Events-last exam Pt is sedated and intubated. Unable to participate in ROS. per RN hypertensive overnight. Focused Exam Lactate Level 07/30/18 04:05: Lactic Acid Level 2.06*H 07/30/18 06:50: Lactic Acid Level 1.18 Time of Focused Exam: 07:40 Objective Exam Vital Signs Vital Signs Date Time Temp Pulse Resp B/P (MAP) Pulse Ox O2 Delivery O2 Flow Rate FiO2 08/01/18 11:00 101 13 155/52 (86) Mechanical Ventilator 40.00 08/01/18 10:22 96 40 08/01/18 08:00 97.9 Capillary Refill : Less Than 3 Seconds General Appearance: Chronically ill, Other (sedated, intubated) HEENT: Other (OG in place) Neck: Other Respiratory: Respiratory Distress, Rhonci, Other (intubated) Cardiovascular: No Murmur, Tachycardia Gastrointestinal: Normal Bowel Sounds, Non Tender, Soft Extremity: No Pedal Edema, Other (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 Imaging: Reviewed Imaging Report Assessment/Plan Assessment and Plan Assess & Plan/Chief Complaint Septic Shock Critical Care Critical Care: Ventilator Management Diagnosis/Problems Diagnosis/Problems (1) Septic shock Status: Resolved Assessment & Plan: Leukocytosis trending up slightly today RLL infiltrate on CXR BP elevated today Continue on abx- Cefepime Blood cultures show contaminant in 1 bottle Sputum growing strep pneumo (2) Acute on chronic respiratory failure with hypoxia and hypercapnia Status: Acute Assessment & Plan: Maintain current vent settings Reviewed ABG- shows metabolic acidosis Slightly hypoxemic on minimal oxygen Increase FiO2 is sats drop Accepted by [facility] for vent weaning Plan to transfer this morning (3) Atrial fibrillation with RVR Assessment & Plan: Lopressor added, off cardizem Previously could not tolerate anticoagulation due to bleeding Cardiology consulted, appreciate recs (4) Right lower lobe pneumonia Status: Acute Assessment & Plan: abx as above Flu negative Sputum culture as above Qualifiers: Pneumonia type: due to unspecified organism Qualified Codes: J18.1 - Lobar pneumonia, unspecified organism (5) Microcytic anemia Assessment & Plan: Hgb 7.9 today, up with transfusion yesterday (6) Tachycardia Status: Acute Assessment & Plan: Cardiology consulted, appreciate recs (7) Hypomagnesemia Status: Acute Assessment & Plan: Resolved (8) Congestive heart failure Status: Acute Assessment & Plan: CXR slightly worse today BNP >500 Cardiology consulted appreciate recs Echo shows EF 55% with diastolic dysfunction Qualifiers: Heart failure type: diastolic Heart failure chronicity: chronic Qualified Codes: I50.32 - Chronic diastolic (congestive) heart failure Clinical Quality Measures DVT/VTE Risk/Contraindication: Risk Factor Score Per Nursin RFS Level Per Nursing on Admit: 4+=Very High JALEEL GARAY MD Aug 01, 2018 7:31 am
[2018-08-01] MEDS ORDERED: FUROSEMIDE 40 MG/4 ML INJ (LASIX) IVP NR (07:45)
[2018-08-01] MEDS ORDERED: LORazepam INJ 2 MG/ML (ATIVAN) VIAL ONE (07:50)
[2018-08-01] MEDS ORDERED: LORazepam INJ 2 MG/ML (ATIVAN) VIAL IM/IV PRN (08:00)
[2018-08-01] MEDS ORDERED: LORazepam INJ 2 MG/ML (ATIVAN) VIAL IV PRN (08:00)
[2018-08-01] MEDS ORDERED: LORazepam 1 MG (ATIVAN) TAB PO PRN (08:00)
--- NOTE | 2018-08-01 08:26 | Diagnostic Imaging Report ---
INDICATION: Hypoxia PA chest obtained at 8:06 a.m. and compared with 08/01/2018 at 3:24 a.m. ET tube and right IJ central catheter and NG tube are all unchanged. There is cardiomegaly. There is no change in right basilar infiltrate. There is no change in left basilar infiltrate. There is no pneumothorax. There is a small amount of pleural fluid in the left costophrenic angle. IMPRESSION: Cardiomegaly with central vascular congestion. Bibasilar infiltrates are again noted with small left pleural effusion. Life-support lines are stable. Dictated by: Dictated on workstation # [id number]
[2018-08-01] MEDS: PANTOPRAZOLE 40 MG (PROTONIX) VIAL IV SCH (08:52)
--- NOTE | 2018-08-01 10:19 | Discharge Summary ---
Diagnosis/Chief Complaint Date of Admission Jul 29, 2018 at 07:44 Date of Discharge Aug 01, 2018 Admission Diagnosis Admission Diagnosis (1) Right lower lobe pneumonia Status: Acute Qualifiers: Qualified Codes: J18.1 - Lobar pneumonia, unspecified organism (2) Acute on chronic respiratory failure with hypoxia and hypercapnia Status: Acute (3) Septic shock Status: Acute (4) Tachycardia Status: Acute (5) Gastritis Status: Chronic (6) Hypomagnesemia Status: Acute (7) COPD (chronic obstructive pulmonary disease) Status: Chronic (8) Chronic anemia Status: Chronic (9) HTN (hypertension) Status: Chronic Qualifiers: Qualified Codes: I10 - Essential (primary) hypertension (10) Cirrhosis Status: Chronic (11) Atrial fibrillation Status: Chronic (12) Diabetes mellitus, type 2 Qualifiers: Qualified Codes: E11.65 - Type 2 diabetes mellitus with hyperglycemia; 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 Lactate resolved after 30 ml/kg bolus, no hypotension throughout course. (2) Acute on chronic respiratory failure with hypoxia and hypercapnia Status: Acute Assessment & Plan: Ventilatory management per hospitalist, appreciate assistance. Improved hypoxia but unable to tolerate weaning trial, transferred to [facility] for further weaning attempts or skilled nursing ventilation plan. (3) Right lower lobe pneumonia Status: Acute Assessment & Plan: Health care associated with recent nursing facility stay. Started on cefepime and vancomycin. Flu negative. 07/31 d/c vancomycin. Sputum culture with strep pneumo. Qualifiers: Qualified Codes: J18.1 - Lobar pneumonia, unspecified organism (4) Microcytic anemia Assessment & Plan: Iron studies pending Hgb 6.6 07/30 transfusion done 07/30 (5) Tachycardia Status: Acute Assessment & Plan: Cardiology consulted, appreciate recs 07/30 recurrent a fib with RVR, cardizem drip started 08/01 on IV metoprolol intermittent dosing on day of d/c. (6) Hypomagnesemia Status: Acute Assessment & Plan: Replaced initially, monitored and replaced as necessary (7) Congestive heart failure Status: Acute Assessment & Plan: No evidence of acute failure on admission Cardiology consulted appreciate recs Echo shows EF 55% with diastolic dysfunction, mild aortic stenosis 07/31 increasing edema, decreased IVF 08/01 20 mg IV lasix given Qualifiers: Qualified Codes: I50.32 - Chronic diastolic (congestive) heart failure (8) Diabetes mellitus, type 2 Status: Chronic Assessment & Plan: Sliding scale insulin Qualifiers: Qualified Codes: E11.65 - Type 2 diabetes mellitus with hyperglycemia; Z79.4 - alf (current) use of insulin (9) Atrial fibrillation Status: Chronic Assessment & Plan: cannot tolerate anticoagulation (10) Gastritis Status: Chronic Assessment & Plan: On PPI (11) Hypokalemia Status: Acute Assessment & Plan: Replaced (12) HTN (hypertension) Status: Chronic Assessment & Plan: Labile, monitor closely Qualifiers: Qualified Codes: I10 - Essential (primary) hypertension (13) Cirrhosis Status: Chronic Assessment & Plan: Has been in nursing facility for some time, no concern for EtOH withdrawal. Monitor LFTs. Qualifiers: (14) Nutritional deficiency Status: Acute Assessment & Plan: Dietary consult for tube feedings Chief Complaint/HPI Chief Complaint/HPI 78 yo male sent from nursing facility with hypoxia. Intubated in ER, unable to obtain further history. Discharge Summary-Simple/Stand Consultations Discharge Physical Examination Allergies: Coded Allergies: albuterol (Verified Allergy, Unknown, PATIENT TAKES AT HOME, SHORTNESS OF BREATH, 04/15/18) atenolol (Verified Allergy, Unknown, HAS RECEIVED METOPROLOL IN THE PAST, 08/20/16) haloperidol (Verified Allergy, Unknown, 01/04/14) Vitals & I&Os Vital Sign - Last 12Hours Date Time Temp Pulse Resp B/P (MAP) Pulse Ox O2 Delivery O2 Flow Rate FiO2 08/01/18 08:53 181/58 08/01/18 08:10 101 19 91 40 08/01/18 08:00 79.9 08/01/18 08:00 Mechanical Ventilator 40.00 Intake and Output 08/01/18 00:00 Intake Total 1230 ml Output Total 665 ml Balance 565 ml General Appearance: Other (sedated and intubated) Respiratory: Clear to Auscultation Cardiovascular: Regular Rate, No Murmurs Abdominal: Other (distended, hypoactive bowel sounds) Hospital Course See final discharge diagnosis. Labs Laboratory Tests Test 07/30/18 18:08 07/31/18 00:14 07/31/18 03:15 07/31/18 12:04 Range/Units Glucometer 182 H 119 H 70-110 MG/DL White Blood Count 10.7 4.3-11.0 10^3/uL Red Blood Count 3.61 L 4.35-5.85 10^6/uL Hemoglobin 8.0 #L 13.3-17.7 G/DL Hematocrit 27 L 40-54 % Mean Corpuscular Volume 74 L 80-99 FL Mean Corpuscular Hemoglobin 22 L 25-34 PG Mean Corpuscular Hemoglobin Concent 30 L 32-36 G/DL Red Cell Distribution Width 18.1 H 10.0-14.5 % Platelet Count 174 130-400 10^3/uL Mean Platelet Volume 11.7 H 7.4-10.4 FL Neutrophils (%) (Auto) 78 H 42-75 % Lymphocytes (%) (Auto) 10 L 12-44 % Monocytes (%) (Auto) 9 0-12 % Eosinophils (%) (Auto) 3 0-10 % Basophils (%) (Auto) 0 0-10 % Neutrophils # (Auto) 8.3 H 1.8-7.8 X 10^3 Lymphocytes # (Auto) 1.0 1.0-4.0 X 10^3 Monocytes # (Auto) 1.0 0.0-1.0 X 10^3 Eosinophils # (Auto) 0.4 H 0.0-0.3 10^3/uL Basophils # (Auto) 0.0 0.0-0.1 10^3/uL Blood Gas Puncture Site RT ARTLINE Blood Gas Patient Temperature 99.8 Arterial Blood pH 7.32 *L 7.37-7.43 Arterial Blood Partial Pressure CO2 40 35-45 MMHG Arterial Blood Partial Pressure O2 60 L 79-93 MMHG Arterial Blood HCO3 20 L 23-27 MMOL/L Arterial Blood Total CO2 20.9 L 21.0-31.0 MMOL/L Arterial Blood Oxygen Saturation 88 L 94-100 % Arterial Blood Base Excess -5.2 L -2.5-2.5 MMOL/L Chu Test ART LINE Blood Gas Ventilator Setting YES Blood Gas Inspired Oxygen 25% Sodium Level 137 135-145 MMOL/L Potassium Level 3.7 3.6-5.0 MMOL/L Chloride Level 114 H 98-107 MMOL/L Carbon Dioxide Level 17 L 21-32 MMOL/L Anion Gap 6 5-14 MMOL/L Blood Urea Nitrogen 9 7-18 MG/DL Creatinine 0.66 0.60-1.30 MG/DL Estimat Glomerular Filtration Rate > 60 BUN/Creatinine Ratio 14 Glucose Level 123 H 70-105 MG/DL Calcium Level 7.7 L 8.5-10.1 MG/DL Corrected Calcium 8.7 8.5-10.1 MG/DL Phosphorus Level 2.2 L 2.3-4.7 MG/DL Magnesium Level 1.9 1.8-2.4 MG/DL Total Bilirubin 0.8 0.1-1.0 MG/DL Aspartate Amino Transf (AST/SGOT) 15 5-34 U/L Alanine Aminotransferase (ALT/SGPT) 16 0-55 U/L Alkaline Phosphatase 73 40-136 U/L B-Type Natriuretic Peptide 567.2 H <100.0 PG/ML Total Protein 6.1 L 6.4-8.2 GM/DL Albumin 2.7 L 3.2-4.5 GM/DL Triglycerides Level 87 <150 MG/DL Lab Scanned Report Transfusion Reaction Form [id number] Test 07/31/18 12:42 07/31/18 12:55 07/31/18 17:53 08/01/18 00:24 Range/Units Glucometer 275 H 80 182 H 203 H 70-110 MG/DL Test 08/01/18 03:35 08/01/18 03:45 Range/Units White Blood Count 12.4 H 4.3-11.0 10^3/uL Red Blood Count 3.53 L 4.35-5.85 10^6/uL Hemoglobin 7.9 L 13.3-17.7 G/DL Hematocrit 26 L 40-54 % Mean Corpuscular Volume 74 L 80-99 FL Mean Corpuscular Hemoglobin 22 L 25-34 PG Mean Corpuscular Hemoglobin Concent 30 L 32-36 G/DL Red Cell Distribution Width 18.4 H 10.0-14.5 % Platelet Count 172 130-400 10^3/uL Mean Platelet Volume 10.9 H 7.4-10.4 FL Neutrophils (%) (Auto) 79 H 42-75 % Lymphocytes (%) (Auto) 7 L 12-44 % Monocytes (%) (Auto) 12 0-12 % Eosinophils (%) (Auto) 2 0-10 % Basophils (%) (Auto) 0 0-10 % Neutrophils # (Auto) 9.8 H 1.8-7.8 X 10^3 Lymphocytes # (Auto) 0.8 L 1.0-4.0 X 10^3 Monocytes # (Auto) 1.5 H 0.0-1.0 X 10^3 Eosinophils # (Auto) 0.3 0.0-0.3 10^3/uL Basophils # (Auto) 0.0 0.0-0.1 10^3/uL Sodium Level 135 135-145 MMOL/L Potassium Level 3.7 3.6-5.0 MMOL/L Chloride Level 111 H 98-107 MMOL/L Carbon Dioxide Level 18 L 21-32 MMOL/L Anion Gap 6 5-14 MMOL/L Blood Urea Nitrogen 13 7-18 MG/DL Creatinine 0.76 0.60-1.30 MG/DL Estimat Glomerular Filtration Rate > 60 BUN/Creatinine Ratio 17 Glucose Level 207 H 70-105 MG/DL Calcium Level 7.5 L 8.5-10.1 MG/DL Corrected Calcium 8.5 8.5-10.1 MG/DL Phosphorus Level 1.6 L 2.3-4.7 MG/DL Magnesium Level 2.0 1.8-2.4 MG/DL Total Bilirubin 0.9 0.1-1.0 MG/DL Aspartate Amino Transf (AST/SGOT) 16 5-34 U/L Alanine Aminotransferase (ALT/SGPT) 14 0-55 U/L Alkaline Phosphatase 84 40-136 U/L Total Protein 5.9 L 6.4-8.2 GM/DL Albumin 2.7 L 3.2-4.5 GM/DL Blood Gas Puncture Site RIGHT RADIAL ART LADI Blood Gas Patient Temperature 100.5 Arterial Blood pH 7.33 *L 7.37-7.43 Arterial Blood Partial Pressure CO2 39 35-45 MMHG Arterial Blood Partial Pressure O2 53 L 79-93 MMHG Arterial Blood HCO3 19 L 23-27 MMOL/L Arterial Blood Total CO2 20.6 L 21.0-31.0 MMOL/L Arterial Blood Oxygen Saturation 83 L 94-100 % Arterial Blood Base Excess -5.3 L -2.5-2.5 MMOL/L Chu Test ARTLINE Blood Gas Ventilator Setting YES Blood Gas Inspired Oxygen 25% FIO2 Radiology Reviewed CXR 07/29/18 IMPRESSION: Alveolar infiltrate in right lung base compatible with pneumonia. Discharge Condition at discharge Transferred to personal lines sales executive acute care Instructions to patient/family Please see electronic discharge instructions given to patient. Discharge Medications Reviewed and agree with Discharge Medication list on patient's Discharge Instruction sheet Clinical Quality Measures DVT/VTE Risk/Contraindication: Risk Factor Score Per Nursin RFS Level Per Nursing on Admit: 4+=Very High RAY SHAFFER MD Aug 01, 2018 10:19 am
[2018-08-01] MEDS ORDERED: meTOprolol 5 MG/5 ML (LOPRESSOR) VIAL IV SCH (12:00)
== END 2018-08-01 12:00 | DRG 871 ==
LOC: EDUNIT# 05:09 → ER 05:10 → ICU 07:44
PROVIDERS: ADMIT Family Medicine; ATTEND Family Medicine
PROC: 5A1945Z Respiratory Ventilation, 24-96 Consecutive Hours (ICD-10-PCS; principal; 2018-07-29)
DX: A41.9 Sepsis, unspecified organism (principal); R65.21 Severe sepsis with septic shock; J13 Pneumonia due to Streptococcus pneumoniae; J96.21 Acute and chronic respiratory failure with hypoxia; J96.22 Acute and chronic respiratory failure with hypercapnia; I11.0 Hypertensive heart disease with heart failure; I50.32 Chronic diastolic (congestive) heart failure; D63.8 Anemia in other chronic diseases classified elsewhere; J43.9 Emphysema, unspecified; E11.42 Type 2 diabetes mellitus with diabetic polyneuropathy; E11.65 Type 2 diabetes mellitus with hyperglycemia; I27.20 Pulmonary hypertension, unspecified; I48.0 Paroxysmal atrial fibrillation; I25.10 Atherosclerotic heart disease of native coronary artery without angina pectoris; E83.42 Hypomagnesemia; E87.6 Hypokalemia; K21.9 Gastro-esophageal reflux disease without esophagitis; K70.30 Alcoholic cirrhosis of liver without ascites; K29.50 Unspecified chronic gastritis without bleeding; Z79.4 Long term (current) use of insulin; Z87.891 Personal history of nicotine dependence
CPT/HCPCS: 36415; 36600; 51702; 71045; 80053; 80061; 80162; 82728; 82805; 82962; 83540; 83605; 83735; 83874; 83880; 84100; 84478; 84484; 85007; 85025; 85027; 85610; 85730; 86141; 86850; 86900; 86901; 86920; 87040; 87070; 87077; 87081; 87181; 87184; 87205; 87804; 93005; 93041; 93306; 94002; 94003; 94640; 94799; 96361; 96365; 96367; 96368; 96375